=== PATIENT | female | born 1960 | race Caucasian/White ===

== ENCOUNTER → 2017-11-02 08:00 | Outpatient (REF) | payer BC, SELFPAY ==
[2017-10-12 01:54] VITALS: BMI 58.1
[2017-10-16 00:19] VITALS: PULSE 87; RESP 24; O2SAT 100
[2017-11-02 08:26] LABS: Basophils Percent Auto 0.8 % (0-2); Eosinophils Percent Auto 3.1 % (2-4); Hemoglobin 10.9 g/dL (12.0-16.0); Lymphocytes Percent Auto 23.6 % (25-40); Mean Corpuscular HGB Conc 34.1 % (30-36); Mean Corpuscular Hemoglobin 38.4 PG (26-34); Mean Corpuscular Volume 112.5 fL (80-100); Monocytes Percent Auto 8.1 % (3-14); Neutrophils Absolute Auto 8200 /uL (3000-5900); Neutrophils Percent Auto 64.4 % (50-75); Platelet Count 562 X10^3/uL (150-400); Red Blood Cell Count 2.84 X10^6/uL (4.0-5.2); Red Cell Distribution Width 20.2 % (11.6-14.8); White Blood Cell Count 12.7 X10^3/uL (4.5-11.0)
[2017-11-02 08:27] LABS: Add Manual Diff / Slide Review NO
[2017-11-02 08:38] LABS: Alanine Aminotransferase 31 IU/L (9-52); Albumin 4.2 g/dL (3.5-5.0); Albumin Globulin Ratio 0.9 (1.0-2.8); Alkaline Phosphatase 156 U/L (38-126); Aspartate Aminotransferase 45 IU/L (14-36); BUN Creatinine Ratio 20.6 (6-22); Bilirubin Total 1.1 mg/dL (0.2-1.3); Calcium 9.7 mg/dL (8.4-10.2); Estimated Glomerular Filt Rate 28.9 mL/min (>60); Globulin 4.6 g/dL (1.7-4.1); Glucose 109 mg/dL (70-100); HEMOLYSIS < 15 (0-50); Potassium 3.5 mmol/L (3.4-5.1); Sodium 133 mmol/L (137-145); Total Protein 8.8 g/dL (6.3-8.2)
[2017-11-02 08:49] LABS: INR 3.7 (0.9-1.3); Prothrombin Time 39.7 SECONDS (10.1-12.7)
[2017-11-02 09:47] LABS: Anisocytosis 2+
[2017-11-02 09:48] LABS: Macrocytosis 2+
== END ==
LOC: LAB 08:00
PROVIDERS: Family Provider Internal Medicine; PCP Internal Medicine; Visit Provider Internal Medicine
DX: I50.9 Heart failure, unspecified (principal); I48.91 Unspecified atrial fibrillation; N17.9 Acute kidney failure, unspecified
CPT/HCPCS: 36415; 80053; 85025; 85610

== ENCOUNTER → 2017-11-05 16:41 | Outpatient (REF) | payer BC, SELFPAY ==
[2017-10-12 01:54] VITALS: BMI 58.1
[2017-10-16 00:19] VITALS: PULSE 87; RESP 24; O2SAT 100
[2017-11-05 16:48] LABS: INR 1.7 (0.9-1.3); Prothrombin Time 18.3 SECONDS (10.1-12.7)
== END ==
LOC: LAB 16:41
PROVIDERS: Family Provider Internal Medicine; PCP Internal Medicine; Visit Provider Internal Medicine
DX: I48.91 Unspecified atrial fibrillation (principal)
CPT/HCPCS: 85610

== ENCOUNTER → 2017-11-07 08:53 | Outpatient (REF) | payer BC, SELFPAY ==
[2017-10-12 01:54] VITALS: BMI 58.1
[2017-10-16 00:19] VITALS: PULSE 87; RESP 24; O2SAT 100
[2017-11-07 11:10] LABS: INR 1.5 (0.9-1.3); Prothrombin Time 15.9 SECONDS (10.1-12.7)
== END ==
LOC: LAB 08:53
PROVIDERS: Family Provider Internal Medicine; PCP Internal Medicine; Visit Provider Internal Medicine
DX: I48.91 Unspecified atrial fibrillation (principal)
CPT/HCPCS: 36415; 85610

== ENCOUNTER → 2017-11-09 07:44 | Outpatient (REF) | payer BC, SELFPAY ==
[2017-10-12 01:54] VITALS: BMI 58.1
[2017-10-16 00:19] VITALS: PULSE 87; RESP 24; O2SAT 100
[2017-11-09 09:08] LABS: Digoxin 1.2 ng/mL (0.8-2.0)
== END ==
LOC: LAB 07:44
PROVIDERS: Family Provider Internal Medicine; PCP Internal Medicine; Visit Provider Internal Medicine
DX: I48.91 Unspecified atrial fibrillation (principal); Z79.899 Other long term (current) drug therapy
CPT/HCPCS: 36415; 80162

== ENCOUNTER → 2017-11-12 09:05 | Outpatient (REF) | payer BC, SELFPAY ==
[2017-10-12 01:54] VITALS: BMI 58.1
[2017-10-16 00:19] VITALS: PULSE 87; RESP 24; O2SAT 100
[2017-11-12 09:40] LABS: INR 2.6 (0.9-1.3); Prothrombin Time 27.5 SECONDS (10.1-12.7)
[2017-11-12 09:46] LABS: HEMOLYSIS < 15 (0-50)
[2017-11-12 09:47] LABS: BUN Creatinine Ratio 23.9 (6-22); Blood Urea Nitrogen 43 mg/dL (7-17); Carbon Dioxide 37 mmol/L (22-32); Estimated Glomerular Filt Rate 28.9 mL/min (>60); Glucose 115 mg/dL (70-100); Potassium 3.5 mmol/L (3.4-5.1); Sodium 126 mmol/L (137-145)
[2017-11-12 09:56] LABS: Add Manual Diff / Slide Review NO; Basophils Percent Auto 0.6 % (0-2); Eosinophils Percent Auto 0.9 % (2-4); Hematocrit 34.5 % (36-46); Hemoglobin 12.1 g/dL (12.0-16.0); Lymphocytes Percent Auto 21.3 % (25-40); Mean Corpuscular Volume 105.8 fL (80-100); Monocytes Percent Auto 6.5 % (3-14); Neutrophils Absolute Auto 11400 /uL (3000-5900); Neutrophils Percent Auto 70.7 % (50-75); Platelet Count 409 X10^3/uL (150-400); Red Blood Cell Count 3.26 X10^6/uL (4.0-5.2); Red Cell Distribution Width 19.9 % (11.6-14.8); White Blood Cell Count 16.1 X10^3/uL (4.5-11.0)
[2017-11-12 11:38] LABS: Chloride 73 mmol/L (98-107)
== END ==
LOC: LAB 09:05
PROVIDERS: Family Provider Internal Medicine; PCP Internal Medicine; Visit Provider Internal Medicine
DX: N19 Unspecified kidney failure (principal); D72.829 Elevated white blood cell count, unspecified
CPT/HCPCS: 80048; 85025; 85610

== ENCOUNTER → 2018-05-16 14:51 | Outpatient (REF) | payer BC, SELFPAY ==
[2017-10-12 01:54] VITALS: BMI 58.1
[2017-10-16 00:19] VITALS: PULSE 87; RESP 24; O2SAT 100
[2018-05-16 15:18] LABS: BUN Creatinine Ratio 17.5 (6-22); Blood Urea Nitrogen 14 mg/dL (7-17); Calcium 9.6 mg/dL (8.4-10.2); Carbon Dioxide 29 mmol/L (22-32); Chloride 101 mmol/L (98-107); Estimated Glomerular Filt Rate > 60.0 mL/min (>60); Glucose 103 mg/dL (70-100); HEMOLYSIS < 15 (0-50); Potassium 4.2 mmol/L (3.4-5.1); Sodium 141 mmol/L (137-145)
== END ==
LOC: LAB 14:51
PROVIDERS: Family Provider Internal Medicine; PCP Internal Medicine; Visit Provider Internal Medicine
DX: E11.9 Type 2 diabetes mellitus without complications (principal); I48.2 Chronic atrial fibrillation
CPT/HCPCS: 80048

== ENCOUNTER → 2018-08-20 11:27 | Outpatient (CLI) | payer BC, SELFPAY ==
[2017-10-12 01:54] VITALS: BMI 58.1
[2017-10-16 00:19] VITALS: PULSE 87; RESP 24; O2SAT 100
--- NOTE | 2018-08-20 | DI.MG.S_ITS ---
BILATERAL DIGITAL SCREENING MAMMOGRAM 3D/2D WITH CAD: 08/20/2018 CLINICAL: Routine screening. Family history of breast cancer. Comparison is made to exams dated: 04/22/2011 mammogram and 10/28/2009 mammogram - [facility]. There are scattered fibroglandular elements in both breasts. Current study was also evaluated with a Computer Aided Detection (CAD) system. No significant masses, calcifications, or other findings are seen in either breast. There has been no significant interval change. IMPRESSION: NEGATIVE There is no mammographic evidence of malignancy. A 1 year screening mammogram is recommended. This exam was interpreted at Station ID: [id number]. NOTE: For mammograms, a report in lay terms will be sent to the patient. Approximately 15% of breast malignancies will not be visualized mammographically. In the management of a palpable breast mass, a negative mammogram must not discourage biopsy of a clinically suspicious lesion. Electronically Signed By: Tati [email or web address]/isma:08/20/2018 12:06:42 copy to: Ivette Horvath letter sent: Normal Exam ACR BI-RADS Category 1: Negative 3341F
== END ==
PROVIDERS: Family Provider Internal Medicine; PCP Internal Medicine; Visit Provider Internal Medicine
DX: Z12.31 Encounter for screening mammogram for malignant neoplasm of breast (principal); Z80.3 Family history of malignant neoplasm of breast
CPT/HCPCS: 77063; 77067

== ENCOUNTER 2019-08-05 06:30 | Day surgery (SDC) | payer MEDICARE, BC, SELFPAY ==
[2017-10-12 01:54] VITALS: BMI 58.1
[2017-10-16 00:19] VITALS: PULSE 87; RESP 24; O2SAT 100
[2019-08-04 12:28] VITALS: BMI 44.6
[2019-08-05 07:09] VITALS: BMI 44.6
[2019-08-05 07:14] VITALS: BP 139/89; PULSE 60; RESP 15; TEMP 36.8; O2SAT 60
[2019-08-05] MEDS: LACTATED RINGERS 1,000 ML 42 ML IV (07:29)
--- NOTE | 2019-08-05 09:03 | SUR.PREOP ---
Dr. Salamanca at bedside, notified patient took Eliquis today. Surgery cancelled per MD. Patient notified and agreeable. IV discontinued. Patient dressed independently.
== END 2019-08-05 07:00 | disposition home or self-care (01) ==
PROVIDERS: Family Provider Internal Medicine; PCP Internal Medicine; Referring Provider Surgery; Visit Provider Surgery
DX: K43.9 Ventral hernia without obstruction or gangrene (principal); Z53.09 Procedure and treatment not carried out because of other contraindication
CPT/HCPCS: 49652; J0330; J1100; J2250; J2405; J2704; J3010

== ENCOUNTER 2019-08-12 06:25 | Day surgery (SDC) | payer BC, MEDICARE, SELFPAY ==
[2017-10-12 01:54] VITALS: BMI 58.1
[2017-10-16 00:19] VITALS: PULSE 87; RESP 24; O2SAT 100
[2019-08-07 15:14] VITALS: BMI 44.6
[2019-08-12] VITALS (15 sets, daily range): BP systolic 129–188; BP diastolic 77–109; PULSE 60–81; RESP 10–20; TEMP 36–36.8; O2SAT 92–100; BMI 44.6
[2019-08-12] MEDS: LACTATED RINGERS 1,000 ML 100 ML IV ×2 (07:23→08:42)
--- NOTE | 2019-08-12 07:36 | PM.PREOP ---
Pre-operative Note Interval Note History & Physical reviewed/Exam performed by Physician: Yes Changes to H&P: No
[2019-08-12] MEDS: CEFAZOLIN 2 GM/100 ML FROZ.PIGGY IV (07:44)
--- NOTE | 2019-08-12 08:09 | SUR.OPER ---
Supine on padded OR bed, head on pillow, safety belt at thigh, left arm padded and tucked at side. Right arm secured on padded arm oard <90 degrees abduction. Legs uncrossed. Padded footboard in place. Tape over blanket to secure lower legs.
[2019-08-12] MEDS: BUPIVACAINE 0.25% (PF) VIAL 30 ML INJ (08:29)
--- NOTE | 2019-08-12 09:42 | PM.OP.1 ---
Operative Date/Time/Diagnoses Date of procedure: 08/12/19 Time of procedure: 09:42 Pre-op diagnosis: Ventral hernia Post-op diagnosis: same Procedure & Clinicians Procedure: Laparoscopic ventral hernia repair with mesh Same procedure as scheduled: Yes Indications: Symptomatic ventral hernia Surgeon: Ney Salamanca Anesthesia Type: General Operative Notes Findings: A Grenadian-cheese ventral hernia defect of approximately 15 x 15 cm Specimen(s): none sent Estimated Blood Loss (mL): 15 Procedure in detail: Patient was brought to the operating room placed supine on the table. Bilateral lower extremity compression devices were applied. They received Ancef prior to skin incision. General anesthesia was induced and she was intubated with an endotracheal tube. A cutdown technique was used in the left upper quadrant. Incision was made the subcutaneous tissues were divided and the fascia was identified grasped and incised sharply. The abdomen was entered atraumatically. 12 mm balloon trocar was then placed in the abdomen. Pneumoperitoneum was established. Two 5 mm working ports were placed along the left side of the abdomen. The hernia was identified in the midline and incarcerated omentum was then reduced into the abdomen out of the hernia defect. The hernia defect was Grenadian cheese in appearance and the extent of it measured with spinal needles was 15 x 20 cm. A 25 cm x 20 cm mesh was then selected provide adequate overlap in all directions. Ethibond 0 suture was secured to all 4 quadrants. These were then clipped using the clip mechanical supervisor and then the mesh was rolled snugly and then placed into the abdomen. The sutures were then grasped and elevated using Collin Silva device beginning with the skin superior most suture moving clockwise. The mesh was then suspended over the hernia defect and the sutures were tied. Mesh was then tacked circumferentially with the AbsorbaTack. Hemostasis was inspected. The abdomen was desufflated, the anterior fascia of the 10 mm trocar site was closed with [id number] 0 Vicryl suture. The skin incisions were closed with 4 0 Monocryl followed by the application of Dermabond. Complications: none Post-operative Condition: stable Disposition: same day surgery
[2019-08-12] MEDS: fentaNYL 100 MCG/2 ML INJ IV ×4 (09:55→11:15)
--- NOTE | 2019-08-12 10:05 | SUR.PHASEI ---
Gave ondanestron for c/o nausea and IV fentanyl for c/o pain. BG 146. Surgical sites CDI.
[2019-08-12] MEDS: OXYCODONE/ACETAMINOPHEN 5/325 TABLET 1 TAB PO ×2 (10:27→11:22)
[2019-08-12] MEDS: ONDANSETRON 4 MG/2 ML INJ IV (10:37)
--- NOTE | 2019-08-12 11:44 | SUR.PHASEI ---
Notified Dr Jennings patient is very hypertensive. Patient stated that she cut back on her BP medication and will take remaining amount when she gets home. Patient BP on admit was high at 174/101.
[2019-08-12] MEDS: METOCLOPRAMIDE 10 MG/2 ML INJ IV (12:17)
--- NOTE | 2019-08-12 12:24 | SUR.PHASEII ---
Assumed care from Emily. Pt now nauseated, Dr. Jennings made aware, order for Reglan recieved, pt medicated. Pt then needing to go to [facility], steady when up with S[facility].
== END 2019-08-12 13:00 | disposition home or self-care (01) ==
PROVIDERS: Family Provider Internal Medicine; PCP Internal Medicine; Referring Provider Surgery; Visit Provider Surgery
PROC: 0WQF4ZZ Repair Abdominal Wall, Percutaneous Endoscopic Approach (ICD-10-PCS; CPT 49652; principal; 2019-08-12 07:45)
DX: K43.9 Ventral hernia without obstruction or gangrene (principal)
CPT/HCPCS: 49652; C1781; J0690; J2405; J2765; J3010

== ENCOUNTER → 2020-08-18 08:19 | Outpatient (CLI) | payer BC, MEDICARE, SELFPAY ==
[2017-10-12 01:54] VITALS: BMI 58.1
[2017-10-16 00:19] VITALS: PULSE 87; RESP 24; O2SAT 100
--- NOTE | 2020-08-18 08:24 | DI.MG.S_ITS ---
BILATERAL DIGITAL SCREENING MAMMOGRAM 3D/2D WITH CAD: 08/18/2020 CLINICAL: Routine screening. Family history of breast cancer. Comparison is made to exams dated: 08/20/2018 mammogram, 04/22/2011 mammogram, and 10/28/2009 mammogram - [facility]. There are scattered fibroglandular elements in both breasts. Current study was also evaluated with a Computer Aided Detection (CAD) system. No significant masses, calcifications, or other findings are seen in either breast. There has been no significant interval change. IMPRESSION: NEGATIVE There is no mammographic evidence of malignancy. A 1 year screening mammogram is recommended. This exam was interpreted at Station ID: [id number]. NOTE: For mammograms, a report in lay terms will be sent to the patient. Approximately 15% of breast malignancies will not be visualized mammographically. In the management of a palpable breast mass, a negative mammogram must not discourage biopsy of a clinically suspicious lesion. Electronically Signed By: Rene Thacker M.D., jr/isma:08/18/2020 08:45:10 copy to: Ivette Horvath letter sent: Normal Exam ACR BI-RADS Category 1: Negative 3341F
== END ==
PROVIDERS: Family Provider Internal Medicine; PCP Internal Medicine; Referring Provider Internal Medicine; Visit Provider Internal Medicine
DX: Z12.31 Encounter for screening mammogram for malignant neoplasm of breast (principal); Z80.3 Family history of malignant neoplasm of breast
CPT/HCPCS: 77063; 77067

== ENCOUNTER → 2020-08-18 08:51 | Outpatient (CLI) | payer BC, MEDICARE, SELFPAY ==
[2017-10-12 01:54] VITALS: BMI 58.1
[2017-10-16 00:19] VITALS: PULSE 87; RESP 24; O2SAT 100
[2020-08-18 09:39] LABS: BUN Creatinine Ratio 16.3 (6-22); Blood Urea Nitrogen 15 mg/dL (7-17); Calcium 9.7 mg/dL (8.4-10.2); Carbon Dioxide 35 mmol/L (22-32); Chloride 91 mmol/L (98-107); Estimated Glomerular Filt Rate > 60.0 mL/min (>60); Glucose 143 mg/dL (80-110); HEMOLYSIS < 15 (0-50); Potassium 3.2 mmol/L (3.4-5.1); Sodium 134 mmol/L (137-145)
== END ==
PROVIDERS: Family Provider Internal Medicine; PCP Internal Medicine; Referring Provider Internal Medicine Cardiovascular Disease; Visit Provider Internal Medicine Cardiovascular Disease
DX: I48.91 Unspecified atrial fibrillation (principal); I10 Essential (primary) hypertension
CPT/HCPCS: 36415; 80048

== ENCOUNTER → 2020-09-03 08:16 | Outpatient (CLI) | payer BC, MEDICARE, SELFPAY ==
[2017-10-12 01:54] VITALS: BMI 58.1
[2017-10-16 00:19] VITALS: PULSE 87; RESP 24; O2SAT 100
[2020-09-03] MEDS: COVID-19 VACC #1, MRNA(MOD) 100 MCG/0.5 ML VIAL IM (08:29)
== END ==
PROVIDERS: Family Provider Internal Medicine; PCP Internal Medicine; Visit Provider Internal Medicine
DX: Z23 Encounter for immunization (principal)
CPT/HCPCS: 0011A; 91301

== ENCOUNTER → 2020-10-01 09:56 | Outpatient (CLI) | payer BC, MEDICARE, SELFPAY ==
[2017-10-12 01:54] VITALS: BMI 58.1
[2017-10-16 00:19] VITALS: PULSE 87; RESP 24; O2SAT 100
[2020-10-01] MEDS: COVID-19 VACC #2, MRNA(MOD) 100 MCG/0.5 ML VIAL IM (10:06)
== END ==
PROVIDERS: Family Provider Internal Medicine; PCP Internal Medicine; Visit Provider Internal Medicine
DX: Z23 Encounter for immunization (principal)
CPT/HCPCS: 0012A; 91301

== ENCOUNTER → 2021-03-16 10:35 | Outpatient (CLI) | payer MEDICARE, SELFPAY ==
[2017-10-12 01:54] VITALS: BMI 58.1
[2017-10-16 00:19] VITALS: PULSE 87; RESP 24; O2SAT 100
[2021-03-16 14:53] LABS: COVID19 -Nasal RAPID Negative (Negative)
== END ==
PROVIDERS: Family Provider Internal Medicine; PCP Internal Medicine; Visit Provider Obstetrics & Gynecology
DX: Z20.822 Contact with and (suspected) exposure to COVID-19 (principal); Z01.812 Encounter for preprocedural laboratory examination
CPT/HCPCS: 87635

== ENCOUNTER 2021-03-17 09:04 | Day surgery (SDC) | payer MEDICARE, SELFPAY ==
[2017-10-12 01:54] VITALS: BMI 58.1
[2017-10-16 00:19] VITALS: PULSE 87; RESP 24; O2SAT 100
[2021-03-09 08:03] VITALS: BMI 45.4
[2021-03-17] VITALS (7 sets, daily range): BP systolic 88–121; BP diastolic 59–77; PULSE 60–63; RESP 12–20; TEMP 35.7–36.8; O2SAT 93–97; BMI 45.4
--- NOTE | 2021-03-17 | PATH_ITS ---
[facility] Accession Number: [id number] . 01 Material submitted: . endometrium - ENDOMETRIAL CURETTINGS . 02 Diagnosis: Endometrial Curettings: Portions of secretory endometrium; negative for glandular hyperplasia, cytologic atypia, or malignancy. Some endometrial fragments demonstrate prominent vessels, suggestive of polyp, if clinical and imaging studies are concordant. Avulsed portions of squamous mucosa with focal cytologic atypia suggestive of, but not diagnostic of, low-grade squamous intraepithelial lesion / RIVKA-1. MRV 03/21/2021 1112 Local . 02 Electronically signed: . Jasmine Fields MD, Pathologist NPI- [id number] . 01 Gross description: . ENDOMETRIAL CURETTINGS: Received in formalin are multiple fragment(s) of fatima, soft tissue measuring 3.0 x 1.1 x 0.3 cm in aggregate submitted entirely in 1 cassette(s) /NATALIE 03/18/2021 0346 Local . 02 Pathologist provided ICD-10: N95.0, N85.00 . 02 CPT . 563394 Performed at: 01 [facility] [address], [place], [place] [id number] MD Adalid Garvey MD Phone: [phone] Performed at: 02 [facility] [address] [place], [place] [id number] MD Yas Ramsey MD Phone: [phone]
[2021-03-17] MEDS: LACTATED RINGERS 1,000 ML 100 ML IV (09:55)
--- NOTE | 2021-03-17 11:29 | SUR.OPER ---
Lithotomy on padded OR bed, head on pillow, arms secured on padded arm boards at <90 degrees abduction. Legs secured in padded yellow fins stirrups.
--- NOTE | 2021-03-17 11:33 | PM.HP.1 ---
History of Present Illness History of Present Illness Date Patient Seen: 03/17/21 Time Patient Seen: 11:33 Chief complaint: D&C Narrative: Patient is a 60-year-old 0 with postmenopausal bleeding and endometrial hyperplasia. She has a 17.6 mm endometrial lining. She presents for a D&C. Patient History Medical History (Updated 03/17/21 @ 00:00 by ) Afib Atrial fibrillation, transient Chronic renal insufficiency Diabetes type 2, controlled ETOH abuse Fracture of distal end of fibula Heart failure Morbid obesity Pacemaker PEA (Pulseless electrical activity) (10/16/17) Sleep apnea in adult Surgical History (Updated 03/09/21 @ 08:34 by Daisha Arredondo RN) History of third molar tooth extraction Hx of ventral hernia repair (08/12/19) Status post colonoscopy Status post surgery (07/26/10) Status post surgery (12/07/14) Family & Social History Social History: household members spouse Tobacco & Substance use: Tobacco type cannabis/marijuana Smoking Status Current every day smoker alcohol intake current alcohol intake frequency a few times a week Substance Use Type marijuana Meds Home Medications and Allergies Home Medications Medication Instructions Recorded Confirmed Type paroxetine HCl 20 mg tablet (Paxil) 30 mg PO QDAY #0 11/19/16 03/17/21 History metoprolol tartrate 50 mg tablet 50 mg PO DAILY tab 07/11/18 03/17/21 History apixaban 5 mg tablet (Eliquis) 5 mg PO BID 08/05/19 03/17/21 History digoxin 250 mcg (0.25 mg) tablet 250 mcg PO DAILY 08/05/19 03/17/21 History medroxyprogesterone 10 mg tablet 10 mg PO DAILY #100 tab 03/03/21 03/17/21 Rx (Provera) atorvastatin 10 mg PO DIRECTED 03/17/21 03/17/21 History chlorthalidone 25 mg tablet 25 mg PO DIRECTED 03/17/21 03/17/21 History Allergies Allergy/AdvReac Type Severity Reaction Status Date / Time ketamine AdvReac Unknown hallucinati Verified 08/12/19 07:04 ons Exam Vital Signs (past 8 hours): - 03/17/21 06:19 Temperature 96.3 F L Pulse Rate 60 Respiratory Rate 18 Blood Pressure 121/77 Pulse Oximetry 96 Oxygen Delivery Method Room Air Narrative Exam Narrative: HEENT: No thyromegaly, no anterior cervical or supraclavicular lymphadenopathy. Lungs:Clear to auscultation bilaterally, no wheezes. Cardiovascular: Regular rate and rhythm, no murmurs, rubs, or gallops. Abdomen: Well-healed scars. No hepatosplenomegaly. No masses palpable. External genitalia: Normal Vagina: Normal Cervix: Normal Bimanual exam: 8 Week size anteverted uterus. Mobile. No adnexal masses or tenderness. Assessment & Plan Assessment & Plan narrative: Assessment: 60-year-old 0 with postmenopausal bleeding and endometrial hyperplasia Unable to tolerate endometrial biopsy in the office Plan: D&C The risks, benefits, and alternatives to the procedure were explained to the patient. The risks including bleeding, infection, and uterine perforation. She understands these risks and agrees to proceed. A full par Q was held and consent form was signed. COVID-19 COVID-19 status: Negative Result date/Date tested (Pos, Neg/Pending): 03/16/21 Time Spent With Patient Time with patient: less than 30 minutes Critical Care time: I spent a total of [] minutes of critical care time on this patient's care today; this time is exclusive of procedural time.
--- NOTE | 2021-03-17 11:37 | PM.PREOP ---
Pre-operative Note COVID-19 COVID-19 status: Negative Result date/Date tested (Pos, Neg/Pending): 03/16/21 Interval Note History & Physical reviewed/Exam performed by Physician: Yes Changes to H&P: No H&P completed within 30 days and has changed as indicated here:: 03/17/21
--- NOTE | 2021-03-17 12:14 | PM.GYNOP.1 ---
Operative Date/Time/Diagnoses Date of procedure: 03/17/21 Time of procedure: 12:14 Pre-op diagnosis: Postmenopausal bleeding Endometrial hyperplasia Post-op diagnosis: same Procedure & Clinicians Procedure: Procedures Operation Date: 03/17/21 10:45 Actual Procedure Side Surgeon p Dilation and Curettage Not Applicable Ivette Horvath MD Indications: Postmenopausal bleeding Endometrial hyperplasia Surgeon: Ivette Horvath Anesthesia Type: General (LMA) Operative Notes Findings: 8 week size anteverted uterus Large amount of endometrial curetting Closure Type: not applicable Specimen(s): endometrial curettings Estimated blood loss (mL): 5 Blood products transfused: none Procedure in detail: After informed consent was obtained, the patient was taken to the operating room where she was placed in the dorsal supine position. After adequate LMA general anesthesia was achieved, she was placed in the dorsal lithotomy position, and prepped and draped in the usual sterile fashion. A time-out was performed. A bivalve speculum was placed into the vagina and the anterior lip of the cervix was grasped with a single-tooth tenaculum. The cervical os was sequentially dilated until the curette could pass easily into the endometrial cavity. Gentle curettage was performed circumferentially yielding a large amount of endometrial curettings. The instruments were removed from the uterus. The single-tooth tenaculum was removed from the anterior lip of the cervix. The bivalve speculum was removed from the vagina. Sponge, lap, and instrument counts were correct x2. The patient tolerated the procedure well, and was taken to PACU in stable condition. Complications: none Post-operative Condition: stable Disposition: PACU Plan for aftercare: Home after recovery
--- NOTE | 2021-03-17 12:32 | SUR.PHASEI ---
Pt sitting up now drinking water without problems, denies pain or nausea. Resting comfortably sitting up in bed
--- NOTE | 2021-03-22 13:36 | PC.NURSE ---
Son, Samson, brought pt back after discharge when they were at the restaurant and Desire couldn't feel her legs. She was unable to stand or walk. I met them at the entrance to the hospital with a wheelchair and she was able to transfer from the car seat to the wheelchair with assistance and weightbearing but her right leg/knee was weak and ready to buckle. After a safe transfer I brought her back to recovery room and with one person assistance she was able to transfer to the chair. She can weight bear but no strength and numbness in her both legs. 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 She got herself in a comfortable position on her side, left side down and right hip up. BP 149/69, P105, 100% oxygen sat on RA. Pt denies pain. Explained to her son and to patient that this is a normal occurrence but not often. Updated son Samson after Dr. Thapa saw Desire, about 5 minutes after she arrived back in recovery. She reports that she is comfortable and we are checking on her frequently.
== END 2021-03-17 13:02 | disposition home or self-care (01) ==
PROVIDERS: Family Provider Internal Medicine; PCP Internal Medicine; Referring Provider Obstetrics & Gynecology; Visit Provider Obstetrics & Gynecology
PROC: (CPT 58120; principal; 2021-03-17 10:45)
DX: N95.0 Postmenopausal bleeding (principal); N85.00 Endometrial hyperplasia, unspecified; Z95.0 Presence of cardiac pacemaker; E11.9 Type 2 diabetes mellitus without complications; I48.91 Unspecified atrial fibrillation; E66.01 Morbid (severe) obesity due to excess calories; I50.9 Heart failure, unspecified
CPT/HCPCS: 58120; J1885; J2405; J2704; J3010

== ENCOUNTER 2021-04-26 18:39 | Emergency (ER) | payer MEDICARE, SELFPAY ==
[2017-10-12 01:54] VITALS: BMI 58.1
[2017-10-16 00:19] VITALS: PULSE 87; RESP 24; O2SAT 100
[2021-04-26 18:45] VITALS: BP 132/75; PULSE 60; RESP 15; TEMP 36.1; TEMP 36.4; O2SAT 98; BMI 45.2
--- NOTE | 2021-04-26 18:47 | DI.CT.S_ITS ---
PROCEDURE: CT HEAD/BRAIN WO CON INDICATIONS: Trauma TECHNIQUE: Noncontrast 4.5 mm thick angled axial sections acquired from the foramen magnum to the vertex, with coronal and sagittal reformats. For radiation dose reduction, the following was used: automated exposure control, adjustment of mA and/or kV according to patient size. COMPARISON: None. FINDINGS: Image quality: Excellent. CSF spaces: Basal cisterns are patent. No extra-axial fluid collections. The ventricles are symmetric in size and shape. Brain: No intracranial bleeds or masses. There is cerebral volume loss for age, with resultant ventricular and sulcal prominence. There are periventricular and deep white matter chronic small vessel ischemic changes. There is intracranial internal carotid artery atherosclerosis. Skull and face: Calvarium and visualized facial bones appear intact, without suspicious lesions. Small right occipital scalp hematoma noted. Sinuses: Visualized sinuses and mastoids are clear. IMPRESSION: Small right occipital scalp hematoma without skull fracture or intracranial hemorrhage. Approved by: Yo Thurman M.D. on 04/26/2021 at 18:53
--- NOTE | 2021-04-26 18:47 | DI.RAD.S_ITS ---
PROCEDURE: XR CHEST 1V INDICATIONS: fell backwards, hit head, lac back of head TECHNIQUE: One view of the chest was acquired. COMPARISON: [facility], CR, XR CHEST 1V, 10/15/2017, 19:13. FINDINGS: Surgical changes and devices: Left-sided single lead pacemaker noted. Lungs and pleura: Lungs are clear. No pleural effusions or pneumothorax. Mediastinum: Heart size enlarged. No vascular congestion present. Bones and chest wall: No suspicious bony lesions. Overlying soft tissues appear unremarkable. IMPRESSION: Cardiomegaly and pacemaker without vascular congestion. No pneumothorax. Approved by: Yo Thurman M.D. on 04/26/2021 at 18:49
--- NOTE | 2021-04-26 18:47 | DI.CT.S_ITS ---
PROCEDURE: CT CERVICAL SPINE WO CON INDICATIONS: Trauma TECHNIQUE: Noncontrast 3 mm thick sections acquired from the skull base to the T4 level. Sagittal and coronal reformats were then constructed. For radiation dose reduction, the following was used: automated exposure control, adjustment of mA and/or kV according to patient size. COMPARISON: None. FINDINGS: Image quality: Excellent. Bones: No fractures or dislocations. Visualized superior ribs are intact. Reversal of the normal cervical lordosis may be related to muscle spasm. Degenerative disc space narrowing and anterior osteophytes noted in the mid to lower cervical spine with hypertrophic facet joints. Moderate disc space narrowing noted at C3-4, C4-5 with moderate to severe central stenosis at C5-6. Associated moderate foraminal stenosis is greater on the right. Soft tissues: Prevertebral soft tissues are normal in thickness. No paravertebral hematomas. No apical pneumothoraces. IMPRESSION: 1. No evidence of fracture or traumatic malalignment. 2. Reversal normal cervical lordosis may related to muscle spasm or positioning. 3. Multilevel degenerative disc disease and arthropathy results in varying degrees of central and foraminal stenosis including moderate to severe central stenosis at C5-6. Approved by: Yo Thurman M.D. on 04/26/2021 at 18:57
--- NOTE | 2021-04-26 18:48 | ED.TRAUMA ---
HPI - Trauma General Chief Complaint: Fall Stated Complaint: Head Injury on Eliquis Time Seen by Provider: 04/26/21 18:46 Source: patient and EMS Mode of arrival: EMS Limitations: no limitations History of Present Illness HPI narrative: This is a 60-year-old female who states that she fell backwards and her friends bathroom, hit her head on soap kate or similar object in her bathtub. Patient struck the back of her head, there is a laceration and it bled quite a bit. Patient states she did not get knocked out. She remembers falling. She states she has had 5 alcohol drinks today starting at 2:00 p.m. she states her head hurts but denies pain anywhere else at this time. No neck pain, chest pain, no nausea or vomiting. No other GI or urinary symptoms. No numbness, tingling or weakness. Patient does take Eliquis for atrial fibrillation, CHF, dyslipidemia, obesity and sleep apnea. She has a pacemaker in place. She did have a D&C March 17 for intermittent vaginal bleeding. She does smoke, she drinks alcohol, occasional marijuana. Primary care is Dr. Steiner. Related Data Home Medications Medication Instructions Recorded Confirmed paroxetine HCl 20 mg tablet (Paxil) 30 mg PO QDAY #0 11/19/16 03/17/21 metoprolol tartrate 50 mg tablet 50 mg PO DAILY tab 07/11/18 03/17/21 apixaban 5 mg tablet (Eliquis) 5 mg PO BID 08/05/19 03/17/21 digoxin 250 mcg (0.25 mg) tablet 250 mcg PO DAILY 08/05/19 03/17/21 atorvastatin 10 mg PO DIRECTED 03/17/21 03/17/21 chlorthalidone 25 mg tablet 25 mg PO DIRECTED 03/17/21 03/17/21 Previous Rx's Medication Instructions Recorded medroxyprogesterone 10 mg tablet 10 mg PO DAILY #100 tab 04/13/21 (Provera) Allergies Allergy/AdvReac Type Severity Reaction Status Date / Time ketamine AdvReac Unknown hallucinati Verified 04/26/21 18:50 ons Review of Systems Review of Systems ROS Unobtainable: All systems reviewed & are unremarkable except as noted in HPI and below Patient History Medical History Afib Atrial fibrillation, transient Chronic renal insufficiency Diabetes type 2, controlled ETOH abuse Fracture of distal end of fibula Heart failure Morbid obesity Pacemaker PEA (Pulseless electrical activity) (10/16/17) Sleep apnea in adult Surgical History History of third molar tooth extraction Hx of ventral hernia repair (08/12/19) Status post colonoscopy Status post surgery (07/26/10) Status post surgery (12/07/14) Social History household members: spouse Smoking Status: Current every day smoker alcohol intake: current Smoking Status: Current every day smoker alcohol intake frequency: a few times a week Substance Use Type: marijuana Exam Narrative Exam Narrative: GEN: Patient appears in mild distress. HEAD: Laceration posterior scalp, no raccoon/Soler sign. NECK: Nontender, painless range of motion, trachea midline, patient is morbidly obese making placement of C-collar quite difficult. Positive Nexus criteria, there is no midline line tenderness, distracting injury, altered mental status, neuro deficit, positive for recent EtOH. EYES: PERRLA, EOMI ENT: External inspection normal, trachea is midline, TM's are normal no hemotypanum, Nares are clear, no septal hematoma, no dental or oral injury, airway is normal and with normal occlusion, No bony tenderness RESP: Chest is nontender and has symmetric movement, no ecchymosis, breath sounds are normal no crackles, wheezes or rales CVS: Heart sounds are normal, no murmur noted, No JVD. ABG/GI: Nontender, soft, normal bowel sounds, no distention, no organomegaly, pelvic rock is negative NEURO: Oriented AOx3, neuro is grossly intact, sensation and motor is normal all 4 extremities moving, cranial nerves II through XII are intact, GCS is 15 PSYCH: Normal mood and affect SKIN: Intact, warm and dry, no crepitus and without decubitus BACK: No CVA tenderness, no vertebral tenderness, no step-off's, no crepitus EXT: Atraumatic, hips are nontender, no pedal edema, normal color and temperature, normal range of motion of extremities with normal tendon exam, 2+ pulses in all four extremities Initial Vital Signs Initial Vital Signs: Vital Signs Temperature 97.0 F L 04/26/21 18:45 Pulse Rate 60 04/26/21 18:45 Respiratory Rate 15 04/26/21 18:45 Blood Pressure 132/75 04/26/21 18:45 Pulse Oximetry 98 04/26/21 18:45 Procedures Laceration Repair Laceration 1: Time of procedure: 21:14 Site: scalp Size (cm): 0.25 Description: irregular Depth: simple, single layer Local Anesthetic: lidocaine 1% Amount of anesthesia used (mL): 2 Pre-repair: wound explored, irrigated extensively and deep structures intact Skin layer closed with: uzma (#5) Size (cm): 3-0 Number of sutures: 1 Technique: simple, interrupted Scores GCS Fredis coma scale eye opening: Spontaneous [place] coma scale verbal response: Orientated Fredis coma scale motor response: Obey commands [place] coma scale total score: 15 Course Orders Ordered: Discontinued Medications Diphtheria/Tetanus/Acell Pertussis (Tet,Diph,Pertuss(Acell),Vac/Pf 0.5 Ml Syringe) 0.5 ml IM .ONCE ONE Stop: 04/26/21 18:52 Last Admin: 04/26/21 19:29 Dose: 0.5 ml Documented by: STEPHROYLE Lidocaine/Sodium Bicarbonate (Lido 1%/Sod Bicarb 8.4% (10ml) 10 Ml Syringe) 10 ml INJ NOW ONE Stop: 04/26/21 19:01 Last Admin: 04/26/21 19:52 Dose: 10 ml Documented by: DEANDRAYLE Potassium Chloride (Potassium Chloride 20 Meq Tab) 40 meq PO NOW ONE Stop: 04/26/21 19:45 Last Admin: 04/26/21 19:56 Dose: 40 meq Documented by: DEANDRAYLE Potassium Chloride (Potassium Chloride 20 Meq/15 Ml Udc) 40 meq PO NOW ONE Stop: 04/26/21 21:10 Last Admin: 04/26/21 21:31 Dose: 40 meq Documented by: CONCEPCIÓN Vital Signs Vital signs: Vital Signs - 8 hr 04/26/21 18:45 04/26/21 19:07 Temperature 97.6 F Pulse Rate 60 60 Respiratory Rate 15 Blood Pressure 132/75 119/67 Pulse Oximetry 98 97 MDM - Trauma Lab Data Result diagrams: 04/26/21 19:06 04/26/21 19:06 Labs: Lab Results 04/26/21 04/26/21 04/26/21 Range/Units 19:06 19:06 19:06 WBC 17.2 H (4.5-11.0) X10^3/uL RBC 3.33 L (4.0-5.2) X10^6/uL Hgb 12.1 (12.0-16.0) g/dL Hct 34.9 L (36-46) % MCV 104.9 H (80-100) fL MCH 36.4 H (26-34) PG MCHC 34.7 (30-36) % RDW 15.6 H (11.6-14.8) % Plt Count 447 H (150-400) X10^3/uL Neut % (Auto) 75.4 H (50-75) % Lymph % (Auto) 18.2 L (25-40) % [place] % (Auto) 4.4 (3-14) % Eos % (Auto) 1.2 L (2-4) % Baso % (Auto) 0.8 (0-2) % Neut # (Auto) 47529 H (7769-3090) /uL Lymph # (Auto) 3100 (4908-2231) /uL [place] # (Auto) 800 (0-900) /uL Eos # (Auto) 200 (0-450) /uL Baso # (Auto) 100 (0-100) /uL APTT 34 D (26.4-36.2) SECONDS Sodium 128 L (137-145) mmol/L Potassium 2.4 L* (3.4-5.1) mmol/L Chloride 83 L (98-107) mmol/L Carbon Dioxide 32 (22-32) mmol/L BUN 13 (7-17) mg/dL Creatinine 0.72 (0.52-1.04) mg/dL Estimated GFR > 60.0 (>60) mL/min BUN/Creatinine Ratio 18.1 (6-22) Glucose 142 H (80-110) mg/dL Calcium 9.4 (8.4-10.2) mg/dL Total Bilirubin 0.6 (0.2-1.3) mg/dL AST 24 (14-36) IU/L ALT 14 (<35) IU/L Alkaline Phosphatase 96 (38-126) U/L Total Protein 7.8 (6.3-8.2) g/dL Albumin 4.4 (3.5-5.0) g/dL Globulin 3.4 (1.7-4.1) g/dL Albumin/Globulin Ratio 1.3 (1.0-2.8) Lipase 89 (23-300) U/L Urine RBC (0-5/HPF) Urine WBC (0-5/HPF) Urine Bacteria (None) Ur Culture Indicated? Ethyl Alcohol 185 H ( - 10) mg/dL Blood Type Antibody Screen 04/26/21 04/26/21 Range/Units 19:06 19:28 WBC (4.5-11.0) X10^3/uL RBC (4.0-5.2) X10^6/uL Hgb (12.0-16.0) g/dL Hct (36-46) % MCV (80-100) fL MCH (26-34) PG MCHC (30-36) % RDW (11.6-14.8) % Plt Count (150-400) X10^3/uL Neut % (Auto) (50-75) % Lymph % (Auto) (25-40) % [place] % (Auto) (3-14) % Eos % (Auto) (2-4) % Baso % (Auto) (0-2) % Neut # (Auto) (1532-4775) /uL Lymph # (Auto) (2302-2973) /uL [place] # (Auto) (0-900) /uL Eos # (Auto) (0-450) /uL Baso # (Auto) (0-100) /uL APTT (26.4-36.2) SECONDS Sodium (137-145) mmol/L Potassium (3.4-5.1) mmol/L Chloride (98-107) mmol/L Carbon Dioxide (22-32) mmol/L BUN (7-17) mg/dL Creatinine (0.52-1.04) mg/dL Estimated GFR (>60) mL/min BUN/Creatinine Ratio (6-22) Glucose (80-110) mg/dL Calcium (8.4-10.2) mg/dL Total Bilirubin (0.2-1.3) mg/dL AST (14-36) IU/L ALT (<35) IU/L Alkaline Phosphatase (38-126) U/L Total Protein (6.3-8.2) g/dL Albumin (3.5-5.0) g/dL Globulin (1.7-4.1) g/dL Albumin/Globulin Ratio (1.0-2.8) Lipase (23-300) U/L Urine RBC 30-100/hpf H (0-5/HPF) Urine WBC 10-30/hpf H (0-5/HPF) Urine Bacteria Occasional (0-1) D (None) Ur Culture Indicated? Specimen cultured Ethyl Alcohol ( - 10) mg/dL Blood Type O Positive Antibody Screen Negative Urine Dip Bedside Urine Glucose Negative Bedside Urine Bilirubin - Negative Bedside Urine Ketone - Negative Urine Specific [place] 1.010 Bedside Urine Occult Blood +++ Bedside Urine pH 5.5 Bedside Urine Protein + 30 Bedside Urine Urobilinogen - Negative Bedside Urine Nitrite - Negative Bedside Urine Leukocytes + [address] scan - head: Radiologist's Impression: Scarlet Luong??60??F??1960 ? Allergy/Adv: ketamine Close Head CT (Signed) Yo Thurman - 04/26/21 Chest X-Ray (Signed) Thurman,Yo - 04/26/[address] (Signed) Thurman,Yo - 04/26/21 Mammogram Screening (Signed) Rene Thacker - 08/18/20 Mammogram Screening (Signed) Tati Chew - 08/20/18 Chest X-Ray (Signed) Susanna Amador - 10/15/17 Chest CTA (Addendum) Susanna Amador - 10/15/17 Telemetry Strips 10/12/17 Telemetry Strips 10/12/17 Chest CTA (Signed) Tati Chew - 10/11/17 Vascular Ultrasound (Signed) Bunny Dean - 10/11/17 Chest X-Ray (Signed) Michael Bradshaw - 10/11/17 Radiology - Historical 04/23/17 Radiology - Historical 04/23/17 Radiology - Historical 11/20/16 Telemetry Strips 11/19/16 Radiology - Historical 11/19/16 Radiology - Historical 11/19/16 Radiology - Historical 11/19/16 Radiology - Historical 10/25/16 Radiology - Historical 10/25/16 Telemetry Strips 10/24/16 Radiology - Historical 10/24/16 Launch?[address] [address] [address] Scan Report Signed Patient: Scarlet Lunog MR#: [id number] : 1960 Acct:[id number] Age/Sex: 60 / F Date of Service: 04/26/21 Loc: ED Accession Number: [id number] ?? Procedure: CT head/brain wo con Ordering Provider: Sol Delcid D.O. PROCEDURE:? CT HEAD/BRAIN WO CON ? INDICATIONS:? Trauma ? TECHNIQUE:? Noncontrast 4.5 mm thick angled axial sections acquired from the foramen magnum to the vertex, with coronal and sagittal reformats.? For radiation dose reduction, the following was used:? automated exposure control, adjustment of mA and/or kV according to patient size.? ? COMPARISON:? None. ? FINDINGS:? Image quality:? Excellent.? ? CSF spaces:? Basal cisterns are patent.? No extra-axial fluid collections.? The ventricles are symmetric in size and shape.? ? Brain:? No intracranial bleeds or masses.? There is cerebral volume loss for age, with resultant ventricular and sulcal prominence.? There are periventricular and deep white matter chronic small vessel ischemic changes.? There is intracranial internal carotid artery atherosclerosis.? ? Skull and face:? Calvarium and visualized facial bones appear intact, without suspicious lesions.? Small right occipital scalp hematoma noted. ? Sinuses:? Visualized sinuses and mastoids are clear.? ? IMPRESSION:? ? Small right occipital scalp hematoma without skull fracture or intracranial hemorrhage.? Approved by: Yo Thurman M.D. on 04/26/2021 at 18:53? Chest x-ray: Radiologist's Impression: Scarlet Luong??60??F??1960 ? Allergy/Adv: ketamine Close Head CT (Signed) Yo Thurman - 04/26/21 Chest X-Ray (Signed) Yo Thurman - 04/26/[address] (Signed) Yo Thuramn - 04/26/21 Mammogram Screening (Signed) Rene Thacker - 08/18/20 Mammogram Screening (Signed) Tati Chew - 08/20/18 Chest X-Ray (Signed) Susanna Amador - 10/15/17 Chest CTA (Addendum) Susanna Amador - 10/15/17 Telemetry Strips 10/12/17 Telemetry Strips 10/12/17 Chest CTA (Signed) Tati Chew - 10/11/17 Vascular Ultrasound (Signed) JermaineBunny - 10/11/17 Chest X-Ray (Signed) Michael Bradshaw - 10/11/17 Radiology - Historical 04/23/17 Radiology - Historical 04/23/17 Radiology - Historical 11/20/16 Telemetry Strips 11/19/16 Radiology - Historical 11/19/16 Radiology - Historical 11/19/16 Radiology - Historical 11/19/16 Radiology - Historical 10/25/16 Radiology - Historical 10/25/16 Telemetry Strips 10/24/16 Radiology - Historical 10/24/16 Launch?[place] [address] XRay Report Signed Patient: Scarlet Luong MR#: [id number] : 1960 Acct:[id number] Age/Sex: 60 / F Date of Service: 04/26/21 Loc: ED Accession Number: [id number] ?? Procedure: XR chest 1V Ordering Provider: Sol Delcid D.O. PROCEDURE:? XR CHEST 1V ? INDICATIONS:? fell backwards, hit head, lac back of head ? TECHNIQUE:? One view of the chest was acquired.? ? COMPARISON:? [facility], , XR CHEST 1V, 10/15/2017, 19:13. ? FINDINGS:? ? Surgical changes and devices:? Left-sided single lead pacemaker noted. ? Lungs and pleura:? Lungs are clear.? No pleural effusions or pneumothorax.? ? Mediastinum:? Heart size enlarged.? No vascular congestion present. ? Bones and chest wall:? No suspicious bony lesions.? Overlying soft tissues appear unremarkable.? ? IMPRESSION:? Cardiomegaly and pacemaker without vascular congestion.? No pneumothorax.? Approved by: Yo Thurman M.D. on 04/26/2021 at 18:49? CT - cervical spine: Radiologist's Impression: Scarlet Luong??60??F??1960 ? Allergy/Adv: ketamine Close Head CT (Signed) Yo Thurman - 04/26/21 Chest X-Ray (Signed) Yo Thurman - 04/26/[address] (Signed) Thurman,Yo - 04/26/21 Mammogram Screening (Signed) Rene Thacker - 08/18/20 Mammogram Screening (Signed) Tati Chew - 08/20/18 Chest X-Ray (Signed) Susanna Amador - 10/15/17 Chest CTA (Addendum) Susanna Amador - 10/15/17 Telemetry Strips 10/12/17 Telemetry Strips 10/12/17 Chest CTA (Signed) Tati Chew - 10/11/17 Vascular Ultrasound (Signed) Bunny Dean - 10/11/17 Chest X-Ray (Signed) Michael Bradshaw - 10/11/17 Radiology - Historical 04/23/17 Radiology - Historical 04/23/17 Radiology - Historical 11/20/16 Telemetry Strips 11/19/16 Radiology - Historical 11/19/16 Radiology - Historical 11/19/16 Radiology - Historical 11/19/16 Radiology - Historical 10/25/16 Radiology - Historical 10/25/16 Telemetry Strips 10/24/16 Radiology - Historical 10/24/16 Launch?[place] [address] XRay Report Signed Patient: Scarlet Luong MR#: [id number] : 1960 Acct:[id number] Age/Sex: 60 / F Date of Service: 04/26/21 Loc: ED Accession Number: [id number] ?? Procedure: XR chest 1V Ordering Provider: Sol Delcid D.O. PROCEDURE:? XR CHEST 1V ? INDICATIONS:? fell backwards, hit head, lac back of head ? TECHNIQUE:? One view of the chest was acquired.? ? COMPARISON:? [facility], , XR CHEST 1V, 10/15/2017, 19:13. ? FINDINGS:? ? Surgical changes and devices:? Left-sided single lead pacemaker noted. ? Lungs and pleura:? Lungs are clear.? No pleural effusions or pneumothorax.? ? Mediastinum:? Heart size enlarged.? No vascular congestion present. ? Bones and chest wall:? No suspicious bony lesions.? Overlying soft tissues appear unremarkable.? ? IMPRESSION:? Cardiomegaly and pacemaker without vascular congestion.? No pneumothorax.? Approved by: Yo Thurman M.D. on 04/26/2021 at 18:49? ECG Data Attestation: I personally reviewed and interpreted this ECG as follows: Prior ECG tracings: available for review Interpretation: Ventricular paced rhythm rate of 61 QRS of 200 and QTC 559. Patient has prior EKGs from 2018 but these were not paced. MDM Narrative Medical decision making narrative: This is a 60-year-old female who had a ground level fall striking her head on a soap dispenser in her friend's shower. Fall was witnessed. Patient does not have loss of consciousness. She is intoxicated and on Eliquis so head CT as well as C-spine were ordered. Patient head CT, C-spine and chest x-ray do not show new acute changes. Her labs are significant for hypokalemia, persistent leukocytosis, and mild hyponatremia, patient's renal function is normal. Patient's urine does have rbc's and wbc's, culture is pending. Patient had a very small wound with active bleeding, was improved with uzma but did require a single stitch to fully stop the bleeding. Patient is aware she will need to return have uzma and sutures removed. She has ambulated several times here in the department without issue. We did discuss her hypokalemia she would like to be discharged home this evening and she is in the care of her . Patient had oral replacement here in the department is asked to have her level rechecked in the next 24 hours. Return precautions to patient and her . Discharge Plan Departure Patient Disposition: Home Clinical Impression: Fall, Laceration of scalp, Hypokalemia, Alcohol intoxication Instructions: DI for Laceration Repair of the Scalp, DI for Hypokalemia Activity Restrictions/Additional Instructions: Follow-up with your physician for recheck of your potassium in the next 24 hours. It was quite low today. You had potassium replacement here in the emergency department but you do need to have your level rechecked. Wound Care: Keep wound(s) clean and dry. Wash daily with soap and water only. Do not use over the counter products (alcohol or peroxide)on the wounds unless instructed by a physician. If wound condition worsens (increased/expanding redness, developing fluid blisters, or worsening pain), either contact your doctor for an urgent re-assessment , or return to the Emergency Department. Return to the Emergency Department for any new or worsening symptoms. Return to the ED, urgent care, or vist a primary care doctor for removal or suture or uzma in 7-10 days. You have 5 uzma and single non-absorbable suture to remove. Return if fever greater than 100.4 Fahrenheit, increased swelling, increasing pain or worsening symptoms such as increased discharge or spreading redness. Severe headaches, new confusion, altered mental status, neck pain, chest pain, shortness of breath, new swelling in her extremities or other new or concerning symptoms. Prescriptions: No Action paroxetine HCl [Paxil] 20 MG tablet 30 mg PO QDAY Qty: 0 0RF medroxyprogesterone [Provera] 10 mg tablet 10 mg PO DAILY Qty: 100 1RF Rx Instructions: 2 tabs PO Q2hr until bleeding stops, [id number], [id number], [id number], [id number], [id number] Eliquis 5 mg tablet 5 mg PO BID 0RF digoxin 250 mcg (0.25 mg) Tablet 250 mcg PO DAILY 0RF Rx Instructions: 10 mg daily chlorthalidone 25 mg tablet 25 mg PO DIRECTED 0RF atorvastatin 10 mg 10 mg PO DIRECTED 0RF metoprolol tartrate 50 mg tablet 50 mg PO DAILY 0RF Referrals: Yonatan Steiner MD [Primary Care Provider] -
[2021-04-26 19:07] VITALS: BP 119/67; PULSE 60; O2SAT 97
[2021-04-26 19:14] LABS: Add Manual Diff / Slide Review NO; Basophils Absolute Auto 100 /uL (0-100); Basophils Percent Auto 0.8 % (0-2); Eosinophils Absolute Auto 200 /uL (0-450); Eosinophils Percent Auto 1.2 % (2-4); Hematocrit 34.9 % (36-46); Hemoglobin 12.1 g/dL (12.0-16.0); Lymphocytes Absolute Auto 3100 /uL (1100-4500); Lymphocytes Percent Auto 18.2 % (25-40); Mean Corpuscular HGB Conc 34.7 % (30-36); Mean Corpuscular Hemoglobin 36.4 PG (26-34); Mean Corpuscular Volume 104.9 fL (80-100); Monocytes Absolute Auto 800 /uL (0-900); Monocytes Percent Auto 4.4 % (3-14); Neutrophils Absolute Auto 13000 /uL (1500-7000); Neutrophils Percent Auto 75.4 % (50-75); Platelet Count 447 X10^3/uL (150-400); Red Blood Cell Count 3.33 X10^6/uL (4.0-5.2); Red Cell Distribution Width 15.6 % (11.6-14.8); White Blood Cell Count 17.2 X10^3/uL (4.5-11.0)
[2021-04-26 19:22] LABS: PTT Partial Thromboplastin Tim 34 SECONDS (26.4-36.2)
[2021-04-26] MEDS: TET,DIPH,PERTUSS(ACELL),VAC/PF 0.5 ML SYRINGE IM (19:29)
[2021-04-26 19:30] LABS: Alanine Aminotransferase 14 IU/L (<35); Albumin 4.4 g/dL (3.5-5.0); Albumin Globulin Ratio 1.3 (1.0-2.8); Alkaline Phosphatase 96 U/L (38-126); Aspartate Aminotransferase 24 IU/L (14-36); BUN Creatinine Ratio 18.1 (6-22); Bilirubin Total 0.6 mg/dL (0.2-1.3); Blood Urea Nitrogen 13 mg/dL (7-17); Calcium 9.4 mg/dL (8.4-10.2); Carbon Dioxide 32 mmol/L (22-32); Chloride 83 mmol/L (98-107); Estimated Glomerular Filt Rate > 60.0 mL/min (>60); Ethanol (ETOH) 185 mg/dL; Globulin 3.4 g/dL (1.7-4.1); Glucose 142 mg/dL (80-110); HEMOLYSIS < 15 (0-50); Lipase 89 U/L (23-300); Sodium 128 mmol/L (137-145); Total Protein 7.8 g/dL (6.3-8.2)
[2021-04-26 19:38] LABS: Potassium 2.4 mmol/L (3.4-5.1)
[2021-04-26] MEDS: LIDO 1%/SOD BICARB 8.4% (10ML) 10 ML SYRINGE INJ (19:52)
[2021-04-26 19:53] LABS: Bacteria Urine Occasional (0-1); Culture Indicated Urine Specimen Cultured; RBC Urine 30-100/HPF (0-5/HPF); WBC Urine 10-30/HPF (0-5/HPF)
[2021-04-26] MEDS: POTASSIUM CHLORIDE 20 MEQ TAB 40 MEQ PO (19:56)
[2021-04-26] MEDS: POTASSIUM CHLORIDE 20 MEQ/15 ML UDC 40 MEQ PO (21:31)
[2021-04-26 21:41] VITALS: BP 172/83; PULSE 65; O2SAT 98
== END 2021-04-26 21:50 | disposition home or self-care (01) ==
PROVIDERS: Emergency Provider Emergency Medicine; Family Provider Internal Medicine; PCP Internal Medicine
DX: S01.01XA Laceration without foreign body of scalp, initial encounter (principal); W18.30XA Fall on same level, unspecified, initial encounter; Z79.01 Long term (current) use of anticoagulants; E87.6 Hypokalemia; F10.120 Alcohol abuse with intoxication, uncomplicated; Y90.6 Blood alcohol level of 120-199 mg/100 ml; Y92.002 Bathroom of unspecified non-institutional (private) residence as the place of occurrence of the external cause
CPT/HCPCS: 12001; 36415; 70450; 71045; 72125; 80053; 80320; 81003; 81015; 83690; 85025; 85730; 86850; 86900; 86901; 87086; 90471; 93005; 99284; 99285; 90715

== ENCOUNTER 2021-10-31 10:01 | Inpatient (IN) | payer OTHER, SELFPAY ==
[2017-10-12 01:54] VITALS: BMI 58.1
[2017-10-16 00:19] VITALS: PULSE 87; RESP 24; O2SAT 100
[2021-10-31] VITALS (50 sets, daily range): BP systolic 91–129; BP diastolic 52–87; PULSE 60–99; RESP 13–38; TEMP 36.6–37.3; O2SAT 91–99; BMI 36.6
--- NOTE | 2021-10-31 10:28 | DI.RAD.S_ITS ---
PROCEDURE: XR CHEST 1V INDICATIONS: altered mental status TECHNIQUE: One view of the chest was acquired. COMPARISON: [facility], CR, XR CHEST 1V, 04/26/2021, 18:41. FINDINGS: Surgical changes and devices: Left-sided pacer. Lungs and pleura: Lungs are clear. No pleural effusions or pneumothorax. Mediastinum: Mediastinal contours appear normal. Heart size is normal. Bones and chest wall: No suspicious bony lesions. Overlying soft tissues appear unremarkable. IMPRESSION: No acute process. Dictated by: Maribell Morales M.D. on 10/31/2021 at 11:34 Approved by: Maribell Morales M.D. on 10/31/2021 at 11:35
--- NOTE | 2021-10-31 10:32 | ED.NEUROSD ---
HPI - Neuro Symptoms/Deficit <Tabitha Davison MD - Last Filed: 11/01/21 07:23> General Chief Complaint: Neuro Symptoms/Deficit Stated Complaint: Incoherent, cant walk- sister thinks stroke Time Seen by Provider: 10/31/21 10:32 History of Present Illness HPI Narrative: 61-year-old woman currently with atrial fibrillation on Eliquis, congestive heart failure, obesity and sleep apnea, pacemaker in place, who presents complaining of severe weakness particularly on the right side to the point that she is unable to walk and has been in bed for the last 2 weeks. Her speech has been slurred and she has not been able to get out of bed and is having some skin breakdown over her buttock area because of chronic urinary moisture. She describes no headaches, cough, chills. She has had no pain. She describes no palpitations but is wondering why she is continually weak to the point of being unable to roll over by herself in bed. 1240 the patient's [id number] is at the bedside and has significant details to add. Apparently the patient her both are heavy vodka drinkers. She describes a minimum of 3 ?doubles? a day she notes that for the past 3-4 months she has been losing significant amount awaits with increasing weakness. For quite a period of time she has actually been crawling on the floor because she is so weak. She does have a walker at home. When the [id number] finally got her up off the couch she noted that both the couch and the bed were completely saturated with urine as was all of her clothing. On Anticoagulants: Yes (eliquis) Related Data Home Medications Medication Instructions Recorded Confirmed paroxetine HCl 20 mg tablet (Paxil) 30 mg PO QDAY #0 11/19/16 03/17/21 metoprolol tartrate 50 mg tablet 50 mg PO DAILY tab 07/11/18 03/17/21 apixaban 5 mg tablet (Eliquis) 5 mg PO BID 08/05/19 03/17/21 digoxin 250 mcg (0.25 mg) tablet 250 mcg PO DAILY 08/05/19 03/17/21 atorvastatin 10 mg PO DIRECTED 03/17/21 03/17/21 chlorthalidone 25 mg tablet 25 mg PO DIRECTED 03/17/21 03/17/21 Previous Rx's Medication Instructions Recorded medroxyprogesterone 10 mg tablet See Rx Instructions .ROUTE 08/09/21 .COMPLEX #100 tab Allergies Allergy/AdvReac Type Severity Reaction Status Date / Time ketamine AdvReac Unknown hallucinati Verified 04/26/21 18:50 ons Review of Systems <Tabitha Davison MD - Last Filed: 11/01/21 07:23> Review of Systems Narrative: Remainder of complete review of systems is otherwise unremarkable except for that included in the HPI. Hematologic/Lymphatic On Anticoagulants: Yes (eliquis) Patient History <Tabitha Davison MD - Last Filed: 11/01/21 07:23> Medical History Afib Atrial fibrillation, transient Chronic renal insufficiency Diabetes type 2, controlled ETOH abuse Fracture of distal end of fibula Heart failure Morbid obesity Pacemaker PEA (Pulseless electrical activity) (10/16/17) Sleep apnea in adult Surgical History History of third molar tooth extraction Hx of ventral hernia repair (08/12/19) Status post colonoscopy Status post surgery (07/26/10) Status post surgery (12/07/14) Family History (Updated 10/31/21 @ 23:51 by ANA PAULA Cerda) Father Diabetes mellitus Mother Diabetes mellitus Hyperlipidemia Hypertension Breast cancer Social History household members: spouse Smoking Status: Current every day smoker alcohol intake: current Smoking Status: Current every day smoker alcohol intake frequency: a few times a week Substance Use Type: marijuana Exam <Tabitha Davison MD - Last Filed: 11/01/21 07:23> Initial Vital Signs Initial Vital Signs: Vital Signs Temperature 97.9 F 10/31/21 10:21 Pulse Rate 67 10/31/21 10:21 Respiratory Rate 18 10/31/21 10:21 Blood Pressure 94/62 10/31/21 10:21 Pulse Oximetry 98 10/31/21 10:21 General: Chronically ill-appearing, slurred speech, not oriented to person time or place, smelling strongly of urine HEENT: Dry mucous membranes, normal sclera with reactive pupils, no obvious bleeding or contusions to palpation Neck: No JVD, supple Respiratory: Lungs are clear to auscultation, no wheezing no rales no rhonchi. Full and symmetrical air movement Cardiac: Irregular with 3/6 murmur Abdomen: Soft, obese, no pain behaviors with palpation Skin: Pale but otherwise Warm and dry over the extremities. Significant redness and skin breakdown over the buttocks with central portion getting to stage II decubitus levels. No drainage. Multiple bruises over her lower extremities Neurologic: Globally weak. She is not oriented to time or place. can move all extremities but complains that her right side is weaker. Tongue does deviate to the right, no facial droop, mild dysarthria. Extremities: Multiple bruises in various stages of healing, 1+ bilateral lower extremity edema Psych: Cooperative, no insight, NIH score is difficult to fully assess due to her global weakness and confusion RESULT SUMMARY: 5 points NIH Stroke Scale INPUTS: 1A: Level of consciousness ?> 1 = Arouses to minor stimulation 1B: Ask month and age ?> 2 = 0 questions right? 1C: 'Blink eyes' & 'squeeze hands' ?> 0 = Performs both tasks 2: Horizontal extraocular movements ?> 0 = Normal 3: Visual taylor ?> 0 = No visual loss 4: Facial palsy ?> 0 = Normal symmetry 5A: Left arm motor drift ?> 0 = No drift for 10 seconds 5B: Right arm motor drift ?> 0 = No drift for 10 seconds 6A: Left leg motor drift ?> 0 = No drift for 5 seconds 6B: Right leg motor drift ?> 0 = No drift for 5 seconds 7: Limb Ataxia ?> 0 = Does not understand 8: Sensation ?> 0 = Normal; no sensory loss 9: Language/aphasia ?> 1 = Mild-moderate aphasia: some obvious changes, without significant limitation 10: Dysarthria ?> 1 = Mild-moderate dysarthria: slurring but can be understood 11: Extinction/inattention ?> 0 = No abnormality Course <Tabitha Davison MD - Last Filed: 11/01/21 07:23> Orders Ordered: Acetaminophen (Acetaminophen 325 Mg Tablet) 650 mg PO Q6HR PRN PRN Reason: Fever/Mild Pain (1-3) Dextrose (Dextrose 50 % In Water 25 Gm/50 Ml Syringe) 25 gm IV PRN PRN PRN Reason: Hypoglycemia Docusate Sodium (Docusate 100 Mg Capsule) 100 mg PO BID SHAQUILLE Last Admin: 10/31/21 21:47 Dose: 100 mg Documented by: [email or web address] Folic Acid (Folic Acid 1 Mg Tablet) 1 mg PO DAILY [place] Sodium Chloride (Normal Saline 0.9%) 1,000 mls @ 150 mls/hr IV CONT [place] Last Infusion: 10/31/21 13:11 Dose: 0 mls/hr Documented by: Admin: 10/31/21 12:20 Dose: 150 mls/hr Documented by: CORONA Lactated Ringer's (Lactated Ringers) 1,000 mls @ 75 mls/hr IV CONT [place] Last Admin: 11/01/21 02:30 Dose: 75 mls/hr Documented by: Infusion: 11/01/21 02:30 Dose: 75 mls/hr Documented by: Admin: 10/31/21 13:21 Dose: 75 mls/hr Documented by: WANDA Insulin Human Lispro (Insulin Lispro 100 Unit/Ml 3ml Vial) 0 unit SUBCUT ACHS [place]; Protocol Lorazepam (Lorazepam 2 Mg/Ml Inj) 0 mg IV CIWAPRN PRN; Protocol PRN Reason: Alcohol Withdrawal Multivitamins (Multivitamin 1 Tablet) 1 tab PO DAILY [facility] Naloxone HCl (Naloxone 0.4 Mg/Ml Vial) 0.1 mg IV Q2MIN PRN PRN Reason: Opiate Reversal Ondansetron HCl (Ondansetron 4 Mg/2 Ml Inj) 4 mg IV Q6HR PRN PRN Reason: Nausea And Vomiting Pantoprazole Sodium (Pantoprazole 40 Mg Vial) 40 mg IV DAILY [facility] Thiamine HCl (Thiamine 100 Mg Tablet) 100 mg PO DAILY [facility] Stop: 11/04/21 09:01 Tramadol HCl (Tramadol 50 Mg Tablet) 50 mg PO Q4H PRN PRN Reason: Pain, Moderate (4-6) Discontinued Medications Thiamine HCl 100 mg/ Sodium (Chloride) 101 mls @ 404 mls/hr IV NOW ONE Stop: 10/31/21 13:08 Last Infusion: 10/31/21 13:50 Dose: 0 mls/hr Documented by: Admin: 10/31/21 13:20 Dose: 404 mls/hr Documented by: WANDA POTASSIUM CHLORIDE IN WATER (Potassium Cl 10 Meq/100 Ml Laya) 10 meq in 100 mls @ 100 mls/hr IV Q1H [place] Stop: 10/31/21 21:14 Last Infusion: 10/31/21 21:55 Dose: 0 mls/hr Documented by: [email or web address] Admin: 10/31/21 20:55 Dose: 100 mls/hr Documented by: [email or web address] Infusion: 10/31/21 20:44 Dose: 100 mls/hr Documented by: [email or web address] Admin: 10/31/21 19:44 Dose: 100 mls/hr Documented by: Infusion: 10/31/21 19:41 Dose: 100 mls/hr Documented by: Admin: 10/31/21 18:41 Dose: 100 mls/hr Documented by: Infusion: 10/31/21 18:39 Dose: 100 mls/hr Documented by: Admin: 10/31/21 17:39 Dose: 100 mls/hr Documented by: Infusion: 10/31/21 17:39 Dose: 100 mls/hr Documented by: Admin: 10/31/21 16:39 Dose: 100 mls/hr Documented by: Infusion: 10/31/21 16:36 Dose: 100 mls/hr Documented by: Admin: 10/31/21 15:36 Dose: 100 mls/hr Documented by: Infusion: 10/31/21 15:36 Dose: 100 mls/hr Documented by: Admin: 10/31/21 14:37 Dose: 100 mls/hr Documented by: Infusion: 10/31/21 14:37 Dose: 100 mls/hr Documented by: Admin: 10/31/21 13:37 Dose: 100 mls/hr Documented by: RLAZANI Ceftriaxone Sodium 2,000 mg/ (Sodium Chloride) 100 mls @ 200 mls/hr IV NOW ONE Stop: 10/31/21 13:17 Last Infusion: 10/31/21 14:35 Dose: 0 mls/hr Documented by: Admin: 10/31/21 13:41 Dose: 200 mls/hr Documented by: RLAZANI Magnesium Sulfate (Magnesium Sulfate) 20 gm in 500 mls @ 50 mls/hr IV CONT [place] Magnesium Sulfate (Magnesium Sulfate) 2 gm in 50 mls @ 25 mls/hr IV NOW ONE Stop: 11/01/21 00:02 Last Infusion: 11/01/21 00:29 Dose: 0 mls/hr Documented by: [email or web address] Cosigned by: CWHITE Admin: 10/31/21 22:29 Dose: 25 mls/hr Documented by: [email or web address] Cosigned by: GÓMEZTE POTASSIUM CHLORIDE IN WATER (Potassium Cl 10 Meq/100 Ml Laya) 10 meq in 100 mls @ 100 mls/hr IV Q1H [place] Stop: 11/01/21 06:59 Last Infusion: 11/01/21 07:05 Dose: 0 mls/hr Documented by: CTR.[email or web address] Admin: 11/01/21 06:05 Dose: 100 mls/hr Documented by: CTR.[email or web address] Infusion: 11/01/21 06:05 Dose: 100 mls/hr Documented by: CTR.[email or web address] Admin: 11/01/21 05:09 Dose: 100 mls/hr Documented by: CTR.RFUENT Infusion: 11/01/21 05:06 Dose: 100 mls/hr Documented by: CTR.[email or web address] Admin: 11/01/21 04:06 Dose: 100 mls/hr Documented by: CTR.RFUENT Infusion: 11/01/21 04:00 Dose: 100 mls/hr Documented by: CTR.[email or web address] Admin: 11/01/21 03:00 Dose: 100 mls/hr Documented by: CTR.[email or web address] Potassium Chloride (Potassium Chloride 20 Meq Tab) 40 meq PO NOW ONE Stop: 11/01/21 02:49 Last Admin: 11/01/21 02:59 Dose: 40 meq Documented by: [email or web address] Vital Signs Vital signs: Vital Signs - 8 hr 10/31/21 11:30 10/31/21 11:50 10/31/21 12:00 Pulse Rate 99 H 71 67 Respiratory Rate 28 H 19 Blood Pressure 125/69 119/65 Pulse Oximetry 98 97 96 10/31/21 12:30 10/31/21 12:31 10/31/21 13:00 Pulse Rate 61 60 60 Respiratory Rate 22 18 18 Blood Pressure 112/59 L Pulse Oximetry 96 97 98 10/31/21 13:01 10/31/21 13:30 10/31/21 13:41 Pulse Rate 60 71 70 Respiratory Rate 18 28 H 29 H Blood Pressure 106/57 L 105/66 Pulse Oximetry 97 96 97 10/31/21 14:00 10/31/21 14:01 10/31/21 14:30 Pulse Rate 65 69 61 Respiratory Rate 30 H 26 H 15 Blood Pressure 95/69 Pulse Oximetry 96 95 10/31/21 14:31 10/31/21 15:00 10/31/21 15:01 Pulse Rate 60 61 61 Respiratory Rate 15 18 15 Blood Pressure 104/55 L 105/57 L Pulse Oximetry 96 95 10/31/21 15:30 10/31/21 15:31 10/31/21 16:00 Pulse Rate 60 60 68 Respiratory Rate 14 15 21 Blood Pressure 121/57 L Pulse Oximetry 96 96 96 10/31/21 16:01 10/31/21 16:30 10/31/21 16:31 Pulse Rate 67 61 62 Respiratory Rate 24 18 17 Blood Pressure 114/66 106/61 Pulse Oximetry 96 95 94 10/31/21 17:00 10/31/21 17:01 10/31/21 17:30 Pulse Rate 63 61 62 Respiratory Rate 21 22 22 Blood Pressure 108/59 L Pulse Oximetry 96 95 95 10/31/21 17:31 10/31/21 18:00 10/31/21 18:01 Pulse Rate 61 74 77 Respiratory Rate 22 33 H 32 H Blood Pressure 116/55 L 127/87 Pulse Oximetry 96 96 96 MDM - Neuro Symptoms/Deficit <Tabitha Davison MD - Last Filed: 11/01/21 07:23> Lab Data Result diagrams: 11/01/21 01:40 11/01/21 06:28 Labs: Lab Results 10/31/21 10/31/21 10/31/21 Range/Units 10:47 10:55 10:55 WBC 8.1 (4.5-11.0) X10^3/uL RBC 3.11 L (4.0-5.2) X10^6/uL Hgb 11.2 L (12.0-16.0) g/dL Hct 30.6 L (36-46) % MCV 98.5 (80-100) fL MCH 35.9 H (26-34) PG MCHC 36.5 H (30-36) % RDW 20.6 H (11.6-14.8) % Plt Count 263 (150-400) X10^3/uL Neut % (Auto) 91.1 H (50-75) % Lymph % (Auto) 5.8 L (25-40) % [place] % (Auto) 1.5 L (3-14) % Eos % (Auto) 0.3 L (2-4) % Baso % (Auto) 1.3 (0-2) % Neut # (Auto) 7400 H (1530-3736) /uL Lymph # (Auto) 500 L (8566-3638) /uL [place] # (Auto) 100 (0-900) /uL Eos # (Auto) 0 (0-450) /uL Baso # (Auto) 100 (0-100) /uL RBC Morphology See below Anisocytosis 1+ H Sodium 113 L* (137-145) mmol/L Potassium 1.7 L* (3.4-5.1) mmol/L Chloride 59 L* (98-107) mmol/L Carbon Dioxide 41 H* (22-32) mmol/L BUN 14 (7-17) mg/dL Creatinine 0.66 (0.52-1.04) mg/dL Estimated GFR > 60 (>60) mL/min BUN/Creatinine Ratio 21.2 (6-22) Glucose 170 H (80-110) mg/dL Hemoglobin A1c (4.0-6.0) % Calcium 7.8 L (8.4-10.2) mg/dL Magnesium (1.6-2.3) mg/dL Total Bilirubin 3.3 H (0.2-1.3) mg/dL AST 60 H (14-36) IU/L ALT 21 (<35) IU/L Alkaline Phosphatase 136 H (38-126) U/L Ammonia (9-30) umol/L Total Creatine Kinase 132 (30-135) U/L CK-MB (CK-2) 3.05 H (<2.37) ng/mL CK-MB (CK-2) Rel Index 2.3 (1.5-5.0) % Troponin I 0.087 H (0.01-0.034) ng/mL Total Protein 6.7 (6.3-8.2) g/dL Albumin 3.4 L (3.5-5.0) g/dL Globulin 3.3 (1.7-4.1) g/dL Albumin/Globulin Ratio 1.0 (1.0-2.8) TSH (0.47-4.68) uIU/mL Urine Color Urine Appearance Urine pH (4.5-8.0) Ur Specific [place] (1.000-1.035) Urine Protein (Negative) Urine Glucose (UA) (Negative) g/dL Urine Ketones (NEGATIVE) Urine Occult Blood (Negative) Urine Nitrate (Negative) Urine Bilirubin (NEGATIVE) Ur Bilirubin Confirm (Negative) Urine Urobilinogen (0.2) E.U./dL Ur Leukocyte Esterase (NEGATIVE) Urine RBC (0-5/HPF) Urine WBC (0-5/HPF) Ur Squamous Epith Cells (0-5/HPF) Amorphous Sediment Urine Bacteria (None) Ur Culture Indicated? Digoxin (0.8-2.0) ng/mL U Opiates 300ng/mL cut (Negative) Ur Oxycodone Screen (Negative) Urine Methadone Screen (Negative) Ur Barbiturates Screen (Negative) U Tricyclic Antidepress (Negative) Ur Phencyclidine Scrn (Negative) Ur Amphetamines Screen (Negative) U Methamphetamines Scrn (Negative) Ur MDMA Scrn (Ecstasy) (Negative) U Benzodiazepines Scrn (Negative) Urine Cocaine Screen (Negative) U Marijuana (THC) Screen (Negative) Ethyl Alcohol ( - 10) mg/dL SARS-CoV-2 (PCR) Negative (Negative) 10/31/21 10/31/21 10/31/21 Range/Units 10:55 10:55 10:55 WBC (4.5-11.0) X10^3/uL RBC (4.0-5.2) X10^6/uL Hgb (12.0-16.0) g/dL Hct (36-46) % MCV (80-100) fL MCH (26-34) PG MCHC (30-36) % RDW (11.6-14.8) % Plt Count (150-400) X10^3/uL Neut % (Auto) (50-75) % Lymph % (Auto) (25-40) % [place] % (Auto) (3-14) % Eos % (Auto) (2-4) % Baso % (Auto) (0-2) % Neut # (Auto) (1552-9270) /uL Lymph # (Auto) (7274-7361) /uL [place] # (Auto) (0-900) /uL Eos # (Auto) (0-450) /uL Baso # (Auto) (0-100) /uL RBC Morphology Anisocytosis Sodium (137-145) mmol/L Potassium (3.4-5.1) mmol/L Chloride (98-107) mmol/L Carbon Dioxide (22-32) mmol/L BUN (7-17) mg/dL Creatinine (0.52-1.04) mg/dL Estimated GFR (>60) mL/min BUN/Creatinine Ratio (6-22) Glucose (80-110) mg/dL Hemoglobin A1c (4.0-6.0) % Calcium (8.4-10.2) mg/dL Magnesium 1.6 (1.6-2.3) mg/dL Total Bilirubin (0.2-1.3) mg/dL AST (14-36) IU/L ALT (<35) IU/L Alkaline Phosphatase (38-126) U/L Ammonia < 9 L (9-30) umol/L Total Creatine Kinase (30-135) U/L CK-MB (CK-2) (<2.37) ng/mL CK-MB (CK-2) Rel Index (1.5-5.0) % Troponin I (0.01-0.034) ng/mL Total Protein (6.3-8.2) g/dL Albumin (3.5-5.0) g/dL Globulin (1.7-4.1) g/dL Albumin/Globulin Ratio (1.0-2.8) TSH (0.47-4.68) uIU/mL Urine Color Urine Appearance Urine pH (4.5-8.0) Ur Specific [place] (1.000-1.035) Urine Protein (Negative) Urine Glucose (UA) (Negative) g/dL Urine Ketones (NEGATIVE) Urine Occult Blood (Negative) Urine Nitrate (Negative) Urine Bilirubin (NEGATIVE) Ur Bilirubin Confirm (Negative) Urine Urobilinogen (0.2) E.U./dL Ur Leukocyte Esterase (NEGATIVE) Urine RBC (0-5/HPF) Urine WBC (0-5/HPF) Ur Squamous Epith Cells (0-5/HPF) Amorphous Sediment Urine Bacteria (None) Ur Culture Indicated? Digoxin 0.5 L (0.8-2.0) ng/mL U Opiates 300ng/mL cut (Negative) Ur Oxycodone Screen (Negative) Urine Methadone Screen (Negative) Ur Barbiturates Screen (Negative) U Tricyclic Antidepress (Negative) Ur Phencyclidine Scrn (Negative) Ur Amphetamines Screen (Negative) U Methamphetamines Scrn (Negative) Ur MDMA Scrn (Ecstasy) (Negative) U Benzodiazepines Scrn (Negative) Urine Cocaine Screen (Negative) U Marijuana (THC) Screen (Negative) Ethyl Alcohol ( - 10) mg/dL SARS-CoV-2 (PCR) (Negative) 10/31/21 10/31/21 10/31/21 Range/Units 10:55 10:55 11:01 WBC (4.5-11.0) X10^3/uL RBC (4.0-5.2) X10^6/uL Hgb (12.0-16.0) g/dL Hct (36-46) % MCV (80-100) fL MCH (26-34) PG MCHC (30-36) % RDW (11.6-14.8) % Plt Count (150-400) X10^3/uL Neut % (Auto) (50-75) % Lymph % (Auto) (25-40) % [place] % (Auto) (3-14) % Eos % (Auto) (2-4) % Baso % (Auto) (0-2) % Neut # (Auto) (5031-1251) /uL Lymph # (Auto) (9279-4914) /uL [place] # (Auto) (0-900) /uL Eos # (Auto) (0-450) /uL Baso # (Auto) (0-100) /uL RBC Morphology Anisocytosis Sodium (137-145) mmol/L Potassium (3.4-5.1) mmol/L Chloride (98-107) mmol/L Carbon Dioxide (22-32) mmol/L BUN (7-17) mg/dL Creatinine (0.52-1.04) mg/dL Estimated GFR (>60) mL/min BUN/Creatinine Ratio (6-22) Glucose (80-110) mg/dL Hemoglobin A1c 6.4 H (4.0-6.0) % Calcium (8.4-10.2) mg/dL Magnesium Cancelled (1.6-2.3) mg/dL Total Bilirubin (0.2-1.3) mg/dL AST (14-36) IU/L ALT (<35) IU/L Alkaline Phosphatase (38-126) U/L Ammonia (9-30) umol/L Total Creatine Kinase (30-135) U/L CK-MB (CK-2) (<2.37) ng/mL CK-MB (CK-2) Rel Index (1.5-5.0) % Troponin I (0.01-0.034) ng/mL Total Protein (6.3-8.2) g/dL Albumin (3.5-5.0) g/dL Globulin (1.7-4.1) g/dL Albumin/Globulin Ratio (1.0-2.8) TSH 1.81 (0.47-4.68) uIU/mL Urine Color Urine Appearance Urine pH (4.5-8.0) Ur Specific [place] (1.000-1.035) Urine Protein (Negative) Urine Glucose (UA) (Negative) g/dL Urine Ketones (NEGATIVE) Urine Occult Blood (Negative) Urine Nitrate (Negative) Urine Bilirubin (NEGATIVE) Ur Bilirubin Confirm (Negative) Urine Urobilinogen (0.2) E.U./dL Ur Leukocyte Esterase (NEGATIVE) Urine RBC (0-5/HPF) Urine WBC (0-5/HPF) Ur Squamous Epith Cells (0-5/HPF) Amorphous Sediment Urine Bacteria (None) Ur Culture Indicated? Digoxin (0.8-2.0) ng/mL U Opiates 300ng/mL cut (Negative) Ur Oxycodone Screen (Negative) Urine Methadone Screen (Negative) Ur Barbiturates Screen (Negative) U Tricyclic Antidepress (Negative) Ur Phencyclidine Scrn (Negative) Ur Amphetamines Screen (Negative) U Methamphetamines Scrn (Negative) Ur MDMA Scrn (Ecstasy) (Negative) U Benzodiazepines Scrn (Negative) Urine Cocaine Screen (Negative) U Marijuana (THC) Screen (Negative) Ethyl Alcohol ( - 10) mg/dL SARS-CoV-2 (PCR) (Negative) 10/31/21 10/31/21 10/31/21 Range/Units 11:10 11:25 13:38 WBC (4.5-11.0) X10^3/uL RBC (4.0-5.2) X10^6/uL Hgb (12.0-16.0) g/dL Hct (36-46) % MCV (80-100) fL MCH (26-34) PG MCHC (30-36) % RDW (11.6-14.8) % Plt Count (150-400) X10^3/uL Neut % (Auto) (50-75) % Lymph % (Auto) (25-40) % [place] % (Auto) (3-14) % Eos % (Auto) (2-4) % Baso % (Auto) (0-2) % Neut # (Auto) (6596-3576) /uL Lymph # (Auto) (0815-9848) /uL [place] # (Auto) (0-900) /uL Eos # (Auto) (0-450) /uL Baso # (Auto) (0-100) /uL RBC Morphology Anisocytosis Sodium (137-145) mmol/L Potassium (3.4-5.1) mmol/L Chloride (98-107) mmol/L Carbon Dioxide (22-32) mmol/L BUN (7-17) mg/dL Creatinine (0.52-1.04) mg/dL Estimated GFR (>60) mL/min BUN/Creatinine Ratio (6-22) Glucose (80-110) mg/dL Hemoglobin A1c (4.0-6.0) % Calcium (8.4-10.2) mg/dL Magnesium (1.6-2.3) mg/dL Total Bilirubin (0.2-1.3) mg/dL AST (14-36) IU/L ALT (<35) IU/L Alkaline Phosphatase (38-126) U/L Ammonia (9-30) umol/L Total Creatine Kinase (30-135) U/L CK-MB (CK-2) (<2.37) ng/mL CK-MB (CK-2) Rel Index (1.5-5.0) % Troponin I 0.086 H (0.01-0.034) ng/mL Total Protein (6.3-8.2) g/dL Albumin (3.5-5.0) g/dL Globulin (1.7-4.1) g/dL Albumin/Globulin Ratio (1.0-2.8) TSH (0.47-4.68) uIU/mL Urine Color [place] Urine Appearance Clear Urine pH 5.5 (4.5-8.0) Ur Specific [place] 1.015 (1.000-1.035) Urine Protein 2+ H (Negative) Urine Glucose (UA) Trace H (Negative) g/dL Urine Ketones 1+ H (NEGATIVE) Urine Occult Blood Trace-lysed (Negative) Urine Nitrate Positive H (Negative) Urine Bilirubin 3+ H (NEGATIVE) Ur Bilirubin Confirm Positive H (Negative) Urine Urobilinogen 4.0 H (0.2) E.U./dL Ur Leukocyte Esterase Negative (NEGATIVE) Urine RBC 0-1/hpf D (0-5/HPF) Urine WBC 5-10/hpf H (0-5/HPF) Ur Squamous Epith Cells 0-1 /hpf (0-5/HPF) Amorphous Sediment 1+ Urine Bacteria Few (2-10) H (None) Ur Culture Indicated? Specimen cultured Digoxin (0.8-2.0) ng/mL U Opiates 300ng/mL cut Negative (Negative) Ur Oxycodone Screen Negative (Negative) Urine Methadone Screen Negative (Negative) Ur Barbiturates Screen Negative (Negative) U Tricyclic Antidepress Negative (Negative) Ur Phencyclidine Scrn Negative (Negative) Ur Amphetamines Screen Negative (Negative) U Methamphetamines Scrn Negative (Negative) Ur MDMA Scrn (Ecstasy) Negative (Negative) U Benzodiazepines Scrn Negative (Negative) Urine Cocaine Screen Negative (Negative) U Marijuana (THC) Screen Positive H (Negative) Ethyl Alcohol ( - 10) mg/dL SARS-CoV-2 (PCR) (Negative) 10/31/21 10/31/21 Range/Units 15:53 15:53 WBC (4.5-11.0) X10^3/uL RBC (4.0-5.2) X10^6/uL Hgb (12.0-16.0) g/dL Hct (36-46) % MCV (80-100) fL MCH (26-34) PG MCHC (30-36) % RDW (11.6-14.8) % Plt Count (150-400) X10^3/uL Neut % (Auto) (50-75) % Lymph % (Auto) (25-40) % [place] % (Auto) (3-14) % Eos % (Auto) (2-4) % Baso % (Auto) (0-2) % Neut # (Auto) (5729-0508) /uL Lymph # (Auto) (1769-3479) /uL [place] # (Auto) (0-900) /uL Eos # (Auto) (0-450) /uL Baso # (Auto) (0-100) /uL RBC Morphology Anisocytosis Sodium 115 L* (137-145) mmol/L Potassium 1.9 L* (3.4-5.1) mmol/L Chloride 61 L* (98-107) mmol/L Carbon Dioxide 42 H* (22-32) mmol/L BUN 13 (7-17) mg/dL Creatinine 0.59 (0.52-1.04) mg/dL Estimated GFR > 60 (>60) mL/min BUN/Creatinine Ratio 22.0 (6-22) Glucose 118 H (80-110) mg/dL Hemoglobin A1c (4.0-6.0) % Calcium 7.5 L (8.4-10.2) mg/dL Magnesium (1.6-2.3) mg/dL Total Bilirubin 3.0 H (0.2-1.3) mg/dL AST 68 H (14-36) IU/L ALT 20 (<35) IU/L Alkaline Phosphatase 123 (38-126) U/L Ammonia (9-30) umol/L Total Creatine Kinase (30-135) U/L CK-MB (CK-2) (<2.37) ng/mL CK-MB (CK-2) Rel Index (1.5-5.0) % Troponin I (0.01-0.034) ng/mL Total Protein 6.6 (6.3-8.2) g/dL Albumin 3.2 L (3.5-5.0) g/dL Globulin 3.4 (1.7-4.1) g/dL Albumin/Globulin Ratio 0.9 L (1.0-2.8) TSH (0.47-4.68) uIU/mL Urine Color Urine Appearance Urine pH (4.5-8.0) Ur Specific [place] (1.000-1.035) Urine Protein (Negative) Urine Glucose (UA) (Negative) g/dL Urine Ketones (NEGATIVE) Urine Occult Blood (Negative) Urine Nitrate (Negative) Urine Bilirubin (NEGATIVE) Ur Bilirubin Confirm (Negative) Urine Urobilinogen (0.2) E.U./dL Ur Leukocyte Esterase (NEGATIVE) Urine RBC (0-5/HPF) Urine WBC (0-5/HPF) Ur Squamous Epith Cells (0-5/HPF) Amorphous Sediment Urine Bacteria (None) Ur Culture Indicated? Digoxin (0.8-2.0) ng/mL U Opiates 300ng/mL cut (Negative) Ur Oxycodone Screen (Negative) Urine Methadone Screen (Negative) Ur Barbiturates Screen (Negative) U Tricyclic Antidepress (Negative) Ur Phencyclidine Scrn (Negative) Ur Amphetamines Screen (Negative) U Methamphetamines Scrn (Negative) Ur MDMA Scrn (Ecstasy) (Negative) U Benzodiazepines Scrn (Negative) Urine Cocaine Screen (Negative) U Marijuana (THC) Screen (Negative) Ethyl Alcohol < 10 ( - 10) mg/dL SARS-CoV-2 (PCR) (Negative) Point of Care Testing Glucose POC [address] scan - head: Radiologist's Impression: FINDINGS:? Image quality:? Excellent.? ? CSF spaces:? Basal cisterns are patent.? No extra-axial fluid collections.? The ventricles are symmetric in size and shape.? ? Brain:? No intracranial bleeds or masses.? There is cerebral volume loss for age, with resultant ventricular and sulcal prominence.? There are periventricular and deep white matter chronic small vessel ischemic changes.? There is intracranial internal carotid artery atherosclerosis.? ? Skull and face:? Calvarium and visualized facial bones appear intact, without suspicious lesions.? Small right occipital scalp hematoma noted. ? Sinuses:? Visualized sinuses and mastoids are clear.? ? IMPRESSION:? ? Small right occipital scalp hematoma without skull fracture or intracranial hemorrhage.? Approved by: Yo Thurman M.D. on 04/26/2021 at 18:53? CTA head and neck: Radiologist's Impression: FINDINGS:? Image quality:? Excellent.? ? BRAIN:? The ventricular system and cortical sulci demonstrate atrophy, consistent for the patient's stated age. There are areas of hypodensity within the periventricular and subcortical white matter.? There is no acute intra-or extra axial fluid collection. No acute hemorrhage, mass lesion or midline shift. Brainstem is unremarkable. Globes are symmetrical. Sinuses are aerated. Osseous structures are intact. ? HEAD CT ANGIOGRAPHY:? Anterior circulation:? Intracranial internal carotid arteries are normal in size and flow.? The flow within the paired anterior cerebral arteries is normal and symmetric.? The flow within the middle cerebral arteries is normal and symmetric.? The anterior communicating artery is seen.? No aneurysms are seen.? ? Posterior circulation:? Right vertebral artery dominance.? Visualized portions of the vertebral arteries demonstrate normal caliber, and join to form a normal appearing basilar artery.? Flow within the posterior cerebral arteries is normal and symmetric.? No aneurysms are seen.? ? NECK CT ANGIOGRAPHY:? Carotid system:? The great vessels demonstrate a conventional anatomy as they arise from the aortic arch.? The origins of the common carotid arteries appear patent.? The common carotid arteries demonstrate normal caliber and courses.? The bifurcation regions are both widely patent.? The internal carotid arteries demonstrate normal calibers and courses.? ? Posterior circulation:? The origins of the vertebral arteries both appear widely patent.? The more superior extracranial portions of both vertebral arteries also demonstrate normal courses and calibers.? They join to form a normal appearing basilar artery.? ? Soft tissues:? Visualized neck soft tissues demonstrate no suspicious abnormalities.? ? Bones:? No suspicious bony lesions.? Visualized cervical spine appears normally aligned.? IMPRESSION:? ? 1. No acute intracranial process. ? 2. Mild atrophy and chronic microvascular ischemic changes. ? 3. No areas of hemodynamically significant stenosis, vascular occlusion or aneurysmal dilation within the anterior or posterior circulation. ? 4. No areas of hemodynamically significant stenosis, vascular occlusion or aneurysmal dilation within the posterior circulation.? ? Any quantitative measurements of stenosis were performed using NASCET criteria.? ? ? Dictated by: Susanna Amador M.D. on 10/31/2021 at 11:58? ?? ECG Data Interpretation: Atrial fibrillation at a rate of 68 Occasional ventricular paced complexes No acute ischemic changes MDM Narrative Medical decision making narrative: 61-year-old woman with chronic alcohol use disorder likely chronic electrolyte abnormalities secondary to chlorthalidone use with dramatic exacerbation of both hyponatremia down to 113 and hypokalemia down to 1.7. Two weeks ago she describes significant change in weakness where she is listing to her right side and slurring her speech beyond what she typically will experience when significantly intoxicated. Suspect that she did have a stroke 2 weeks ago with the acute onset of weakness, dysarthria, etc.. The CT scan does not show acute findings nor does the CTA. She has a pacemaker in place and a MRI will not be possible. Due to uncertain etiology and time frame of approximately 2 weeks ago she is not a tPA candidate. With her significant electrolyte abnormalities, it is difficult to fully assess her entire neurologic status as all of these can certainly contribute. With the dramatic abnormalities a of reviewed her care with Dr. Genao, scene painter [facility]. His recommendations are as follows: LR at 75 an hour Potassium 10 mEq in our until potassium levels are appropriate Goal is sodium in the 121-122 range by tomorrow morning with labs recommended q.6 hours, next Karlos will be 5:00 p.m. Discontinue chlorthalidone Will add magnesium to current blood work. Will also give her 100 mg of IV thiamine. Certainly wernicke encephalopathy could contribute to her overall presentation. She has risk for significant alcohol withdrawal syndrome Stage II decubitus ulcer with Matute catheter placed and barrier cream now in place. Rate is currently controlled. Will add digoxin level to lab work as well. Elevated troponin at 0.087 with no acute ischemic changes. Currently is supposed to be taking Eliquis 5 mg b.i.d.. Not complaining of chest pain. Will not start heparin at this time Will need CCU admission 61-year-old woman with severe hyponatremia, hypokalemia likely chronic in nature in exacerbated by her chlorthalidone use as well as chronic alcohol use. Magnesium is appropriate. Slightly elevated troponin at 0.087 which is unchanging with repeat numbers. No acute ischemic changes to suggest acute coronary syndrome. She is pain free. Likely stroke 2 weeks ago based on slurred speech and acute deterioration of symptoms. No acute changes appreciated on head CT. Overall weakness exacerbated by her significant electrolyte abnormalities She does have slightly elevated LFTs and an elevated bilirubin level. Suspect part of this is chronic alcohol liver disease an acute phase reactant. Prior to additional abdominal imaging as she has absolutely no abdominal pain on clinical exam, will see if numbers are decreasing as fluid and electrolyte resuscitation continues. 445: Repeat electrolytes show sodium potassium both slowly appropriately increasing. Bilirubin is coming down as would be expected if over only an acute phase reactant. Patient is again examined and again belly is entirely benign. Troponin is stable. Will review care with our hospitalist to see if he is comfortable managing significant hyponatremia and hypokalemia with recommendations per Neurology, likely 2 weeks old stroke, potential for alcohol withdrawal and possibility of Wernicke encephalopathy with concurrent elevated troponin not increasing, no chest pain and no EKG changes. Critical Care Time <Tabitha Davison MD - Last Filed: 11/01/21 07:23> Critical Care Time Critical Care Time: Yes Total Critical Care Time: 48 Attestation: Critical care time is separate from other billable procedures. There is a high probability of a significant, sudden or life-threatening deterioration that requires my full and direct attention, intervention and personal management. This critical care time includes consultation with family and other consulting doctors, review of records, and interpretation of data from labs, EKGs and imaging as well as managements of significant electrolyte abnormality management,, altered mental status with multiple potential etiology. Discharge Plan Departure Patient Disposition: Admitted As Inpatient Clinical Impression: Stroke, Acute hyponatremia, Alcohol use disorder, severe, dependence, Abnormal weight loss, Hypokalemia, Atrial fibrillation, chronic, Elevated troponin, Pressure ulcer of buttock Admit Date/Time: 10/31/21 19:30 Admit Provider: Marie Lord ED Sign-out <Tabitha Davison MD - Last Filed: 11/01/21 07:23> Cosign ED Attending Cosbernardature Attestation: I was immediately available in the department for consultation throughout this patient's visit. I agree with documentation as above. Tabitha Davison MD
[2021-10-31 11:12] LABS: COVID19 -Nasal RAPID Negative (Negative)
[2021-10-31 11:18] LABS: Alanine Aminotransferase 21 IU/L (<35); Albumin 3.4 g/dL (3.5-5.0); Alkaline Phosphatase 136 U/L (38-126); Aspartate Aminotransferase 60 IU/L (14-36); BUN Creatinine Ratio 21.2 (6-22); Bilirubin Total 3.3 mg/dL (0.2-1.3); Blood Urea Nitrogen 14 mg/dL (7-17); Calcium 7.8 mg/dL (8.4-10.2); Creatine Kinase 132 U/L (30-135); Estimated Glomerular Filt Rate > 60 mL/min (>60); Globulin 3.3 g/dL (1.7-4.1); Glucose 170 mg/dL (80-110); HEMOLYSIS < 15 (0-50); Total Protein 6.7 g/dL (6.3-8.2)
[2021-10-31 11:19] LABS: Ammonia (NH3) < 9 umol/L (9-30)
[2021-10-31 11:24] LABS: Potassium 1.7 mmol/L (3.4-5.1); Sodium 113 mmol/L (137-145)
[2021-10-31 11:25] LABS: Chloride 59 mmol/L (98-107)
[2021-10-31 11:26] LABS: Carbon Dioxide 41 mmol/L (22-32)
[2021-10-31 11:27] LABS: Add Manual Diff / Slide Review NO; Basophils Absolute Auto 100 /uL (0-100); Basophils Percent Auto 1.3 % (0-2); Eosinophils Absolute Auto 0 /uL (0-450); Eosinophils Percent Auto 0.3 % (2-4); Hematocrit 30.6 % (36-46); Hemoglobin 11.2 g/dL (12.0-16.0); Lymphocytes Absolute Auto 500 /uL (1100-4500); Lymphocytes Percent Auto 5.8 % (25-40); Mean Corpuscular HGB Conc 36.5 % (30-36); Mean Corpuscular Hemoglobin 35.9 PG (26-34); Mean Corpuscular Volume 98.5 fL (80-100); Monocytes Absolute Auto 100 /uL (0-900); Monocytes Percent Auto 1.5 % (3-14); Neutrophils Absolute Auto 7400 /uL (1500-7000); Neutrophils Percent Auto 91.1 % (50-75); Platelet Count 263 X10^3/uL (150-400); Red Blood Cell Count 3.11 X10^6/uL (4.0-5.2); Red Cell Distribution Width 20.6 % (11.6-14.8); White Blood Cell Count 8.1 X10^3/uL (4.5-11.0)
[2021-10-31 11:29] LABS: Troponin I 0.087 ng/mL (0.01-0.034)
--- NOTE | 2021-10-31 11:31 | DI.CT.S_ITS ---
PROCEDURE: CT ANGIO HEAD AND NECK INDICATIONS: CONFUSION TECHNIQUE: Pre-contrast 4.5 mm thick sections acquired from the foramen magnum to the vertex. After the administration of intravenous contrast, 1 mm thick sections acquired from the aortic arch through the [place] of [place]. Post-contrast 4.5 mm thick sections then re-acquired from the foramen magnum to the vertex. 3-dimensional pzrvzcy-xpzjiwkhq-dkjqugbzgg (MIP) and/or volume rendering reformats were acquired of the central intracranial vasculature and neck separately. For radiation dose reduction, the following was used: automated exposure control, adjustment of mA and/or kV according to patient size. COMPARISON: [facility], CT, CT HEAD/BRAIN WO CON, 04/26/2021, 18:54. FINDINGS: Image quality: Excellent. BRAIN: The ventricular system and cortical sulci demonstrate atrophy, consistent for the patient's stated age. There are areas of hypodensity within the periventricular and subcortical white matter. There is no acute intra-or extra axial fluid collection. No acute hemorrhage, mass lesion or midline shift. Brainstem is unremarkable. Globes are symmetrical. Sinuses are aerated. Osseous structures are intact. HEAD CT ANGIOGRAPHY: Anterior circulation: Intracranial internal carotid arteries are normal in size and flow. The flow within the paired anterior cerebral arteries is normal and symmetric. The flow within the middle cerebral arteries is normal and symmetric. The anterior communicating artery is seen. No aneurysms are seen. Posterior circulation: Right vertebral artery dominance. Visualized portions of the vertebral arteries demonstrate normal caliber, and join to form a normal appearing basilar artery. Flow within the posterior cerebral arteries is normal and symmetric. No aneurysms are seen. NECK CT ANGIOGRAPHY: Carotid system: The great vessels demonstrate a conventional anatomy as they arise from the aortic arch. The origins of the common carotid arteries appear patent. The common carotid arteries demonstrate normal caliber and courses. The bifurcation regions are both widely patent. The internal carotid arteries demonstrate normal calibers and courses. Posterior circulation: The origins of the vertebral arteries both appear widely patent. The more superior extracranial portions of both vertebral arteries also demonstrate normal courses and calibers. They join to form a normal appearing basilar artery. Soft tissues: Visualized neck soft tissues demonstrate no suspicious abnormalities. Bones: No suspicious bony lesions. Visualized cervical spine appears normally aligned. IMPRESSION: 1. No acute intracranial process. 2. Mild atrophy and chronic microvascular ischemic changes. 3. No areas of hemodynamically significant stenosis, vascular occlusion or aneurysmal dilation within the anterior or posterior circulation. 4. No areas of hemodynamically significant stenosis, vascular occlusion or aneurysmal dilation within the posterior circulation. Any quantitative measurements of stenosis were performed using NASCET criteria. Dictated by: Susanna Amador M.D. on 10/31/2021 at 11:58 Approved by: Susanna Amador M.D. on 10/31/2021 at 12:01
[2021-10-31 11:33] LABS: Anisocytosis 1+
[2021-10-31 11:34] LABS: CKMB % Relative Index 2.3 % (1.5-5.0); Creatine Kinase MB 3.05 ng/mL (<2.37)
--- NOTE | 2021-10-31 11:36 | PC.NURSE ---
P arrives with generalized weakness, soiled clothing. Pt changed into clean gown. Perineum, excoritated, open blister to left inner buttock, erythema with blanching. Sydni care performed, catheter placed and area covered with barrier cream and pt repositioned to right side.
[2021-10-31 11:39] LABS: UR Morphine/Opiate cutoff 300 Negative (Negative); Ur Creatinine Normal (Normal); Ur Specific Gravity Normal (Normal); Urine Amphetamines Negative (Negative); Urine Barbiturates Negative (Negative); Urine Benzodiazepines Negative (Negative); Urine Cocaine Negative (Negative); Urine MDMA Negative (Negative); Urine Methadone Negative (Negative); Urine Methamphetamines Negative (Negative); Urine Oxycodone Negative (Negative); Urine Phencyclidine Negative (Negative); Urine Tetrahydrocannabinol Positive (Negative); Urine Tricyclic Antidepressant Negative (Negative); Urine pH Normal (Normal)
[2021-10-31 11:55] LABS: Appearance Urine UA CLEAR; Bilirubin Urine UA 3+ (NEGATIVE); Glucose Urine UA TRACE g/dL (Negative); Ketones Urine UA 1+ (NEGATIVE); Leukocyte Esterase Urine UA NEGATIVE (NEGATIVE); Nitrite Urine UA POSITIVE (Negative); Occult Blood Urine UA TRACE-LYSED (Negative); Protein Urine UA 2+ (Negative); Specific Gravity Urine UA 1.015 (1.000-1.035)
[2021-10-31 11:58] LABS: Color Urine UA ORANGE; pH Urine UA 5.5 (4.5-8.0)
[2021-10-31 12:00] LABS: Amorphous Sediment Urine 1+; Bacteria Urine Few (2-10); Culture Indicated Urine Specimen Cultured; Ictotest Urine Positive (Negative); RBC Urine 0-1/HPF (0-5/HPF); Squamous Epithelial Cell Urine 0-1 /HPF (0-5/HPF); WBC Urine 5-10/HPF (0-5/HPF)
[2021-10-31] MEDS: SODIUM CHLORIDE 0.9% 1,000 ML 150 ML IV (12:20)
[2021-10-31] MEDS: THIAMINE 100 MG in SODIUM CHLORIDE 0.9% 100 ML 404 MG IV (13:20)
[2021-10-31] MEDS: LACTATED RINGERS 1,000 ML 75 ML IV (13:21)
[2021-10-31 13:27] LABS: Magnesium 1.6 mg/dL (1.6-2.3)
[2021-10-31 13:31] LABS: Digoxin 0.5 ng/mL (0.8-2.0)
[2021-10-31] MEDS: POTASSIUM CHLORIDE IN WATER 10 MEQ/100 ML PIGGYBACK 100 MEQ IV ×8 (13:37→20:55)
[2021-10-31] MEDS: cefTRIAXone 2,000 MG in SODIUM CHLORIDE 0.9% 100 ML 200 MG IV (13:41)
--- NOTE | 2021-10-31 13:49 | PC.NURSE ---
Patient c/o pain in her buttock, turned patient onto right side and supported patient with additional pillow.
[2021-10-31 14:13] LABS: Troponin I 0.086 ng/mL (0.01-0.034)
[2021-10-31 16:16] LABS: Alanine Aminotransferase 20 IU/L (<35); Albumin 3.2 g/dL (3.5-5.0); Albumin Globulin Ratio 0.9 (1.0-2.8); Alkaline Phosphatase 123 U/L (38-126); Aspartate Aminotransferase 68 IU/L (14-36); Blood Urea Nitrogen 13 mg/dL (7-17); Calcium 7.5 mg/dL (8.4-10.2); Estimated Glomerular Filt Rate > 60 mL/min (>60); Globulin 3.4 g/dL (1.7-4.1); Glucose 118 mg/dL (80-110); Total Protein 6.6 g/dL (6.3-8.2)
[2021-10-31 16:22] LABS: HEMOLYSIS 32 (0-50)
[2021-10-31 16:29] LABS: Carbon Dioxide 42 mmol/L (22-32); Chloride 61 mmol/L (98-107); Potassium 1.9 mmol/L (3.4-5.1); Sodium 115 mmol/L (137-145)
[2021-10-31 19:13] LABS: Ethanol (ETOH) < 10 mg/dL
--- NOTE | 2021-10-31 19:58 | PM.HP.1 ---
History of Present Illness History of Present Illness Date Patient Seen: 10/31/21 Chief complaint: Incoherent, cant walk- sister thinks stroke Narrative: Nicoel Luong is 61-year-old female with atrial fibrillation anticoagulated on Eliquis and paced and unsuccessful history of cardioversions, congestive heart failure, obesity and sleep apnea, who presents complaining of severe weakness particularly on the right side to the point that she is unable to walk and has been in bed for the last 2 weeks and is having some skin breakdown over her buttock area because of chronic urinary moisture.? She states she has been depressed and not wanting to get out of bed. Her speech has been slurred. ? Denies headaches, cough, chills, palpitations, does state she continues to have vaginal bleeding. She is wondering why she is continually weak to the point of being unable to roll over by herself in bed. History is gleaned from the ED provider's note as the patient's family was not present when she came to the floor. They stated both the patient and are heavy hard liquor drinkers, patient stated she drinks 3 doubles/day and has lost weight in addition to being progressively being weak. Sister in law informed the ED provider that she has been crawling on the floor despite having a walker at home. When they were able to get her up, her clothing and bed were soaked in urine. Chest x-ray done in the ED had no reported findings. Head and neck CTA indicated mild atrophy and chronic microvascular changes and no acute intercranial process. Patient's current vitals include a temp of 98?, blood pressure 100/73, heart rate 76, respiratory rate 32, oxygen saturation 97% on room air, she weighs 99 point 7 kg with BMI of 36.6. She is mildly anemic with a hemoglobin and hematocrit of 9.9 and 27.9, platelet count is 238, initial presenting sodium was 113 now corrected to 115, her potassium was 1.7 and after 100 mEq use of potassium it is now 4.5, chloride 66, bicarb 39, creatinine 0.54 with a BUN of 10 and EGFR of greater than 60, glucose is 99 with a hemoglobin A1c of 6.4, calcium is 7.3 corrected to 8.2 which is borderline low, bilirubin was 2.3 on admission is now 2.8, AST 59, the rest of her liver enzymes have normalized, troponin is 0.086 down from 0.087 on admission, albumin is 2.9. TSH within normal range, UA is positive for nitrates bilirubin and bacteria and has been sent for culture, urine sodium is 6, digital level is low at 0.5, tox screen was positive for marijuana, and alcohol level was less than 10 which is normal, COVID-19 PCR is negative. She sees Dr. Clifton, note in this chart dated 01/29 who monitors her pacemaker, anticoagulation and tachy angela syndrome. Last echo in 10/26, normal EF, moderately enlarged right ventricle with mildly reduced function. Patient History Medical History Afib Atrial fibrillation, transient Chronic renal insufficiency Diabetes type 2, controlled ETOH abuse Fracture of distal end of fibula Heart failure Morbid obesity Pacemaker PEA (Pulseless electrical activity) (10/16/17) Sleep apnea in adult Surgical History History of third molar tooth extraction Hx of ventral hernia repair (08/12/19) Status post colonoscopy Status post surgery (07/26/10) Status post surgery (12/07/14) Family & Social History Family History (Updated 10/31/21 @ 23:51 by ANA PAULA Cerda) Father Diabetes mellitus Mother Diabetes mellitus Hyperlipidemia Hypertension Breast cancer Social History: household members spouse Safety & Behavioral: Feels Safe in Current Yes Environment Tobacco & Substance use: Tobacco type cannabis/marijuana Smoking Status Current every day smoker alcohol intake current alcohol intake frequency a few times a week Substance Use Type marijuana Meds Home Medications and Allergies Home Medications Medication Instructions Recorded Confirmed Type paroxetine HCl 20 mg tablet (Paxil) 30 mg PO QDAY #0 11/19/16 03/17/21 History metoprolol tartrate 50 mg tablet 50 mg PO DAILY tab 07/11/18 03/17/21 History apixaban 5 mg tablet (Eliquis) 5 mg PO BID 08/05/19 03/17/21 History digoxin 250 mcg (0.25 mg) tablet 250 mcg PO DAILY 08/05/19 03/17/21 History atorvastatin 10 mg PO DIRECTED 03/17/21 03/17/21 History chlorthalidone 25 mg tablet 25 mg PO DIRECTED 03/17/21 03/17/21 History medroxyprogesterone 10 mg tablet See Rx Instructions .ROUTE 08/09/21 Rx .COMPLEX #100 tab Allergies Allergy/AdvReac Type Severity Reaction Status Date / Time ketamine AdvReac Unknown hallucinati Verified 04/26/21 18:50 ons Review of Systems Review of Systems ROS: Yes unobtainable due to mental status Exam Vital Signs (past 8 hours): - 10/31/21 12:00 10/31/21 12:30 10/31/21 12:31 Pulse Rate 67 61 60 Respiratory Rate 19 22 18 Blood Pressure 119/65 112/59 L Pulse Oximetry 96 96 97 10/31/21 13:00 10/31/21 13:01 10/31/21 13:30 Pulse Rate 60 60 71 Respiratory Rate 18 18 28 H Blood Pressure 106/57 L Pulse Oximetry 98 97 96 10/31/21 13:41 10/31/21 14:00 10/31/21 14:01 Pulse Rate 70 65 69 Respiratory Rate 29 H 30 H 26 H Blood Pressure 105/66 95/69 Pulse Oximetry 97 96 95 10/31/21 14:30 10/31/21 14:31 10/31/21 15:00 Pulse Rate 61 60 61 Respiratory Rate 15 15 18 Blood Pressure 104/55 L Pulse Oximetry 96 10/31/21 15:01 10/31/21 15:30 10/31/21 15:31 Pulse Rate 61 60 60 Respiratory Rate 15 14 15 Blood Pressure 105/57 L 121/57 L Pulse Oximetry 95 96 96 10/31/21 16:00 10/31/21 16:01 10/31/21 16:30 Pulse Rate 68 67 61 Respiratory Rate 21 24 18 Blood Pressure 114/66 Pulse Oximetry 96 96 95 10/31/21 16:31 10/31/21 17:00 10/31/21 17:01 Pulse Rate 62 63 61 Respiratory Rate 17 21 22 Blood Pressure 106/61 108/59 L Pulse Oximetry 94 96 95 10/31/21 17:30 10/31/21 17:31 10/31/21 18:00 Pulse Rate 62 61 74 Respiratory Rate 22 22 33 H Blood Pressure 116/55 L Pulse Oximetry 95 96 96 10/31/21 18:01 Pulse Rate 77 Respiratory Rate 32 H Blood Pressure 127/87 Pulse Oximetry 96 Oxygen Delivery Method Room Air Narrative Exam Narrative: Gen: Alert, oriented, obese chronically ill appearing 61 y.o. female, appears older than stated age HEENT: normocephalic, atraumatic, conjunctiva clear, sclera non-icteric, oral mucosa pink and moist Neck: supple, full ROM, no JVD, trachea is midline Resp: Lungs CTA, non-labored breathing CV: RRR, no murmur or rubs Abd: soft, non-tender, normoactive BTs Skin: no lesions or rashes, dry and intact : Matute bag draining dark concentrated urine, appears to have blood present Neuro: NIH score of 8. Speech with mild slurring Extremities: moves all 4 extremities, is ambulatory, negative Zaki?s sign Psyche: depressed affect. Objective Labs Result Diagrams: 10/31/21 22:00 10/31/21 22:00 Labs: Laboratory Results - last 24 hr 10/31/21 10/31/21 10/31/21 10:47 10:55 10:55 WBC 8.1 RBC 3.11 L Hgb 11.2 L Hct 30.6 L MCV 98.5 MCH 35.9 H MCHC 36.5 H RDW 20.6 H Plt Count 263 Neut % (Auto) 91.1 H Lymph % (Auto) 5.8 L Mineral % (Auto) 1.5 L Eos % (Auto) 0.3 L Baso % (Auto) 1.3 Neut # (Auto) 7400 H Lymph # (Auto) 500 L Mineral # (Auto) 100 Eos # (Auto) 0 Baso # (Auto) 100 RBC Morphology See below Anisocytosis 1+ H Sodium 113 L* Potassium 1.7 L* Chloride 59 L* Carbon Dioxide 41 H* BUN 14 Creatinine 0.66 Estimated GFR > 60 BUN/Creatinine Ratio 21.2 Glucose 170 H Calcium 7.8 L Magnesium Total Bilirubin 3.3 H AST 60 H ALT 21 Alkaline Phosphatase 136 H Ammonia Total Creatine Kinase 132 CK-MB (CK-2) 3.05 H CK-MB (CK-2) Rel Index 2.3 Troponin I 0.087 H Total Protein 6.7 Albumin 3.4 L Globulin 3.3 Albumin/Globulin Ratio 1.0 Urine Color Urine Appearance Urine pH Ur Specific Machias Urine Protein Urine Glucose (UA) Urine Ketones Urine Occult Blood Urine Nitrate Urine Bilirubin Ur Bilirubin Confirm Urine Urobilinogen Ur Leukocyte Esterase Urine RBC Urine WBC Ur Squamous Epith Cells Amorphous Sediment Urine Bacteria Ur Culture Indicated? Digoxin U Opiates 300ng/mL cut Ur Oxycodone Screen Urine Methadone Screen Ur Barbiturates Screen U Tricyclic Antidepress Ur Phencyclidine Scrn Ur Amphetamines Screen U Methamphetamines Scrn Ur MDMA Scrn (Ecstasy) U Benzodiazepines Scrn Urine Cocaine Screen U Marijuana (THC) Screen Ethyl Alcohol SARS-CoV-2 (PCR) Negative 10/31/21 10/31/21 10/31/21 10:55 10:55 10:55 WBC RBC Hgb Hct MCV MCH MCHC RDW Plt Count Neut % (Auto) Lymph % (Auto) Mineral % (Auto) Eos % (Auto) Baso % (Auto) Neut # (Auto) Lymph # (Auto) Mineral # (Auto) Eos # (Auto) Baso # (Auto) RBC Morphology Anisocytosis Sodium Potassium Chloride Carbon Dioxide BUN Creatinine Estimated GFR BUN/Creatinine Ratio Glucose Calcium Magnesium 1.6 Total Bilirubin AST ALT Alkaline Phosphatase Ammonia < 9 L Total Creatine Kinase CK-MB (CK-2) CK-MB (CK-2) Rel Index Troponin I Total Protein Albumin Globulin Albumin/Globulin Ratio Urine Color Urine Appearance Urine pH Ur Specific Machias Urine Protein Urine Glucose (UA) Urine Ketones Urine Occult Blood Urine Nitrate Urine Bilirubin Ur Bilirubin Confirm Urine Urobilinogen Ur Leukocyte Esterase Urine RBC Urine WBC Ur Squamous Epith Cells Amorphous Sediment Urine Bacteria Ur Culture Indicated? Digoxin 0.5 L U Opiates 300ng/mL cut Ur Oxycodone Screen Urine Methadone Screen Ur Barbiturates Screen U Tricyclic Antidepress Ur Phencyclidine Scrn Ur Amphetamines Screen U Methamphetamines Scrn Ur MDMA Scrn (Ecstasy) U Benzodiazepines Scrn Urine Cocaine Screen U Marijuana (THC) Screen Ethyl Alcohol SARS-CoV-2 (PCR) 10/31/21 10/31/21 10/31/21 11:10 11:25 13:38 WBC RBC Hgb Hct MCV MCH MCHC RDW Plt Count Neut % (Auto) Lymph % (Auto) Mineral % (Auto) Eos % (Auto) Baso % (Auto) Neut # (Auto) Lymph # (Auto) Mineral # (Auto) Eos # (Auto) Baso # (Auto) RBC Morphology Anisocytosis Sodium Potassium Chloride Carbon Dioxide BUN Creatinine Estimated GFR BUN/Creatinine Ratio Glucose Calcium Magnesium Total Bilirubin AST ALT Alkaline Phosphatase Ammonia Total Creatine Kinase CK-MB (CK-2) CK-MB (CK-2) Rel Index Troponin I 0.086 H Total Protein Albumin Globulin Albumin/Globulin Ratio Urine Color Garfield Urine Appearance Clear Urine pH 5.5 Ur Specific Machias 1.015 Urine Protein 2+ H Urine Glucose (UA) Trace H Urine Ketones 1+ H Urine Occult Blood Trace-lysed Urine Nitrate Positive H Urine Bilirubin 3+ H Ur Bilirubin Confirm Positive H Urine Urobilinogen 4.0 H Ur Leukocyte Esterase Negative Urine RBC 0-1/hpf D Urine WBC 5-10/hpf H Ur Squamous Epith Cells 0-1 /hpf Amorphous Sediment 1+ Urine Bacteria Few (2-10) H Ur Culture Indicated? Specimen cultured Digoxin U Opiates 300ng/mL cut Negative Ur Oxycodone Screen Negative Urine Methadone Screen Negative Ur Barbiturates Screen Negative U Tricyclic Antidepress Negative Ur Phencyclidine Scrn Negative Ur Amphetamines Screen Negative U Methamphetamines Scrn Negative Ur MDMA Scrn (Ecstasy) Negative U Benzodiazepines Scrn Negative Urine Cocaine Screen Negative U Marijuana (THC) Screen Positive H Ethyl Alcohol SARS-CoV-2 (PCR) 10/31/21 10/31/21 15:53 15:53 WBC RBC Hgb Hct MCV MCH MCHC RDW Plt Count Neut % (Auto) Lymph % (Auto) Mineral % (Auto) Eos % (Auto) Baso % (Auto) Neut # (Auto) Lymph # (Auto) Mineral # (Auto) Eos # (Auto) Baso # (Auto) RBC Morphology Anisocytosis Sodium 115 L* Potassium 1.9 L* Chloride 61 L* Carbon Dioxide 42 H* BUN 13 Creatinine 0.59 Estimated GFR > 60 BUN/Creatinine Ratio 22.0 Glucose 118 H Calcium 7.5 L Magnesium Total Bilirubin 3.0 H AST 68 H ALT 20 Alkaline Phosphatase 123 Ammonia Total Creatine Kinase CK-MB (CK-2) CK-MB (CK-2) Rel Index Troponin I Total Protein 6.6 Albumin 3.2 L Globulin 3.4 Albumin/Globulin Ratio 0.9 L Urine Color Urine Appearance Urine pH Ur Specific Machias Urine Protein Urine Glucose (UA) Urine Ketones Urine Occult Blood Urine Nitrate Urine Bilirubin Ur Bilirubin Confirm Urine Urobilinogen Ur Leukocyte Esterase Urine RBC Urine WBC Ur Squamous Epith Cells Amorphous Sediment Urine Bacteria Ur Culture Indicated? Digoxin U Opiates 300ng/mL cut Ur Oxycodone Screen Urine Methadone Screen Ur Barbiturates Screen U Tricyclic Antidepress Ur Phencyclidine Scrn Ur Amphetamines Screen U Methamphetamines Scrn Ur MDMA Scrn (Ecstasy) U Benzodiazepines Scrn Urine Cocaine Screen U Marijuana (THC) Screen Ethyl Alcohol < 10 SARS-CoV-2 (PCR) Assessment & Plan Assessment & Plan narrative: Sammie Luong is admitted to the ICU for further correction of electrolye abnormalities, metabolic encephalopathy, alcohol withdrawal and deficits from a suspected recent CVA outside of the TPA window. 1. Acute metabolic encephalopathy, ED consulted with Dr. Genao substance abuse nurse at [facility], and is waitlisted for transfer at [facility] in [place] Goal to increase sodium to 118-120 with LR at 75 ml/hour Admission potassium was 1.7 and it is now normalized at 4.5 after receiving a total of 10-10 mEq IV riders Magnesium replacement 2 grams IV Corrected calcium is 8.2. will replace on next electrolyte draw if lower 2. Alcohol withdrawal CIWA protocol 3. TIA/Stroke Cardiac telemetry NIH score greater than 5 [X]yes ? NIH scoring and neuro checks q 4 hours Dual antiplatelet therapy: No she is currently anticoagulated on apixaban MRI contraindicated due to pacemaker Complete Echo with bubble study for PT/OT/ST evaluation 4. HLD Fasting lipid panel, pending for 0500 labs Atorvastatin 10 mg po at bedtime, to be increased if indicated 5. Post menopausal bleeding Consult placed to Dr. Ennis Risk stratification Fasting lipid panel pending for the morning A1c is 6.4 % X Diabetes type 2 VTE Prophylaxis: Wells risk score 1.5 [X] Bilateral SCDs X Patient is currently anticoagulated on []. Patient is admitted to the inpatient intensive care unit due to the severity of disease, risks of further disease progression and this stay is expected to exceed 2 midnights. FEN: IV fluids: LR at 75 ml/hour, diet: Carb controlled diet, labs: CBC, C/BMP, liver enzymes, [facility], care and involvement in the patient?s care is appreciated. Dispo: Unknown at this time Code status: Full code as discussed with the patient who identifies her Rober as her surrogate and POA. [X] I have utilized all available immediate resources to obtain, update, or review of the patient's current medications COVID-19 COVID-19 status: Negative Result date/Date tested (Pos, Neg/Pending): 10/31/21 Time Spent With Patient Critical Care time: I spent a total of 45 minutes of critical care time on this patient's care today; this time is exclusive of procedural time. Scores Wells' Criteria for PE Clinical signs and symptoms of DVT: No PE is #1 Dx or equally likely: No Heart rate > 100: No Immobilization at least 3 days or surg in previous 4 weeks: Yes History of PE or DVT: No Hemoptysis: No Malignancy w/Treatment within 6 months or palliative: No Wells' PE Score total: 1.5 Quality Stroke Contraindication Not Initiating IV-Tpa: Contraindicated Symptom Onset Unknown: Yes Rehab Services Assessed: Stroke rehabilitation MIPS - Admit I confirm the patient?s Advance Care Plan is present, Code status is documented, Surrogate decision maker is in patient?s record [If Yes, STOP here]: Yes MIPS - DC The patient has current or prior documentation of left ventricular ejection fraction (LVEF) less than 40%, or moderate or severely depressed left ventricular systolic function.: No
--- NOTE | 2021-10-31 20:32 | PM.CN.EICU ---
History of Present Illness Consult details Chief complaint: Incoherent, cant walk- sister thinks stroke Narrative: Patient is a 61 year old female with history of A fib on eliquis, CHF obesity, alcohol abuse, and JAMES who was brought in by family for generalized weakness with difficulty walking and hallucination. Last drink was about a week ago. In ER, labs notable for Na 113 , K 1.7, Co2 42. She was started on LR 75cc/hr and given 10 mEQ of KCL. Repeat Na [address] [facility] Medical History Afib Atrial fibrillation, transient Chronic renal insufficiency Diabetes type 2, controlled ETOH abuse Fracture of distal end of fibula Heart failure Morbid obesity Pacemaker PEA (Pulseless electrical activity) (10/16/17) Sleep apnea in adult Surgical History History of third molar tooth extraction Hx of ventral hernia repair (08/12/19) Status post colonoscopy Status post surgery (07/26/10) Status post surgery (12/07/14) Social History household members: spouse Smoking Status: Current every day smoker alcohol intake: current Current Medications Current Medications Medications: Home Medications paroxetine HCl 20 mg tablet (Paxil) 30 mg PO QDAY #0 11/19/16 [History Confirmed 03/17/21] metoprolol tartrate 50 mg tablet 50 mg PO DAILY tab 07/11/18 [History Confirmed 03/17/21] apixaban 5 mg tablet (Eliquis) 5 mg PO BID 08/05/19 [History Confirmed 03/17/21] digoxin 250 mcg (0.25 mg) tablet 250 mcg PO DAILY 08/05/19 [History Confirmed 03/17/21] atorvastatin 10 mg PO DIRECTED 03/17/21 [History Confirmed 03/17/21] chlorthalidone 25 mg tablet 25 mg PO DIRECTED 03/17/21 [History Confirmed 03/17/21] medroxyprogesterone 10 mg tablet See Rx Instructions .ROUTE .COMPLEX #100 tab 08/09/21 [Rx] Visit Medications (administered) Generic Name Dose Route Start Last Admin Trade Name Freq PRN Reason Stop Dose Admin Sodium Chloride 1,000 mls @ 150 mls/hr 10/31/21 10:45 10/31/21 13:11 Normal Saline 0.9% IV Infused CONT SHAQUILLE Infusion POTASSIUM CHLORIDE IN WATER 10 meq in 100 mls @ 100 mls/hr 10/31/21 13:15 10/31/21 19:44 Potassium Cl 10 Meq/100 Ml Laya IV 10/31/21 21:14 100 mls/hr Q1H SHAQUILLE Administration Lactated Ringer's 1,000 mls @ 75 mls/hr 10/31/21 13:15 10/31/21 13:21 Lactated Ringers IV 75 mls/hr CONT SHAQUILLE Administration Exam Vital Signs (past 8 hours): - 10/31/21 13:00 10/31/21 13:01 10/31/21 13:30 Pulse Rate 60 60 71 Respiratory Rate 18 18 28 H Blood Pressure 106/57 L Pulse Oximetry 98 97 96 10/31/21 13:41 10/31/21 14:00 10/31/21 14:01 Pulse Rate 70 65 69 Respiratory Rate 29 H 30 H 26 H Blood Pressure 105/66 95/69 Pulse Oximetry 97 96 95 10/31/21 14:30 10/31/21 14:31 10/31/21 15:00 Pulse Rate 61 60 61 Respiratory Rate 15 15 18 Blood Pressure 104/55 L Pulse Oximetry 96 10/31/21 15:01 10/31/21 15:30 10/31/21 15:31 Pulse Rate 61 60 60 Respiratory Rate 15 14 15 Blood Pressure 105/57 L 121/57 L Pulse Oximetry 95 96 96 10/31/21 16:00 10/31/21 16:01 10/31/21 16:30 Pulse Rate 68 67 61 Respiratory Rate 21 24 18 Blood Pressure 114/66 Pulse Oximetry 96 96 95 10/31/21 16:31 10/31/21 17:00 10/31/21 17:01 Pulse Rate 62 63 61 Respiratory Rate 17 21 22 Blood Pressure 106/61 108/59 L Pulse Oximetry 94 96 95 10/31/21 17:30 10/31/21 17:31 10/31/21 18:00 Pulse Rate 62 61 74 Respiratory Rate 22 22 33 H Blood Pressure 116/55 L Pulse Oximetry 95 96 96 10/31/21 18:01 10/31/21 18:30 10/31/21 18:31 Pulse Rate 77 69 73 Respiratory Rate 32 H 22 26 H Blood Pressure 127/87 121/68 Pulse Oximetry 96 95 95 10/31/21 19:00 10/31/21 19:01 10/31/21 19:30 Pulse Rate 68 71 65 Respiratory Rate 27 H 22 21 Blood Pressure 117/66 Pulse Oximetry 95 95 92 10/31/21 19:31 10/31/21 20:00 10/31/21 20:01 Pulse Rate 64 66 60 Respiratory Rate 14 20 18 Blood Pressure 104/56 L 124/70 Pulse Oximetry 93 96 96 Oxygen Delivery Method Room Air Objective Labs Result Diagrams: 10/31/21 10:55 10/31/21 15:53 Labs: Laboratory Results - last 24 hr 10/31/21 10/31/21 10/31/21 10:47 10:55 10:55 WBC 8.1 RBC 3.11 L Hgb 11.2 L Hct 30.6 L MCV 98.5 MCH 35.9 H MCHC 36.5 H RDW 20.6 H Plt Count 263 Neut % (Auto) 91.1 H Lymph % (Auto) 5.8 L Sharkey % (Auto) 1.5 L Eos % (Auto) 0.3 L Baso % (Auto) 1.3 Neut # (Auto) 7400 H Lymph # (Auto) 500 L Sharkey # (Auto) 100 Eos # (Auto) 0 Baso # (Auto) 100 RBC Morphology See below Anisocytosis 1+ H Sodium 113 L* Potassium 1.7 L* Chloride 59 L* Carbon Dioxide 41 H* BUN 14 Creatinine 0.66 Estimated GFR > 60 BUN/Creatinine Ratio 21.2 Glucose 170 H Calcium 7.8 L Magnesium Total Bilirubin 3.3 H AST 60 H ALT 21 Alkaline Phosphatase 136 H Ammonia Total Creatine Kinase 132 CK-MB (CK-2) 3.05 H CK-MB (CK-2) Rel Index 2.3 Troponin I 0.087 H Total Protein 6.7 Albumin 3.4 L Globulin 3.3 Albumin/Globulin Ratio 1.0 Urine Color Urine Appearance Urine pH Ur Specific [place] Urine Protein Urine Glucose (UA) Urine Ketones Urine Occult Blood Urine Nitrate Urine Bilirubin Ur Bilirubin Confirm Urine Urobilinogen Ur Leukocyte Esterase Urine RBC Urine WBC Ur Squamous Epith Cells Amorphous Sediment Urine Bacteria Ur Culture Indicated? Digoxin U Opiates 300ng/mL cut Ur Oxycodone Screen Urine Methadone Screen Ur Barbiturates Screen U Tricyclic Antidepress Ur Phencyclidine Scrn Ur Amphetamines Screen U Methamphetamines Scrn Ur MDMA Scrn (Ecstasy) U Benzodiazepines Scrn Urine Cocaine Screen U Marijuana (THC) Screen Ethyl Alcohol SARS-CoV-2 (PCR) Negative 10/31/21 10/31/21 10/31/21 10:55 10:55 10:55 WBC RBC Hgb Hct MCV MCH MCHC RDW Plt Count Neut % (Auto) Lymph % (Auto) Sharkey % (Auto) Eos % (Auto) Baso % (Auto) Neut # (Auto) Lymph # (Auto) Sharkey # (Auto) Eos # (Auto) Baso # (Auto) RBC Morphology Anisocytosis Sodium Potassium Chloride Carbon Dioxide BUN Creatinine Estimated GFR BUN/Creatinine Ratio Glucose Calcium Magnesium 1.6 Total Bilirubin AST ALT Alkaline Phosphatase Ammonia < 9 L Total Creatine Kinase CK-MB (CK-2) CK-MB (CK-2) Rel Index Troponin I Total Protein Albumin Globulin Albumin/Globulin Ratio Urine Color Urine Appearance Urine pH Ur Specific [place] Urine Protein Urine Glucose (UA) Urine Ketones Urine Occult Blood Urine Nitrate Urine Bilirubin Ur Bilirubin Confirm Urine Urobilinogen Ur Leukocyte Esterase Urine RBC Urine WBC Ur Squamous Epith Cells Amorphous Sediment Urine Bacteria Ur Culture Indicated? Digoxin 0.5 L U Opiates 300ng/mL cut Ur Oxycodone Screen Urine Methadone Screen Ur Barbiturates Screen U Tricyclic Antidepress Ur Phencyclidine Scrn Ur Amphetamines Screen U Methamphetamines Scrn Ur MDMA Scrn (Ecstasy) U Benzodiazepines Scrn Urine Cocaine Screen U Marijuana (THC) Screen Ethyl Alcohol SARS-CoV-2 (PCR) 10/31/21 10/31/21 10/31/21 11:10 11:25 13:38 WBC RBC Hgb Hct MCV MCH MCHC RDW Plt Count Neut % (Auto) Lymph % (Auto) Sharkey % (Auto) Eos % (Auto) Baso % (Auto) Neut # (Auto) Lymph # (Auto) Sharkey # (Auto) Eos # (Auto) Baso # (Auto) RBC Morphology Anisocytosis Sodium Potassium Chloride Carbon Dioxide BUN Creatinine Estimated GFR BUN/Creatinine Ratio Glucose Calcium Magnesium Total Bilirubin AST ALT Alkaline Phosphatase Ammonia Total Creatine Kinase CK-MB (CK-2) CK-MB (CK-2) Rel Index Troponin I 0.086 H Total Protein Albumin Globulin Albumin/Globulin Ratio Urine Color [place] Urine Appearance Clear Urine pH 5.5 Ur Specific [place] 1.015 Urine Protein 2+ H Urine Glucose (UA) Trace H Urine Ketones 1+ H Urine Occult Blood Trace-lysed Urine Nitrate Positive H Urine Bilirubin 3+ H Ur Bilirubin Confirm Positive H Urine Urobilinogen 4.0 H Ur Leukocyte Esterase Negative Urine RBC 0-1/hpf D Urine WBC 5-10/hpf H Ur Squamous Epith Cells 0-1 /hpf Amorphous Sediment 1+ Urine Bacteria Few (2-10) H Ur Culture Indicated? Specimen cultured Digoxin U Opiates 300ng/mL cut Negative Ur Oxycodone Screen Negative Urine Methadone Screen Negative Ur Barbiturates Screen Negative U Tricyclic Antidepress Negative Ur Phencyclidine Scrn Negative Ur Amphetamines Screen Negative U Methamphetamines Scrn Negative Ur MDMA Scrn (Ecstasy) Negative U Benzodiazepines Scrn Negative Urine Cocaine Screen Negative U Marijuana (THC) Screen Positive H Ethyl Alcohol SARS-CoV-2 (PCR) 10/31/21 10/31/21 15:53 15:53 WBC RBC Hgb Hct MCV MCH MCHC RDW Plt Count Neut % (Auto) Lymph % (Auto) Sharkey % (Auto) Eos % (Auto) Baso % (Auto) Neut # (Auto) Lymph # (Auto) Sharkey # (Auto) Eos # (Auto) Baso # (Auto) RBC Morphology Anisocytosis Sodium 115 L* Potassium 1.9 L* Chloride 61 L* Carbon Dioxide 42 H* BUN 13 Creatinine 0.59 Estimated GFR > 60 BUN/Creatinine Ratio 22.0 Glucose 118 H Calcium 7.5 L Magnesium Total Bilirubin 3.0 H AST 68 H ALT 20 Alkaline Phosphatase 123 Ammonia Total Creatine Kinase CK-MB (CK-2) CK-MB (CK-2) Rel Index Troponin I Total Protein 6.6 Albumin 3.2 L Globulin 3.4 Albumin/Globulin Ratio 0.9 L Urine Color Urine Appearance Urine pH Ur Specific [place] Urine Protein Urine Glucose (UA) Urine Ketones Urine Occult Blood Urine Nitrate Urine Bilirubin Ur Bilirubin Confirm Urine Urobilinogen Ur Leukocyte Esterase Urine RBC Urine WBC Ur Squamous Epith Cells Amorphous Sediment Urine Bacteria Ur Culture Indicated? Digoxin U Opiates 300ng/mL cut Ur Oxycodone Screen Urine Methadone Screen Ur Barbiturates Screen U Tricyclic Antidepress Ur Phencyclidine Scrn Ur Amphetamines Screen U Methamphetamines Scrn Ur MDMA Scrn (Ecstasy) U Benzodiazepines Scrn Urine Cocaine Screen U Marijuana (THC) Screen Ethyl Alcohol < 10 SARS-CoV-2 (PCR) Assessment & Plan Assessment & Plan narrative: NEURO: # Generalized weakness -- CTH showed no acute abnormality -- Attributed to severe hyponatremia -- Needs PT/OT consultation -- Early mobility -- Fall precaution # Alcohol abuse -- On thiamine, folic acid and MTV CVS: # Hx of HTN -- Goal SBP < 140 # Hx of A fib -- Ok to resume metoprolol w/ holding parameters -- CHADVASC score 3 -> on eliquis : # Hyponatremia -- Secondary to hypotonic hyponatremia. Other ddx include hypervolemia vs euvolemia. -- Check TSH, urine Na, urine osm, and serum osm -- On LR 75cc/hr -- Check BMP every 4 hours -- Goal Na 121 by 11/01 10 am -- If Na continues to rise rapidly then will stop LR and start D5W ENDO: -- Goal BS < 180 D/w RN and Marie Lord at bedside. Time Spent With Patient Critical Care time: I spent a total of [] minutes of critical care time on this patient's care today; this time is exclusive of procedural time.
[2021-10-31 20:44] LABS: Hemoglobin A1C% w Est Avg Glu 6.4 % (4.0-6.0)
[2021-10-31 21:31] LABS: TSH w/ Reflex to FT4 1.81 uIU/mL (0.47-4.68)
[2021-10-31 21:40] LABS: Sodium Urine Random 6 mmol/L (30-90)
[2021-10-31] MEDS: DOCUSATE 100 MG CAPSULE PO (21:47)
[2021-10-31 22:21] LABS: Alanine Aminotransferase 19 IU/L (<35); Albumin 2.9 g/dL (3.5-5.0); Albumin Globulin Ratio 0.9 (1.0-2.8); Alkaline Phosphatase 107 U/L (38-126); Aspartate Aminotransferase 59 IU/L (14-36); Bilirubin Conjugated 0.7 md/dL (0.0-0.3); Bilirubin Total 2.8 mg/dL (0.2-1.3); Bilirubin Unconjugated 1.1 mg/dL (0.0-1.1); Globulin 3.2 g/dL (1.7-4.1); HEMOLYSIS 23 (0-50); Total Protein 6.1 g/dL (6.3-8.2)
[2021-10-31 22:24] LABS: Add Manual Diff / Slide Review NO; Basophils Absolute Auto 0 /uL (0-100); Basophils Percent Auto 0.3 % (0-2); Eosinophils Absolute Auto 100 /uL (0-450); Eosinophils Percent Auto 0.7 % (2-4); Hematocrit 27.9 % (36-46); Hemoglobin 9.9 g/dL (12.0-16.0); Lymphocytes Absolute Auto 700 /uL (1100-4500); Lymphocytes Percent Auto 9.4 % (25-40); Mean Corpuscular HGB Conc 35.5 % (30-36); Mean Corpuscular Hemoglobin 35.6 PG (26-34); Mean Corpuscular Volume 100.1 fL (80-100); Monocytes Absolute Auto 100 /uL (0-900); Monocytes Percent Auto 1.5 % (3-14); Neutrophils Absolute Auto 6700 /uL (1500-7000); Neutrophils Percent Auto 88.1 % (50-75); Platelet Count 238 X10^3/uL (150-400); Red Blood Cell Count 2.78 X10^6/uL (4.0-5.2); Red Cell Distribution Width 20.8 % (11.6-14.8); White Blood Cell Count 7.6 X10^3/uL (4.5-11.0)
[2021-10-31] MEDS: MAGNESIUM SULFATE 2 GM/50 ML PIGGYBACK IV (22:29)
[2021-10-31 22:32] LABS: BUN Creatinine Ratio 18.5 (6-22); Blood Urea Nitrogen 10 mg/dL (7-17); Calcium 7.3 mg/dL (8.4-10.2); Estimated Glomerular Filt Rate > 60 mL/min (>60); Glucose 99 mg/dL (80-110); Potassium 4.5 mmol/L (3.4-5.1)
[2021-10-31 22:33] LABS: Magnesium 1.7 mg/dL (1.6-2.3)
[2021-10-31 22:39] LABS: Carbon Dioxide 39 mmol/L (22-32); HEMOLYSIS 24 (0-50)
[2021-10-31 22:45] LABS: Chloride 66 mmol/L (98-107); Sodium 115 mmol/L (137-145)
[2021-10-31 22:52] LABS: Thyroid Stimulating Hormone 1.58 uIU/mL (0.47-4.68)
[2021-11-01] VITALS (39 sets, daily range): BP systolic 82–148; BP diastolic 55–71; PULSE 60–78; RESP 11–31; TEMP 36.1–36.9; O2SAT 92–100
--- NOTE | 2021-11-01 | DI.US.S_ITS ---
PROCEDURE: US PELVIC COMPLETE INDICATIONS: POST MENOPAUSAL BLEEDING TECHNIQUE: Real-time scanning was performed of the pelvic organs, with image documentation. Additional endovaginal scanning was necessary due to incomplete visualization of the adnexal and endometrial structures by transabdominal scanning. COMPARISON: [facility], , PELVIC COMPLETE, 11/10/2015, 13:07. FINDINGS: Uterus: Uterus is anteverted and measures 10.8 x 7.5 x 8.2 cm. The myometrium is heterogeneous. The endometrium measures 8.7 mm combined thickness. Ovaries: The ovaries were not visualized due to overlying bowel gas. Other: No pathologic free abdominal or pelvic fluid. IMPRESSION: 1. Abnormal thickened endometrium in a postmenopausal patient with bleeding. Endometrial hyperplasia and neoplasm cannot be excluded. Endometrial biopsy recommended. We strive to produce accurate, complete, and clear reports of imaging services. To assist us in improving patient care, this report was composed using standard report templates and voice recognition software. Therefore, it may contain abnormal punctuation, insertions and/or omissions. Occasional wrong-word or sound-alike substitutions may occur. Though we review the report and make efforts to correct it, we do recommend that the report be read carefully in proper context to recognize any text inaccuracies. Dictated by: Tati Chew M.D. on 11/02/2021 at 9:22 Approved by: Tati Chew M.D. on 11/02/2021 at 9:24
--- NOTE | 2021-11-01 | DI.ECHO.S_ITS ---
[facility] +---------+ : : [address] : : : : [id number] : : : : Phone: [phone]+ Echocardiogram Report + + :Name: YUNIER BAI Study Date: 11/01/2021 Height: 65 in : :[employer] ReadingLocation: Weight: 220 lb: : Gender: Female BSA: 2.1 m2 : :: 1960 Age: 61 yrs BP: 87/60 mmHg: :Reason For Study: AFIB, PACED, POSSIBLE CVA : :Ordering Physician: NIXON THOMASON Performed By: Brandie Dorado : :Referring: NIXON THOMASON : + + Interpretation Summary The left ventricle is normal in size. Left ventricular systolic function is normal. The ejection fraction is estimated to be 55-60%. LVEF has not changed since prior study. There are no focal wall motion abnormalities. Apical wall motion abnormality may reflect pacemaker activation. Diastolic function could not be accurately assessed due to atrial fibrillation. The right ventricle is mildly dilated. There is a pacemaker lead in the right ventricle. The right ventricular systolic function is normal. The left atrium is moderately dilated. The right atrium is moderately dilated. There is no Doppler evidence for an interatrial shunt. Injection of contrast documented no interatrial shunt. There is no significant valvular heart disease. The aortic root is normal size. Procedure: A two-dimensional transthoracic echocardiogram with color flow and Doppler was performed. The study quality was technically difficult. Comparison is made with the echocardiogram of 10/12/2017. A saline contrast injection was performed to assess for cardiac shunting. A contrast injection of Definity was performed to improve assessment of LV function. Left Ventricle: The left ventricle is normal in size. The estimated left ventricular end diastolic volume is 98 ml. Proximal septal thickening is noted. Left ventricular systolic function is normal. The ejection fraction is estimated to be 55-60%. There are no focal wall motion abnormalities. Apical wall motion abnormality may reflect pacemaker activation. Diastolic function could not be accurately assessed due to atrial fibrillation. Right Ventricle: The right ventricle is mildly dilated. There is a pacemaker lead in the right ventricle. The right ventricular systolic function is normal. Atria: The left atrium is moderately dilated. The right atrium is moderately dilated. There is no Doppler evidence for an interatrial shunt. Injection of contrast documented no interatrial shunt. Mitral Valve: The mitral valve is normal in structure and function. There is trace mitral regurgitation. Aortic Valve: The aortic valve is not well visualized. There is no aortic valve stenosis. No aortic regurgitation is present. Tricuspid Valve: The tricuspid valve is not well visualized. The tricuspid valve is not well visualized, but is grossly normal. There is mild tricuspid regurgitation. Pulmonic Valve: The pulmonic valve is not well visualized. There is no pulmonic valvular regurgitation. There is no significant valvular heart disease. Great Vessels: The aortic root is normal size. The ascending aorta could not be visualized. The IVC is of normal diameter and collapses greater than 50% with a sniff. This suggests a low right atrial pressure of 3 mm Hg. Pericardium/ Pleura There is no pericardial effusion. There is no pleural effusion. MMode/2D Measurements & Calculations LVOT diam: 2.2 cm LA A2 area: 26.6 cm2 Ao root diam: 3.3 cm LA A4 area: 31.9 cm2 Ao Arch Diam (Prox Trans): 3.1 cm LA length (vol): 6.3 cm LA vol: 114.8 ml LA vol index: 55.7 ml/m2 RA long axis: 6.4 cm RVD1 (basal): 4.9 cm RA area: 26.0 cm2 RVD2 (mid): 4.3 cm RA vol: 90.0 ml TAPSE: 1.8 cm RA : 43.7 ml/m2 IVC diam: 1.1 cm Doppler Measurements & Calculations Ao V2 max: 169.6 cm/sec LVOT Max Negro: 106.3 cm/sec Ao V2 mean: 116.8 cm/sec LV V1 max P.5 mmHg Ao max P.5 mmHg LV V1 VTI: 17.9 cm Ao mean P.1 mmHg NATALIE(I,D): 2.7 cm2 Ao V2 VTI: 26.2 cm NATALIE(V,D): 2.4 cm2 sev ratio: 0.68 NATALIE indexed to BSA (cm^2/m^2): 1.3 MV E max negro: 64.6 cm/sec PA V2 max: 112.5 cm/sec MV A max negro: 1.6 cm/sec PA V2 mean: 79.4 cm/sec MV E/A: 39.4 PA mean P.8 mmHg Med Peak E' Negro: 6.4 cm/sec PA pr(Accel): 51.6 mmHg E/E' med: 10.1 Lat Peak E' Negro: 12.6 cm/sec E/E' lat: 5.1 E/e' average: 7.6 MV dec time: 0.28 sec SV(LVOT): 69.4 ml Reading Physician:12:45 PM
--- NOTE | 2021-11-01 02:20 | DI.RAD.S_ITS ---
PROCEDURE: XR CHEST FOR PICC 1V INDICATIONS: Post PICC Line placement TECHNIQUE: One view of the chest was acquired. COMPARISON: [facility], CR, XR CHEST 1V, 10/31/2021, 11:19. FINDINGS: Surgical changes and devices: There is a right PICC with the tip projecting to the area of SVC. A cardiac pacemaker is noted. Lungs and pleura: Lungs are clear. No pleural effusions or pneumothorax. Mediastinum: Mediastinal contours appear normal. Heart size is normal. Bones and chest wall: No suspicious bony lesions. Overlying soft tissues appear unremarkable. IMPRESSION: The tip of the PICC is in the area of SVC. No significant discrepancy with the maintenance supervisor 2nd shift radiology preliminary report. Dictated by: Carlos A Zelaya M.D. on 11/01/2021 at 8:27 Approved by: Carlos A Zelaya M.D. on 11/01/2021 at 8:28
[2021-11-01 02:27] LABS: Add Manual Diff / Slide Review SLIDE REVIEW; Basophils Absolute Auto 0 /uL (0-100); Basophils Percent Auto 0.3 % (0-2); Eosinophils Absolute Auto 0 /uL (0-450); Eosinophils Percent Auto 0.6 % (2-4); Hematocrit 27.1 % (36-46); Hemoglobin 9.7 g/dL (12.0-16.0); Lymphocytes Absolute Auto 600 /uL (1100-4500); Lymphocytes Percent Auto 7.7 % (25-40); Mean Corpuscular HGB Conc 35.8 % (30-36); Mean Corpuscular Volume 100.4 fL (80-100); Monocytes Absolute Auto 200 /uL (0-900); Monocytes Percent Auto 2.3 % (3-14); Neutrophils Absolute Auto 6700 /uL (1500-7000); Neutrophils Percent Auto 89.1 % (50-75); Platelet Count 244 X10^3/uL (150-400); Red Cell Distribution Width 21.3 % (11.6-14.8); White Blood Cell Count 7.6 X10^3/uL (4.5-11.0)
[2021-11-01] MEDS: LACTATED RINGERS 1,000 ML 75 ML IV (02:30)
[2021-11-01 02:33] LABS: Magnesium 2.5 mg/dL (1.6-2.3)
[2021-11-01 02:34] LABS: BUN Creatinine Ratio 22.6 (6-22); Blood Urea Nitrogen 12 mg/dL (7-17); Calcium 7.4 mg/dL (8.4-10.2); Estimated Glomerular Filt Rate > 60 mL/min (>60); Glucose 112 mg/dL (80-110)
[2021-11-01 02:44] LABS: HEMOLYSIS 68 (0-50)
[2021-11-01 02:48] LABS: Chloride 64 mmol/L (98-107); Sodium 117 mmol/L (137-145)
[2021-11-01 02:49] LABS: Carbon Dioxide 41 mmol/L (22-32)
[2021-11-01] MEDS: POTASSIUM CHLORIDE 20 MEQ TAB 40 MEQ PO ×3 (02:59→20:40)
[2021-11-01] MEDS: POTASSIUM CHLORIDE IN WATER 10 MEQ/100 ML PIGGYBACK 100 MEQ IV ×13 (03:00→22:26)
--- NOTE | 2021-11-01 03:47 | DI.RAD.S_ITS ---
PROCEDURE: XR CHEST FOR PICC 1V INDICATIONS: post PICC line placement TECHNIQUE: One view of the chest was acquired. COMPARISON: [facility], CR, XR CHEST 1V, 10/31/2021, 11:19. [facility], CR, XR CHEST FOR PICC 1V, 11/01/2021, 2:34. FINDINGS: Surgical changes and devices: There is a right PICC with the tip projecting to the area of atrial caval junction. A cardiac pacemaker is noted. Lungs and pleura: Chronic left hemidiaphragm elevation. Lungs are clear. No pleural effusions or pneumothorax. Mediastinum: Mediastinal contours appear normal. Heart size is mildly increased. Bones and chest wall: No suspicious bony lesions. Overlying soft tissues appear unremarkable. IMPRESSION: Right PICC tip in the area of atrial caval junction. No significant discrepancy with the night coordinator radiology preliminary report. Dictated by: Carlos A Zelaya M.D. on 11/01/2021 at 8:21 Approved by: Carlos A Zelaya M.D. on 11/01/2021 at 8:23
--- NOTE | 2021-11-01 05:56 | PC.NURSE ---
Shift Note: Patient brought in from ED by stretcher, accompanied by RN, patient was alert and orientedx3, follows commands, denies any pain/discomfort, vital signs are stable and within acceptable limits. Patient was seen and examined by MALATHI Lord. Tele-ICU MD Brooke was consulted via two way video teleconference, patient was seen and verbal orders were given. CIWA was done with score of 1; NIH was done with score of 8-9, all extremities drifted when raised, patient stated generalized weakness and depression, provider was aware. Patient Na, K, Cl and CO2 has been low, series BMP was done and replacement was given, provider awared. At 0230, PICC line was placed at right upper arm by IV nurse and verified by x-ray, access to use ordered by MALATHI Lord. Matute cath was placed, with hourly urine output monitoring, adequate yellowish output noted. Pericare was done. Patient has stage 2 pressure ulcer x2 at left buttocks, foam dressing placed, surrounding area noted with some blisters and excoriation. Patient passed nursing bedside swallow, no signs of respiratory distress and tolerated oral fluid intake. Repositioned patient every 2hours. Safety precautions initiated and maintained. Will continue to monitor.
[2021-11-01 06:31] LABS: Alanine Aminotransferase 21 IU/L (<35); Bilirubin Conjugated 0.6 md/dL (0.0-0.3); Bilirubin Total 2.7 mg/dL (0.2-1.3); Bilirubin Unconjugated 1.3 mg/dL (0.0-1.1); Globulin 3.1 g/dL (1.7-4.1); HEMOLYSIS 78 (0-50); Total Protein 6.1 g/dL (6.3-8.2)
[2021-11-01 06:33] LABS: Alkaline Phosphatase 140 U/L (38-126); Aspartate Aminotransferase 90 IU/L (14-36)
[2021-11-01 06:38] LABS: Eosinophils Absolute Auto 100 /uL (0-450); Hemoglobin 9.7 g/dL (12.0-16.0); Monocytes Absolute Auto 300 /uL (0-900)
[2021-11-01 06:51] LABS: BUN Creatinine Ratio 17.7 (6-22); Blood Urea Nitrogen 11 mg/dL (7-17); Calcium 7.5 mg/dL (8.4-10.2); Estimated Glomerular Filt Rate > 60 mL/min (>60); Glucose 109 mg/dL (80-110); HEMOLYSIS < 15 (0-50); Magnesium 2.5 mg/dL (1.6-2.3)
[2021-11-01 06:52] LABS: Alanine Aminotransferase 23 IU/L (<35); Albumin 2.7 g/dL (3.5-5.0); Albumin Globulin Ratio 0.9 (1.0-2.8); Alkaline Phosphatase 160 U/L (38-126); Aspartate Aminotransferase 74 IU/L (14-36); Bilirubin Conjugated 0.9 md/dL (0.0-0.3); Bilirubin Total 2.9 mg/dL (0.2-1.3); Bilirubin Unconjugated 1.2 mg/dL (0.0-1.1); Globulin 2.9 g/dL (1.7-4.1); HEMOLYSIS < 15 (0-50); Total Protein 5.6 g/dL (6.3-8.2)
[2021-11-01 07:01] LABS: Sodium 118 mmol/L (137-145)
[2021-11-01 07:02] LABS: Chloride 66 mmol/L (98-107); Potassium 2.4 mmol/L (3.4-5.1)
[2021-11-01 07:03] LABS: Carbon Dioxide 41 mmol/L (22-32)
[2021-11-01 07:10] LABS: Anisocytosis 1+; Stomatocytes 1+
[2021-11-01 07:24] LABS: Add Manual Diff / Slide Review NO; Basophils Absolute Auto 0 /uL (0-100); Basophils Percent Auto 0.5 % (0-2); Eosinophils Percent Auto 0.8 % (2-4); Hematocrit 27.8 % (36-46); Lymphocytes Absolute Auto 900 /uL (1100-4500); Lymphocytes Percent Auto 11.3 % (25-40); Mean Corpuscular HGB Conc 34.8 % (30-36); Mean Corpuscular Hemoglobin 35.1 PG (26-34); Monocytes Percent Auto 3.8 % (3-14); Neutrophils Absolute Auto 6400 /uL (1500-7000); Neutrophils Percent Auto 83.6 % (50-75); Platelet Count 223 X10^3/uL (150-400); Red Blood Cell Count 2.76 X10^6/uL (4.0-5.2); Red Cell Distribution Width 21.1 % (11.6-14.8); White Blood Cell Count 7.7 X10^3/uL (4.5-11.0)
[2021-11-01 07:45] LABS: Anisocytosis 2+
[2021-11-01] MEDS: DOCUSATE 100 MG CAPSULE PO ×2 (08:25→20:42)
[2021-11-01] MEDS: MULTIVITAMIN 1 TABLET 1 TAB PO (08:26)
[2021-11-01] MEDS: FOLIC ACID 1 MG TABLET PO (08:26)
[2021-11-01] MEDS: THIAMINE 100 MG TABLET PO (08:26)
[2021-11-01] MEDS: PANTOPRAZOLE 40 MG VIAL IV (08:26)
--- NOTE | 2021-11-01 08:31 | PC.NURSE ---
Addendum entered by Kristen High R.N. 11/01/21 18:54: Per Mendy-Goal for Na today 121. Slow improvement, monitor for I/o for dumping fluids. Matute patent. Goal for Na for 10 am 11/02 129. Additional PO and IV K riders ordered. Pt is up in chair at end of shift. Waffle cushion in place. Alleyvns in place. Addendum entered by Kristen High R.N. 11/01/21 18:41: Pt continues with slow improvement to K+ 2.7 at last check. q 4 h BMP, Pt with improved mentation, worsening CIWA 8, 9. PO ativan. Pt reporting some hallucinations in room. Was able to get up OOB with PT and significant encouragment. 2PA. Linens changed and bed bath given. Addendum entered by Kristen High R.N. 11/01/21 14:26: Pt waxing and waning with mentation today. At times, very alert to a knock on the door, sometimes requiring loud voice and shoulder shake. At times, drifting off mid sentence. Original Note: AM shift Pt is resting quietly with no c/o pain or discomfort. CPAP in place and Spo2 >[address]. Weakness, unable to hold arms up during assessment. Drifting, denies pain at present. Pt requesting grouped care d/t fatigue.IVF per emar. K riders infusing.
[2021-11-01] MEDS: KCL 20 MEQ IN NS 1,000 ML 100 MEQ IV ×2 (08:55→21:49)
[2021-11-01] MEDS: ONDANSETRON 4 MG/2 ML INJ IV (09:28)
--- NOTE | 2021-11-01 09:39 | PM.PN.EICU ---
Subjective Subjective Interval history: -- Tolerated home CPAP overnight -- Na 118 this morning -- Fluids switched to NS + KCL 20 mEQ -- BMP every 4 hours -- PT/OT consultation Current Medications Current Medications Medications: Home Medications paroxetine HCl 20 mg tablet (Paxil) 30 mg PO QDAY #0 11/19/16 [History Confirmed 03/17/21] metoprolol tartrate 50 mg tablet 50 mg PO DAILY tab 07/11/18 [History Confirmed 03/17/21] apixaban 5 mg tablet (Eliquis) 5 mg PO BID 08/05/19 [History Confirmed 03/17/21] digoxin 250 mcg (0.25 mg) tablet 250 mcg PO DAILY 08/05/19 [History Confirmed 03/17/21] atorvastatin 10 mg PO DIRECTED 03/17/21 [History Confirmed 03/17/21] chlorthalidone 25 mg tablet 25 mg PO DIRECTED 03/17/21 [History Confirmed 03/17/21] medroxyprogesterone 10 mg tablet See Rx Instructions .ROUTE .COMPLEX #100 tab 08/09/21 [Rx] Visit Medications (administered) Generic Name Dose Route Start Last Admin Trade Name Jb PRN Reason Stop Dose Admin Docusate Sodium 100 mg 10/31/21 21:00 11/01/21 08:25 Docusate 100 Mg Capsule PO 100 mg BID SHAQUILLE Administration Folic Acid 1 mg 11/01/21 09:00 11/01/21 08:26 Folic Acid 1 Mg Tablet PO 1 mg DAILY SHAQUILLE Administration POTASSIUM CHLORIDE IN WATER 10 meq in 100 mls @ 100 mls/hr 11/01/21 07:45 11/01/21 08:24 Potassium Cl 10 Meq/100 Ml Laya IV 11/01/21 12:44 100 mls/hr Q1H SHAQUILLE Administration Magnesium Sulfate 2 gm in 50 mls @ 25 mls/hr 11/01/21 07:43 11/01/21 09:28 Magnesium Sulfate IV 11/01/21 09:42 Not Given NOW ONE Potassium Chloride/Sodium Chloride 1,000 mls @ 100 mls/hr 11/01/21 07:45 11/01/21 08:55 Ns With Kcl 20 Meq IV 100 mls/hr CONT SHAQUILLE Administration Multivitamins 1 tab 11/01/21 09:00 11/01/21 08:26 Multivitamin 1 Tablet PO 1 tab DAILY SHAQUILLE Administration Ondansetron HCl 4 mg 10/31/21 19:45 11/01/21 09:28 Ondansetron 4 Mg/2 Ml Inj IV 4 mg Q6HR PRN Administration Nausea And Vomiting Pantoprazole Sodium 40 mg 11/01/21 09:00 11/01/21 08:26 Pantoprazole 40 Mg Vial IV 40 mg DAILY SHAQUILLE Administration Thiamine HCl 100 mg 11/01/21 09:00 11/01/21 08:26 Thiamine 100 Mg Tablet PO 11/04/21 09:01 100 mg DAILY SHAQUILLE Administration Objective Labs Result Diagrams: 11/01/21 06:28 11/01/21 06:28 Labs: Laboratory Results - last 24 hr 10/31/21 10/31/21 10/31/21 10:47 10:55 10:55 WBC 8.1 RBC 3.11 L Hgb 11.2 L Hct 30.6 L MCV 98.5 MCH 35.9 H MCHC 36.5 H RDW 20.6 H Plt Count 263 Neut % (Auto) 91.1 H Lymph % (Auto) 5.8 L [place] % (Auto) 1.5 L Eos % (Auto) 0.3 L Baso % (Auto) 1.3 Neut # (Auto) 7400 H Lymph # (Auto) 500 L [place] # (Auto) 100 Eos # (Auto) 0 Baso # (Auto) 100 Nucleated RBCs Hypersegmented Neuts Hypogranular Neuts Reactive Lymphocytes Smudge Cells Other Cell Type Toxic Granulation Toxic Vacuolation Dohle Bodies Carmela Rods WBC Morphology Comment Platelet Estimate Clumped Platelets Plt Morphology Comment RBC Morphology See below Dimorphic RBCs Polychromasia Hypochromasia Poikilocytosis Basophilic Stippling Anisocytosis 1+ H Microcytosis Macrocytosis Spherocytes Pappenheimer Bodies Sickle Cells Target Cells Tear Drop Cells Ovalocytes Stomatocytes Helmet Cells [place] Bodies [place] Rings [place] Cells Acanthocytes (Spur) Rouleaux Schistocytes Sodium 113 L* Potassium 1.7 L* Chloride 59 L* Carbon Dioxide 41 H* BUN 14 Creatinine 0.66 Estimated GFR > 60 BUN/Creatinine Ratio 21.2 Glucose 170 H Hemoglobin A1c Calcium 7.8 L Magnesium Total Bilirubin 3.3 H Conjugated Bilirubin Unconjugated Bilirubin AST 60 H ALT 21 Alkaline Phosphatase 136 H Ammonia Total Creatine Kinase 132 CK-MB (CK-2) 3.05 H CK-MB (CK-2) Rel Index 2.3 Troponin I 0.087 H Total Protein 6.7 Albumin 3.4 L Globulin 3.3 Albumin/Globulin Ratio 1.0 TSH Urine Color Urine Appearance Urine pH Ur Specific [place] Urine Protein Urine Glucose (UA) Urine Ketones Urine Occult Blood Urine Nitrate Urine Bilirubin Ur Bilirubin Confirm Urine Urobilinogen Ur Leukocyte Esterase Urine RBC Urine WBC Ur Squamous Epith Cells Amorphous Sediment Urine Bacteria Ur Culture Indicated? Ur Random Sodium Nasal Screen MRSA (PCR) Digoxin U Opiates 300ng/mL cut Ur Oxycodone Screen Urine Methadone Screen Ur Barbiturates Screen U Tricyclic Antidepress Ur Phencyclidine Scrn Ur Amphetamines Screen U Methamphetamines Scrn Ur MDMA Scrn (Ecstasy) U Benzodiazepines Scrn Urine Cocaine Screen U Marijuana (THC) Screen Ethyl Alcohol SARS-CoV-2 (PCR) Negative 10/31/21 10/31/21 10/31/21 10:55 10:55 10:55 WBC RBC Hgb Hct MCV MCH MCHC RDW Plt Count Neut % (Auto) Lymph % (Auto) [place] % (Auto) Eos % (Auto) Baso % (Auto) Neut # (Auto) Lymph # (Auto) [place] # (Auto) Eos # (Auto) Baso # (Auto) Nucleated RBCs Hypersegmented Neuts Hypogranular Neuts Reactive Lymphocytes Smudge Cells Other Cell Type Toxic Granulation Toxic Vacuolation Dohle Bodies Carmela Rods WBC Morphology Comment Platelet Estimate Clumped Platelets Plt Morphology Comment RBC Morphology Dimorphic RBCs Polychromasia Hypochromasia Poikilocytosis Basophilic Stippling Anisocytosis Microcytosis Macrocytosis Spherocytes Pappenheimer Bodies Sickle Cells Target Cells Tear Drop Cells Ovalocytes Stomatocytes Helmet Cells [place] Bodies [place] Rings [place]von Cells Acanthocytes (Spur) Rouleaux Schistocytes Sodium Potassium Chloride Carbon Dioxide BUN Creatinine Estimated GFR BUN/Creatinine Ratio Glucose Hemoglobin A1c Calcium Magnesium 1.6 Total Bilirubin Conjugated Bilirubin Unconjugated Bilirubin AST ALT Alkaline Phosphatase Ammonia < 9 L Total Creatine Kinase CK-MB (CK-2) CK-MB (CK-2) Rel Index Troponin I Total Protein Albumin Globulin Albumin/Globulin Ratio TSH Urine Color Urine Appearance Urine pH Ur Specific [place] Urine Protein Urine Glucose (UA) Urine Ketones Urine Occult Blood Urine Nitrate Urine Bilirubin Ur Bilirubin Confirm Urine Urobilinogen Ur Leukocyte Esterase Urine RBC Urine WBC Ur Squamous Epith Cells Amorphous Sediment Urine Bacteria Ur Culture Indicated? Ur Random Sodium Nasal Screen MRSA (PCR) Digoxin 0.5 L U Opiates 300ng/mL cut Ur Oxycodone Screen Urine Methadone Screen Ur Barbiturates Screen U Tricyclic Antidepress Ur Phencyclidine Scrn Ur Amphetamines Screen U Methamphetamines Scrn Ur MDMA Scrn (Ecstasy) U Benzodiazepines Scrn Urine Cocaine Screen U Marijuana (THC) Screen Ethyl Alcohol SARS-CoV-2 (PCR) 10/31/21 10/31/21 10/31/21 10:55 10:55 11:01 WBC RBC Hgb Hct MCV MCH MCHC RDW Plt Count Neut % (Auto) Lymph % (Auto) [place] % (Auto) Eos % (Auto) Baso % (Auto) Neut # (Auto) Lymph # (Auto) [place] # (Auto) Eos # (Auto) Baso # (Auto) Nucleated RBCs Hypersegmented Neuts Hypogranular Neuts Reactive Lymphocytes Smudge Cells Other Cell Type Toxic Granulation Toxic Vacuolation Dohle Bodies Carmela Rods WBC Morphology Comment Platelet Estimate Clumped Platelets Plt Morphology Comment RBC Morphology Dimorphic RBCs Polychromasia Hypochromasia Poikilocytosis Basophilic Stippling Anisocytosis Microcytosis Macrocytosis Spherocytes Pappenheimer Bodies Sickle Cells Target Cells Tear Drop Cells Ovalocytes Stomatocytes Helmet Cells [place] Bodies [place] Rings [place] Cells Acanthocytes (Spur) Rouleaux Schistocytes Sodium Potassium Chloride Carbon Dioxide BUN Creatinine Estimated GFR BUN/Creatinine Ratio Glucose Hemoglobin A1c 6.4 H Calcium Magnesium Cancelled Total Bilirubin Conjugated Bilirubin Unconjugated Bilirubin AST ALT Alkaline Phosphatase Ammonia Total Creatine Kinase CK-MB (CK-2) CK-MB (CK-2) Rel Index Troponin I Total Protein Albumin Globulin Albumin/Globulin Ratio TSH 1.81 Urine Color Urine Appearance Urine pH Ur Specific [place] Urine Protein Urine Glucose (UA) Urine Ketones Urine Occult Blood Urine Nitrate Urine Bilirubin Ur Bilirubin Confirm Urine Urobilinogen Ur Leukocyte Esterase Urine RBC Urine WBC Ur Squamous Epith Cells Amorphous Sediment Urine Bacteria Ur Culture Indicated? Ur Random Sodium Nasal Screen MRSA (PCR) Digoxin U Opiates 300ng/mL cut Ur Oxycodone Screen Urine Methadone Screen Ur Barbiturates Screen U Tricyclic Antidepress Ur Phencyclidine Scrn Ur Amphetamines Screen U Methamphetamines Scrn Ur MDMA Scrn (Ecstasy) U Benzodiazepines Scrn Urine Cocaine Screen U Marijuana (THC) Screen Ethyl Alcohol SARS-CoV-2 (PCR) 10/31/21 10/31/21 10/31/21 11:10 11:25 13:38 WBC RBC Hgb Hct MCV MCH MCHC RDW Plt Count Neut % (Auto) Lymph % (Auto) [place] % (Auto) Eos % (Auto) Baso % (Auto) Neut # (Auto) Lymph # (Auto) [place] # (Auto) Eos # (Auto) Baso # (Auto) Nucleated RBCs Hypersegmented Neuts Hypogranular Neuts Reactive Lymphocytes Smudge Cells Other Cell Type Toxic Granulation Toxic Vacuolation Dohle Bodies Carmela Rods WBC Morphology Comment Platelet Estimate Clumped Platelets Plt Morphology Comment RBC Morphology Dimorphic RBCs Polychromasia Hypochromasia Poikilocytosis Basophilic Stippling Anisocytosis Microcytosis Macrocytosis Spherocytes Pappenheimer Bodies Sickle Cells Target Cells Tear Drop Cells Ovalocytes Stomatocytes Helmet Cells [place] Bodies [place] Rings [place] Cells Acanthocytes (Spur) Rouleaux Schistocytes Sodium Potassium Chloride Carbon Dioxide BUN Creatinine Estimated GFR BUN/Creatinine Ratio Glucose Hemoglobin A1c Calcium Magnesium Total Bilirubin Conjugated Bilirubin Unconjugated Bilirubin AST ALT Alkaline Phosphatase Ammonia Total Creatine Kinase CK-MB (CK-2) CK-MB (CK-2) Rel Index Troponin I 0.086 H Total Protein Albumin Globulin Albumin/Globulin Ratio TSH Urine Color [place] Urine Appearance Clear Urine pH 5.5 Ur Specific [place] 1.015 Urine Protein 2+ H Urine Glucose (UA) Trace H Urine Ketones 1+ H Urine Occult Blood Trace-lysed Urine Nitrate Positive H Urine Bilirubin 3+ H Ur Bilirubin Confirm Positive H Urine Urobilinogen 4.0 H Ur Leukocyte Esterase Negative Urine RBC 0-1/hpf D Urine WBC 5-10/hpf H Ur Squamous Epith Cells 0-1 /hpf Amorphous Sediment 1+ Urine Bacteria Few (2-10) H Ur Culture Indicated? Specimen cultured Ur Random Sodium Nasal Screen MRSA (PCR) Digoxin U Opiates 300ng/mL cut Negative Ur Oxycodone Screen Negative Urine Methadone Screen Negative Ur Barbiturates Screen Negative U Tricyclic Antidepress Negative Ur Phencyclidine Scrn Negative Ur Amphetamines Screen Negative U Methamphetamines Scrn Negative Ur MDMA Scrn (Ecstasy) Negative U Benzodiazepines Scrn Negative Urine Cocaine Screen Negative U Marijuana (THC) Screen Positive H Ethyl Alcohol SARS-CoV-2 (PCR) 0510/31/21 10/31/21 15:53 15:53 20:57 WBC RBC Hgb Hct MCV MCH MCHC RDW Plt Count Neut % (Auto) Lymph % (Auto) [place] % (Auto) Eos % (Auto) Baso % (Auto) Neut # (Auto) Lymph # (Auto) [place] # (Auto) Eos # (Auto) Baso # (Auto) Nucleated RBCs Hypersegmented Neuts Hypogranular Neuts Reactive Lymphocytes Smudge Cells Other Cell Type Toxic Granulation Toxic Vacuolation Dohle Bodies Carmela Rods WBC Morphology Comment Platelet Estimate Clumped Platelets Plt Morphology Comment RBC Morphology Dimorphic RBCs Polychromasia Hypochromasia Poikilocytosis Basophilic Stippling Anisocytosis Microcytosis Macrocytosis Spherocytes Pappenheimer Bodies Sickle Cells Target Cells Tear Drop Cells Ovalocytes Stomatocytes Helmet Cells [place] Bodies [place] Rings [place] Cells Acanthocytes (Spur) Rouleaux Schistocytes Sodium 115 L* Potassium 1.9 L* Chloride 61 L* Carbon Dioxide 42 H* BUN 13 Creatinine 0.59 Estimated GFR > 60 BUN/Creatinine Ratio 22.0 Glucose 118 H Hemoglobin A1c Calcium 7.5 L Magnesium Total Bilirubin 3.0 H Conjugated Bilirubin Unconjugated Bilirubin AST 68 H ALT 20 Alkaline Phosphatase 123 Ammonia Total Creatine Kinase CK-MB (CK-2) CK-MB (CK-2) Rel Index Troponin I Total Protein 6.6 Albumin 3.2 L Globulin 3.4 Albumin/Globulin Ratio 0.9 L TSH Urine Color Urine Appearance Urine pH Ur Specific [place] Urine Protein Urine Glucose (UA) Urine Ketones Urine Occult Blood Urine Nitrate Urine Bilirubin Ur Bilirubin Confirm Urine Urobilinogen Ur Leukocyte Esterase Urine RBC Urine WBC Ur Squamous Epith Cells Amorphous Sediment Urine Bacteria Ur Culture Indicated? Ur Random Sodium Nasal Screen MRSA (PCR) Negative for mrsa Digoxin U Opiates 300ng/mL cut Ur Oxycodone Screen Urine Methadone Screen Ur Barbiturates Screen U Tricyclic Antidepress Ur Phencyclidine Scrn Ur Amphetamines Screen U Methamphetamines Scrn Ur MDMA Scrn (Ecstasy) U Benzodiazepines Scrn Urine Cocaine Screen U Marijuana (THC) Screen Ethyl Alcohol < 10 SARS-CoV-2 (PCR) 10/31/21 10/31/21 10/31/21 21:12 22:00 22:00 WBC 7.6 RBC 2.78 L Hgb 9.9 L Hct 27.9 L MCV 100.1 H MCH 35.6 H MCHC 35.5 RDW 20.8 H Plt Count 238 Neut % (Auto) 88.1 H Lymph % (Auto) 9.4 L [place] % (Auto) 1.5 L Eos % (Auto) 0.7 L Baso % (Auto) 0.3 Neut # (Auto) 6700 Lymph # (Auto) 700 L [place] # (Auto) 100 Eos # (Auto) 100 Baso # (Auto) 0 Nucleated RBCs Cancelled Hypersegmented Neuts Cancelled Hypogranular Neuts Cancelled Reactive Lymphocytes Cancelled Smudge Cells Cancelled Other Cell Type Cancelled Toxic Granulation Cancelled Toxic Vacuolation Cancelled Dohle Bodies Cancelled Carmela Rods Cancelled WBC Morphology Comment Cancelled Platelet Estimate Cancelled Clumped Platelets Cancelled Plt Morphology Comment Cancelled RBC Morphology Cancelled Dimorphic RBCs Cancelled Polychromasia Cancelled Hypochromasia Cancelled Poikilocytosis Cancelled Basophilic Stippling Cancelled Anisocytosis Cancelled Microcytosis Cancelled Macrocytosis Cancelled Spherocytes Cancelled Pappenheimer Bodies Cancelled Sickle Cells Cancelled Target Cells Cancelled Tear Drop Cells Cancelled Ovalocytes Cancelled Stomatocytes Cancelled Helmet Cells Cancelled [place] Bodies Cancelled [place] Rings Cancelled Ivon Cells Cancelled Acanthocytes (Spur) Cancelled Rouleaux Cancelled Schistocytes Cancelled Sodium Potassium Chloride Carbon Dioxide BUN Creatinine Estimated GFR BUN/Creatinine Ratio Glucose Hemoglobin A1c Calcium Magnesium 1.7 Total Bilirubin Conjugated Bilirubin Unconjugated Bilirubin AST ALT Alkaline Phosphatase Ammonia Total Creatine Kinase CK-MB (CK-2) CK-MB (CK-2) Rel Index Troponin I Total Protein Albumin Globulin Albumin/Globulin Ratio TSH Urine Color Urine Appearance Urine pH Ur Specific [place] Urine Protein Urine Glucose (UA) Urine Ketones Urine Occult Blood Urine Nitrate Urine Bilirubin Ur Bilirubin Confirm Urine Urobilinogen Ur Leukocyte Esterase Urine RBC Urine WBC Ur Squamous Epith Cells Amorphous Sediment Urine Bacteria Ur Culture Indicated? Ur Random Sodium 6 L Nasal Screen MRSA (PCR) Digoxin U Opiates 300ng/mL cut Ur Oxycodone Screen Urine Methadone Screen Ur Barbiturates Screen U Tricyclic Antidepress Ur Phencyclidine Scrn Ur Amphetamines Screen U Methamphetamines Scrn Ur MDMA Scrn (Ecstasy) U Benzodiazepines Scrn Urine Cocaine Screen U Marijuana (THC) Screen Ethyl Alcohol SARS-CoV-2 (PCR) 10/31/21 10/31/21 10/31/21 22:00 22:00 22:00 WBC RBC Hgb Hct MCV MCH MCHC RDW Plt Count Neut % (Auto) Lymph % (Auto) [place] % (Auto) Eos % (Auto) Baso % (Auto) Neut # (Auto) Lymph # (Auto) [place] # (Auto) Eos # (Auto) Baso # (Auto) Nucleated RBCs Hypersegmented Neuts Hypogranular Neuts Reactive Lymphocytes Smudge Cells Other Cell Type Toxic Granulation Toxic Vacuolation Dohle Bodies Carmela Rods WBC Morphology Comment Platelet Estimate Clumped Platelets Plt Morphology Comment RBC Morphology Dimorphic RBCs Polychromasia Hypochromasia Poikilocytosis Basophilic Stippling Anisocytosis Microcytosis Macrocytosis Spherocytes Pappenheimer Bodies Sickle Cells Target Cells Tear Drop Cells Ovalocytes Stomatocytes Helmet Cells [place] Bodies [place] Rings [place] Cells Acanthocytes (Spur) Rouleaux Schistocytes Sodium 115 L* Potassium 4.5 D Chloride 66 L* Carbon Dioxide 39 H BUN 10 Creatinine 0.54 Estimated GFR > 60 BUN/Creatinine Ratio 18.5 Glucose 99 Hemoglobin A1c Calcium 7.3 L Magnesium Total Bilirubin 2.8 H Conjugated Bilirubin 0.7 H Unconjugated Bilirubin 1.1 AST 59 H ALT 19 Alkaline Phosphatase 107 Ammonia Total Creatine Kinase CK-MB (CK-2) CK-MB (CK-2) Rel Index Troponin I Total Protein 6.1 L Albumin 2.9 L Globulin 3.2 Albumin/Globulin Ratio 0.9 L TSH 1.58 Urine Color Urine Appearance Urine pH Ur Specific [place] Urine Protein Urine Glucose (UA) Urine Ketones Urine Occult Blood Urine Nitrate Urine Bilirubin Ur Bilirubin Confirm Urine Urobilinogen Ur Leukocyte Esterase Urine RBC Urine WBC Ur Squamous Epith Cells Amorphous Sediment Urine Bacteria Ur Culture Indicated? Ur Random Sodium Nasal Screen MRSA (PCR) Digoxin U Opiates 300ng/mL cut Ur Oxycodone Screen Urine Methadone Screen Ur Barbiturates Screen U Tricyclic Antidepress Ur Phencyclidine Scrn Ur Amphetamines Screen U Methamphetamines Scrn Ur MDMA Scrn (Ecstasy) U Benzodiazepines Scrn Urine Cocaine Screen U Marijuana (THC) Screen Ethyl Alcohol SARS-CoV-2 (PCR) 11/01/21 11/01/21 11/01/21 01:40 01:40 01:40 WBC RBC Hgb Hct MCV MCH MCHC RDW Plt Count Neut % (Auto) Lymph % (Auto) [place] % (Auto) Eos % (Auto) Baso % (Auto) Neut # (Auto) Lymph # (Auto) [place] # (Auto) Eos # (Auto) Baso # (Auto) Nucleated RBCs Hypersegmented Neuts Hypogranular Neuts Reactive Lymphocytes Smudge Cells Other Cell Type Toxic Granulation Toxic Vacuolation Dohle Bodies Carmela Rods WBC Morphology Comment Platelet Estimate Clumped Platelets Plt Morphology Comment RBC Morphology Dimorphic RBCs Polychromasia Hypochromasia Poikilocytosis Basophilic Stippling Anisocytosis Microcytosis Macrocytosis Spherocytes Pappenheimer Bodies Sickle Cells Target Cells Tear Drop Cells Ovalocytes Stomatocytes Helmet Cells [place] Bodies [place] Rings [place] Cells Acanthocytes (Spur) Rouleaux Schistocytes Sodium 117 L* Potassium 2.0 L* D Chloride 64 L* Carbon Dioxide 41 H* BUN 12 Creatinine 0.53 Estimated GFR > 60 BUN/Creatinine Ratio 22.6 H Glucose 112 H Hemoglobin A1c Calcium 7.4 L Magnesium 2.5 H Total Bilirubin 2.7 H Conjugated Bilirubin 0.6 H Unconjugated Bilirubin 1.3 H AST 90 H ALT 21 Alkaline Phosphatase 140 H Ammonia Total Creatine Kinase CK-MB (CK-2) CK-MB (CK-2) Rel Index Troponin I Total Protein 6.1 L Albumin 3.0 L Globulin 3.1 Albumin/Globulin Ratio 1.0 TSH Urine Color Urine Appearance Urine pH Ur Specific [place] Urine Protein Urine Glucose (UA) Urine Ketones Urine Occult Blood Urine Nitrate Urine Bilirubin Ur Bilirubin Confirm Urine Urobilinogen Ur Leukocyte Esterase Urine RBC Urine WBC Ur Squamous Epith Cells Amorphous Sediment Urine Bacteria Ur Culture Indicated? Ur Random Sodium Nasal Screen MRSA (PCR) Digoxin U Opiates 300ng/mL cut Ur Oxycodone Screen Urine Methadone Screen Ur Barbiturates Screen U Tricyclic Antidepress Ur Phencyclidine Scrn Ur Amphetamines Screen U Methamphetamines Scrn Ur MDMA Scrn (Ecstasy) U Benzodiazepines Scrn Urine Cocaine Screen U Marijuana (THC) Screen Ethyl Alcohol SARS-CoV-2 (PCR) 11/01/21 11/01/21 11/01/21 01:40 06:28 06:28 WBC 7.6 RBC 2.70 L Hgb 9.7 L Hct 27.1 L MCV 100.4 H MCH 36.0 H MCHC 35.8 RDW 21.3 H Plt Count 244 Neut % (Auto) 89.1 H Lymph % (Auto) 7.7 L [place] % (Auto) 2.3 L Eos % (Auto) 0.6 L Baso % (Auto) 0.3 Neut # (Auto) 6700 Lymph # (Auto) 600 L [place] # (Auto) 200 Eos # (Auto) 0 Baso # (Auto) 0 Nucleated RBCs Hypersegmented Neuts Hypogranular Neuts Reactive Lymphocytes Smudge Cells Other Cell Type Toxic Granulation Toxic Vacuolation Dohle Bodies Carmela Rods WBC Morphology Comment Platelet Estimate Clumped Platelets Plt Morphology Comment RBC Morphology Not Reportable Dimorphic RBCs Polychromasia Hypochromasia Poikilocytosis Basophilic Stippling Anisocytosis 1+ H Microcytosis Macrocytosis Spherocytes Pappenheimer Bodies Sickle Cells Target Cells Tear Drop Cells Ovalocytes Stomatocytes 1+ H Helmet Cells [place] Bodies [place] Rings [place] Cells Acanthocytes (Spur) Rouleaux Schistocytes Sodium 118 L* Potassium 2.4 L* Chloride 66 L* Carbon Dioxide 41 H* BUN 11 Creatinine 0.62 Estimated GFR > 60 BUN/Creatinine Ratio 17.7 Glucose 109 Hemoglobin A1c Calcium 7.5 L Magnesium 2.5 H Total Bilirubin Conjugated Bilirubin Unconjugated Bilirubin AST ALT Alkaline Phosphatase Ammonia Total Creatine Kinase CK-MB (CK-2) CK-MB (CK-2) Rel Index Troponin I Total Protein Albumin Globulin Albumin/Globulin Ratio TSH Urine Color Urine Appearance Urine pH Ur Specific [place] Urine Protein Urine Glucose (UA) Urine Ketones Urine Occult Blood Urine Nitrate Urine Bilirubin Ur Bilirubin Confirm Urine Urobilinogen Ur Leukocyte Esterase Urine RBC Urine WBC Ur Squamous Epith Cells Amorphous Sediment Urine Bacteria Ur Culture Indicated? Ur Random Sodium Nasal Screen MRSA (PCR) Digoxin U Opiates 300ng/mL cut Ur Oxycodone Screen Urine Methadone Screen Ur Barbiturates Screen U Tricyclic Antidepress Ur Phencyclidine Scrn Ur Amphetamines Screen U Methamphetamines Scrn Ur MDMA Scrn (Ecstasy) U Benzodiazepines Scrn Urine Cocaine Screen U Marijuana (THC) Screen Ethyl Alcohol SARS-CoV-2 (PCR) 11/01/21 11/01/21 06:28 06:28 WBC 7.7 RBC 2.76 L Hgb 9.7 L Hct 27.8 L MCV 101.0 H MCH 35.1 H MCHC 34.8 RDW 21.1 H Plt Count 223 Neut % (Auto) 83.6 H Lymph % (Auto) 11.3 L [place] % (Auto) 3.8 Eos % (Auto) 0.8 L Baso % (Auto) 0.5 Neut # (Auto) 6400 Lymph # (Auto) 900 L [place] # (Auto) 300 Eos # (Auto) 100 Baso # (Auto) 0 Nucleated RBCs Hypersegmented Neuts Hypogranular Neuts Reactive Lymphocytes Smudge Cells Other Cell Type Toxic Granulation Toxic Vacuolation Dohle Bodies Carmela Rods WBC Morphology Comment Platelet Estimate Clumped Platelets Plt Morphology Comment RBC Morphology Not Reportable Dimorphic RBCs Polychromasia Hypochromasia Poikilocytosis Basophilic Stippling Anisocytosis 2+ H Microcytosis Macrocytosis Spherocytes Pappenheimer Bodies Sickle Cells Target Cells Tear Drop Cells Ovalocytes Stomatocytes Helmet Cells [place] Bodies [place] Rings [place] Cells Acanthocytes (Spur) Rouleaux Schistocytes Sodium Potassium Chloride Carbon Dioxide BUN Creatinine Estimated GFR BUN/Creatinine Ratio Glucose Hemoglobin A1c Calcium Magnesium Total Bilirubin 2.9 H Conjugated Bilirubin 0.9 H Unconjugated Bilirubin 1.2 H AST 74 H ALT 23 Alkaline Phosphatase 160 H Ammonia Total Creatine Kinase CK-MB (CK-2) CK-MB (CK-2) Rel Index Troponin I Total Protein 5.6 L Albumin 2.7 L Globulin 2.9 Albumin/Globulin Ratio 0.9 L TSH Urine Color Urine Appearance Urine pH Ur Specific [place] Urine Protein Urine Glucose (UA) Urine Ketones Urine Occult Blood Urine Nitrate Urine Bilirubin Ur Bilirubin Confirm Urine Urobilinogen Ur Leukocyte Esterase Urine RBC Urine WBC Ur Squamous Epith Cells Amorphous Sediment Urine Bacteria Ur Culture Indicated? Ur Random Sodium Nasal Screen MRSA (PCR) Digoxin U Opiates 300ng/mL cut Ur Oxycodone Screen Urine Methadone Screen Ur Barbiturates Screen U Tricyclic Antidepress Ur Phencyclidine Scrn Ur Amphetamines Screen U Methamphetamines Scrn Ur MDMA Scrn (Ecstasy) U Benzodiazepines Scrn Urine Cocaine Screen U Marijuana (THC) Screen Ethyl Alcohol SARS-CoV-2 (PCR) Exam Vital Signs (past 8 hours): - 11/01/21 02:20 11/01/21 03:02 11/01/21 03:05 Temperature 98.2 F Pulse Rate 69 75 71 Respiratory Rate 14 18 20 Blood Pressure 116/58 L Pulse Oximetry 97 98 97 11/01/21 04:04 11/01/21 04:08 11/01/21 05:01 Temperature 98.2 F Pulse Rate 75 70 67 Respiratory Rate 22 22 19 Blood Pressure 148/71 H 102/55 L Pulse Oximetry 97 93 100 11/01/21 05:18 11/01/21 06:00 11/01/21 06:03 Temperature Pulse Rate 60 66 62 Respiratory Rate 18 15 13 Blood Pressure 82/60 L 106/64 Pulse Oximetry 96 97 99 11/01/21 06:13 11/01/21 07:00 11/01/21 08:00 Temperature 98.1 F Pulse Rate 67 71 77 Respiratory Rate 14 25 H 20 Blood Pressure 104/61 107/69 Pulse Oximetry 98 98 95 11/01/21 09:00 Temperature Pulse Rate 66 Respiratory Rate 19 Blood Pressure 116/69 Pulse Oximetry 99 Oxygen Delivery Method CPAP Oxygen Flow Rate 2 Quality TeleICU VTE Deep Vein Thrombosis/Pulmonary Embolism Present on Admission: No Assessment & Plan Assessment & Plan narrative: NEURO: # Generalized weakness -- CTH showed no acute abnormality -- Attributed to severe hyponatremia -- PT/OT consulted -- Encourage early mobility -- Fall precaution # Alcohol abuse -- On thiamine, folic acid and MTV RESP: # Hx of JAMES -- On home CPAP nightly CVS: # Hx of HTN -- Goal SBP < 140 # Hx of A fib -- CHADVASC score 3 -> on eliquis -- HIgh lytes goal : # Hyponatremia -- Secondary to hypotonic hyponatremia. Other ddx include hypervolemia vs euvolemia. -- Normal TSH -- Ns improvin slowly w/ fluid hydration -- On NS +20 mEQ KCL running at 100cc/hr -- Goal Na 121 today at 10 am and 129 by tomorrow 10 am -- Hold SSRI as this can cause hyponatremia -- Check BMP every 4 hours -- If Na continues to rise rapidly then will hold NS and start D5W # Hypokalemia -- Imroving slowly repletion -- BMP every 4 hours -- Goal K > 4 ENDO: -- Goal BS < 180 D/w RN and ICU team. Time Spent With Patient Critical Care time: I spent a total of [] minutes of critical care time on this patient's care today; this time is exclusive of procedural time.
--- NOTE | 2021-11-01 09:43 | SLP.IPNOTE ---
Attempted to see pt for Speech Therapy evaluation. Pt was asleep and did not awaken to voice or tactile prompts. Will attempt again later in the day.
[2021-11-01 10:19] LABS: Add Manual Diff / Slide Review NO; Basophils Absolute Auto 0 /uL (0-100); Basophils Percent Auto 0.3 % (0-2); Eosinophils Absolute Auto 100 /uL (0-450); Hematocrit 26.9 % (36-46); Hemoglobin 9.5 g/dL (12.0-16.0); Lymphocytes Absolute Auto 700 /uL (1100-4500); Lymphocytes Percent Auto 10.8 % (25-40); Mean Corpuscular HGB Conc 35.2 % (30-36); Mean Corpuscular Hemoglobin 35.6 PG (26-34); Mean Corpuscular Volume 101.3 fL (80-100); Monocytes Absolute Auto 200 /uL (0-900); Monocytes Percent Auto 3.1 % (3-14); Neutrophils Absolute Auto 5300 /uL (1500-7000); Neutrophils Percent Auto 84.8 % (50-75); Platelet Count 214 X10^3/uL (150-400); Red Blood Cell Count 2.66 X10^6/uL (4.0-5.2); Red Cell Distribution Width 21.1 % (11.6-14.8); White Blood Cell Count 6.3 X10^3/uL (4.5-11.0)
[2021-11-01 10:33] LABS: Blood Urea Nitrogen 11 mg/dL (7-17); Calcium 7.4 mg/dL (8.4-10.2); Estimated Glomerular Filt Rate > 60 mL/min (>60); Glucose 106 mg/dL (80-110); HEMOLYSIS 33 (0-50)
[2021-11-01 10:42] LABS: Sodium 119 mmol/L (137-145)
[2021-11-01 10:43] LABS: Carbon Dioxide 45 mmol/L (22-32); Chloride 69 mmol/L (98-107); Potassium 2.6 mmol/L (3.4-5.1)
[2021-11-01 10:48] LABS: Macrocytosis 1+
--- NOTE | 2021-11-01 11:01 | PT-IP ANOTE ---
RN approved and said pt was ready for PT. Pt very difficult to arouse and requires PT tapping on arm and rubbing arm and saying her name along w/asking pt to open her eyes to get any response. Pt did not verbally respond to PT besides w/some uh huh responses. When PT and RN were going to try to get pt up to EOB, vein access technician came in to do ECHO so PT unable to mobilize pt. Pt may not be appropriate for much w/PT at this time d/t dec alertness
--- NOTE | 2021-11-01 12:14 | ST.IPCSEOM ---
Visit Care Team Role Provider Type Sue Friedman MD Other Providers Physician Specialty: Medical Address: Phone: Fax: Email: Mayte Pizarro MD Other Providers Physician Specialty: Medical Address: Phone: Fax: Email: Anika Spaulding MD Other Providers Physician Specialty: Medical Address: Phone: Fax: Email: Jeff Marinelli MD Other Providers Physician Specialty: Medical Address: Phone: Fax: Email: Nicho Martines MD Other Providers Physician Specialty: Internal Medicine Address: Phone: Fax: Email: Dawn Ennis MD Other Providers Physician Specialty: SUPERVISOR [employer] Address: [address] [place] [id number] Email: [email or web address] Rober Lynn MD Other Providers Physician Specialty: Medical Address: Phone: Fax: Email: Michael Baez MD Other Providers Physician Specialty: Internal Medicine Address: Phone: Fax: Email: Venkat Monae MD Other Providers Physician Specialty: Medical Address: Phone: Fax: Email: Nolberto Spaulding MD Other Providers Physician Specialty: Medical Address: Phone: Fax: Email: Bushra Brooke MD Other Providers Physician Specialty: Medical Address: Phone: Fax: Email: Missy Victoria Other Providers Physician Specialty: Medical Address: Phone: Fax: Email: Daniel Puga MD Other Providers Physician Specialty: Medical Address: Phone: Fax: Email: Yonatan Steiner MD Family Provider Physician Primary Care Provider Specialty: Internal Medicine Address: [address] [place] [address], [address] Email: [email or web address] Barrett Boston DO Emergency Provider Physician Specialty: Emergency Medicine Address: [address] [place] [address], [id number] Email: [email or web address] ANA PAULA Cerda Admit Provider Physician Attending Provider Referring Provider Specialty: Internal Medicine Address: [address] [place] [id number] Email: [email or web address] Medical History (Last Reviewed 10/31/21 @ 23:11 by ANA PAULA Cerda) Afib (Medical) Sustained per cardiology note 01/28/21 scanned to record Atrial fibrillation, transient (Medical) Paroxysmal. She does have a history of unsuccessful cardioversion in the past. Chronic renal insufficiency (Medical) Stable with diuresis. Diabetes type 2, controlled (Medical) Diet controlled A1c 6.5. Blood sugars adequately controlled during her hospitalization. ETOH abuse (Medical) Fracture of distal end of fibula (Medical) Heart failure (Medical) The patient presented with a BNP of 549 and consistent radiographic and clinical findings of CHF. Echocardiogram was consistent with chronic diastolic dysfunction with acute exacerbation due to medication noncompliance. Improved with IV Lasix plan to continue oral Lasix. Hx of ventral hernia repair (Medical 08/12/19) Morbid obesity (Medical) Complicating her ongoing medical problems and complicating her care. Pacemaker (Medical) PEA (Pulseless electrical activity) (Medical 10/16/17) Cardiac arrest Sleep apnea in adult (Medical) Continue and stable on her usual CPAP treatment Speech-Language Pathology Swallow Evaluation EDUCATIONAL PROGRAM ASSISTANT Clinical Swallow Evaluation Start: 11/01/21 11:55 Freq: Status: Active Protocol: Document 11/01/21 11:55 GABBY (Rec: 11/01/21 12:14 ZS [id number]) Clinical Swallow Evaluation Session Time Visit Start Time 11:30 Visit Stop Time 12:00 Total Visit Minutes 30 Setting Assessment Location Acute Care Visit Type Note Type Initial evaluation Next Note Type Next Note Type Treatment Note Patient Information Identification Type Name,Wristband History Per H&P: Nicole Luong is 61-year-old female with atrial fibrillation anticoagulated on Eliquis and paced and unsuccessful history of cardioversions, congestive heart failure, obesity and sleep apnea, who presents complaining of severe weakness particularly on the right side to the point that she is unable to walk and has been in bed for the last 2 weeks and is having some skin breakdown over her buttock area because of chronic urinary moisture.? She states she has been depressed and not wanting to get out of bed. Her speech has been slurred. ? Denies headaches, cough, chills, palpitations, does state she continues to have vaginal bleeding. She is wondering why she is continually weak to the point of being unable to roll over by herself in bed. History is gleaned from the ED provider's note as the patient's family was not present when she came to the floor. They stated both the patient and are heavy hard liquor drinkers, patient stated she drinks 3 doubles/ day and has lost weight in addition to being progressively being weak. Sister in law informed the ED provider that she has been crawling on the floor despite having a walker at home. When they were able to get her up, her clothing and bed were soaked in urine. Chest x-ray done in the ED had no reported findings. Head and neck CTA indicated mild atrophy and chronic microvascular changes and no acute intercranial process. She was admitted to the ICU for further correction of electrolye abnormalities, metabolic encephalopathy, alcohol withdrawal and deficits from a suspected recent CVA outside of the TPA window. Subjective Observations Sammie Novak, was laying in bed when EDUCATIONAL PROGRAM ASSISTANT arrived. She responded to a verbal greeting and agreed to participate in bedside swallow evaluation. Pt was repositioned to an upright seated position in bed . She reported no difficulty swallowing, though stated her mouth feels sore today. Reported by Patient Current Diet Nothing by mouth Objective Assessment Mental Status Alert,Responsive,Cooperative Oral Integrity WFL Dentition Within normal limits Lip Function Mild impairment Observation of Lips at Rest Symmetrical Pucker Within normal limits Lip Retraction Left sided weakness/Drooping Alternating Pucker/Lip Retraction Incoordination Tongue Function Within normal limits Observations of Tongue at Rest Within normal limits Tongue Protrusion Within normal limits Tongue Retraction Within normal limits Tongue Lateralization Within normal limits Jaw Function Within normal limits Observations of Jaw at Rest Within normal limits Jaw Opening Within normal limits Jaw Closing Within normal limits Comment Completed oral mechanism exam with patient. She presented with symmetrical features at rest and, with the exception of mild left weakness when smiling, features were symmetrical in motion. Tongue strength and ROM was WNL. Dentition present and WNL. Difficulty observed with alternation between smile/ pucker, though it is unclear if this is due to lack of understanding of directions or difficulty coordinating movement. Speech was mildly slurred, though pt reported no concerns with speech at this time. Structure and function appears WFL for the purposes of speech and swallowing at this time despite mild left labial weakness. Food and Liquid Trials Position During Assessment Upright (90 degrees),In bed Liquids Trialed Thin Oral Impairment Within normal limits Oral Phase Comments Completed swallow screen with thin water through straw cup as pt reported no difficulty with chewing or swallowing and oral structures and function appear WFL for the purposes of speech and swallowing. No anterior loss of bolus, a/p propulsion of bolus was WNL. Pt reported no difficulty swallowing and exhibited no oral residue following swallow . Pharyngeal Impairment Within normal limits Pharyngeal Phase Comments No overt signs or symptoms of aspiration observed, no difficulty swallowing reported by pt. Comment NSG reported pt has episodes of high levels of fatigue. Pt was observed to close eyes and require repetitions of some instructions during oral motor exam, which may be due to fatigue. Provided pt education regarding eating only when alert to reduce risk of aspiration. Findings Swallowing Function Within normal limits Severity of Swallow Impairment Within normal limits Contributing Factors to Swallow Reduced alertness or attention Impairment Prognosis Good Based on Cognitive status,Bed bound, Comorbidities Comment The pt presents with swallow function WNL and mildly slurred speech. Pt is at a higher risk for aspiration due to episodes of fatigue and it is recommended pt be fed only when fully alert. Recommend regular diet with thin liquids . Will follow-up to ensure tolerance of upgraded diet and modify as needed with pt fatigue levels. Impact on Safety and Functioning Risk for aspiration Comments Risk for aspiration if pt is not alert when eating. Recommendations Instrumental Assessment No Swallowing Treatment Yes Frequency Follow-up to ensure she is tolerating diet. Recommended Solids Regular Recommended Liquids Thin Safety Precautions/Swallowing Feed only when alert,Reduce Recommendations distractions,Remain upright ( 90 degrees) during all oral intake,Upright position at least 30 minutes after meals, Small bites and sips when eating Medication Recommendations As Tolerated Education Patient/Caregiver Education Described results of evaluation,Patient expressed understanding of evaluation, Patient expressed agreement with goals & treatment plans, Patient expressed understanding of safety precautions,Patient expressed understanding of feeding recommendations,Patient requires further education/ training Goals Short-term Goals Pt will tolerate least restrictive diet to meet her nutrition and hydration needs.
[2021-11-01] MEDS: LORazepam 1 MG TABLET PO ×2 (12:51→18:27)
[2021-11-01 14:20] LABS: Blood Urea Nitrogen 11 mg/dL (7-17); Calcium 7.5 mg/dL (8.4-10.2); Estimated Glomerular Filt Rate > 60 mL/min (>60); Glucose 115 mg/dL (80-110)
[2021-11-01 14:26] LABS: HEMOLYSIS 25 (0-50)
[2021-11-01 14:31] LABS: Sodium 119 mmol/L (137-145)
[2021-11-01 14:33] LABS: Carbon Dioxide 41 mmol/L (22-32); Chloride 72 mmol/L (98-107); Potassium 2.7 mmol/L (3.4-5.1)
--- NOTE | 2021-11-01 15:15 | PT.IIE ---
Surgical History (Last Reviewed 10/31/21 @ 23:11 by ANA PAULA Cerda) History of third molar tooth extraction Status post colonoscopy Status post surgery (07/26/10) Status post surgery (12/07/14) Medical History (Last Reviewed 10/31/21 @ 23:11 by ANA PAULA Cerda) Afib Atrial fibrillation, transient Chronic renal insufficiency Diabetes type 2, controlled ETOH abuse Fracture of distal end of fibula Heart failure Morbid obesity Pacemaker PEA (Pulseless electrical activity) (10/16/17) Sleep apnea in adult Physical Therapy Inpatient Evaluation/Re-Eval M1 PT/OT-IP Prior Functional Status Start: 11/01/21 10:46 Freq: NEEDED Status: Active Protocol: Document 11/01/21 15:15 AB (Rec: 11/01/21 16:47 AB [id number]) Medical Review Prior Functional Status Medical History Reviewed Yes Communication lethargic initially requires max cues; able to answer questions inconsistently and requires repetitions Mobility and Gait pt stated that she is independent with all mobilities and ambulation without AD Social History Household Members spouse Living Arrangements House Number of Floors (Floors) One Floor Number of Stairs To Enter/Railing? ramp to enter Home Environment Standard Height Toilet,Walk in Shower,Ramp Home Equipment Front Wheel Walker,Shower Seat without Backrest,Hand Held Shower,Grab Bars Near Toilet, Grab Bars In Shower M2 PT-IP Current Condition Start: 11/01/21 10:46 Freq: NEEDED Status: Active Protocol: Document 11/01/21 15:15 AB (Rec: 11/01/21 16:47 AB [id number]) Physical Therapy Current Condition Current Condition Evaluation Date 11/01/21 Treatment Diagnosis acute metabolic encephalopathy ; alcohol w/d; difficulty in walking Onset Date 10/31/21 M3 PT-IP Subjective Start: 11/01/21 10:46 Freq: NEEDED Status: Active Protocol: Document 11/01/21 15:15 AB (Rec: 11/01/21 16:47 AB [id number]) Subjective Physical Therapy Visit Type Type Initial Evaluation Visit Start Time 15:15 Visit Stop Time 15:46 Total Visit Minutes 31 Number of GROUNDS MAINTENANCE MANAGER Visits 0 M4 PT-IP Mobility and Gait Start: 11/01/21 10:46 Freq: NEEDED Status: Active Protocol: Document 11/01/21 15:15 AB (Rec: 11/01/21 16:47 AB [id number]) PT-Bed Mobility Assessment Supine to Sit Supine to Sit Moderate Assistance,Maximum Assistance,2 Person Assistance Scooting Scooting to Edge of Bed Maximum Assistance PT-Transfer Assessment Sit to and From Stand Sit to and from Stand Maximum Assistance,2 Person Assistance,Use of Upper Extremities Equipment Transfer Assistive Device Gait Belt,Front Wheeled Walker Orthotic/Prosthetic Devices or Brace: No Transfers Transfer Destination Chair Transfer Technique Stand Step Pivot Transfer Ability Level of Assist Maximum Assistance,2 Person Assistance,Use of Upper Extremities Comments Mobility Comments pt very lethargic. nurse and NAC in room as well to assist with pt. pt eventually woke up. sat up on the chair SBA but is not sitting on EOB. after a few minutes of sitting , pt lay back down and c/o buttock pain. pt has decubitus ulcers. instructed pt to sit up again and to sit on EOB. pt sat back up but again, after a few seconds lay back down. max cues provided to complete task. SBA with supine to long sitting and mod A x 2 to max A x 2 to sit on EOB. able to sit on EOB SBA. completed sit to stand max A x 2 and max cues with 2 attempts. step transfer to chair using FWW max A x 2 and max cues. positioned pt on the chair. Left pt with nurse and NAC care. PT-Balance Assessment Sitting Balance and Reactions Static Sitting Balance Ability Good Dynamic Sitting Balance Ability Fair Standing Balance and Reactions Static Standing Balance Ability Poor Dynamic Standing Balance Ability Poor Device Used FWW M5 PT-IP Objective Assessments Start: 11/01/21 10:46 Freq: NEEDED Status: Active Protocol: Document 11/01/21 15:15 AB (Rec: 11/01/21 16:47 AB [id number]) Orientation Orientation/Cognition Level of Alertness Confusional State Orientation Name Safety Awareness Decreased Safety Awareness Memory Description Short Term Impaired,Financial Services Education Consultant Impaired Gross Range of Motion Lower Extremity ROM Assessment Within Functional Limits Strength Lower Extremity Strength Hip 3+/5 Knee 3+/5 Muscle Tone Muscle Tone WNL Yes M6 PT-IP Treatment Start: 11/01/21 10:46 Freq: NEEDED Status: Active Protocol: Document 11/01/21 15:15 AB (Rec: 11/01/21 16:47 AB [id number]) Physical Therapy Treatment Education Education Provided Safety M7 PT-IP Assessment and Plan Start: 11/01/21 10:46 Freq: NEEDED Status: Active Protocol: Document 11/01/21 15:15 AB (Rec: 11/01/21 16:47 AB [id number]) PT Summary Assessment and Plan Potential Rehabilitation Potential Fair Status of Condition at Evaluation Evolving Summary Impairments Pain,ROM,Strength,Balance, Coordination,Sensation,Tone, Cognition,Bed Mobility, Transfers,Gait,Activity Tolerance Assessment Summary pt requiring max A x 2 for transfers using fWW and unable to ambulate at this time. pt with confusion and requires cues for all tasks. pt will require SNF rehab to improve strength and mobility independence. Goals Bed Mobility Goal Minimal Assistance Transfer Goal Minimal Assistance,Front Wheeled Walker Gait Goal Minimal Assistance,Front Wheel Walker Gait Distance 100 Other Goals improve bed mobility, transfers using fWW SBA, ambulation using FWW SBA 150 ft Days to Meet Goals 10 Frequency of Treatment Frequency Of Treatment Once a Day Treatment Plan Physical Therapy Treatment Plan Bed Mobility Training,Transfer Training,Gait Training, Therapeutic Exercise,Balance Retraining,Discharge Planning, Hot or Cold Pack,Neuromuscular Re-ed,Coordination Retraining ,Manual Therapy Recommendations To Nursing Amount of Assist Needed 2 Person Assist Discharge Recommendations PT Discharge Recommendations SNF Rehab Transportation Needs at Discharge Wheelchair/Cabulance
--- NOTE | 2021-11-01 15:16 | OT.IPNOTE ---
Attempted to see pt for OT eval. Nursing went in also to wake pt up but not able to arouse even with rubbing to her arm. Hold OT eval today and check again tomorrow to see if pt appropriate.
--- NOTE | 2021-11-01 15:52 | CM.DANOTE ---
DCP/Brief Assessment: FUNERAL SERVICE APPRENTICE attempted assessment this afternoon but patient was sound asleep. PT/OT evaluations pending because of patient's presentation of not being able to walk. PCP listed is Dr. Steiner (retired). Primary payor is 1)[employer]. CM team to assess patient on 11-02-21 once patient seen by therapy and d/c needs become more clear. P: Pending. ANA LAURA Denise Discharge Planning/Care Management Advanced directive, confirm from FAMILY Start: 10/31/21 21:04 Freq: Q24H Status: Active Protocol: Document 10/31/21 21:04 RF (Rec: 10/31/21 22:50 RF [id number]) Advance Directive, confirm on record Time 22:50 Person contacted patient Copy received No CM Discharge Assessment Start: 11/01/21 15:46 Freq: Status: Active Protocol: Document 11/01/21 15:46 KJS (Rec: 11/01/21 15:52 KJS [id number]) Discharge Planning Assessment Assigned Obstetrics Nurse ANA LAURA Denise Contact Information Eunice Luong (daughter) ph# [phone] Advance Directives? Yes Advance Directives on File No History Provided By Medical Record Prior Living Arrangements House Household Members spouse,family Willing to Return to Facility? Yes Independent with ADL's Unclear Is patient alert and oriented? At baseline notes report yes Comment PT/OT evaluations pending. Comment FUNERAL SERVICE APPRENTICE attempted to meet with patient today however, unable to wake up. RN reports daugher has been calling to check in on her. Comment Therapy evaluations pending. CM team to reaccess when approrpriate. Discharge Plan Home Transportation Arrangement Family Referrals Initiated Other Additional Comment Unclear at this time? Review Status In Process Next Review Type Continued Stay Review
[2021-11-01] MEDS: SODIUM CHLORIDE 0.9% 500 ML 1000 ML IV (16:05)
[2021-11-01 18:40] LABS: BUN Creatinine Ratio 16.7 (6-22); Blood Urea Nitrogen 10 mg/dL (7-17); Calcium 7.6 mg/dL (8.4-10.2); Estimated Glomerular Filt Rate > 60 mL/min (>60); Glucose 116 mg/dL (80-110); Potassium 2.9 mmol/L (3.4-5.1); Sodium 122 mmol/L (137-145)
[2021-11-01 18:48] LABS: Carbon Dioxide 39 mmol/L (22-32); HEMOLYSIS 34 (0-50)
[2021-11-01 18:53] LABS: Chloride 73 mmol/L (98-107)
--- NOTE | 2021-11-01 20:28 | PM.ICURNDS ---
- :: This patient was seen via real time interactive two-way audiovisual telecommunication. Note: 61 year old female admitted for generalized weakness secondary to severe hyponatremia. Na up to 122 and improving slowly. Cont NS + 20 mEQ KCL running at 100cc/hr. Check BMP every 4 hours. Goal Na 129 by tomorrow morning at 10 am. D/w RN at bedside.
--- NOTE | 2021-11-01 20:34 | PM.PN.1 ---
Subjective Subjective Date Patient Seen: 11/01/21 Interval history: NO SIGNIFICANT ISSUES REPORTED BY NURSING OVERNIGHT PATIENT CLOSELY MUCH BETTER SHE DENIES ANY INCREASING SHORTNESS OF BREATH NO CHEST PAIN. NO CHEST PRESSURE Exam Vital Signs (past 8 hours): - 11/01/21 13:00 11/01/21 13:25 11/01/21 13:30 Temperature Pulse Rate 60 66 60 Respiratory Rate 21 18 14 Blood Pressure 112/64 Pulse Oximetry 97 99 11/01/21 14:00 11/01/21 14:05 11/01/21 14:30 Temperature Pulse Rate 60 60 60 Respiratory Rate 13 12 13 Blood Pressure 112/64 Pulse Oximetry 98 100 99 11/01/21 15:00 11/01/21 15:28 11/01/21 15:30 Temperature Pulse Rate 60 60 63 Respiratory Rate 17 27 H 23 Blood Pressure 97/56 L Pulse Oximetry 96 98 97 11/01/21 16:07 11/01/21 19:33 11/01/21 20:00 Temperature 98.2 F 98.5 F Pulse Rate 64 69 Respiratory Rate 20 29 H Blood Pressure 118/64 121/61 Pulse Oximetry 93 Oxygen Delivery Method Nasal Cannula Oxygen Flow Rate 0.5 Narrative Exam Narrative: NO ACUTE DISTRESS. PATIENT IS ALERT ORIENTED X2 HEAD ATRAUMATIC NORMOCEPHALIC NECK : SUPPLE WITHOUT ADENOPATHY NO CAROTID BRUITS EYE: EOMI, PERRLA, NORMAL CONJUNCTIVA; NO JAUNDICE CHEST: REGULAR RATE. NO RUBS. PMI IS NON DISPLACED. NO MURMURS; NORMAL S1-S2 PULMONARY: DECREASED BS OVER THE BASES. MILD BIBASILAR CRACKLES NOTED; NO INCREASED DULLNESS TO PERCUSSION ABDOMEN: OBESE BUT SOFT. NONTENDER. NONDISTENDED. BOWEL SOUNDS ARE PRESENT IN ALL 4 QUADRANTS. EXTREMITIES: 2+ NONPITTING BILATERAL LOWER EXTREMITY EDEMA.. NO CYANOSIS CLUBBING NOTED. NEURO: CRANIAL NERVES 2-12 GROSSLY INTACT. NO FOCAL NEUROLOGICAL DEFICIT NOTED. MSK: NORMAL RANGE OF MOTION FOR AGE. NO JOINT EFFUSION. SKIN: NORMAL FOR ETHNICITY; NO ECCHYMOSIS. NO LESION. GOOD TURGOR.; NO RASHES : NORMAL EXTERNAL GENITALIA. PSYCH : APPROPRIATE MOOD AND AFFECT. ALERT AWAKE ORIENTED X2 Objective Labs Result Diagrams: 11/01/21 10:11 11/01/21 18:13 Labs: Laboratory Results - last 24 hr 10/31/21 10/31/21 10/31/21 10:55 10:55 11:01 WBC RBC Hgb Hct MCV MCH MCHC RDW Plt Count Neut % (Auto) Lymph % (Auto) [place] % (Auto) Eos % (Auto) Baso % (Auto) Neut # (Auto) Lymph # (Auto) [place] # (Auto) Eos # (Auto) Baso # (Auto) Nucleated RBCs Hypersegmented Neuts Hypogranular Neuts Reactive Lymphocytes Smudge Cells Other Cell Type Toxic Granulation Toxic Vacuolation Dohle Bodies Carmela Rods WBC Morphology Comment Platelet Estimate Clumped Platelets Plt Morphology Comment RBC Morphology Dimorphic RBCs Polychromasia Hypochromasia Poikilocytosis Basophilic Stippling Anisocytosis Microcytosis Macrocytosis Spherocytes Pappenheimer Bodies Sickle Cells Target Cells Tear Drop Cells Ovalocytes Stomatocytes Helmet Cells [place] Bodies [place] Rings [place] Cells Acanthocytes (Spur) Rouleaux Schistocytes Sodium Potassium Chloride Carbon Dioxide BUN Creatinine Estimated GFR BUN/Creatinine Ratio Glucose Hemoglobin A1c 6.4 H Calcium Magnesium Cancelled Total Bilirubin Conjugated Bilirubin Unconjugated Bilirubin AST ALT Alkaline Phosphatase Total Protein Albumin Globulin Albumin/Globulin Ratio TSH 1.81 Ur Random Sodium Nasal Screen MRSA (PCR) 10/31/21 10/31/21 10/31/21 20:57 21:12 22:00 WBC RBC Hgb Hct MCV MCH MCHC RDW Plt Count Neut % (Auto) Lymph % (Auto) [place] % (Auto) Eos % (Auto) Baso % (Auto) Neut # (Auto) Lymph # (Auto) [place] # (Auto) Eos # (Auto) Baso # (Auto) Nucleated RBCs Hypersegmented Neuts Hypogranular Neuts Reactive Lymphocytes Smudge Cells Other Cell Type Toxic Granulation Toxic Vacuolation Dohle Bodies Carmela Rods WBC Morphology Comment Platelet Estimate Clumped Platelets Plt Morphology Comment RBC Morphology Dimorphic RBCs Polychromasia Hypochromasia Poikilocytosis Basophilic Stippling Anisocytosis Microcytosis Macrocytosis Spherocytes Pappenheimer Bodies Sickle Cells Target Cells Tear Drop Cells Ovalocytes Stomatocytes Helmet Cells [place] Bodies [place] Rings [place] Cells Acanthocytes (Spur) Rouleaux Schistocytes Sodium Potassium Chloride Carbon Dioxide BUN Creatinine Estimated GFR BUN/Creatinine Ratio Glucose Hemoglobin A1c Calcium Magnesium 1.7 Total Bilirubin Conjugated Bilirubin Unconjugated Bilirubin AST ALT Alkaline Phosphatase Total Protein Albumin Globulin Albumin/Globulin Ratio TSH Ur Random Sodium 6 L Nasal Screen MRSA (PCR) Negative for mrsa 10/31/21 10/31/21 10/31/21 22:00 22:00 22:00 WBC 7.6 RBC 2.78 L Hgb 9.9 L Hct 27.9 L MCV 100.1 H MCH 35.6 H MCHC 35.5 RDW 20.8 H Plt Count 238 Neut % (Auto) 88.1 H Lymph % (Auto) 9.4 L [place] % (Auto) 1.5 L Eos % (Auto) 0.7 L Baso % (Auto) 0.3 Neut # (Auto) 6700 Lymph # (Auto) 700 L [place] # (Auto) 100 Eos # (Auto) 100 Baso # (Auto) 0 Nucleated RBCs Cancelled Hypersegmented Neuts Cancelled Hypogranular Neuts Cancelled Reactive Lymphocytes Cancelled Smudge Cells Cancelled Other Cell Type Cancelled Toxic Granulation Cancelled Toxic Vacuolation Cancelled Dohle Bodies Cancelled Carmela Rods Cancelled WBC Morphology Comment Cancelled Platelet Estimate Cancelled Clumped Platelets Cancelled Plt Morphology Comment Cancelled RBC Morphology Cancelled Dimorphic RBCs Cancelled Polychromasia Cancelled Hypochromasia Cancelled Poikilocytosis Cancelled Basophilic Stippling Cancelled Anisocytosis Cancelled Microcytosis Cancelled Macrocytosis Cancelled Spherocytes Cancelled Pappenheimer Bodies Cancelled Sickle Cells Cancelled Target Cells Cancelled Tear Drop Cells Cancelled Ovalocytes Cancelled Stomatocytes Cancelled Helmet Cells Cancelled [place] Bodies Cancelled [place] Rings Cancelled Ivon Cells Cancelled Acanthocytes (Spur) Cancelled Rouleaux Cancelled Schistocytes Cancelled Sodium 115 L* Potassium 4.5 D Chloride 66 L* Carbon Dioxide 39 H BUN 10 Creatinine 0.54 Estimated GFR > 60 BUN/Creatinine Ratio 18.5 Glucose 99 Hemoglobin A1c Calcium 7.3 L Magnesium Total Bilirubin Conjugated Bilirubin Unconjugated Bilirubin AST ALT Alkaline Phosphatase Total Protein Albumin Globulin Albumin/Globulin Ratio TSH 1.58 Ur Random Sodium Nasal Screen MRSA (PCR) 10/31/21 11/01/21 11/01/21 22:00 01:40 01:40 WBC RBC Hgb Hct MCV MCH MCHC RDW Plt Count Neut % (Auto) Lymph % (Auto) [place] % (Auto) Eos % (Auto) Baso % (Auto) Neut # (Auto) Lymph # (Auto) [place] # (Auto) Eos # (Auto) Baso # (Auto) Nucleated RBCs Hypersegmented Neuts Hypogranular Neuts Reactive Lymphocytes Smudge Cells Other Cell Type Toxic Granulation Toxic Vacuolation Dohle Bodies Carmela Rods WBC Morphology Comment Platelet Estimate Clumped Platelets Plt Morphology Comment RBC Morphology Dimorphic RBCs Polychromasia Hypochromasia Poikilocytosis Basophilic Stippling Anisocytosis Microcytosis Macrocytosis Spherocytes Pappenheimer Bodies Sickle Cells Target Cells Tear Drop Cells Ovalocytes Stomatocytes Helmet Cells [place] Bodies [place] Rings Ivon Cells Acanthocytes (Spur) Rouleaux Schistocytes Sodium 117 L* Potassium 2.0 L* D Chloride 64 L* Carbon Dioxide 41 H* BUN 12 Creatinine 0.53 Estimated GFR > 60 BUN/Creatinine Ratio 22.6 H Glucose 112 H Hemoglobin A1c Calcium 7.4 L Magnesium 2.5 H Total Bilirubin 2.8 H Conjugated Bilirubin 0.7 H Unconjugated Bilirubin 1.1 AST 59 H ALT 19 Alkaline Phosphatase 107 Total Protein 6.1 L Albumin 2.9 L Globulin 3.2 Albumin/Globulin Ratio 0.9 L TSH Ur Random Sodium Nasal Screen MRSA (PCR) 11/01/21 11/01/21 11/01/21 01:40 01:40 06:28 WBC 7.6 RBC 2.70 L Hgb 9.7 L Hct 27.1 L MCV 100.4 H MCH 36.0 H MCHC 35.8 RDW 21.3 H Plt Count 244 Neut % (Auto) 89.1 H Lymph % (Auto) 7.7 L [place] % (Auto) 2.3 L Eos % (Auto) 0.6 L Baso % (Auto) 0.3 Neut # (Auto) 6700 Lymph # (Auto) 600 L [place] # (Auto) 200 Eos # (Auto) 0 Baso # (Auto) 0 Nucleated RBCs Hypersegmented Neuts Hypogranular Neuts Reactive Lymphocytes Smudge Cells Other Cell Type Toxic Granulation Toxic Vacuolation Dohle Bodies Carmela Rods WBC Morphology Comment Platelet Estimate Clumped Platelets Plt Morphology Comment RBC Morphology Not Reportable Dimorphic RBCs Polychromasia Hypochromasia Poikilocytosis Basophilic Stippling Anisocytosis 1+ H Microcytosis Macrocytosis Spherocytes Pappenheimer Bodies Sickle Cells Target Cells Tear Drop Cells Ovalocytes Stomatocytes 1+ H Helmet Cells [place] Bodies [place] Rings [place] Cells Acanthocytes (Spur) Rouleaux Schistocytes Sodium 118 L* Potassium 2.4 L* Chloride 66 L* Carbon Dioxide 41 H* BUN 11 Creatinine 0.62 Estimated GFR > 60 BUN/Creatinine Ratio 17.7 Glucose 109 Hemoglobin A1c Calcium 7.5 L Magnesium Total Bilirubin 2.7 H Conjugated Bilirubin 0.6 H Unconjugated Bilirubin 1.3 H AST 90 H ALT 21 Alkaline Phosphatase 140 H Total Protein 6.1 L Albumin 3.0 L Globulin 3.1 Albumin/Globulin Ratio 1.0 TSH Ur Random Sodium Nasal Screen MRSA (PCR) 11/01/21 11/01/21 11/01/21 06:28 06:28 06:28 WBC 7.7 RBC 2.76 L Hgb 9.7 L Hct 27.8 L MCV 101.0 H MCH 35.1 H MCHC 34.8 RDW 21.1 H Plt Count 223 Neut % (Auto) 83.6 H Lymph % (Auto) 11.3 L [place] % (Auto) 3.8 Eos % (Auto) 0.8 L Baso % (Auto) 0.5 Neut # (Auto) 6400 Lymph # (Auto) 900 L [place] # (Auto) 300 Eos # (Auto) 100 Baso # (Auto) 0 Nucleated RBCs Hypersegmented Neuts Hypogranular Neuts Reactive Lymphocytes Smudge Cells Other Cell Type Toxic Granulation Toxic Vacuolation Dohle Bodies Carmela Rods WBC Morphology Comment Platelet Estimate Clumped Platelets Plt Morphology Comment RBC Morphology Not Reportable Dimorphic RBCs Polychromasia Hypochromasia Poikilocytosis Basophilic Stippling Anisocytosis 2+ H Microcytosis Macrocytosis Spherocytes Pappenheimer Bodies Sickle Cells Target Cells Tear Drop Cells Ovalocytes Stomatocytes Helmet Cells [place] Bodies [place] Rings [place]von Cells Acanthocytes (Spur) Rouleaux Schistocytes Sodium Potassium Chloride Carbon Dioxide BUN Creatinine Estimated GFR BUN/Creatinine Ratio Glucose Hemoglobin A1c Calcium Magnesium 2.5 H Total Bilirubin 2.9 H Conjugated Bilirubin 0.9 H Unconjugated Bilirubin 1.2 H AST 74 H ALT 23 Alkaline Phosphatase 160 H Total Protein 5.6 L Albumin 2.7 L Globulin 2.9 Albumin/Globulin Ratio 0.9 L TSH Ur Random Sodium Nasal Screen MRSA (PCR) 11/01/21 11/01/21 11/01/21 10:11 10:11 14:00 WBC 6.3 RBC 2.66 L Hgb 9.5 L Hct 26.9 L MCV 101.3 H MCH 35.6 H MCHC 35.2 RDW 21.1 H Plt Count 214 Neut % (Auto) 84.8 H Lymph % (Auto) 10.8 L [place] % (Auto) 3.1 Eos % (Auto) 1.0 L Baso % (Auto) 0.3 Neut # (Auto) 5300 Lymph # (Auto) 700 L [place] # (Auto) 200 Eos # (Auto) 100 Baso # (Auto) 0 Nucleated RBCs Hypersegmented Neuts Hypogranular Neuts Reactive Lymphocytes Smudge Cells Other Cell Type Toxic Granulation Toxic Vacuolation Dohle Bodies Carmela Rods WBC Morphology Comment Platelet Estimate Clumped Platelets Plt Morphology Comment RBC Morphology Not Reportable Dimorphic RBCs Polychromasia Hypochromasia Poikilocytosis Basophilic Stippling Anisocytosis Microcytosis Macrocytosis 1+ H Spherocytes Pappenheimer Bodies Sickle Cells Target Cells Tear Drop Cells Ovalocytes Stomatocytes Helmet Cells [place] Bodies [place] Rings Ivon Cells Acanthocytes (Spur) Rouleaux Schistocytes Sodium 119 L* 119 L* Potassium 2.6 L* 2.7 L* Chloride 69 L* 72 L* Carbon Dioxide 45 H* 41 H* BUN 11 11 Creatinine 0.58 0.61 Estimated GFR > 60 > 60 BUN/Creatinine Ratio 19.0 18.0 Glucose 106 115 H Hemoglobin A1c Calcium 7.4 L 7.5 L Magnesium Total Bilirubin Conjugated Bilirubin Unconjugated Bilirubin AST ALT Alkaline Phosphatase Total Protein Albumin Globulin Albumin/Globulin Ratio TSH Ur Random Sodium Nasal Screen MRSA (PCR) 11/01/21 18:13 WBC RBC Hgb Hct MCV MCH MCHC RDW Plt Count Neut % (Auto) Lymph % (Auto) [place] % (Auto) Eos % (Auto) Baso % (Auto) Neut # (Auto) Lymph # (Auto) [place] # (Auto) Eos # (Auto) Baso # (Auto) Nucleated RBCs Hypersegmented Neuts Hypogranular Neuts Reactive Lymphocytes Smudge Cells Other Cell Type Toxic Granulation Toxic Vacuolation Dohle Bodies Carmela Rods WBC Morphology Comment Platelet Estimate Clumped Platelets Plt Morphology Comment RBC Morphology Dimorphic RBCs Polychromasia Hypochromasia Poikilocytosis Basophilic Stippling Anisocytosis Microcytosis Macrocytosis Spherocytes Pappenheimer Bodies Sickle Cells Target Cells Tear Drop Cells Ovalocytes Stomatocytes Helmet Cells [place] Bodies [place] Rings [place] Cells Acanthocytes (Spur) Rouleaux Schistocytes Sodium 122 L Potassium 2.9 L Chloride 73 L* Carbon Dioxide 39 H BUN 10 Creatinine 0.60 Estimated GFR > 60 BUN/Creatinine Ratio 16.7 Glucose 116 H Hemoglobin A1c Calcium 7.6 L Magnesium Total Bilirubin Conjugated Bilirubin Unconjugated Bilirubin AST ALT Alkaline Phosphatase Total Protein Albumin Globulin Albumin/Globulin Ratio TSH Ur Random Sodium Nasal Screen MRSA (PCR) PFSH Medical History Afib Atrial fibrillation, transient Chronic renal insufficiency Diabetes type 2, controlled ETOH abuse Fracture of distal end of fibula Heart failure Morbid obesity Pacemaker PEA (Pulseless electrical activity) (10/16/17) Sleep apnea in adult Surgical History History of third molar tooth extraction Hx of ventral hernia repair (08/12/19) Status post colonoscopy Status post surgery (07/26/10) Status post surgery (12/07/14) Family History (Updated 10/31/21 @ 23:51 by ANA PAULA Cerda) Father Diabetes mellitus Mother Diabetes mellitus Hyperlipidemia Hypertension Breast cancer Social History household members: spouse and family Smoking Status: Current every day smoker alcohol intake: current Assessment & Plan Assessment & Plan narrative: IMPRESSION ACUTE HYPOXIC RESPIRATORY FAILURE HYPONATREMIA. MULTIFACTORIAL HYPOKALEMIA. MULTIFACTORIAL ELIQUIS COAGULOPATHY ATRIAL FIBRILLATION PER HISTORY HYPERLIPIDEMIA PER HISTORY MACROCYTIC ANEMIA. SLEEP APNEA PER HISTORY MORBID OBESITY PER HISTORY PLAN CONTINUE TO REPLACE ELECTROLYTES INDICATED EKG REPEATED AND NO SIGNIFICANT CHANGES NOTED TELEMETRY NOT SHOWING ANY EVIDENCE OF SIGNIFICANT UREMIA WILL CONTINUE TO FOLLOW LAB CLOSELY OVER THE NEXT 24 HOURS AVOID OVER-CORRECTION OF SODIUM LEVEL TO DECREASE THE RISK OF CMP SODIUM SHOULD NOT BE COLLECTED MORE THAN 12 POINTS OVER THE NEXT 48 HOURS WILL DISCONTINUE IV FLUIDS FOR NOW CONTINUE TO REPLACE POTASSIUM INTRAVENOUSLY ADDITIONAL MANAGEMENT PER CLINICAL COURSE Time Spent With Patient Critical Care time: I spent a total of [] minutes of critical care time on this patient's care today; this time is exclusive of procedural time. Quality Stroke Contraindication Not Initiating IV-Tpa: Contraindicated Symptom Onset Unknown: Yes Rehab Services Assessed: Stroke rehabilitation VTE Deep Vein Thrombosis/Pulmonary Embolism Present on Admission: No
[2021-11-01 20:36] LABS: Magnesium 2.5 mg/dL (1.6-2.3)
[2021-11-01 20:37] LABS: Alanine Aminotransferase 22 IU/L (<35); Albumin 2.9 g/dL (3.5-5.0); Alkaline Phosphatase 148 U/L (38-126); Aspartate Aminotransferase 71 IU/L (14-36); Bilirubin Conjugated 0.1 md/dL (0.0-0.3); Bilirubin Total 2.2 mg/dL (0.2-1.3); HEMOLYSIS 30 (0-50); Total Protein 5.9 g/dL (6.3-8.2)
[2021-11-01 23:11] LABS: Magnesium 2.3 mg/dL (1.6-2.3)
[2021-11-01 23:24] LABS: BUN Creatinine Ratio 16.1 (6-22); Blood Urea Nitrogen 9 mg/dL (7-17); Calcium 7.3 mg/dL (8.4-10.2); Chloride 78 mmol/L (98-107); Estimated Glomerular Filt Rate > 60 mL/min (>60); Glucose 101 mg/dL (80-110); HEMOLYSIS < 15 (0-50); Potassium 3.1 mmol/L (3.4-5.1); Sodium 122 mmol/L (137-145)
[2021-11-01 23:30] LABS: Carbon Dioxide 36 mmol/L (22-32)
[2021-11-02] VITALS (19 sets, daily range): BP systolic 91–143; BP diastolic 52–88; PULSE 59–69; RESP 14–29; TEMP 36–36.7; O2SAT 92–99
--- NOTE | 2021-11-02 00:57 | PC.NURSE ---
At 0005 Notified ANA PAULA Mendoza of BMP and Mg results. No new orders. Continue with Q4hr labs.
[2021-11-02 03:42] LABS: Blood Urea Nitrogen 9 mg/dL (7-17); Calcium 7.4 mg/dL (8.4-10.2); Chloride 81 mmol/L (98-107); Estimated Glomerular Filt Rate > 60 mL/min (>60); Glucose 89 mg/dL (80-110); HEMOLYSIS 40 (0-50); Potassium 3.3 mmol/L (3.4-5.1); Sodium 125 mmol/L (137-145)
[2021-11-02 03:48] LABS: Carbon Dioxide 38 mmol/L (22-32)
[2021-11-02] MEDS: POTASSIUM CHLORIDE 20 MEQ TAB 40 MEQ PO (05:33)
--- NOTE | 2021-11-02 07:26 | PC.NURSE ---
End of Shift note: Care of patient from [id number]. Patient oriented to self, needs assist to reposition. Has bilateral buttocks skin breakdown. Replacing electrolytes, BMP Q4h. V-Paced 60s. on call [facility] notified of lab results.
[2021-11-02 07:57] LABS: BUN Creatinine Ratio 14.6 (6-22); Blood Urea Nitrogen 7 mg/dL (7-17); Calcium 6.6 mg/dL (8.4-10.2); Carbon Dioxide 36 mmol/L (22-32); Chloride 91 mmol/L (98-107); Estimated Glomerular Filt Rate > 60 mL/min (>60); Glucose 89 mg/dL (80-110); HEMOLYSIS < 15 (0-50); Phosphorous 1.6 mg/dL (2.8-4.1); Potassium 5.1 mmol/L (3.4-5.1); Sodium 129 mmol/L (137-145)
[2021-11-02] MEDS: ENOXAPARIN 40 MG/0.4 ML SYRINGE SUBCUT (08:29)
[2021-11-02] MEDS: PANTOPRAZOLE 40 MG VIAL IV (08:29)
[2021-11-02] MEDS: THIAMINE 100 MG TABLET PO (08:30)
[2021-11-02] MEDS: DOCUSATE 100 MG CAPSULE PO ×2 (08:30→21:24)
[2021-11-02] MEDS: NICOTINE 14 PATCH 14 MG TOP (08:30)
[2021-11-02] MEDS: MULTIVITAMIN 1 TABLET 1 TAB PO (08:30)
[2021-11-02] MEDS: FOLIC ACID 1 MG TABLET PO (08:30)
[2021-11-02] MEDS: LORazepam 1 MG TABLET PO ×2 (08:53→23:37)
[2021-11-02] MEDS: SODIUM CHLORIDE 0.9% 1,000 ML 50 ML IV (08:55)
[2021-11-02] MEDS: CALCIUM GLUCONATE 4.65 MEQ in SODIUM CHLORIDE 0.9% 50 ML 180 MEQ IV (09:13)
--- NOTE | 2021-11-02 10:05 | P.TELICUPN_ITS ---
Current Medications Current Medications Medications: Home Medications paroxetine HCl 20 mg tablet (Paxil) 30 mg PO QDAY #0 11/19/16 [History Confirmed 11/01/21] metoprolol tartrate 50 mg tablet 50 mg PO DAILY tab 07/11/18 [History Confirmed 03/17/21] apixaban 5 mg tablet (Eliquis) 5 mg PO BID 08/05/19 [History Confirmed 11/01/21] digoxin 250 mcg (0.25 mg) tablet 250 mcg PO DAILY 08/05/19 [History Confirmed 03/17/21] atorvastatin 10 mg PO DIRECTED 03/17/21 [History Confirmed 03/17/21] chlorthalidone 25 mg tablet 25 mg PO DIRECTED 03/17/21 [History Confirmed 03/17/21] medroxyprogesterone 10 mg tablet See Rx Instructions .ROUTE .COMPLEX #100 tab 08/09/21 [Rx] apixaban 5 mg tablet (Eliquis) 5 mg PO 11/01/21 [History] Visit Medications (administered) Generic Name Dose Route Start Last Admin Trade Name Jb PRN Reason Stop Dose Admin Docusate Sodium 100 mg 10/31/21 21:00 11/02/21 08:30 Docusate 100 Mg Capsule PO 100 mg BID SHAQUILLE Administration Enoxaparin Sodium 40 mg 11/02/21 09:00 11/02/21 08:29 Enoxaparin 40 Mg/0.4 Ml Syringe SUBCUT 40 mg DAILY SHAQUILLE Administration Folic Acid 1 mg 11/01/21 09:00 11/02/21 08:30 Folic Acid 1 Mg Tablet PO 1 mg DAILY SHAQUILLE Administration Heparin Sodium (Porcine) 50 unit 11/02/21 09:00 11/02/21 08:29 Heparin Flush (Cl/Picc/Mid-Line) 50 Unit/5 Ml Syringe IV 50 unit BID SHAQUILLE Administration Sodium Chloride 1,000 mls @ 50 mls/hr 11/02/21 08:30 11/02/21 08:55 Normal Saline 0.9% IV 50 mls/hr CONT SHAQUILLE Administration Insulin Human Lispro 0 unit 11/01/21 07:45 11/02/21 08:09 Insulin Lispro 100 Unit/Ml 3ml Vial SUBCUT Not Given ACHS SHAQUILLE Protocol Lorazepam 0 mg 11/01/21 12:08 11/02/21 08:53 Lorazepam 1 Mg Tablet PO 1 mg [id number] PRN Administration Alcohol Withdrawal Protocol Multivitamins 1 tab 11/01/21 09:00 11/02/21 08:30 Multivitamin 1 Tablet PO 1 tab DAILY SHAQUILLE Administration Nicotine 14 mg 11/01/21 12:15 11/02/21 08:30 Nicotine 14 Patch TOP 14 mg DAILY SHAQUILLE Administration Ondansetron HCl 4 mg 10/31/21 19:45 11/01/21 09:28 Ondansetron 4 Mg/2 Ml Inj IV 4 mg Q6HR PRN Administration Nausea And Vomiting Pantoprazole Sodium 40 mg 11/01/21 09:00 11/02/21 08:29 Pantoprazole 40 Mg Vial IV 40 mg DAILY SHAQUILLE Administration Thiamine HCl 100 mg 11/01/21 09:00 11/02/21 08:30 Thiamine 100 Mg Tablet PO 11/04/21 09:01 100 mg DAILY SHAQUILLE Administration Objective Labs Result Diagrams: 11/01/21 10:11 11/02/21 07:40 Labs: Laboratory Results - last 24 hr 11/01/21 11/01/21 11/01/21 10:11 10:11 14:00 WBC 6.3 RBC 2.66 L Hgb 9.5 L Hct 26.9 L MCV 101.3 H MCH 35.6 H MCHC 35.2 RDW 21.1 H Plt Count 214 Neut % (Auto) 84.8 H Lymph % (Auto) 10.8 L [place] % (Auto) 3.1 Eos % (Auto) 1.0 L Baso % (Auto) 0.3 Neut # (Auto) 5300 Lymph # (Auto) 700 L [place] # (Auto) 200 Eos # (Auto) 100 Baso # (Auto) 0 RBC Morphology Not Reportable Macrocytosis 1+ H Sodium 119 L* 119 L* Potassium 2.6 L* 2.7 L* Chloride 69 L* 72 L* Carbon Dioxide 45 H* 41 H* BUN 11 11 Creatinine 0.58 0.61 Estimated GFR > 60 > 60 BUN/Creatinine Ratio 19.0 18.0 Glucose 106 115 H Calcium 7.4 L 7.5 L Phosphorus Magnesium Total Bilirubin Conjugated Bilirubin Unconjugated Bilirubin AST ALT Alkaline Phosphatase Total Protein Albumin Globulin Albumin/Globulin Ratio 11/01/21 11/01/21 11/01/21 14:00 14:00 18:13 WBC RBC Hgb Hct MCV MCH MCHC RDW Plt Count Neut % (Auto) Lymph % (Auto) [place] % (Auto) Eos % (Auto) Baso % (Auto) Neut # (Auto) Lymph # (Auto) [place] # (Auto) Eos # (Auto) Baso # (Auto) RBC Morphology Macrocytosis Sodium 122 L Potassium 2.9 L Chloride 73 L* Carbon Dioxide 39 H BUN 10 Creatinine 0.60 Estimated GFR > 60 BUN/Creatinine Ratio 16.7 Glucose 116 H Calcium 7.6 L Phosphorus Magnesium 2.5 H Total Bilirubin 2.2 H Conjugated Bilirubin 0.1 Unconjugated Bilirubin 1.0 AST 71 H ALT 22 Alkaline Phosphatase 148 H Total Protein 5.9 L Albumin 2.9 L Globulin 3.0 Albumin/Globulin Ratio 1.0 11/01/21 11/01/21 11/02/21 22:45 22:45 03:00 WBC RBC Hgb Hct MCV MCH MCHC RDW Plt Count Neut % (Auto) Lymph % (Auto) [place] % (Auto) Eos % (Auto) Baso % (Auto) Neut # (Auto) Lymph # (Auto) [place] # (Auto) Eos # (Auto) Baso # (Auto) RBC Morphology Macrocytosis Sodium 122 L 125 L Potassium 3.1 L 3.3 L Chloride 78 L 81 L Carbon Dioxide 36 H 38 H BUN 9 9 Creatinine 0.56 0.50 L Estimated GFR > 60 > 60 BUN/Creatinine Ratio 16.1 18.0 Glucose 101 89 Calcium 7.3 L 7.4 L Phosphorus Magnesium 2.3 Total Bilirubin Conjugated Bilirubin Unconjugated Bilirubin AST ALT Alkaline Phosphatase Total Protein Albumin Globulin Albumin/Globulin Ratio 11/02/21 11/02/21 07:40 07:40 WBC RBC Hgb Hct MCV MCH MCHC RDW Plt Count Neut % (Auto) Lymph % (Auto) [place] % (Auto) Eos % (Auto) Baso % (Auto) Neut # (Auto) Lymph # (Auto) [place] # (Auto) Eos # (Auto) Baso # (Auto) RBC Morphology Macrocytosis Sodium 129 L Potassium 5.1 D Chloride 91 L Carbon Dioxide 36 H BUN 7 Creatinine 0.48 L Estimated GFR > 60 BUN/Creatinine Ratio 14.6 Glucose 89 Calcium 6.6 L Phosphorus 1.6 L Magnesium 2.0 Total Bilirubin Conjugated Bilirubin Unconjugated Bilirubin AST ALT Alkaline Phosphatase Total Protein Albumin Globulin Albumin/Globulin Ratio Exam Vital Signs (past 8 hours): - 05/25/22 03:00 11/02/21 04:00 11/02/21 04:04 Temperature 97.0 F L Pulse Rate 60 60 60 Respiratory Rate 14 22 23 Blood Pressure 91/52 L 94/64 Pulse Oximetry 92 95 96 11/02/21 05:00 11/02/21 06:00 11/02/21 07:00 Temperature 97.2 F L 97.4 F L Pulse Rate 60 59 L 60 Respiratory Rate 23 19 18 Blood Pressure 104/59 L 94/64 98/63 Pulse Oximetry 93 96 95 Oxygen Delivery Method CPAP Oxygen Flow Rate 2 Quality TeleICU VTE Deep Vein Thrombosis/Pulmonary Embolism Present on Admission: No Assessment & Plan Assessment & Plan narrative: patient seen with bedside nurse/provider chart/labs/imaging reviewed no acute events overnight currently afebrile, HD stable mental status improving suggest -neurochekcs/seizure precatuions -can dc fluid -regular diet -pt/ot -monitor for withdrawal -thiamine/folate -optimize bp/rate contorl -eliquis for AC -sodium 129, encourage po intake, can repeat bmp today, keep sodium rise to 6-8 mEq/24 hrs -cpap for juice -replace lytes prn -monito ins/outs -keep glucose 140-180s -gi/dvt ppx -please call eICU if condition changes Time Spent With Patient Critical Care time: I spent a total of [] minutes of critical care time on this patient's care today; this time is exclusive of procedural time.
--- NOTE | 2021-11-02 10:40 | PC.NURSE ---
Patient resting in bed,turns to left side with minimal assist. Dressings to bilateral buttocks are gently removed. Right buttock dressing has no drainage noted, Left buttock dressing has a large amount of serosanguineous drainage noted, nonmalodorous. Right buttock has a 12 x 7cm area of redness, some areas blanchable, some non-blanchable, appearing as a Stage 1 pressure injury. Left buttock has a 14 x 7 area of redness with an 8 x 4 X 0.05cm partial-thickness open area where blister has popped, appearing as a Stage 2 pressure injury. There is also an adjacent area to the left lateral buttock, approx. 5 x 4 x 0.05cm, also partial-thickness open area where it appears another blister(s) popped. Gluteal skin is gently cleansed with saline and fresh bordered foam dressings are applied for absorption of drainage and protection. Patient tolerates cares well, holds position turned to side independently while cares performed, expresses verbal appreciation of cares. Patient tilted to right side with pillow, thirty degree tilt, to offload left buttock, but is moving self around in bed.
--- NOTE | 2021-11-02 11:49 | PT-IP ANOTE ---
Attempted to see pt at 11:49 AM w/ OT. Unable to arouse pt w/ sternal rub, leg rub, and loudly calling name. Will check back in PM to see if pt appropriate.
--- NOTE | 2021-11-02 11:53 | OT.IPNOTE ---
Went to see pt for OT eval , per chart pt had been given Ativan a few hours ago. Pt unable to arouse with arm,leg and sternal rub at this time. Check on pt later if appropriate to be seen today.
--- NOTE | 2021-11-02 12:55 | CM.DPC ---
Addendum entered by ANA LAURA Anderson 11/02/21 15:58: ADD: Per ST at end of day, pt's swallow is fine and no swallow concerns but completed SLUMS with pt and significant impairment that is unclear if pt will make progress and improve as she scored 3/30 which is quite concerning. SW left msg for spouse to determine her baseline cognition and abilities. BF Original Note: DCP Cont: Per MD, pt making a little progress but not medically stable for d/c yet today. Per PT/OT, pt was fairly drowsy yesterday and was a max assist and hopeful once pt clears more she may improve and require less assist. They will continue to attempt working with pt each day. Per RN, pt on CIWA protocol but has not scored much but was given some Ativan this morning for anxiety. RN states pt also mentioned that she is quite depressed since spouse lost his job and the financial stressors and therefore this has led to her increased drinking of alcohol. SW attempted to meet bedside with pt and explained role and pt was able to answer direct questions seemingly appropriately but then began discussed non-sensical information and was not able to participate in goal directed discussion regarding discharge planning or identify her 's name or discussed her ETOH use or answer if she has been to SNF before. SW updated RN and will attempt again later today if time allows. Pt has [employer] for insurance and would need auth if SNF needed. SW attempted to call spouse and left msg. Plan: SW to follow closely for further PT/OT and attempt at d/c discussion with pt or spouse when pt more medically appropriate to determine home vs SNF. ANA LAURA Anderson
--- NOTE | 2021-11-02 13:22 | SLP.IPNOTE ---
Attempted to see pt for speech therapy treatment at 12:30. Pt was asleep and did not awake to verbal or tactile cues. NSG reported no difficulty with swallowing or eating since diet upgrade yesterday.
[2021-11-02 13:36] LABS: Osmolality, Serum 234 mOsmol/kg (280-301)
--- NOTE | 2021-11-02 13:38 | DIET.CONS2 ---
Dietary Inpatient Consultation Note Admission Date: 10/31/2021 19:30 RD consulted for electrolyte derangement and etoh use. Pt unable to participate in interview this morning. Per hospitalist electrolytes likely due to medication. RD to attempt interview c pt for supportive nutrition information on morning. Diet: 11/01/21 Breakfast Carbohydrate Consistent Diet Diet Modifications: Carbohydrate level: Medium (3 CHO) Bedtime snack: No 11/01/21 Dinner General (Regular) Diet Diet Modifications: *Feed only when alert* Nutrition Percent Meal Consumed 50% 11/02/21 10:00 Percent Meal Consumed 0% 11/02/21 06:00 Percent Meal Consumed pudding 11/01/21 18:00 Percent Meal Consumed yogurt 11/01/21 13:00 Percent Meal Consumed Pt was sick didnt want breakfast 11/01/21 08:00 Electronically Signed by: Carolee Laboy 11/02/21 13:38 Clinical Dietitian [address] [address]
--- NOTE | 2021-11-02 13:39 | PC.NURSE ---
1215: Reassessed pt due to note from therapy stating pt did not arouse to sternal rub. Pt arouses to both voice and light touch for lead technical writer. Remains with intermittent confusion as to dates and times but consistently alert to self and place/situation.
--- NOTE | 2021-11-02 14:03 | OT.IP.EVAL ---
Current Diagnoses Hypo-osmolality and hyponatremia (10/31/21) Past Medical History (Last Reviewed 10/31/21 @ 23:11 by ANA PAULA Cerda) Afib Atrial fibrillation, transient Chronic renal insufficiency Diabetes type 2, controlled ETOH abuse Fracture of distal end of fibula Heart failure Hx of ventral hernia repair (08/12/19) Morbid obesity Pacemaker PEA (Pulseless electrical activity) (10/16/17) Sleep apnea in adult Surgical History (Last Reviewed 10/31/21 @ 23:11 by ANA PAULA Cerda) History of third molar tooth extraction Hx of ventral hernia repair (08/12/19) Status post colonoscopy Status post surgery (07/26/10) Status post surgery (12/07/14) Occupational Therapy Inpatient Evaluation/Re-Eval M1 PT/OT-IP Prior Functional Status Start: 11/01/21 10:46 Freq: NEEDED Status: Active Protocol: Document 11/02/21 14:03 [facility] (Rec: 11/02/21 15:02 [facility] [id number]) Medical Review Prior Functional Status Medical History Reviewed Yes Communication lethargic initially requires max cues; able to answer questions inconsistently and requires repetitions Mobility and Gait pt stated that she is independent with all mobilities and ambulation without AD Activities of Daily Living and IADL's Pt states able to do ADL's before. Social History Household Members spouse,family Living Arrangements House Number of Floors (Floors) One Floor Number of Stairs To Enter/Railing? ramp to enter Home Environment Standard Height Toilet,Walk in Shower,Ramp Home Equipment Front Wheel Walker,Shower Seat without Backrest,Hand Held Shower,Grab Bars Near Toilet, Grab Bars In Shower M2 OT-IP Current Condition Start: 11/02/21 14:28 Freq: Status: Active Protocol: Document 11/02/21 14:03 [facility] (Rec: 11/02/21 15:02 [facility] [id number]) Occupational Therapy Current Condition Current Condition Evaluation Date 11/02/21 Treatment Diagnosis Acute hypoxic respiratory failure Diagnosis Onset Date 10/31/21 M3 OT- IP Subjective and Pain Start: 11/02/21 14:28 Freq: Status: Active Protocol: Document 11/02/21 14:03 [facility] (Rec: 11/02/21 15:02 [facility] [id number]) OT- Subjective Occupational Therapy Visit Type Type Initial Evaluation Visit Start Time 14:03 Visit Stop Time 14:27 Total Visit Minutes 24 Occupational Therapy Visit Comments Patient Comments Pt agreed to get up after encouragement. OT Pain Assessment Pain When Pain Assessed At Rest Pain Present Pain Present Denied Pain M4 OT- IP ADL's Start: 11/02/21 14:28 Freq: Status: Active Protocol: Document 11/02/21 14:03 [facility] (Rec: 11/02/21 15:02 [facility] [id number]) OT [id number] Comments OT Self-Feeding Comments Pt only ate a few bites of her food. OT ADL-Grooming General Evaluation Grooming Ability Standby Assistance Areas Needing Assistance Retrieving/Set-up of Grooming Items Comments OT Grooming Comments Pt able to wash her face after set-up of wash cloth. OT ADL-Oral Care General Eval Oral Care Ability Minimal Assistance Areas of Assistance Brushing Teeth,Retrieving/Set- Up of Items Comments Oral Care Comments Pt needing assist to help tip cup up in order to get water to rinse her mouth out. OT ADL-Dressing General Eval Lower Body Dressing Ability Moderate Assistance Comments OT Dressing Comments Pt able to wenceslao right sock and refused to do left side. OT ADL-Toileting General Evaluation Toileting Ability Total Assistance Comments OT Toileting Comments Matute OT ADL-Bathing Comments OT Bathing Comments Sponge bath more appropriate at this time. M5 OT- IP IADL's Start: 11/02/21 14:28 Freq: Status: Active Protocol: Document 11/02/21 14:03 [facility] (Rec: 11/02/21 15:02 [facility] [id number]) OT-Instrumental Activities of Daily Living Home Safety Awareness Awareness of Need for Assistance at Home Decreased Awareness Ability to Problem Solve Emergency Unable to Problem Solve Situations Home Safety Comments Pt having lots of confusion at this time and therefore would need 24/7 assist if going home for all needs and safety . M6 OT- IP Functional Cognition Start: 11/02/21 14:28 Freq: Status: Active Protocol: Document 11/02/21 14:03 [facility] (Rec: 11/02/21 15:02 [facility] [id number]) Cognitive Factors Limiting Selfcare Function Cognitive Ability Level of Alertness Alert,Confusional State Patient Orientation Name Attention Span Ability Capable of Focused Attention, Unable to Sustain Attention Ability to Follow Commands Able to Follow One Step Commands with Increased Time, Able to Follow One Step Commands with Repetition Memory Description Short Term Impaired,Working Impaired Cognitive Comments Cognitive Assessment Comments Pt very confused and needing simple concrete cues, vc to initiate tasks for oral care, safety awareness, and FWW use. Pt is a bit impulsive and bed alarm placed for pt. M7 OT- IP Mobility and Balance Start: 11/02/21 14:28 Freq: Status: Active Protocol: Document 11/02/21 14:03 [facility] (Rec: 11/02/21 15:02 [facility] [id number]) OT- Bed Mobility Assessment Supine to Sit Supine to Sit Assist Minimal Assistance Scooting Scooting to Edge of Bed Minimal Assistance OT-Transfer Assessment Sit to and From Stand Sit to and from Stand Minimal Assistance Transfers Transfer Ability Minimal Assistance,2 Person Assistance Technique Transfer Destination Bed,Chair Transfer Technique Stand Step Pivot Devices Transfer Assistive Devices Gait Belt,Front Wheeled Walker Comments Mobility Comments SAY for bed mobility and to stand and MINAx2 with FWW for transfer as unsteady on her feet, assist with cord management and that pt has decreased overall safety for needs. OT- Balance Assessment Sitting Balance and Reactions Static Sitting Balance Ability Good Dynamic Sitting Balance Ability Fair Standing Balance and Reactions Static Standing Balance Ability Fair M8 OT- IP Objective Assessments Start: 11/02/21 14:28 Freq: Status: Active Protocol: Document 11/02/21 14:03 [facility] (Rec: 11/02/21 15:02 [facility] [id number]) OT Strength Comments Strength Comments Did not formally assessed, per functional task of transfer at least 3+/5 throughout. OT-Muscle Tone Assessment Muscle Tone WNL Yes M9 OT- IP Assessment and Plan Start: 11/02/21 14:28 Freq: Status: Active Protocol: Document 11/02/21 14:03 [facility] (Rec: 11/02/21 15:02 [facility] [id number]) OT Summary Assessment and Plan Potential Rehabilitation Potential Fair Analytic Complexity at Evaluation Moderate Summary OT Impairments Balance,Functional Cognition, Functional Mobility,Self- Feeding,Grooming,Dressing, Toileting,Bathing,Toilet Transfers,Shower Transfers, Activity Tolerance Progress Towards Goals Slow Progress due to Medical Issues,Slow Progress due to Activity Tolerance,Slow Progress due to Cognition Assessment Summary Pt MOD complexity and main barriers are decreased activity tolerance, decreased ability to follow commands and needing 1:1 assist to be able to complete all tasks at this time as pt has poor initiation and safety awareness at this time , in addition O2 drops when moving. Pt's O2 at 2L from 84-89 and turned O2 to 3L and at 93%. Pending progress and medical status, pt may need skilled rehab. Goals Grooming Goal Independent Dressing Goal Independent Toileting Goal Independent Bathing Goal Independent Toilet Transfer Goal Independent Shower Transfer Goal Independent Days to Meet Goals 30 Frequency of Treatment Frequency Of Treatment Once a Day Treatment Plan OT Treatment Plan ADL Training,Functional Cognition Training,Functional Mobility,Patient/Family Education,Discharge Planning Other Treatment Recommendations and Next Stand at sink for grooming Treatment Focus needs. Discharge Recommendations OT Discharge Recommendations SNF Rehab Transportation Needs at Discharge Wheelchair/Cabulance
--- NOTE | 2021-11-02 14:20 | PT.IPTN ---
Current Diagnoses Hypo-osmolality and hyponatremia (10/31/21) Physical Therapy Treatment Note M2 PT-IP Current Condition Start: 11/01/21 10:46 Freq: NEEDED Status: Active Protocol: Document 11/01/21 15:15 AB (Rec: 11/01/21 16:47 AB [id number]) Physical Therapy Current Condition Current Condition Evaluation Date 11/01/21 Treatment Diagnosis acute metabolic encephalopathy ; alcohol w/d; difficulty in walking Onset Date 10/31/21 M3 PT-IP Subjective Start: 11/01/21 10:46 Freq: NEEDED Status: Active Protocol: Document 11/02/21 14:03 [facility] (Rec: 11/02/21 14:34 KS [id number]) Subjective Physical Therapy Visit Type Type Treatment Note Visit Start Time 14:03 Visit Stop Time 14:20 Total Visit Minutes 17 Notes co-treat w/ OT Number of GAME AUTHOR Visits 1 M4 PT-IP Mobility and Gait Start: 11/01/21 10:46 Freq: NEEDED Status: Active Protocol: Document 11/02/21 14:03 [place] (Rec: 11/02/21 14:34 [place] [id number]) PT-Bed Mobility Assessment Supine to Sit Supine to Sit Minimal Assistance,1 Person Assistance,Head of Bed Elevated Scooting Scooting to Edge of Bed Minimal Assistance PT-Transfer Assessment Sit to and From Stand Sit to and from Stand Minimal Assistance,1 Person Assistance,Use of Upper Extremities Equipment Transfer Assistive Device Gait Belt,Front Wheeled Walker Orthotic/Prosthetic Devices or Brace: No Transfers Transfer Destination Chair Transfer Technique Stand Step Pivot Transfer Ability Level of Assist Minimal Assistance,2 Person Assistance,Use of Upper Extremities Comments Mobility Comments Pt in bed upon arrival and much more alert than this AM. Pt eating in slumped position and agreeable to transfer to chair to sit upright. Pt on 2L during mobility. Min A and cues for sup<>sit and scooting EOB w/ HOB elevated. Pt then sit<>stand w/ FWW Min A w/ cues for safety and hand placement. Pt then stood ~1 min feor DEVELOPMENT ADMINISTRATOR to perform pericare w/ Min A to maintain balance and then performed stand step pivot from bed to chair w/ FWW and Min A x2 for balance, FWW management and cues for safety and sequencing . Pt still confused and requiring increased cues and redirection. After transfer to chair pt refused furhter ambulation or exercise due to fatigue. Pt left in chair w/ OT and DEVELOPMENT ADMINISTRATOR in room. Gait Assessment Gait Gait Assistance Required: Minimum Assistance,1 Person Assist Distance (Feet) 3 Assistive Devices Assistive Device Gait Belt,Front Wheeled Walker Orthotic/Prosthetic Devices or Brace: No Gait Deviations General Gait Pattern Antalgic,Decreased Stride Length,Decreased Feet Clearance Factors Limiting Gait Function Factors Limiting Gait Function Decreased Activity Tolerance, Decreased Strength,Difficulty Following Directions, Incoordination,Poor Balance, Poor Safety Awareness Comments Gait Comments Stand step pivot only. PT-Balance Assessment Sitting Balance and Reactions Static Sitting Balance Ability Good Dynamic Sitting Balance Ability Fair Standing Balance and Reactions Static Standing Balance Ability Fair Dynamic Standing Balance Ability Poor Device Used FWW M5 PT-IP Objective Assessments Start: 11/01/21 10:46 Freq: NEEDED Status: Active Protocol: Document 11/01/21 15:15 AB (Rec: 11/01/21 16:47 AB [id number]) Orientation Orientation/Cognition Level of Alertness Confusional State Orientation Name Safety Awareness Decreased Safety Awareness Memory Description Short Term Impaired,Nursing Home Impaired Gross Range of Motion Lower Extremity ROM Assessment Within Functional Limits Strength Lower Extremity Strength Hip 3+/5 Knee 3+/5 Muscle Tone Muscle Tone WNL Yes M6 PT-IP Treatment Start: 11/01/21 10:46 Freq: NEEDED Status: Active Protocol: Document 11/02/21 14:03 [place] (Rec: 11/02/21 14:34 KS [id number]) Physical Therapy Treatment Education Education Provided Safety M7 PT-IP Assessment and Plan Start: 11/01/21 10:46 Freq: NEEDED Status: Active Protocol: Document 11/02/21 14:03 KS (Rec: 11/02/21 14:34 KS [id number]) PT Summary Assessment and Plan Potential Rehabilitation Potential Fair Status of Condition at Evaluation Evolving Summary Impairments Pain,ROM,Strength,Balance, Coordination,Sensation,Tone, Cognition,Bed Mobility, Transfers,Gait,Activity Tolerance Assessment Summary Pt w/ improved mobility today, but remains limited by confusion, weakness, and low activity tolerance. Frequent cues for all tasks. Min A for bed mobility, Min A to maintain standing balance, Min A x2 for stand step pivot from bed to chair w/ sequencing and safety cues using FWW. Pt fatigued following transfer. She will require SNF to improve functional mobility independence and strength. Goals Bed Mobility Goal Minimal Assistance Transfer Goal Minimal Assistance,Front Wheeled Walker Gait Goal Minimal Assistance,Front Wheel Walker Gait Distance 100 Other Goals improve bed mobility, transfers using fWW SBA, ambulation using FWW SBA 150 ft Days to Meet Goals 10 Frequency of Treatment Frequency Of Treatment Once a Day Treatment Plan Physical Therapy Treatment Plan Bed Mobility Training,Transfer Training,Gait Training, Therapeutic Exercise,Balance Retraining,Discharge Planning, Hot or Cold Pack,Neuromuscular Re-ed,Coordination Retraining ,Manual Therapy Recommendations To Nursing Amount of Assist Needed 2 Person Assist Discharge Recommendations PT Discharge Recommendations SNF Rehab Transportation Needs at Discharge Wheelchair/Cabulance
--- NOTE | 2021-11-02 16:24 | ST.IPTN ---
Visit Care Team Role Provider Type Sue Friedman MD Other Providers Physician Address: Phone: Fax: Mayte Pizarro MD Other Providers Physician Address: Phone: Fax: Anika Spaulding MD Other Providers Physician Address: Phone: Fax: Jeff Marinelli MD Other Providers Physician Address: Phone: Fax: Nicho Martines MD Other Providers Physician Address: Phone: Fax: Dawn Ennis MD Other Providers Physician Address: [address] [place] [id number] Rober Lynn MD Other Providers Physician Address: Phone: Fax: Michael Baez MD Other Providers Physician Address: Phone: Fax: Venkat Monae MD Other Providers Physician Address: Phone: Fax: Nolberto Spaulding MD Other Providers Physician Address: Phone: Fax: Bushra Brooke MD Other Providers Physician Address: Phone: Fax: Missy Victoria Other Providers Physician Address: Phone: Fax: Daniel Puga MD Other Providers Physician Address: Phone: Fax: Yonatan Steiner MD Family Provider Physician Primary Care Provider Address: [address] [place] [id number] Barrett Boston DO Emergency Provider Physician Address: [address] [place] [address], [id number] ANA PAULA Cerda Admit Provider Physician Attending Provider Referring Provider Address: [address] [place] [id number] BOAT OPERATOR Treatment Note BOAT OPERATOR Treatment Note Start: 11/02/21 15:20 Freq: Status: Active Protocol: Document 11/02/21 15:21 ZS (Rec: 11/02/21 15:23 ZS [id number]) Speech Pathology Treatment Note Session Time Visit Start Time 15:00 Visit Stop Time 15:20 Total Visit Minutes 20 Setting Treatment Setting Acute Care Visit Type Note Type Treatment Note Next Note Type Next Note Type Treatment Note Subjective Identification Type Name,ID Wristband Identification Reconciled With Medical Record Observations/Patient Presentation Pt was seated upright in chair watching TV when BOAT OPERATOR arrived. She reported no difficulty eating or drinking and was agreeable to participate in cognitive assessment. Objective Short Term Goals Follow-up with NSG for functional goals related to communication related to care and discuss re-evaluation of pt following completion of alcohol withdrawal. Treatment Activities Assessed cognition with SLUMS Examination. Assessment Impairments Identified Cognitive communication Assessment of Improvement Results of the SLUMS place Sammie's score at 3/30, indicating a score within the dementia range. She accurately answered orientation questions and immediately recalled 1/5 items listed. Sammie demonstrated low to no awareness of confusion and often response to questions with answers that were tangentially or unrelated to question. Her clock drawing expanded into the shapes below and Sammie began doing math within the shapes related to fractions of time. When asked to place an X in the triangle, Sammie continued the math she was previously engaged in and stated I'm not good at this kind of math. Pt's cognitive baseline is unknown and cognition may be impacted by withdrawals from alcohol. Plan Therapy Recommendations Continue with Current Program
[2021-11-02] MEDS: SODIUM,POTASSIUM PHOSPHATES PACKET 2 EACH PO ×2 (17:24→21:22)
[2021-11-02] MEDS: INSULIN LISPRO 100 UNIT/ML 3ML VIAL SUBCUT (17:25)
--- NOTE | 2021-11-02 17:34 | PM.PN.1 ---
Subjective Subjective Date Patient Seen: 11/02/21 Interval history: BRIEF HPI PATIENT WITH ADMITTED ALCOHOL ABUSE AND ALSO AN HCTZ PRESENTED TO THE HOSPITAL WITH SIGNIFICANT ELECTROLYTE IMBALANCE. ALSO REPORTED HISTORY OF ATRIAL FIBRILLATION. TODAY PATIENT'S DENIES ANY CONFUSION. NO HEADACHES. NO MIGRAINE. NO DIZZINESS / DROWSINESS. STATED THAT SHE IS FEELING BETTER NO CHEST PAIN. NO CHEST PRESSURE. NO CHEST PALPITATIONS. REPORTED PRIOR WITHDRAWAL SYMPTOM FROM NOT DRINKING ALCOHOL Exam Vital Signs (past 8 hours): - 11/02/21 09:35 11/02/21 10:00 11/02/21 12:00 Temperature 96.8 F L 97.8 F Pulse Rate 69 63 63 Respiratory Rate 20 24 15 Blood Pressure 102/66 120/59 L Pulse Oximetry 96 98 11/02/21 13:00 11/02/21 14:00 11/02/21 15:00 Temperature Pulse Rate 60 60 62 Respiratory Rate 15 20 21 Blood Pressure 127/74 111/58 L 124/88 Pulse Oximetry 99 93 98 11/02/21 16:00 11/02/21 17:00 Temperature 97.4 F L Pulse Rate 63 61 Respiratory Rate 28 H 26 H Blood Pressure 143/80 H 106/73 Pulse Oximetry 96 97 Oxygen Delivery Method Nasal Cannula Oxygen Flow Rate 0 Narrative Exam Narrative: NO ACUTE DISTRESS.? PATIENT IS ALERT ORIENTED X3 HEAD ATRAUMATIC NORMOCEPHALIC NECK : SUPPLE WITHOUT ADENOPATHY NO CAROTID BRUITS EYE:? EOMI, PERRLA, NORMAL CONJUNCTIVA; NO JAUNDICE CHEST:? REGULAR RATE.? ? NO RUBS.? PMI IS NON DISPLACED.? NO MURMURS; NORMAL S1-S2 PULMONARY:? NO WHEEZING. NO RALES..? MILD BIBASILAR CRACKLES STILL NOTICEABLE. NO INCREASED DULLNESS TO PERCUSSION . DECREASED BREATH SOUNDS AT THE BASES. ABDOMEN:? OBESE BUT SOFT.? NONTENDER.? NONDISTENDED.? BOWEL SOUNDS ARE PRESENT IN ALL 4 QUADRANTS. ? EXTREMITIES:? 2+ NONPITTING BILATERAL LOWER EXTREMITY EDEMA..? NO CYANOSIS CLUBBING NOTED. NEURO:? CRANIAL NERVES 2-12 GROSSLY INTACT. NO FOCAL NEUROLOGICAL DEFICIT NOTED. MSK:? RANGE OF MOTION ADEQUATE FOR AGE.? NO JOINT EFFUSION. SKIN:? FAIR SKIN TURGOR FOR AGE. :? NORMAL EXTERNAL GENITALIA. PSYCH :? APPROPRIATE MOOD AND AFFECT.? ALERT AWAKE ORIENTED X3 Objective Labs Result Diagrams: 11/01/21 10:11 11/02/21 07:40 Labs: Laboratory Results - last 24 hr 10/31/21 11/01/21 11/01/21 10:55 14:00 14:00 Sodium Potassium Chloride Carbon Dioxide BUN Creatinine Estimated GFR BUN/Creatinine Ratio Glucose Serum Osmolality 234 L Calcium Phosphorus Magnesium 2.5 H Total Bilirubin 2.2 H Conjugated Bilirubin 0.1 Unconjugated Bilirubin 1.0 AST 71 H ALT 22 Alkaline Phosphatase 148 H Total Protein 5.9 L Albumin 2.9 L Globulin 3.0 Albumin/Globulin Ratio 1.0 11/01/21 11/01/21 11/01/21 18:13 22:45 22:45 Sodium 122 L 122 L Potassium 2.9 L 3.1 L Chloride 73 L* 78 L Carbon Dioxide 39 H 36 H BUN 10 9 Creatinine 0.60 0.56 Estimated GFR > 60 > 60 BUN/Creatinine Ratio 16.7 16.1 Glucose 116 H 101 Serum Osmolality Calcium 7.6 L 7.3 L Phosphorus Magnesium 2.3 Total Bilirubin Conjugated Bilirubin Unconjugated Bilirubin AST ALT Alkaline Phosphatase Total Protein Albumin Globulin Albumin/Globulin Ratio 11/02/21 11/02/21 11/02/21 03:00 07:40 07:40 Sodium 125 L 129 L Potassium 3.3 L 5.1 D Chloride 81 L 91 L Carbon Dioxide 38 H 36 H BUN 9 7 Creatinine 0.50 L 0.48 L Estimated GFR > 60 > 60 BUN/Creatinine Ratio 18.0 14.6 Glucose 89 89 Serum Osmolality Calcium 7.4 L 6.6 L Phosphorus 1.6 L Magnesium 2.0 Total Bilirubin Conjugated Bilirubin Unconjugated Bilirubin AST ALT Alkaline Phosphatase Total Protein Albumin Globulin Albumin/Globulin Ratio [facility] Medical History Afib Atrial fibrillation, transient Chronic renal insufficiency Diabetes type 2, controlled ETOH abuse Fracture of distal end of fibula Heart failure Morbid obesity Pacemaker PEA (Pulseless electrical activity) (10/16/17) Sleep apnea in adult Surgical History History of third molar tooth extraction Hx of ventral hernia repair (08/12/19) Status post colonoscopy Status post surgery (07/26/10) Status post surgery (12/07/14) Family History (Updated 10/31/21 @ 23:51 by ANA PAULA Cerda) Father Diabetes mellitus Mother Diabetes mellitus Hyperlipidemia Hypertension Breast cancer Social History household members: spouse and family Smoking Status: Current every day smoker alcohol intake: current Assessment & Plan Assessment & Plan narrative: IMPRESSION ACUTE HYPOXIC RESPIRATORY FAILURE. LIKELY SECONDARY TO MENTATION CHANGE AND OBSTRUCTIVE SLEEP APNEA ACUTE METABOLIC ENCEPHALOPATHY. RESOLVING HYPONATREMIA.? BEER POTOMANIA PLUS HCTZ HYPOKALEMIA.? DEC ORAL INTAKE PLUS HCTZ ELIQUIS COAGULOPATHY; NO SIGNS HEMORRHAGE ATRIAL FIBRILLATION PER HISTORY HYPERLIPIDEMIA PER HISTORY MACROCYTIC ANEMIA.?FURTHER W/U OUTPATIENT SLEEP APNEA PER HISTORY. BIPAP NEEDED MORBID OBESITY PER HISTORY ALCOHOL ABUSE ?PLAN PATIENT APPEARED TO BE CLINICALLY IMPROVED HER POTASSIUM IS FAIRLY WERE REPLACED AT THIS TIME NO SIGNIFICANT ARRHYTHMIA NOTED ON TELEMETRY WILL TRANSFER TO THE MEDICAL FLOOR OUT OF THE ICU PATIENT REPORTED TOBACCO ABUSE AND POSSIBLE WITHDRAWAL SYMPTOMS DURING FOR ABSTINENCE WILL START ON LIBRIUM 10 MG T.I.D MONITOR CLOSELY CONTINUE WITH CIWA PROTOCOL FOR NOW WILL DISCONTINUE IV FLUIDS ENCOURAGE ORAL INTAKE COULD CONSIDER FLUID RESTRICTION WELL IF NEEDED TO HELP STABILIZE THE SODIUM PATIENT WILL NEED TO BE ON BIPAP NEEDED TO SLEEP DUE TO HISTORY OF JAMES PHYSICAL /OCCUPATIONAL THERAPY EVALUATING AND TREATING INDICATED. ASSISTANCE APPRECIATED MAINTAIN FALL PRECAUTION AT ALL TIMES PATIENT DOES NOT WISH TO GO TO CORRECTION FACILITY AT THIS TIME ADDITIONAL MANAGEMENT PER CLINICAL COURSE DISCHARGE 24-48 HOURS IF CLINICALLY STABLE 11/01 CONTINUE TO REPLACE ELECTROLYTES INDICATED EKG REPEATED AND NO SIGNIFICANT CHANGES NOTED TELEMETRY NOT SHOWING ANY EVIDENCE OF SIGNIFICANT UREMIA WILL CONTINUE TO FOLLOW LAB CLOSELY OVER THE NEXT 24 HOURS AVOID OVER-CORRECTION OF SODIUM LEVEL TO DECREASE THE RISK OF CMP SODIUM SHOULD NOT BE COLLECTED MORE THAN 12 POINTS OVER THE NEXT 48 HOURS WILL DISCONTINUE IV FLUIDS FOR NOW CONTINUE TO REPLACE POTASSIUM INTRAVENOUSLY ADDITIONAL MANAGEMENT PER CLINICAL COURSE Time Spent With Patient Critical Care time: I spent a total of [] minutes of critical care time on this patient's care today; this time is exclusive of procedural time. Quality Stroke Contraindication Not Initiating IV-Tpa: Contraindicated Symptom Onset Unknown: Yes Rehab Services Assessed: Stroke rehabilitation VTE Deep Vein Thrombosis/Pulmonary Embolism Present on Admission: No
[2021-11-02] MEDS: METOPROLOL IR 50 MG TABLET PO (21:20)
[2021-11-02] MEDS: APIXABAN 5 MG TABLET PO (21:24)
[2021-11-02] MEDS: ATORVASTATIN 20 MG TABLET 10 MG PO (21:24)
[2021-11-02] MEDS: FAMOTIDINE 20 MG TABLET PO (21:25)
[2021-11-02] MEDS: chlordiazePOXIDE 10 MG CAPSULE PO (21:25)
[2021-11-02] MEDS: ACETAMINOPHEN 325 MG TABLET 650 MG PO (23:52)
[2021-11-03] VITALS (11 sets, daily range): BP systolic 95–144; BP diastolic 51–85; PULSE 58–66; RESP 13–24; TEMP 35.9–36.7; O2SAT 94–97
[2021-11-03 06:08] LABS: Hematocrit 25.3 % (36-46); Hemoglobin 8.8 g/dL (12.0-16.0); Mean Corpuscular HGB Conc 34.7 % (30-36); Mean Corpuscular Hemoglobin 35.5 PG (26-34); Mean Corpuscular Volume 102.2 fL (80-100); Platelet Count 201 X10^3/uL (150-400); Red Blood Cell Count 2.48 X10^6/uL (4.0-5.2); Red Cell Distribution Width 21.5 % (11.6-14.8); White Blood Cell Count 4.7 X10^3/uL (4.5-11.0)
[2021-11-03 06:09] LABS: Add Manual Diff / Slide Review YES
[2021-11-03 06:28] LABS: Alanine Aminotransferase 23 IU/L (<35); Albumin 2.7 g/dL (3.5-5.0); Albumin Globulin Ratio 0.9 (1.0-2.8); Alkaline Phosphatase 136 U/L (38-126); Aspartate Aminotransferase 59 IU/L (14-36); BUN Creatinine Ratio 12.7 (6-22); Bilirubin Total 1.7 mg/dL (0.2-1.3); Blood Urea Nitrogen 7 mg/dL (7-17); Calcium 7.9 mg/dL (8.4-10.2); Carbon Dioxide 38 mmol/L (22-32); Chloride 84 mmol/L (98-107); Estimated Glomerular Filt Rate > 60 mL/min (>60); Glucose 94 mg/dL (80-110); HEMOLYSIS 22 (0-50); Magnesium 1.9 mg/dL (1.6-2.3); Phosphorous 1.8 mg/dL (2.8-4.1); Potassium 3.6 mmol/L (3.4-5.1); Sodium 126 mmol/L (137-145); Total Protein 5.7 g/dL (6.3-8.2)
[2021-11-03 07:19] LABS: Neutrophils Absolute Manual 3243 /uL (3000-5900); Total Cells Counted 100
[2021-11-03 07:21] LABS: Anisocytosis 2+
[2021-11-03 07:22] LABS: Macrocytosis 1+
--- NOTE | 2021-11-03 07:39 | PC.NURSE ---
End of shift note. Care of patient from [id number]. Alert, did not sleep during the night. Last CIWA 1, confused. Two assist with gait belt and FWW up to chair. V-paced 60s. Small amount of vaginal old bloody drainage informed Dr. Eason this am during rounds. High Fall risk, bed and chair alarm on.
[2021-11-03] MEDS: POTASSIUM CHLORIDE 20 MEQ/15 ML UDC 40 MEQ PO (08:31)
[2021-11-03] MEDS: PARoxetine 20 MG TABLET 30 MG PO (08:32)
[2021-11-03] MEDS: FOLIC ACID 1 MG TABLET PO (08:32)
[2021-11-03] MEDS: APIXABAN 5 MG TABLET PO ×2 (08:32→21:54)
[2021-11-03] MEDS: chlordiazePOXIDE 10 MG CAPSULE PO ×3 (08:32→21:54)
[2021-11-03] MEDS: DOCUSATE 100 MG CAPSULE PO (08:33)
[2021-11-03] MEDS: FAMOTIDINE 20 MG TABLET PO ×2 (08:33→21:54)
[2021-11-03] MEDS: DIGOXIN 0.125 MG TABLET PO (08:33)
[2021-11-03] MEDS: MULTIVITAMIN 1 TABLET 1 TAB PO (08:33)
[2021-11-03] MEDS: THIAMINE 100 MG TABLET PO (08:33)
[2021-11-03] MEDS: METOPROLOL IR 50 MG TABLET PO ×2 (08:33→21:53)
--- NOTE | 2021-11-03 09:42 | PM.CN ---
History of Present Illness Consult details Date Patient Seen: 11/03/21 Time Patient Seen: 09:42 Chief complaint: Incoherent, cant walk- sister thinks stroke Reason for consult: Postmenopausal bleeding Requesting provider: Marie Lord Narrative: Patient is a 61-year-old 0 who was admitted with weight loss, weakness, and skin breakdown on the buttocks. Patient had not been out of bed for approximately 2 weeks. She you was found year in urine soaked clothes and bedding. She has had some postmenopausal bleeding. She had a D&C hysteroscopy back in March of 2021 which showed benign polyp. She is on medroxyprogesterone but on history is not sure how long she has not been taking it due to ?too many pills. An ultrasound done on November 01, 2021 showed an endometrial lining of 8.6 mm. Back in March it was 17.6 mm. Meds Home Medications and Allergies Home Medications Medication Instructions Recorded Confirmed Type paroxetine HCl 20 mg tablet (Paxil) 30 mg PO QDAY #0 11/19/16 11/01/21 History metoprolol tartrate 50 mg tablet 50 mg PO DAILY tab 07/11/18 03/17/21 History apixaban 5 mg tablet (Eliquis) 5 mg PO BID 08/05/19 11/01/21 History digoxin 250 mcg (0.25 mg) tablet 250 mcg PO DAILY 08/05/19 03/17/21 History atorvastatin 10 mg PO DIRECTED 03/17/21 03/17/21 History chlorthalidone 25 mg tablet 25 mg PO DIRECTED 03/17/21 03/17/21 History medroxyprogesterone 10 mg tablet See Rx Instructions .ROUTE 08/09/21 Rx .COMPLEX #100 tab apixaban 5 mg tablet (Eliquis) 5 mg PO 11/01/21 History Allergies Allergy/AdvReac Type Severity Reaction Status Date / Time ketamine AdvReac Unknown hallucinati Verified 04/26/21 18:50 ons Exam Vital Signs (past 8 hours): - 11/03/21 04:00 11/03/21 08:00 11/03/21 08:33 Temperature 97.5 F L 98.1 F Pulse Rate 60 60 66 Respiratory Rate 20 24 Blood Pressure 95/54 L 104/51 L 104/51 L Pulse Oximetry 95 97 Oxygen Delivery Method Room Air Oxygen Flow Rate 0 Narrative Exam Narrative: Generally: Patient is sitting up in chair, in the process of being transferred out of the ICU, no acute distress. Patient is not making sense intermittently during the history taking. Abdomen: Well-healed scars Objective Labs Result Diagrams: 11/03/21 05:30 11/03/21 05:30 Labs: Laboratory Results - last 24 hr 10/31/21 11/03/21 11/03/21 10:55 05:30 05:30 WBC 4.7 RBC 2.48 L Hgb 8.8 L Hct 25.3 L MCV 102.2 H MCH 35.5 H MCHC 34.7 RDW 21.5 H Plt Count 201 Neut % (Auto) Not Reportable Lymph % (Auto) Not Reportable [place] % (Auto) Not Reportable Eos % (Auto) Not Reportable Baso % (Auto) Not Reportable Lymph # (Auto) Not Reportable [place] # (Auto) Not Reportable Baso # (Auto) Not Reportable Total Counted 100 Seg Neutrophils % 68.0 Band Neutrophils % 1.0 L Lymphocytes % (Manual) 15.0 L Atypical Lymphs % 7.0 H Monocytes % (Manual) 6.0 Eosinophils % (Manual) 2.0 Basophils % (Manual) 1.0 Neutrophils # (Manual) 3243 RBC Morphology See below Anisocytosis 2+ H Macrocytosis 1+ H Sodium 126 L Potassium 3.6 D Chloride 84 L Carbon Dioxide 38 H BUN 7 Creatinine 0.55 Estimated GFR > 60 BUN/Creatinine Ratio 12.7 Glucose 94 Serum Osmolality 234 L Calcium 7.9 L Phosphorus 1.8 L Magnesium 1.9 Total Bilirubin 1.7 H AST 59 H ALT 23 Alkaline Phosphatase 136 H Total Protein 5.7 L Albumin 2.7 L Globulin 3.0 Albumin/Globulin Ratio 0.9 L PFSH Medical History Afib Atrial fibrillation, transient Chronic renal insufficiency Diabetes type 2, controlled ETOH abuse Fracture of distal end of fibula Heart failure Morbid obesity Pacemaker PEA (Pulseless electrical activity) (10/16/17) Sleep apnea in adult Surgical History History of third molar tooth extraction Hx of ventral hernia repair (08/12/19) Status post colonoscopy Status post surgery (02/15/11) Status post surgery (12/07/14) Family History (Updated 10/31/21 @ 23:51 by ANA PAULA Cerda) Father Diabetes mellitus Mother Diabetes mellitus Hyperlipidemia Hypertension Breast cancer Social History household members: spouse and family Tobacco & Substance Use Smoking Status: Current every day smoker alcohol intake: current Assessment & Plan Assessment & Plan narrative: Assessment: 61-year-old 0 with postmenopausal bleeding and slightly thickened endometrial lining at 8.6 mm D&C hysteroscopy with removal of polyp back in March of 2021 Patient discontinued medroxyprogesterone sometime in the last month Plan: Patient to follow-up as an outpatient for an endometrial biopsy Restart medroxyprogesterone at 10 mg per day upon discharge Time Spent With Patient Time with patient: less than 30 minutes Critical Care time: I spent a total of [] minutes of critical care time on this patient's care today; this time is exclusive of procedural time.
[2021-11-03] MEDS: SODIUM,POTASSIUM PHOSPHATES PACKET 2 EACH PO ×2 (10:45→13:20)
--- NOTE | 2021-11-03 10:54 | SLP.IPNOTE ---
Discussed pt's current skills level and plan of care with Dr. Norton. Pt is able to answer simple, straightforward questions with no difficulty. More complex questions are challenging and she tested within the dementia range on the SLUMS (scored 3/30). Unclear what pt's baseline cognitive skills are, but she is able to state needs related to care with no difficulty. Pt's speech and swallowing are WNL and pt reports no difficulty or concern with either of these areas. Per Dr. Norton, discharging from speech therapy at this time.
--- NOTE | 2021-11-03 11:27 | PC.RNWOUND ---
Patient sitting in chair in room after being cleaned up from liquid stool incontinence. Patient stands up with walker and 2 assist to stand. Left buttock Stage 2 pressure injury appears unchanged from last note. Right buttock pressure injury is now also a Stage 2 due to a smaller amount of partial-thickness skin loss. Unable to measure at this time due to patient's attempts to sit back down, but approximate measurements of Right buttock Pressure injury are 5 x 3.5 x 0.05cm. No sting skin prep is applied to periwound and bordered foam dressings are placed bilaterally for protection. Waffle cushion is placed on chair. Skin inspection reveals no other issues at this time. Patient tolerates cares well and without complaint.
[2021-11-03] MEDS: INSULIN LISPRO 100 UNIT/ML 3ML VIAL SUBCUT (12:20)
--- NOTE | 2021-11-03 12:34 | CM.DPNOTE ---
Addendum entered by ANA LAURA Hector 11/03/21 12:48: ADD: Further review of chart shows patient A+O upon presentation to the ER. Family confirms patient and spouse are very heavy drinkers. CIWA 0 this morning. Wernicke encephalopathy suspected per review if ED note. Patient's new baseline unknown. Original Note: DCP Note According to conversation in multidisciplinary rounds this morning; recommendation for dispo is SNF Reviewed chart; Met w/patient to discuss DCP options, patient pleasant but again discussed non-sensical information and was not able to participate in goal directed discussion. Patient states he will be in the frozen [place] and check things out Attempted to reach spouse and phone line was busy In addition, discussed this referral with [place] at [facility]. Cognitive baseline needs to be clarified JW
--- NOTE | 2021-11-03 13:45 | OT.IP.TRT ---
Current Diagnoses Hypo-osmolality and hyponatremia (10/31/21) Occupational Therapy Treatment Note M2 OT-IP Current Condition Start: 11/02/21 14:28 Freq: Status: Active Protocol: Document 11/02/21 14:03 [facility] (Rec: 11/02/21 15:02 [facility] [id number]) Occupational Therapy Current Condition Current Condition Evaluation Date 11/02/21 Treatment Diagnosis Acute hypoxic respiratoty failure Diagnosis Onset Date 10/31/21 M3 OT- IP Subjective and Pain Start: 11/02/21 14:28 Freq: Status: Active Protocol: Document 11/03/21 14:06 [facility] (Rec: 11/03/21 14:15 [facility] [id number]) OT- Subjective Occupational Therapy Visit Type Type Treatment Note Visit Start Time 13:45 Visit Stop Time 14:04 Total Visit Minutes 19 Occupational Therapy Visit Comments Patient Comments Pt needing to be changed and nursing called in to assist. Patient/Caregiver Goals Pt confused at this time and unable to state or make sense at this time. M4 OT- IP ADL's Start: 11/02/21 14:28 Freq: Status: Active Protocol: Document 11/03/21 14:06 [facility] (Rec: 11/03/21 14:15 [facility] [id number]) OT ADL-Toileting General Evaluation Toileting Ability Total Assistance Areas Needing Assistance Manage Clothing,Perform Perineal Hygiene Comments OT Toileting Comments [place] OT ADL-Bathing Comments OT Bathing Comments Sponge bath more appropriate at this time. . M6 OT- IP Functional Cognition Start: 11/02/21 14:28 Freq: Status: Active Protocol: Document 11/03/21 14:06 [facility] (Rec: 11/03/21 14:15 [facility] [id number]) Cognitive Factors Limiting Selfcare Function Cognitive Ability Level of Alertness Alert,Confusional State Patient Orientation Name Attention Span Ability Capable of Focused Attention, Unable to Sustain Attention Ability to Follow Commands Able to Follow One Step Commands with Increased Time, Able to Follow One Step Commands with Repetition Cognitive Comments Cognitive Assessment Comments Pt needing tactile, vc to follow and still having confusion and not able to follow commands well to roll or get up at this time. M7 OT- IP Mobility and Balance Start: 11/02/21 14:28 Freq: Status: Active Protocol: Document 11/03/21 14:06 [facility] (Rec: 11/03/21 14:15 [facility] [id number]) OT- Bed Mobility Assessment Rolling Type of Rolling Bilateral Level of Assistance Standby Assistance,Minimal Assistance Supine to Sit Supine to Sit Assist Contact Guard Assistance OT-Transfer Assessment Comments Mobility Comments Pt started to get up and SAY towards sitting and stopped and put her head back down to the pillow. Therefore pt at times able to assist to roll with multiple cues and use of bed rail. Pt tends to swivel her hips versus log roll. OT- Gait Assessment Comments Gait Ability Comments Pt not wanting to get up at this time. M8 OT- IP Objective Assessments Start: 11/02/21 14:28 Freq: Status: Active Protocol: Document 11/02/21 14:03 [facility] (Rec: 11/02/21 15:02 [facility] [id number]) OT Strength Comments Strength Comments Did not formally assess, per functional task of transfer at least 3+/5 throughout. OT-Muscle Tone Assessment Muscle Tone WNL Yes M9 OT- IP Assessment and Plan Start: 11/02/21 14:28 Freq: Status: Active Protocol: Document 11/03/21 14:06 [facility] (Rec: 11/03/21 14:15 [facility] [id number]) OT Summary Assessment and Plan Potential Rehabilitation Potential Fair Analytic Complexity at Evaluation Moderate Summary OT Impairments Balance,Functional Cognition, Functional Mobility,Self- Feeding,Grooming,Dressing, Toileting,Bathing,Toilet Transfers,Shower Transfers, Activity Tolerance Progress Towards Goals Slow Progress due to Medical Issues,Slow Progress due to Activity Tolerance,Slow Progress due to Cognition Assessment Summary Pt still confused today and needing concrete simple commands to follow for log rolling and brief change at this time. Pending progress, medical needs, pt may need SNF . Goals Grooming Goal Independent Dressing Goal Independent Toileting Goal Independent Bathing Goal Independent Toilet Transfer Goal Independent Shower Transfer Goal Independent Days to Meet Goals 30 Frequency of Treatment Frequency Of Treatment Once a Day Treatment Plan OT Treatment Plan ADL Training,Functional Cognition Training,Functional Mobility,Patient/Family Education,Discharge Planning Discharge Recommendations OT Discharge Recommendations SNF Rehab Transportation Needs at Discharge Wheelchair/Cabulance
--- NOTE | 2021-11-03 14:15 | PT-IP ANOTE ---
Attempted to see pt at 14:15, pt in bed and refused getting out of bed or doing exercises in bed stating she just does not need it today.
--- NOTE | 2021-11-03 15:19 | PC.NURSE ---
at this time patient is sleeping. seizure precautions. bed alarm call light in reach.
--- NOTE | 2021-11-03 17:03 | PM.PN.1 ---
Subjective Subjective Date Patient Seen: 11/03/21 Interval history: BRIEF HPI ?PATIENT? WITH ADMITTED ALCOHOL ABUSE AND ALSO AN? HCTZ ?PRESENTED TO THE HOSPITAL WITH SIGNIFICANT ELECTROLYTE IMBALANCE. ? ALSO REPORTED HISTORY OF ATRIAL FIBRILLATION.? ?TODAY STILL NO REPORTED CONFUSION.? NO HEADACHES.? NO MIGRAINE. ? NO DIZZINESS /? DROWSINESS. STATED THAT SHE IS FEELING BETTER ?O CHEST PAIN.? NO CHEST PRESSURE. NO CHEST PALPITATIONS. REPORTED PRIOR WITHDRAWAL SYMPTOM ? FROM NOT? DRINKING ALCOHOL ? Exam Vital Signs (past 8 hours): - 11/03/21 12:00 11/03/21 15:41 11/03/21 16:00 Temperature 96.7 F L Pulse Rate 58 L 59 L Respiratory Rate 13 18 Blood Pressure 138/65 100/67 Pulse Oximetry 97 97 95 Oxygen Delivery Method Room Air Oxygen Flow Rate 30 Narrative Exam Narrative: NO ACUTE DISTRESS.? PATIENT IS ALERT ORIENTED X3 HEAD ATRAUMATIC NORMOCEPHALIC NECK : SUPPLE WITHOUT ADENOPATHY NO CAROTID BRUITS EYE:? EOMI, PERRLA, NORMAL CONJUNCTIVA; NO JAUNDICE CHEST:? REGULAR RATE.? ? NO RUBS.? PMI IS NON DISPLACED.? NO MURMURS; NORMAL S1-S2 PULMONARY:?? NO WHEEZING.? NO RALES..? MILD BIBASILAR CRACKLES ? STILL NOTICEABLE. NO INCREASED DULLNESS TO PERCUSSION .? DECREASED? BREATH SOUNDS AT THE BASES. ABDOMEN:? OBESE BUT SOFT.? NONTENDER.? NONDISTENDED.? BOWEL SOUNDS ARE PRESENT IN ALL 4 QUADRANTS. ? EXTREMITIES:? 2+ NONPITTING BILATERAL LOWER EXTREMITY EDEMA..? NO CYANOSIS CLUBBING NOTED. NEURO:? CRANIAL NERVES 2-12 GROSSLY INTACT. NO FOCAL NEUROLOGICAL DEFICIT NOTED. MSK:? ? RANGE OF MOTION? ADEQUATE FOR AGE.? NO JOINT EFFUSION. SKIN:?? FAIR SKIN TURGOR FOR AGE. :? NORMAL EXTERNAL GENITALIA. PSYCH :? APPROPRIATE MOOD AND AFFECT.? ALERT AWAKE ORIENTED X3 Objective Labs Result Diagrams: 11/03/21 05:30 11/03/21 05:30 Labs: Laboratory Results - last 24 hr 11/03/21 11/03/21 05:30 05:30 WBC 4.7 RBC 2.48 L Hgb 8.8 L Hct 25.3 L MCV 102.2 H MCH 35.5 H MCHC 34.7 RDW 21.5 H Plt Count 201 Neut % (Auto) Not Reportable Lymph % (Auto) Not Reportable [place] % (Auto) Not Reportable Eos % (Auto) Not Reportable Baso % (Auto) Not Reportable Lymph # (Auto) Not Reportable [place] # (Auto) Not Reportable Baso # (Auto) Not Reportable Total Counted 100 Seg Neutrophils % 68.0 Band Neutrophils % 1.0 L Lymphocytes % (Manual) 15.0 L Atypical Lymphs % 7.0 H Monocytes % (Manual) 6.0 Eosinophils % (Manual) 2.0 Basophils % (Manual) 1.0 Neutrophils # (Manual) 3243 RBC Morphology See below Anisocytosis 2+ H Macrocytosis 1+ H Sodium 126 L Potassium 3.6 D Chloride 84 L Carbon Dioxide 38 H BUN 7 Creatinine 0.55 Estimated GFR > 60 BUN/Creatinine Ratio 12.7 Glucose 94 Calcium 7.9 L Phosphorus 1.8 L Magnesium 1.9 Total Bilirubin 1.7 H AST 59 H ALT 23 Alkaline Phosphatase 136 H Total Protein 5.7 L Albumin 2.7 L Globulin 3.0 Albumin/Globulin Ratio 0.9 L PFSH Medical History Afib Atrial fibrillation, transient Chronic renal insufficiency Diabetes type 2, controlled ETOH abuse Fracture of distal end of fibula Heart failure Morbid obesity Pacemaker PEA (Pulseless electrical activity) (10/16/17) Sleep apnea in adult Surgical History History of third molar tooth extraction Hx of ventral hernia repair (08/12/19) Status post colonoscopy Status post surgery (07/26/10) Status post surgery (12/07/14) Family History (Updated 10/31/21 @ 23:51 by ANA PAULA Cerda) Father Diabetes mellitus Mother Diabetes mellitus Hyperlipidemia Hypertension Breast cancer Social History household members: spouse and family Smoking Status: Current every day smoker alcohol intake: current Assessment & Plan Assessment & Plan narrative: IMPRESSION ACUTE HYPOXIC RESPIRATORY FAILURE.? LIKELY SECONDARY TO MENTATION CHANGE AND OBSTRUCTIVE SLEEP APNEA ?ACUTE METABOLIC ENCEPHALOPATHY.? RESOLVING HYPONATREMIA.? BEER POTOMANIA PLUS HCTZ HYPOKALEMIA.? PHARMACY TO REPLACE ELIQUIS COAGULOPATHY; NO? SIGNS? HEMORRHAGE ATRIAL FIBRILLATION PER HISTORY HYPERLIPIDEMIA PER HISTORY MACROCYTIC ANEMIA.?FURTHER W/U OUTPATIENT SLEEP APNEA PER HISTORY.? BIPAP? NEEDED MORBID OBESITY PER HISTORY ?ALCOHOL ABUSE; COUMSELING GIVEN HYPOPHOSPHETEMIA; PHARMACY TO REPLACE POSSIBLE VAGINA BLEEDING. OBGYN CONSULTED ?PLAN PATIENT IMPROVED CLINICALLY SODIUM STILL ON THE LOWER SIDE STARTED ON SODIUM TABLETS WELL FLUID RESTRICTION CC TEAM RECOMMENDED HOLDING NS FLUIDS FOR NOW FALL PRECAUTION KEEP LIGHTS ON IN THE ROOM AT ALL TIMES TO DECREASED OF CONTINUE TO FOLLOW LABS CLOSELY PLAN TO DC TO SNF ONCE A BED IS AVAILABLE PATIENT SEEN BY OB TODAY PLAN TO SEE OUTPATIENT PLEASE SET UP APPOINTMENT WITH OB BY CALLING EXT [phone] ON DC FROM HOSPITAL 11/02 ?PATIENT APPEARED TO BE CLINICALLY IMPROVED ?HER POTASSIUM IS FAIRLY WERE REPLACED AT THIS TIME ?NO SIGNIFICANT? ARRHYTHMIA NOTED ON TELEMETRY ?WILL TRANSFER TO THE MEDICAL FLOOR OUT OF THE ICU ?PATIENT REPORTED TOBACCO ABUSE AND POSSIBLE WITHDRAWAL SYMPTOMS? DURING FOR ABSTINENCE ?WILL START ON LIBRIUM 10 MG T.I.D ?MONITOR CLOSELY ?CONTINUE WITH CIWA PROTOCOL FOR NOW ?WILL DISCONTINUE IV FLUIDS ?ENCOURAGE ORAL INTAKE ?COULD CONSIDER FLUID RESTRICTION WELL IF NEEDED TO HELP STABILIZE THE SODIUM ?PATIENT WILL NEED TO BE ON BIPAP NEEDED TO SLEEP DUE TO HISTORY OF JAMES ? ?PHYSICAL /OCCUPATIONAL THERAPY EVALUATING AND TREATING INDICATED.? ASSISTANCE APPRECIATED ?MAINTAIN FALL PRECAUTION AT ALL TIMES ?PATIENT DOES NOT? WISH TO GO TO [facility] FACILITY AT THIS TIME ?ADDITIONAL MANAGEMENT PER CLINICAL COURSE ?DISCHARGE 24-48 HOURS IF CLINICALLY STABLE 11/01 CONTINUE TO REPLACE ELECTROLYTES INDICATED EKG REPEATED AND NO SIGNIFICANT CHANGES NOTED TELEMETRY NOT SHOWING ANY EVIDENCE OF SIGNIFICANT UREMIA WILL CONTINUE TO FOLLOW LAB CLOSELY OVER THE NEXT 24 HOURS AVOID OVER-CORRECTION OF SODIUM LEVEL TO DECREASE THE RISK OF CMP SODIUM SHOULD NOT BE COLLECTED MORE THAN 12 POINTS OVER THE NEXT 48 HOURS WILL DISCONTINUE IV FLUIDS FOR NOW CONTINUE TO REPLACE POTASSIUM INTRAVENOUSLY ADDITIONAL MANAGEMENT PER CLINICAL COURSE Time Spent With Patient Critical Care time: I spent a total of [] minutes of critical care time on this patient's care today; this time is exclusive of procedural time. Quality Stroke Contraindication Not Initiating IV-Tpa: Contraindicated Symptom Onset Unknown: Yes Rehab Services Assessed: Stroke rehabilitation VTE Deep Vein Thrombosis/Pulmonary Embolism Present on Admission: No
--- NOTE | 2021-11-03 18:03 | DIET.CONS2 ---
Dietary Inpatient Consultation Note Admission Date: 10/31/2021 19:30 RD attempted visit c pt at bedside for insight into food likes and dislikes to support PO intake. Pt unable to state food likes/dislikes, when RD asked direct questions do you like yogurt do you like cottage cheese pt able to maintain eye contact but unable to respond in meaningful way regarding preferences. RD stated she would come back in the morning, pt responded, yes, thank you very much. RD to visit pt again in am meanwhile kitchen will send variety of CCD3 meals to see which pt seems to enjoy more. Diet: 11/01/21 Breakfast Carbohydrate Consistent Diet Diet Modifications: 1500CC FLUID RESTICTION Carbohydrate level: Medium (3 CHO) Bedtime snack: No 11/01/21 Dinner General (Regular) Diet Diet Modifications: *Feed only when alert* Nutrition Percent Meal Consumed 0% 11/03/21 12:43 Percent Meal Consumed 50% 11/02/21 18:00 Percent Meal Consumed 50% 11/02/21 17:00 Percent Meal Consumed 50% 11/02/21 10:00 Percent Meal Consumed 0% 11/02/21 06:00 Electronically Signed by: Carolee Laboy 11/03/21 18:03 Clinical Dietitian [address] [address]
[2021-11-03] MEDS: ATORVASTATIN 20 MG TABLET 10 MG PO (21:54)
[2021-11-04] VITALS (10 sets, daily range): BP systolic 92–112; BP diastolic 59–70; PULSE 60; RESP 16–17; TEMP 36.1–36.7; O2SAT 91–97
--- NOTE | 2021-11-04 04:47 | PC.NURSE ---
Pt pulled out Mid line, IV was intact, no noted bleeding.
[2021-11-04 05:35] LABS: Add Manual Diff / Slide Review NO; Basophils Absolute Auto 0 /uL (0-100); Basophils Percent Auto 0.9 % (0-2); Eosinophils Absolute Auto 100 /uL (0-450); Eosinophils Percent Auto 2.6 % (2-4); Hematocrit 25.8 % (36-46); Hemoglobin 9.2 g/dL (12.0-16.0); Lymphocytes Absolute Auto 1000 /uL (1100-4500); Mean Corpuscular HGB Conc 35.6 % (30-36); Mean Corpuscular Hemoglobin 36.6 PG (26-34); Mean Corpuscular Volume 102.7 fL (80-100); Monocytes Absolute Auto 500 /uL (0-900); Neutrophils Absolute Auto 3600 /uL (1500-7000); Neutrophils Percent Auto 68.5 % (50-75); Platelet Count 208 X10^3/uL (150-400); Red Blood Cell Count 2.51 X10^6/uL (4.0-5.2); White Blood Cell Count 5.3 X10^3/uL (4.5-11.0)
[2021-11-04 05:58] LABS: Anisocytosis 2+
[2021-11-04 05:59] LABS: Macrocytosis 1+
[2021-11-04 06:01] LABS: Alanine Aminotransferase 22 IU/L (<35); Albumin 2.6 g/dL (3.5-5.0); Albumin Globulin Ratio 0.9 (1.0-2.8); Alkaline Phosphatase 131 U/L (38-126); Aspartate Aminotransferase 50 IU/L (14-36); BUN Creatinine Ratio 10.8 (6-22); Bilirubin Total 1.3 mg/dL (0.2-1.3); Blood Urea Nitrogen 7 mg/dL (7-17); Carbon Dioxide 36 mmol/L (22-32); Chloride 88 mmol/L (98-107); Estimated Glomerular Filt Rate > 60 mL/min (>60); Globulin 2.9 g/dL (1.7-4.1); Glucose 91 mg/dL (80-110); HEMOLYSIS < 15 (0-50); Magnesium 1.8 mg/dL (1.6-2.3); Phosphorous 3.2 mg/dL (2.8-4.1); Potassium 3.4 mmol/L (3.4-5.1); Sodium 128 mmol/L (137-145); Total Protein 5.5 g/dL (6.3-8.2)
[2021-11-04] MEDS: PARoxetine 20 MG TABLET 30 MG PO (08:03)
[2021-11-04] MEDS: FAMOTIDINE 20 MG TABLET PO ×2 (08:05→21:57)
[2021-11-04] MEDS: chlordiazePOXIDE 10 MG CAPSULE PO ×2 (08:05→14:58)
[2021-11-04] MEDS: THIAMINE 100 MG TABLET PO (08:05)
[2021-11-04] MEDS: MULTIVITAMIN 1 TABLET 1 TAB PO (08:05)
[2021-11-04] MEDS: APIXABAN 5 MG TABLET PO (08:05)
[2021-11-04] MEDS: FOLIC ACID 1 MG TABLET PO (08:06)
[2021-11-04] MEDS: DIGOXIN 0.125 MG TABLET PO (08:08)
[2021-11-04] MEDS: METOPROLOL IR 50 MG TABLET PO ×2 (08:10→21:58)
--- NOTE | 2021-11-04 11:19 | DIET.PN1 ---
Addendum entered by Sona Villafana 11/04/21 17:00: Chatted with pt again, will send ONS daily since fluid restriction changed for dinner. Addendum entered by Sona Villafana 11/04/21 11:29: seems fluid restriction may be discontinued at dinner. In that case please offer ONS when PO <50% Original Note: Dietary Progress Note Assessment: Sammie is much more alert this morning. Met with her to determine food preferences. States she loves to eat. Reports she feels comfortable choosing foods from the menu and working with kitchen. She is tearful today in discussing her embarrassment about ETOH intake. States she consumes 3 x 16oz vodka daily. Reports this began December 2020 when her lost his job. Seems finances have been a struggle. States her recently visited [facility] for applications for food assistance and utility bill assistance. Not utilizing food fulton/pantries or SNAP at this time. Lives in [place]. Reports limited appetite when drinking ETOH. States she may have a few bites per day. Hardly eating in the last few weeks. No significant wt loss. Ht: 165.1 cm Wt: 114 kg BMI: 36.6 Last BM: 11/03/21 (11/03/21 23:55) MNA: 6 Amado Score: 20 Diet: 11/01/21 Breakfast Carbohydrate Consistent Diet Diet Modifications: 1500CC FLUID RESTICTION Carbohydrate level: Medium (3 CHO) Bedtime snack: No 11/01/21 Dinner General (Regular) Diet Diet Modifications: *Feed only when alert* Nutrition Percent Meal Consumed 35 11/04/21 09:00 Percent Meal Consumed 0% 11/03/21 12:43 Percent Meal Consumed 50% 11/02/21 18:00 Percent Meal Consumed 50% 11/02/21 17:00 Labs: RBC 2.51 X10^6/uL (4.0-5.2) L 11/04/21 05:20 Hgb 9.2 g/dL (12.0-16.0) L 11/04/21 05:20 Hct 25.8 % (36-46) L 11/04/21 05:20 Creatinine 0.65 mg/dL (0.52-1.04) 11/04/21 05:20 Hemoglobin A1c 6.4 % (4.0-6.0) H 10/31/21 11:01 Nutrition Diagnosis: Excessive ETOH intake r/t depression aeb pt report, recent ETOH withdrawal, electrolyte abnormalities. Interventions: 1. Nutrition therapy regarding education on how ETOH can impact nutritional status and appetite. 2. Coordinated with SW regarding access to food 3. If PO <50% at meals can offer ONS within fluid restriction Monitoring/Evaluations: Will cont to monitor PO and encourage kitchen to cont working with her regarding food preferences to help with PO. Electronically Signed by: Sona Villafana 11/04/21 11:19 Clinical Dietitian [address] [address]
[2021-11-04] MEDS: SODIUM CHLORIDE 1,000 MG TABLET 2000 MG PO ×2 (13:45→22:23)
--- NOTE | 2021-11-04 14:50 | OT.IP.TRT ---
Current Diagnoses Hypo-osmolality and hyponatremia (10/31/21) Occupational Therapy Treatment Note M2 OT-IP Current Condition Start: 11/02/21 14:28 Freq: Status: Active Protocol: Document 11/02/21 14:03 [facility] (Rec: 11/02/21 15:02 [facility] [id number]) Occupational Therapy Current Condition Current Condition Evaluation Date 11/02/21 Treatment Diagnosis Acute hypoxic respiratoty failure Diagnosis Onset Date 10/31/21 M3 OT- IP Subjective and Pain Start: 11/02/21 14:28 Freq: Status: Active Protocol: Document 11/04/21 15:02 [facility] (Rec: 11/04/21 15:18 [facility] [id number]) OT- Subjective Occupational Therapy Visit Type Type Treatment Note Visit Start Time 14:30 Visit Stop Time 14:50 Total Visit Minutes 20 Occupational Therapy Visit Comments Patient Comments Pt incommital of whether to get up out of bed and then agreed. Patient/Caregiver Goals To go home. M4 OT- IP ADL's Start: 11/02/21 14:28 Freq: Status: Active Protocol: Document 11/04/21 15:02 [facility] (Rec: 11/04/21 15:18 [facility] [id number]) OT ADL-Grooming Comments OT Grooming Comments Not performed. OT ADL-Oral Care Comments Oral Care Comments Pt refused. OT ADL-Dressing General Eval Lower Body Dressing Ability Independent Comments OT Dressing Comments Pt able to wenceslao her socks while seated at the edge of the bed. OT ADL-Toileting General Evaluation Toileting Ability Total Assistance Comments OT Toileting Comments Juju M5 OT- IP IADL's Start: 11/02/21 14:28 Freq: Status: Active Protocol: Document 11/02/21 14:03 [facility] (Rec: 11/02/21 15:02 [facility] [id number]) OT-Instrumental Activities of Daily Living Home Safety Awareness Awareness of Need for Assistance at Home Decreased Awareness Ability to Problem Solve Emergency Unable to Problem Solve Situations Home Safety Comments Pt having lots of confusion at this time and therefore would need 24/7 assist if going home for all needs and safety . M6 OT- IP Functional Cognition Start: 11/02/21 14:28 Freq: Status: Active Protocol: Document 11/04/21 15:02 [facility] (Rec: 11/04/21 15:18 [facility] [id number]) Cognitive Factors Limiting Selfcare Function Cognitive Ability Level of Alertness Alert,Confusional State Patient Orientation Name Attention Span Ability Capable of Focused Attention, Unable to Sustain Attention Ability to Follow Commands Able to Follow One Step Commands with Increased Time, Able to Follow One Step Commands with Repetition Cognitive Comments Cognitive Assessment Comments Pt kept forgetting that she had a cano in place. Pt orientated to her name, place, and birthday today and at times able to carry a conversation and then states that she was seeing two men and then denies seeing two men in the room. M7 OT- IP Mobility and Balance Start: 11/02/21 14:28 Freq: Status: Active Protocol: Document 11/04/21 15:02 [facility] (Rec: 11/04/21 15:18 [facility] [id number]) OT-Transfer Assessment Sit to and From Stand Sit to and from Stand Minimal Assistance,Moderate Assistance Transfers Transfer Ability Minimal Assistance Technique Transfer Destination Bed,Chair Transfer Technique Stand Step Pivot Devices Transfer Assistive Devices Gait Belt,Front Wheeled Walker Comments Mobility Comments Pt still needing one person assist to mobility needs and safety with FWW. OT- Balance Assessment Sitting Balance and Reactions Static Sitting Balance Ability Normal Dynamic Sitting Balance Ability Good Standing Balance and Reactions Static Standing Balance Ability Fair M8 OT- IP Objective Assessments Start: 11/02/21 14:28 Freq: Status: Active Protocol: Document 11/02/21 14:03 [facility] (Rec: 11/02/21 15:02 [facility] [id number]) OT Strength Comments Strength Comments Did not formally assess, per functional task of transfer at least 3+/5 throughout. OT-Muscle Tone Assessment Muscle Tone WNL Yes M9 OT- IP Assessment and Plan Start: 11/02/21 14:28 Freq: Status: Active Protocol: Document 11/04/21 15:02 [facility] (Rec: 11/04/21 15:18 [facility] [id number]) OT Summary Assessment and Plan Potential Rehabilitation Potential Fair Analytic Complexity at Evaluation Moderate Summary OT Impairments Balance,Functional Cognition, Functional Mobility,Self- Feeding,Grooming,Dressing, Toileting,Bathing,Toilet Transfers,Shower Transfers, Activity Tolerance Progress Towards Goals Slow Progress due to Medical Issues,Slow Progress due to Activity Tolerance,Slow Progress due to Cognition Assessment Summary Pt a bit clearer today and able to state her needs and follow commands better today, however still confused at times as forgetting that she has a catheter in place. SODA FLAKER did SLUMS on the pt on 11/02 and only scored 3/30. Hopefully if pt doing better tomorrow to do more cognitive assessment on the pt. Pt insists that she was completely independent prior. Goals Grooming Goal Independent Dressing Goal Independent Toileting Goal Independent Bathing Goal Independent Toilet Transfer Goal Independent Shower Transfer Goal Independent Days to Meet Goals 29 Frequency of Treatment Frequency Of Treatment Once a Day Treatment Plan OT Treatment Plan ADL Training,Functional Cognition Training,Functional Mobility,Patient/Family Education,Discharge Planning Discharge Recommendations OT Discharge Recommendations SNF Rehab Transportation Needs at Discharge Wheelchair/Cabulance
--- NOTE | 2021-11-04 14:50 | PT.IPTN ---
Current Diagnoses Hypo-osmolality and hyponatremia (10/31/21) Physical Therapy Treatment Note M2 PT-IP Current Condition Start: 11/01/21 10:46 Freq: NEEDED Status: Active Protocol: Document 11/01/21 15:15 AB (Rec: 11/01/21 16:47 AB [id number]) Physical Therapy Current Condition Current Condition Evaluation Date 11/01/21 Treatment Diagnosis acute metabolic encephalopathy ; alcohol w/d; difficulty in walking Onset Date 10/31/21 M3 PT-IP Subjective Start: 11/01/21 10:46 Freq: NEEDED Status: Active Protocol: Document 11/04/21 14:30 KS (Rec: 11/04/21 15:12 KS [id number]) Subjective Physical Therapy Visit Type Type Treatment Note Visit Start Time 14:30 Visit Stop Time 14:50 Total Visit Minutes 20 Notes co-treat w/ OT for safety Number of BUSINESS LIAISON OFFICER Visits 2 M4 PT-IP Mobility and Gait Start: 11/01/21 10:46 Freq: NEEDED Status: Active Protocol: Document 11/04/21 14:30 [place] (Rec: 11/04/21 15:12 KS [id number]) PT-Bed Mobility Assessment Supine to Sit Supine to Sit Standby Assistance,Head of Bed Elevated,Bedrails Sit to Supine Sit to Supine Standby Assistance,1 Person Assistance Scooting Scooting to Edge of Bed Contact Guard Assistance PT-Transfer Assessment Sit to and From Stand Sit to and from Stand Minimal Assistance,Moderate Assistance,1 Person Assistance ,Use of Upper Extremities Equipment Transfer Assistive Device Gait Belt,Front Wheeled Walker Transfers Transfer Destination Bed,Chair Transfer Technique Pt ambulated w/ FWW Transfer Ability Level of Assist Minimal Assistance,Moderate Assistance,1 Person Assistance ,Use of Upper Extremities Comments Mobility Comments Pt in bed upon arrival and initially less confused. Agreeable to try ambulating in room. SBA for bed mobility, Min/Mod A for sit<>stand w/ FWW and then pt ambulated ~12 ft before transferring to chair w/ FWW. During ambulation, she had posterior LOB requiring Mod A to recover and plopped into chair. Pt then sit<>stand Mod A and cues for hand placement w/ FWW and ambulated ~15 ft to other side of bed and began to get more confused reporting seeing two men in her room previously and not understanding use of cano catheter. SBA for sit<>sup and cues for repositioning in bed . Pt left in bed w/ alarm on and all needs in reach. Gait Assessment Gait Gait Assistance Required: Minimum Assistance,Moderate Assistance,1 Person Assist Distance (Feet) 15 Assistive Devices Assistive Device Gait Belt,Front Wheeled Walker Orthotic/Prosthetic Devices or Brace: No Gait Deviations General Gait Pattern Antalgic,Decreased Stride Length,Decreased Feet Clearance Factors Limiting Gait Function Factors Limiting Gait Function Decreased Activity Tolerance, Decreased Strength,Difficulty Following Directions, Incoordination,Poor Balance, Poor Safety Awareness Comments Gait Comments 1x posterior LOB needing Mod A to recover. Unsteady gait and poor safety awareness. PT-Balance Assessment Sitting Balance and Reactions Static Sitting Balance Ability Good Dynamic Sitting Balance Ability Fair Standing Balance and Reactions Static Standing Balance Ability Poor Dynamic Standing Balance Ability Poor Device Used FWW M5 PT-IP Objective Assessments Start: 11/01/21 10:46 Freq: NEEDED Status: Active Protocol: Document 11/01/21 15:15 AB (Rec: 11/01/21 16:47 AB [id number]) Orientation Orientation/Cognition Level of Alertness Confusional State Orientation Name Safety Awareness Decreased Safety Awareness Memory Description Short Term Impaired,Nursing Home Impaired Gross Range of Motion Lower Extremity ROM Assessment Within Functional Limits Strength Lower Extremity Strength Hip 3+/5 Knee 3+/5 Muscle Tone Muscle Tone WNL Yes M6 PT-IP Treatment Start: 11/01/21 10:46 Freq: NEEDED Status: Active Protocol: Document 11/04/21 14:30 KS (Rec: 11/04/21 15:12 KS [id number]) Physical Therapy Treatment Education Education Provided Safety M7 PT-IP Assessment and Plan Start: 11/01/21 10:46 Freq: NEEDED Status: Active Protocol: Document 11/04/21 14:30 KS (Rec: 11/04/21 15:12 KS [id number]) PT Summary Assessment and Plan Potential Rehabilitation Potential Fair Status of Condition at Evaluation Evolving Summary Impairments Pain,ROM,Strength,Balance, Coordination,Sensation,Tone, Cognition,Bed Mobility, Transfers,Gait,Activity Tolerance Assessment Summary Pt SBA to CGA for bed mobility , Min to Mod A for transfers and ambulation w/ FWW. Able to ambulate ~15 ft today, but had posterior LOB needing Mod A to recover. Pt still confused, but less so than previously. Limited by low activity tolerance, weakness, and poor safety awareness. Pt will benefit from SNF to improve strength and functional mobility. Goals Bed Mobility Goal Minimal Assistance Transfer Goal Minimal Assistance,Front Wheeled Walker Gait Goal Minimal Assistance,Front Wheel Walker Gait Distance 100 Other Goals improve bed mobility, transfers using fWW SBA, ambulation using FWW SBA 150 ft Days to Meet Goals 10 Frequency of Treatment Frequency Of Treatment Once a Day Treatment Plan Physical Therapy Treatment Plan Bed Mobility Training,Transfer Training,Gait Training, Therapeutic Exercise,Balance Retraining,Discharge Planning, Hot or Cold Pack,Neuromuscular Re-ed,Coordination Retraining ,Manual Therapy Recommendations To Nursing Amount of Assist Needed 2 Person Assist Discharge Recommendations PT Discharge Recommendations SNF Rehab Transportation Needs at Discharge Wheelchair/Cabulance
--- NOTE | 2021-11-04 16:41 | P.PN_ITS ---
Subjective Subjective Interval history: The patient denies any acute complaints this morning. She reports that her presenting right-sided weakness is much better now. She also reports feeling more like her old self now. Exam Vital Signs (past 8 hours): - 11/04/21 10:16 11/04/21 11:50 Temperature 96.9 F L Pulse Rate 60 Respiratory Rate 16 Blood Pressure 104/62 Pulse Oximetry 91 97 Oxygen Delivery Method Room Air Oxygen Flow Rate 0 Const Other: Patient is sitting up in bed upon my entering the room, appears comfortably and in no apparent acute distress Eyes Other: No scleral icterus appreciated Resp Other: Lungs clear to auscultation bilaterally Cardio Other: RRR, with normal S1 and S2 heart sounds, and no extra heart sounds or murmurs appreciated GI Other: Soft, non-distended, non-tender, bowel sounds present Skin Other: No grossly abnormal skin lesions noted Extrem Other: Palpable dorsalis pedis bilaterally Objective Labs Result Diagrams: 11/04/21 05:20 11/04/21 05:20 Labs: Laboratory Results - last 24 hr 11/04/21 11/04/21 05:20 05:20 WBC 5.3 RBC 2.51 L Hgb 9.2 L Hct 25.8 L MCV 102.7 H MCH 36.6 H MCHC 35.6 RDW 22.0 H Plt Count 208 Neut % (Auto) 68.5 Lymph % (Auto) 18.0 L [place] % (Auto) 10.0 Eos % (Auto) 2.6 Baso % (Auto) 0.9 Neut # (Auto) 3600 Lymph # (Auto) 1000 L [place] # (Auto) 500 Eos # (Auto) 100 Baso # (Auto) 0 RBC Morphology See below Anisocytosis 2+ H Macrocytosis 1+ H Sodium 128 L Potassium 3.4 Chloride 88 L Carbon Dioxide 36 H BUN 7 Creatinine 0.65 Estimated GFR > 60 BUN/Creatinine Ratio 10.8 Glucose 91 Calcium 8.0 L Phosphorus 3.2 D Magnesium 1.8 Total Bilirubin 1.3 AST 50 H ALT 22 Alkaline Phosphatase 131 H Total Protein 5.5 L Albumin 2.6 L Globulin 2.9 Albumin/Globulin Ratio 0.9 L PFSH Medical History Afib Atrial fibrillation, transient Chronic renal insufficiency Diabetes type 2, controlled ETOH abuse Fracture of distal end of fibula Heart failure Morbid obesity Pacemaker PEA (Pulseless electrical activity) (10/16/17) Sleep apnea in adult Surgical History History of third molar tooth extraction Hx of ventral hernia repair (08/12/19) Status post colonoscopy Status post surgery (07/26/10) Status post surgery (12/07/14) Family History (Updated 10/31/21 @ 23:51 by ANA PAULA Cerda) Father Diabetes mellitus Mother Diabetes mellitus Hyperlipidemia Hypertension Breast cancer Social History household members: spouse and family Smoking Status: Current every day smoker alcohol intake: current Assessment & Plan Assessment & Plan narrative: Assessment: 1. Hyponatremia, likely chlorthalidone-induced, improving 2. Hypokalemia, likely chlorthalidone-induced, improving 3. Atrial fibrillation, stable 4. Post-menopausal bleeding, stable 5. Depression 6. JAMES on CPAP 7. Hx of pacemaker placement Plan: 1. Patient's presenting weakness likely secondary to electrolyte disturbances, brought on by recently prescribed chlorthalidone. Patient is aware to discontinue this medication indefinitely. 2. Potassium has improved with offending medication cessation and K replacement. 3. Will continue Eliquis 5 mg bid for anticoagulation, and Lopressor for rate control. Unclear as to why patient is on digoxin outpatient, as her EF p reserved, but will continue. 4. TERRITORY MANAGER GENERAL SALES consult recommends endometrial biopsy as outpatient with resumption of medroxyprogesterone 10 mg daily on discharge. 5. Will continue home paroxetine 30 mg daily. Will stop tramadol PRN here as there's potential for interaction and serotonin syndrome. 6. CPAP nightly. 7. Stable with no changes. VTE prophylaxis: Eliquis 5 mg bid, as above Code: Full code I have utilized all available immediate resources to obtain, update, or verify the patient's current medications. Time Spent With Patient Critical Care time: I spent a total of [] minutes of critical care time on this patient's care today; this time is exclusive of procedural time. Quality Stroke Contraindication Not Initiating IV-Tpa: Contraindicated Symptom Onset Unknown: Yes Rehab Services Assessed: Stroke rehabilitation VTE Deep Vein Thrombosis/Pulmonary Embolism Present on Admission: No MIPS - Admit I confirm the patient?s Advance Care Plan is present, Code status is documented, Surrogate decision maker is in patient?s record [If Yes, STOP here]: Yes
[2021-11-04] MEDS: ATORVASTATIN 20 MG TABLET 10 MG PO (21:57)
[2021-11-04] MEDS: ACETAMINOPHEN 325 MG TABLET 650 MG PO (21:57)
[2021-11-05] VITALS (8 sets, daily range): BP systolic 102–136; BP diastolic 61–75; PULSE 60–75; RESP 16–18; TEMP 35.8–36.6; O2SAT 95–98; BMI 41.8
--- NOTE | 2021-11-05 04:14 | PC.NURSE ---
Pt pulled out her PICC line, no bleeding noted. Will monitor site for swelling or bleeding. Called hospitalist and will try to start a PIV line.
[2021-11-05 05:24] LABS: Add Manual Diff / Slide Review NO; Basophils Absolute Auto 100 /uL (0-100); Basophils Percent Auto 1.2 % (0-2); Eosinophils Absolute Auto 100 /uL (0-450); Eosinophils Percent Auto 2.5 % (2-4); Hematocrit 28.6 % (36-46); Hemoglobin 9.9 g/dL (12.0-16.0); Lymphocytes Absolute Auto 1100 /uL (1100-4500); Lymphocytes Percent Auto 19.4 % (25-40); Mean Corpuscular HGB Conc 34.5 % (30-36); Mean Corpuscular Hemoglobin 35.5 PG (26-34); Mean Corpuscular Volume 102.9 fL (80-100); Monocytes Absolute Auto 600 /uL (0-900); Monocytes Percent Auto 10.9 % (3-14); Neutrophils Absolute Auto 3800 /uL (1500-7000); Platelet Count 255 X10^3/uL (150-400); Red Blood Cell Count 2.78 X10^6/uL (4.0-5.2); Red Cell Distribution Width 22.9 % (11.6-14.8); White Blood Cell Count 5.7 X10^3/uL (4.5-11.0)
[2021-11-05 05:35] LABS: Alanine Aminotransferase 23 IU/L (<35); Albumin 2.9 g/dL (3.5-5.0); Albumin Globulin Ratio 0.9 (1.0-2.8); Alkaline Phosphatase 129 U/L (38-126); Aspartate Aminotransferase 46 IU/L (14-36); BUN Creatinine Ratio 10.5 (6-22); Bilirubin Total 1.2 mg/dL (0.2-1.3); Blood Urea Nitrogen 8 mg/dL (7-17); Carbon Dioxide 33 mmol/L (22-32); Chloride 89 mmol/L (98-107); Estimated Glomerular Filt Rate > 60 mL/min (>60); Globulin 3.1 g/dL (1.7-4.1); Glucose 110 mg/dL (80-110); HEMOLYSIS < 15 (0-50); Magnesium 1.7 mg/dL (1.6-2.3); Phosphorous 3.9 mg/dL (2.8-4.1); Potassium 3.1 mmol/L (3.4-5.1); Sodium 128 mmol/L (137-145)
[2021-11-05 06:09] LABS: Anisocytosis 2+; Macrocytosis 1+
--- NOTE | 2021-11-05 09:08 | OT.IP.TRT ---
Current Diagnoses Hypo-osmolality and hyponatremia (10/31/21) Occupational Therapy Treatment Note M2 OT-IP Current Condition Start: 11/02/21 14:28 Freq: Status: Active Protocol: Document 11/02/21 14:03 [facility] (Rec: 11/02/21 15:02 [facility] [id number]) Occupational Therapy Current Condition Current Condition Evaluation Date 11/02/21 Treatment Diagnosis Acute hypoxic respiratoty failure Diagnosis Onset Date 10/31/21 M3 OT- IP Subjective and Pain Start: 11/02/21 14:28 Freq: Status: Active Protocol: Document 11/05/21 12:07 [facility] (Rec: 11/05/21 12:18 [facility] [id number]) OT- Subjective Occupational Therapy Visit Type Type Treatment Note Visit Start Time 08:55 Visit Stop Time 09:08 Total Visit Minutes 13 Occupational Therapy Visit Comments Patient Comments Pt agreed to do cognitive assessment. Patient/Caregiver Goals To go home. OT Pain Assessment Pain When Pain Assessed At Rest Pain Present Pain Present Denied Pain M6 OT- IP Functional Cognition Start: 11/02/21 14:28 Freq: Status: Active Protocol: Document 11/05/21 12:07 [facility] (Rec: 11/05/21 12:18 [facility] [id number]) Cognitive Factors Limiting Selfcare Function Cognitive Ability Level of Alertness Alert,Confusional State Patient Orientation Name Attention Span Ability Capable of Focused Attention, Capable of Sustained Attention Ability to Follow Commands Able to Follow One Step Commands Memory Description Short Term Impaired,Working Impaired Safety Awareness Underestimates Need for Assistance Problem Solving Ability Unable to Identify Errors, Needs Assist to Identify Solutions Executive Function Ability Unable to Organize Plans, Unable to Remember Details Cognitive Tests SLUMS Pt scored 14/30 much improved from the 3/30 on 11/02/21 by PRODUCTION CONTROL COORDINATING CLERK . Pt thought it was Thurs instead on Sat., not able to subtract 100-23, able to say 7 animals in one minute, able to recall 2/5 objects after time passed, unable to states 3 and 4 digit numbers backwards, , and not able to write the numbers for the clock correctly and unable to draw the hour hands on the clock correctly as well. Pt score implies dementia. Cognitive Comments Cognitive Assessment Comments Pt feels that in the past month has had more difficulty with her memory, word finding and balance. When talking about going to rehab pt states , [facility] is my rehab. and then laughs and states, oh I did not mean that. M8 OT- IP Objective Assessments Start: 11/02/21 14:28 Freq: Status: Active Protocol: Document 11/02/21 14:03 [facility] (Rec: 11/02/21 15:02 [facility] [id number]) OT Strength Comments Strength Comments Did not formally assesss, per functional task of transfer at least 3+/5 throughout. OT-Muscle Tone Assessment Muscle Tone WNL Yes M9 OT- IP Assessment and Plan Start: 11/02/21 14:28 Freq: Status: Active Protocol: Document 11/05/21 12:07 [facility] (Rec: 11/05/21 12:18 [facility] [id number]) OT Summary Assessment and Plan Potential Rehabilitation Potential Fair Analytic Complexity at Evaluation Moderate Summary OT Impairments Balance,Functional Cognition, Functional Mobility,Self- Feeding,Grooming,Dressing, Toileting,Bathing,Toilet Transfers,Shower Transfers, Activity Tolerance Progress Towards Goals Progressing Toward Goals Assessment Summary Pt much clearer today and score improved on SLUMS form to . Pt not wanting to get up today. Pt would benefit from skilled rehab versus 24/7 assist and home health pending progress. Goals Grooming Goal Independent Dressing Goal Independent Toileting Goal Independent Bathing Goal Independent Toilet Transfer Goal Independent Shower Transfer Goal Independent Days to Meet Goals 28 Frequency of Treatment Frequency Of Treatment Once a Day Treatment Plan OT Treatment Plan ADL Training,Functional Cognition Training,Functional Mobility,Patient/Family Education,Discharge Planning Discharge Recommendations OT Discharge Recommendations Home with 24/7 Assist Available,Home Health,SNF Rehab Transportation Needs at Discharge Private Vehicle,Wheelchair/ Cabulance
[2021-11-05] MEDS: MULTIVITAMIN 1 TABLET 1 TAB PO (09:15)
[2021-11-05] MEDS: ACETAMINOPHEN 325 MG TABLET 650 MG PO ×2 (09:15→21:14)
[2021-11-05] MEDS: METOPROLOL IR 50 MG TABLET PO ×2 (09:15→21:11)
[2021-11-05] MEDS: POTASSIUM CHLORIDE 20 MEQ TAB 40 MEQ PO ×2 (09:15→18:02)
[2021-11-05] MEDS: DIGOXIN 0.125 MG TABLET PO (09:15)
[2021-11-05] MEDS: NICOTINE 14 PATCH 14 MG TOP (09:15)
[2021-11-05] MEDS: APIXABAN 5 MG TABLET PO ×2 (09:16→21:11)
[2021-11-05] MEDS: FAMOTIDINE 20 MG TABLET PO ×2 (09:16→21:11)
[2021-11-05] MEDS: FOLIC ACID 1 MG TABLET PO (09:16)
[2021-11-05] MEDS: SODIUM CHLORIDE 1,000 MG TABLET 2000 MG PO (09:17)
[2021-11-05] MEDS: PARoxetine 20 MG TABLET 30 MG PO (09:29)
[2021-11-05] MEDS: MAGNESIUM CHLORIDE 64 MG TABLET 128 MG PO (12:46)
--- NOTE | 2021-11-05 13:29 | PM.PN.1 ---
Subjective Subjective Interval history: The patient reports feeling overall well this morning. She is aware that she's pending placement. Exam Vital Signs (past 8 hours): - 11/05/21 06:00 11/05/21 07:40 11/05/21 08:38 Temperature 96.4 F L 97.0 F L Pulse Rate 60 61 62 Respiratory Rate 16 18 16 Blood Pressure 116/75 102/61 Pulse Oximetry 97 95 97 Oxygen Delivery Method Room Air Oxygen Flow Rate 0 Narrative Exam Narrative: Const Other: Patient is sitting up in bed upon my entering the room, appears comfortably and in no apparent acute distress Eyes Other: No scleral icterus appreciated Resp Other: Lungs clear to auscultation bilaterally Cardio Other: RRR, with normal S1 and S2 heart sounds, and no extra heart sounds or murmurs appreciated GI Other: Soft, non-distended, non-tender, bowel sounds present Skin Other: No grossly abnormal skin lesions noted Extrem Other: Palpable dorsalis pedis bilaterally Objective Labs Result Diagrams: 11/05/21 05:09 11/05/21 05:09 Labs: Laboratory Results - last 24 hr 11/05/21 11/05/21 05:09 05:09 WBC 5.7 RBC 2.78 L Hgb 9.9 L Hct 28.6 L MCV 102.9 H MCH 35.5 H MCHC 34.5 RDW 22.9 H Plt Count 255 Neut % (Auto) 66.0 Lymph % (Auto) 19.4 L [place] % (Auto) 10.9 Eos % (Auto) 2.5 Baso % (Auto) 1.2 Neut # (Auto) 3800 Lymph # (Auto) 1100 [place] # (Auto) 600 Eos # (Auto) 100 Baso # (Auto) 100 RBC Morphology See below Anisocytosis 2+ H Macrocytosis 1+ H Sodium 128 L Potassium 3.1 L Chloride 89 L Carbon Dioxide 33 H BUN 8 Creatinine 0.76 Estimated GFR > 60 BUN/Creatinine Ratio 10.5 Glucose 110 Calcium 8.0 L Phosphorus 3.9 Magnesium 1.7 Total Bilirubin 1.2 AST 46 H ALT 23 Alkaline Phosphatase 129 H Total Protein 6.0 L Albumin 2.9 L Globulin 3.1 Albumin/Globulin Ratio 0.9 L PFSH Medical History Afib Atrial fibrillation, transient Chronic renal insufficiency Diabetes type 2, controlled ETOH abuse Fracture of distal end of fibula Heart failure Morbid obesity Pacemaker PEA (Pulseless electrical activity) (10/16/17) Sleep apnea in adult Surgical History History of third molar tooth extraction Hx of ventral hernia repair (08/12/19) Status post colonoscopy Status post surgery (07/26/10) Status post surgery (12/07/14) Family History (Updated 10/31/21 @ 23:51 by ANA PAULA Cerda) Father Diabetes mellitus Mother Diabetes mellitus Hyperlipidemia Hypertension Breast cancer Social History household members: spouse and family Smoking Status: Current every day smoker alcohol intake: current Assessment & Plan Assessment & Plan narrative: Assessment: 1. Hyponatremia, likely chlorthalidone-induced, improving 2. Hypokalemia, likely chlorthalidone-induced, improving 3. Chronic atrial fibrillation, stable 4. Post-menopausal bleeding, stable 5. Depression 6. JAMES on CPAP 7. Hx of pacemaker placement Plan: 1. Patient's presenting weakness likely secondary to electrolyte disturbances, brought on by recently prescribed chlorthalidone. Patient is aware to discontinue this medication indefinitely. 2. Potassium has improved with offending medication cessation and K replacement. 3. Will continue Eliquis 5 mg bid for anticoagulation, and Lopressor for rate control. Unclear as to why patient is on digoxin outpatient, as her EF is preserved, but will continue. 4. WHARF LABORER consult recommends endometrial biopsy as outpatient with resumption of medroxyprogesterone 10 mg daily on discharge. 5. Will continue home paroxetine 30 mg daily. Will stop tramadol PRN here as there's potential for interaction and serotonin syndrome. 6. CPAP nightly. 7. Stable with no changes. VTE prophylaxis: Eliquis 5 mg bid, as above Time Spent With Patient Critical Care time: I spent a total of [] minutes of critical care time on this patient's care today; this time is exclusive of procedural time. Quality Stroke Contraindication Not Initiating IV-Tpa: Contraindicated Symptom Onset Unknown: Yes Rehab Services Assessed: Stroke rehabilitation VTE Deep Vein Thrombosis/Pulmonary Embolism Present on Admission: No
--- NOTE | 2021-11-05 14:54 | CM.DPNOTE ---
DCP Note According to November/; willing to begin [employer] auth request Sunday if patient is clearer, cognitively, and agreeable to SNF stay. Meanwhile, Dr Luther anticipates patient medical stable over the next 24 hrs Therapy team continues to recommend SNF Met w/patient today to review DCP options; patient's cognition waxes and wanes. It remains unclear to this TONGUE LINING STITCHER whether patient is agreeable to SNF stay or will inevitably decline SNF and want to return home w/spouse (?) patient stating spouse coming into visit today According to ZARA Lombardo, patient agreeable to SNF stay this morning D/t triage needs,Unable to reach spouse and/or alternative family today to discuss DCP, CM team will need to follow closely for coordination.... Plan: Anticipate DC home Sunday, new HH referral needed if patient/spouse agreeable. Alternatively- prolonged LOS to secure SNF after hol JW
--- NOTE | 2021-11-05 15:13 | PT.IPTN ---
Current Diagnoses Hypo-osmolality and hyponatremia (10/31/21) Physical Therapy Treatment Note M2 PT-IP Current Condition Start: 11/01/21 10:46 Freq: NEEDED Status: Active Protocol: Document 11/01/21 15:15 [facility] (Rec: 11/01/21 16:47 AB [id number]) Physical Therapy Current Condition Current Condition Evaluation Date 11/01/21 Treatment Diagnosis acute metabolic encephalopathy ; alcohol w/d; difficulty in walking Onset Date 10/31/21 M3 PT-IP Subjective Start: 11/01/21 10:46 Freq: NEEDED Status: Active Protocol: Document 11/05/21 15:02 [facility] (Rec: 11/05/21 15:31 [facility] [id number]) Subjective Physical Therapy Visit Type Type Treatment Note Visit Start Time 15:02 Visit Stop Time 15:13 Total Visit Minutes 11 Number of GRAPHIC DESIGN PROFESSOR Visits 3 M4 PT-IP Mobility and Gait Start: 11/01/21 10:46 Freq: NEEDED Status: Active Protocol: Document 11/05/21 15:02 [place] (Rec: 11/05/21 15:31 [place] [id number]) PT-Transfer Assessment Comments Mobility Comments Pt agreeable to exercises in bed this PM and still confused . Pt completed 2x10 bilateral ankle pumps, SLR, and heel slides, and 1x10 quad sets and glute sets. Pt unable to tolerate 2nd set of quad sets and glute sets due to fatigue and requested to be done w/ PT . Pt left in bed w/ all needs in reach and alarm on. M5 PT-IP Objective Assessments Start: 11/01/21 10:46 Freq: NEEDED Status: Active Protocol: Document 11/01/21 15:15 [facility] (Rec: 11/01/21 16:47 AB [id number]) Orientation Orientation/Cognition Level of Alertness Confusional State Orientation Name Safety Awareness Decreased Safety Awareness Memory Description Short Term Impaired,Farm Crew Leader Impaired Gross Range of Motion Lower Extremity ROM Assessment Within Functional Limits Strength Lower Extremity Strength Hip 3+/5 Knee 3+/5 Muscle Tone Muscle Tone WNL Yes M6 PT-IP Treatment Start: 11/01/21 10:46 Freq: NEEDED Status: Active Protocol: Document 11/05/21 15:02 [place] (Rec: 11/05/21 15:31 [place] [id number]) Physical Therapy Treatment Exercises Exercises Ankle Pumps,Gluteal Sets,Quad Sets,Heel Slides,Straight Leg Raises Education Education Provided Safety M7 PT-IP Assessment and Plan Start: 11/01/21 10:46 Freq: NEEDED Status: Active Protocol: Document 11/05/21 15:02 [place] (Rec: 11/05/21 15:31 [place] [id number]) PT Summary Assessment and Plan Potential Rehabilitation Potential Fair Status of Condition at Evaluation Evolving Summary Impairments Pain,ROM,Strength,Balance, Coordination,Sensation,Tone, Cognition,Bed Mobility, Transfers,Gait,Activity Tolerance Assessment Summary Pt w/ low tolerance for activity and only completed LE exercises today to promote blood flow and strengthening. She continues to be intermittently confused. Pt will benefit from SNF to improve strength and functional mobility. Goals Bed Mobility Goal Minimal Assistance Transfer Goal Minimal Assistance,Front Wheeled Walker Gait Goal Minimal Assistance,Front Wheel Walker Gait Distance 100 Other Goals improve bed mobility, transfers using fWW SBA, ambulation using FWW SBA 150 ft Days to Meet Goals 10 Frequency of Treatment Frequency Of Treatment Once a Day Treatment Plan Physical Therapy Treatment Plan Bed Mobility Training,Transfer Training,Gait Training, Therapeutic Exercise,Balance Retraining,Discharge Planning, Hot or Cold Pack,Neuromuscular Re-ed,Coordination Retraining ,Manual Therapy Recommendations To Nursing Amount of Assist Needed 2 Person Assist Discharge Recommendations PT Discharge Recommendations SNF Rehab Transportation Needs at Discharge Wheelchair/Cabulance
[2021-11-05] MEDS: ATORVASTATIN 20 MG TABLET 10 MG PO (21:11)
[2021-11-06] VITALS (7 sets, daily range): BP systolic 93–111; BP diastolic 64–70; PULSE 58–97; RESP 16–20; TEMP 36.3–36.7; O2SAT 95–98
[2021-11-06 06:42] LABS: BUN Creatinine Ratio 13.2 (6-22); Blood Urea Nitrogen 10 mg/dL (7-17); Calcium 8.5 mg/dL (8.4-10.2); Carbon Dioxide 30 mmol/L (22-32); Chloride 95 mmol/L (98-107); Estimated Glomerular Filt Rate > 60 mL/min (>60); Glucose 96 mg/dL (80-110); HEMOLYSIS < 15 (0-50); Magnesium 1.8 mg/dL (1.6-2.3); Potassium 3.8 mmol/L (3.4-5.1); Sodium 132 mmol/L (137-145)
[2021-11-06] MEDS: PARoxetine 20 MG TABLET 30 MG PO (09:07)
[2021-11-06] MEDS: METOPROLOL IR 50 MG TABLET PO (09:07)
[2021-11-06] MEDS: APIXABAN 5 MG TABLET PO (09:09)
[2021-11-06] MEDS: MULTIVITAMIN 1 TABLET 1 TAB PO (09:10)
[2021-11-06] MEDS: FOLIC ACID 1 MG TABLET PO (09:10)
[2021-11-06] MEDS: DIGOXIN 0.125 MG TABLET PO (09:11)
[2021-11-06] MEDS: SODIUM CHLORIDE 1,000 MG TABLET 2000 MG PO (09:16)
--- NOTE | 2021-11-06 13:26 | PT.IPTN ---
Current Diagnoses Hypo-osmolality and hyponatremia (10/31/21) Physical Therapy Treatment Note M2 PT-IP Current Condition Start: 11/01/21 10:46 Freq: NEEDED Status: Active Protocol: Document 11/01/21 15:15 AB (Rec: 11/01/21 16:47 AB [id number]) Physical Therapy Current Condition Current Condition Evaluation Date 11/01/21 Treatment Diagnosis acute metabolic encephalopathy ; alcohol w/d; difficulty in walking Onset Date 10/31/21 M3 PT-IP Subjective Start: 11/01/21 10:46 Freq: NEEDED Status: Active Protocol: Document 11/06/21 13:26 AW (Rec: 11/06/21 15:04 AW [id number]) Subjective Physical Therapy Visit Type Type Treatment Note Visit Start Time 12:55 Visit Stop Time 13:26 Total Visit Minutes 31 Number of HAND MITER OPERATOR Visits 0 M4 PT-IP Mobility and Gait Start: 11/01/21 10:46 Freq: NEEDED Status: Active Protocol: Document 11/06/21 13:26 AW (Rec: 11/06/21 15:04 AW [id number]) PT-Bed Mobility Assessment Supine to Sit Supine to Sit Standby Assistance Scooting Scooting to Edge of Bed Standby Assistance PT-Transfer Assessment Sit to and From Stand Sit to and from Stand Contact Guard Assistance, Minimal Assistance,1 Person Assistance,Use of Upper Extremities Equipment Transfer Assistive Device Gait Belt,Front Wheeled Walker Orthotic/Prosthetic Devices or Brace: No Transfers Transfer Destination Chair,Toilet Transfer Technique Stand Step Pivot Transfer Ability Level of Assist Minimal Assistance,1 Person Assistance,Use of Upper Extremities Comments Mobility Comments Pt was in bed as PT arrived. She sat up EOB SBA and donned her own shoes by pulling her feet up onto the bed. She stood CGA and used FWW to transfer to the chair. She was impulsive in sitting and had poorly controlled descent, leaving the walker to her left as she swung her hips to the chair. Pt stood and ambulated around the room with FWW a total of 30 feet before transferring to the toilet, again with poor safety awareness and min A for safety . She completed her own pericare and stood from the toilet min A, needing assist to manage her briefs as she held on to the FWW for balance . She ambulated to the sink with FWW CGA to wash her hands before walking back to the chair, transferring with max cues for safety. Pt was left with call light and phone in reach. Gait Assessment Gait Gait Assistance Required: Contact Guard Assist,1 Person Assist Distance (Feet) 30 Assistive Devices Assistive Device Gait Belt,Front Wheeled Walker Orthotic/Prosthetic Devices or Brace: No Gait Deviations General Gait Pattern Antalgic,Decreased Stride Length,Decreased Feet Clearance Factors Limiting Gait Function Factors Limiting Gait Function Decreased Activity Tolerance, Decreased Strength,Difficulty Following Directions, Incoordination,Poor Balance, Poor Safety Awareness Comments Gait Comments Improved steadiness but pt continues to show poor safety awareness. Stair Climbing Assessment Comments Stair Climbing Comments Pt states she has a ramp at home. PT-Balance Assessment Sitting Balance and Reactions Static Sitting Balance Ability Normal Dynamic Sitting Balance Ability Good Standing Balance and Reactions Static Standing Balance Ability Fair Dynamic Standing Balance Ability Fair Device Used FWW M5 PT-IP Objective Assessments Start: 11/01/21 10:46 Freq: NEEDED Status: Active Protocol: Document 11/01/21 15:15 AB (Rec: 11/01/21 16:47 AB [id number]) Orientation Orientation/Cognition Level of Alertness Confusional State Orientation Name Safety Awareness Decreased Safety Awareness Memory Description Short Term Impaired,[facility] Impaired Gross Range of Motion Lower Extremity ROM Assessment Within Functional Limits Strength Lower Extremity Strength Hip 3+/5 Knee 3+/5 Muscle Tone Muscle Tone WNL Yes M6 PT-IP Treatment Start: 11/01/21 10:46 Freq: NEEDED Status: Active Protocol: Document 11/06/21 13:26 AW (Rec: 11/06/21 15:04 AW [id number]) Physical Therapy Treatment Education Education Provided Safety M7 PT-IP Assessment and Plan Start: 11/01/21 10:46 Freq: NEEDED Status: Active Protocol: Document 11/06/21 13:26 AW (Rec: 11/06/21 15:04 AW [id number]) PT Summary Assessment and Plan Summary Impairments Pain,ROM,Strength,Balance, Coordination,Sensation,Tone, Cognition,Bed Mobility, Transfers,Gait,Activity Tolerance Progress Towards Goals Progressing Toward Goals,Slow Progress - Other Assessment Summary Pt has improved activity tolerance today but continues to be limited by poor safety awareness. She is safe to discharge home with 01/01 available assist and home health PT. Goals Bed Mobility Goal Minimal Assistance Transfer Goal Minimal Assistance,Front Wheeled Walker Gait Goal Minimal Assistance,Front Wheel Walker Gait Distance 100 Other Goals improve bed mobility, transfers using fWW SBA, ambulation using FWW SBA 150 ft Days to Meet Goals 10 Frequency of Treatment Frequency Of Treatment Once a Day Treatment Plan Physical Therapy Treatment Plan Bed Mobility Training,Transfer Training,Gait Training, Therapeutic Exercise,Balance Retraining,Discharge Planning, Hot or Cold Pack,Neuromuscular Re-ed,Coordination Retraining ,Manual Therapy Recommendations To Nursing Amount of Assist Needed 1 Person Assist Discharge Recommendations PT Discharge Recommendations Home with 01/01 Assist Available,Home Health,SNF Rehab,Home vs SNF Transportation Needs at Discharge Wheelchair/Cabulance
--- NOTE | 2021-11-06 13:33 | PM.DS.1 ---
History of Present Illness History of Present Illness Chief complaint: Incoherent, cant walk- sister thinks stroke Narrative: 61-year-old woman currently with atrial fibrillation on Eliquis, congestive heart failure, obesity and sleep apnea, pacemaker in place, who presents complaining of severe weakness particularly on the right side to the point that she is unable to walk and has been in bed for the last 2 weeks.? Her speech has been slurred and she has not been able to get out of bed and is having some skin breakdown over her buttock area because of chronic urinary moisture.? She describes no headaches, cough, chills.? She has had no pain.? She describes no palpitations but is wondering why she is continually weak to the point of being unable to roll over by herself in bed. 1240 the patient's [id number] is at the bedside and has significant details to add.? Apparently the patient her both are heavy vodka drinkers.? She describes a minimum of 3 ?doubles? a day she notes that for the past 3-4 months she has been losing significant amount awaits with increasing weakness.? For quite a period of time she has actually been crawling on the floor because she is so weak.? She does have a walker at home.? When the tpslvy-cm-mkb finally got her up off the couch she noted that both the couch and the bed were completely saturated with urine as was all of her clothing. Discharge Providers Provider Date of admission: 10/31/21 19:30 Discharge Date: 11/06/21 Primary care physician: Yonatan Steiner MD Consults: 10/31/21 19:36 Consult to Discharge Planning Routine Comment: Consult to Occupational Therapy Evaluate & Treat Comment: Physician Instructions: Evaluate and treat Consult to Physical Therapy Evaluate & Treat Comment: Physician Instructions: Evaluate and Treat Consult to Speech Therapy Evaluate & Treat Comment: Physician Instructions: Evaluate and treat Consult to Tele-casing finisher and stuffer Routine Comment: Consulting Provider: Chris Tele-intensivists Reason for consultation: Coordinator Cardiopulmonary Services services Has provider been notified: No 10/31/21 19:55 Consult After Hours PICC Line RN Urgent Comment: 10/31/21 21:51 Consult to Physician Routine Comment: Consulting Provider: Dawn Ennis Reason for consultation: C/O vaginal bleeding, endometrial curretage 03/31 Has provider been notified: No 11/01/21 09:41 Consult to Occupational Therapy Evaluate & Treat Comment: decondition Physician Instructions: Evaluate and treat Consult to Physical Therapy Evaluate & Treat Comment: decondition Physician Instructions: Evaluate and Treat 11/01/21 12:08 Consult to Dietitian, Adult Routine Comment: Reason For Exam: severe electrolyte abnormalities 11/01/21 19:31 Consult to Inpatient Wound Care Nurse Routine Comment: Reason for consultation: breakdown to buttocks from down at home Has provider been notified: Yes 11/02/21 10:38 Consult to Inpatient Wound Care Nurse Routine Comment: Reason for consultation: breakdown in ulises area Discharge provider: Thor Fraga MD Summary Hospital Course Discharge Diagnosis: 1. Acute hyponatremia likely secondary to ETOH and thiazide diuretic 2. Acute hypokalemia 3. Chronic atrial fibrillation 4. Chronic postmenopausal bleeding 5. Depression 6. JAMES on CPAP 7. History of pacemaker 8. Chronic macrocytic anemia Hospital Course: Patient presented with severe hyponatremia initial sodium of 113 and hypokalemia resulting in altered mental status. She was initially managed in the ICU. Hyponatremia was gradually corrected. Mental status has also improved. She has significant ETOH use likely contributor to electrolyte imbalances. In addition she had been on chlorthalidone. We have discontinued chlorthalidone. We also discontinued her digoxin as does not seem to be indicated. She has normal LVEF on echo. She was seen by PT/OT in hospital. She regained her strength and able to return to home setting. Patient has also been experiencing chronic postmenopausal bleed. She had D and C back in March 2021. She is established with Dr. Horvath who also saw her during this admission and recommended she resume taking medroxyprogesterone and to follow-up in clinic for a uterine biopsy. Exam Vital Signs (past 8 hours): - 11/06/21 07:49 11/06/21 08:00 11/06/21 09:11 Temperature 97.4 F L Pulse Rate 97 H 61 Respiratory Rate 16 Blood Pressure 110/70 110/70 Pulse Oximetry 96 97 11/06/21 11:22 Temperature 97.6 F Pulse Rate 58 L Respiratory Rate 16 Blood Pressure 93/64 Pulse Oximetry 96 Oxygen Delivery Method Room Air Oxygen Flow Rate 0 Narrative Exam Narrative: General: Alert NAD Lungs: Clear Heart: Irregularly irregular Extremities: No edema Neurological: Oriented to person and place Objective Labs Result Diagrams: 11/05/21 05:09 11/06/21 06:21 Labs: Laboratory Results - last 24 hr 11/06/21 06:21 Sodium 132 L Potassium 3.8 Chloride 95 L Carbon Dioxide 30 BUN 10 Creatinine 0.76 Estimated GFR > 60 BUN/Creatinine Ratio 13.2 Glucose 96 Calcium 8.5 Magnesium 1.8 [facility] Medical History Afib Atrial fibrillation, transient Chronic renal insufficiency Diabetes type 2, controlled ETOH abuse Fracture of distal end of fibula Heart failure Morbid obesity Pacemaker PEA (Pulseless electrical activity) (10/16/17) Sleep apnea in adult Surgical History History of third molar tooth extraction Hx of ventral hernia repair (08/12/19) Status post colonoscopy Status post surgery (07/26/10) Status post surgery (12/07/14) Family History (Updated 10/31/21 @ 23:51 by ANA PAULA Cerda) Father Diabetes mellitus Mother Diabetes mellitus Hyperlipidemia Hypertension Breast cancer Social History household members: spouse and family Smoking Status: Current every day smoker alcohol intake: current Discharge Plan Discharge Plan Patient Disposition: Home Provider Discharge Comment: Admission due to very low sodium and potassium levels due to diuretic medication. Stop chlorthalidone. Stop digoxin. Stop alcohol use. Stop smoking. Follow up with Dr Horvath for postmenopausal bleeding. Discharge orders & Medications Prescriptions: New medroxyprogesterone 10 mg tablet 10 mg PO DAILY Qty: 30 0RF Continued paroxetine HCl [Paxil] 20 MG tablet 30 mg PO QDAY Qty: 0 0RF Label Comments: Taking intermitently over the last few weeks. Eliquis 5 mg tablet 5 mg PO BID 0RF Label Comments: Taking occasionally' atorvastatin 10 mg 10 mg PO DIRECTED 0RF metoprolol tartrate 50 mg tablet 50 mg PO DAILY 0RF Discontinued digoxin 250 mcg (0.25 mg) Tablet 250 mcg PO DAILY 0RF Rx Instructions: 10 mg daily chlorthalidone 25 mg tablet 25 mg PO DIRECTED 0RF Follow up/Referrals: Yonatan Steiner MD [Primary Care Provider] - Diet/Activity/Treatments Diet: Regular Discharge Data Primary Care Provider: Steiner,Yonatan Quality Stroke Contraindication Not Initiating IV-Tpa: Contraindicated Symptom Onset Unknown: Yes Rehab Services Assessed: Stroke rehabilitation VTE Deep Vein Thrombosis/Pulmonary Embolism Present on Admission: No
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
== END 2021-11-06 15:30 | disposition home or self-care (01) | DRG 640 ==
LOC: ED 19:20 → AC 19:31 → ICU 11-01 08:13 → AC 11-03 10:45 → ICU 11-04 08:36
PROVIDERS: Emergency Medicine; Hospitalist; Internal Medicine Pulmonary Disease; Student in an Organized Health Care Education/Training Program; Admitting Provider Nurse Practitioner Family; Emergency Provider Emergency Medicine; Family Provider Internal Medicine; PCP Internal Medicine; Referring Provider Nurse Practitioner Family; Visit Provider Nurse Practitioner Family
DX: E87.1 Hypo-osmolality and hyponatremia (principal); G93.41 Metabolic encephalopathy; F10.20 Alcohol dependence, uncomplicated; L89.311 Pressure ulcer of right buttock, stage 1; L89.322 Pressure ulcer of left buttock, stage 2; E87.6 Hypokalemia; L89.312 Pressure ulcer of right buttock, stage 2; E78.5 Hyperlipidemia, unspecified; I48.91 Unspecified atrial fibrillation; G47.33 Obstructive sleep apnea (adult) (pediatric); F17.200 Nicotine dependence, unspecified, uncomplicated; N95.0 Postmenopausal bleeding; E83.39 Other disorders of phosphorus metabolism; F32.A Depression, unspecified; Y90.0 Blood alcohol level of less than 20 mg/100 ml; Z79.01 Long term (current) use of anticoagulants; Z95.0 Presence of cardiac pacemaker; Z20.822 Contact with and (suspected) exposure to COVID-19
CPT/HCPCS: 36415; 36592; 70496; 70498; 71045; 76830; 76856; 80048; 80053; 80076; 80162; 80305; 80320; 81001; 82140; 82550; 82553; 82962; 83036; 83735; 83930; 84100; 84300; 84443; 84484; 85007; 85025; 87086; 87635; 87797; 92507; 92610; 93005; 93306; 94760; 96361; 96365; 96366; 96367; 96368; 97110; 97129; 97162; 97166; 97530; 99232; 99285; 99291; 99292; C9803; A9270; C9113; J0610; J0696; J1642; J1650; J1815; J2405; J3475; Q9957

== ENCOUNTER 2021-11-10 11:48 | Emergency (ER) | payer OTHER, SELFPAY ==
[2017-10-16 00:19] VITALS: PULSE 87; RESP 24; O2SAT 100
[2021-11-05 10:57] VITALS: BMI 41.8
[2021-11-10] VITALS (15 sets, daily range): BP systolic 103–150; BP diastolic 57–88; PULSE 73–96; RESP 17–30; O2SAT 93–100; BMI 45.1
--- NOTE | 2021-11-10 12:26 | DI.RAD.S_ITS ---
PROCEDURE: XR CHEST 1V INDICATIONS: chest pain TECHNIQUE: One view of the chest was acquired. COMPARISON: [facility], CR, XR CHEST FOR PICC 1V, 11/01/2021, 3:46. FINDINGS: Surgical changes and devices: Pacemaker. Lungs and pleura: Lungs are clear. No pleural effusions or pneumothorax. Mediastinum: Mediastinal contours appear normal. Heart size is normal. Bones and chest wall: No suspicious bony lesions. Overlying soft tissues appear unremarkable. IMPRESSION: No acute pulmonary process. Dictated by: Susanna Amador M.D. on 11/10/2021 at 13:40 Approved by: Susanna Amador M.D. on 11/10/2021 at 13:40
[2021-11-10 12:34] LABS: Add Manual Diff / Slide Review NO; Basophils Absolute Auto 100 /uL (0-100); Eosinophils Absolute Auto 0 /uL (0-450); Eosinophils Percent Auto 0.6 % (2-4); Hematocrit 28.7 % (36-46); Hemoglobin 10.1 g/dL (12.0-16.0); Lymphocytes Absolute Auto 1700 /uL (1100-4500); Lymphocytes Percent Auto 20.5 % (25-40); Mean Corpuscular HGB Conc 35.2 % (30-36); Mean Corpuscular Hemoglobin 36.3 PG (26-34); Mean Corpuscular Volume 103.2 fL (80-100); Monocytes Absolute Auto 500 /uL (0-900); Monocytes Percent Auto 5.7 % (3-14); Neutrophils Absolute Auto 5900 /uL (1500-7000); Neutrophils Percent Auto 72.2 % (50-75); Platelet Count 489 X10^3/uL (150-400); Red Blood Cell Count 2.79 X10^6/uL (4.0-5.2); White Blood Cell Count 8.2 X10^3/uL (4.5-11.0)
[2021-11-10 12:41] LABS: Appearance Urine UA CLEAR; Bilirubin Urine UA NEGATIVE (NEGATIVE); Color Urine UA YELLOW; Glucose Urine UA TRACE g/dL (Negative); Ketones Urine UA NEGATIVE (NEGATIVE); Leukocyte Esterase Urine UA NEGATIVE (NEGATIVE); Nitrite Urine UA NEGATIVE (Negative); Occult Blood Urine UA 1+ (Negative); Protein Urine UA TRACE (Negative); Specific Gravity Urine UA 1.015 (1.000-1.035); Urobilinogen Urine UA 0.2 E.U./dL (0.2)
[2021-11-10 12:44] LABS: Alanine Aminotransferase 28 IU/L (<35); Albumin 3.3 g/dL (3.5-5.0); Alkaline Phosphatase 132 U/L (38-126); Aspartate Aminotransferase 52 IU/L (14-36); BUN Creatinine Ratio 15.4 (6-22); Bilirubin Total 0.9 mg/dL (0.2-1.3); Blood Urea Nitrogen 12 mg/dL (7-17); Calcium 8.6 mg/dL (8.4-10.2); Carbon Dioxide 24 mmol/L (22-32); Chloride 98 mmol/L (98-107); Creatine Kinase 43 U/L (30-135); Estimated Glomerular Filt Rate > 60 mL/min (>60); Globulin 3.4 g/dL (1.7-4.1); Glucose 113 mg/dL (80-110); HEMOLYSIS < 15 (0-50); Lipase 392 U/L (23-300); Magnesium 1.9 mg/dL (1.6-2.3); Potassium 3.3 mmol/L (3.4-5.1); Sodium 133 mmol/L (137-145); Total Protein 6.7 g/dL (6.3-8.2)
[2021-11-10 12:54] LABS: pH Urine UA 5.5 (4.5-8.0)
[2021-11-10 12:55] LABS: Macrocytosis 1+
[2021-11-10 12:56] LABS: Troponin I 0.023 ng/mL (0.01-0.034)
[2021-11-10 13:05] LABS: Bacteria Urine Few (2-10); Culture Indicated Urine Cult Not Indicated; RBC Urine None Seen (0-5/HPF); Squamous Epithelial Cell Urine 5-10 /HPF (0-5/HPF); WBC Urine 0-1/HPF (0-5/HPF)
--- NOTE | 2021-11-10 13:38 | DI.CT.S_ITS ---
PROCEDURE: CT HEAD/BRAIN WO CON INDICATIONS: Weakness TECHNIQUE: Noncontrast 4.5 mm thick angled axial sections acquired from the foramen magnum to the vertex, with coronal and sagittal reformats. For radiation dose reduction, the following was used: automated exposure control, adjustment of mA and/or kV according to patient size. COMPARISON: [facility], CT, CT ANGIO HEAD AND NECK, 10/31/2021, 11:30. [facility], CT, CT HEAD/BRAIN WO CON, 04/26/2021, 18:54. FINDINGS: Image quality: Excellent. CSF spaces: Basal cisterns are patent. No extra-axial fluid collections. The ventricles are symmetric in size and shape. Brain: No intracranial bleeds or masses. There is cerebral volume loss for age, with resultant ventricular and sulcal prominence. There are periventricular and deep white matter chronic small vessel ischemic changes. There is intracranial internal carotid artery atherosclerosis. Skull and face: Calvarium and visualized facial bones appear intact, without suspicious lesions. Sinuses: Visualized sinuses and mastoids are clear. IMPRESSION: No acute intracranial disease process. Dictated by: Sheridan Ramirez MD, PhD on 11/10/2021 at 14:02 Approved by: Sheridan Ramirez MD, PhD on 11/10/2021 at 14:03
--- NOTE | 2021-11-10 13:41 | ED.WEAKNESS ---
HPI - Weakness <Robert Carrasco PA-C - Last Filed: 11/10/21 17:08> General Chief complaint: Weakness Stated complaint: Genralized Weakness Time Seen by Provider: 11/10/21 11:58 Source: patient and EMS Mode of arrival: EMS History of Present Illness HPI Narrative: This is a 61-year-old female presenting to the emergency department due to increasing weakness over the last couple of weeks. Patient suspects that the weakness is due to her laying in bed physical 4 weeks prior and ?not using it so I was losing it?. Patient states that she has recently been in a rehab facility for her chronic alcohol use but elected to leave on her own because she missed her . Patient states that she has been feeling overall depressed which has led to a lack of motivation and a very sedentary lifestyle. Patient states that she ?just wants to go to the rehab facility? and just needs help. Also states that she has had increased weakness on the right side and says ?things I have had a stroke?. Related Data Home Medications Medication Instructions Recorded Confirmed paroxetine HCl 20 mg tablet (Paxil) 30 mg PO QDAY #0 11/19/16 11/01/21 metoprolol tartrate 50 mg tablet 50 mg PO DAILY tab 07/11/18 11/03/21 apixaban 5 mg tablet (Eliquis) 5 mg PO BID 08/05/19 11/01/21 atorvastatin 10 mg PO DIRECTED 03/17/21 03/17/21 Previous Rx's Medication Instructions Recorded medroxyprogesterone 10 mg tablet 10 mg PO DAILY #30 tab 11/06/21 Allergies Allergy/AdvReac Type Severity Reaction Status Date / Time ketamine AdvReac Unknown hallucinati Verified 04/26/21 18:50 ons Review of Systems <Robert Carrasco PA-C - Last Filed: 11/10/21 17:08> Review of Systems Narrative: GENERAL: Denies chills, fatigue, malaise, fever, sweats. HEENT: Denies sinus pain, ear pain, sore throat, difficulty swallowing, dizziness. RESPIRATORY: Denies dyspnea, cough, wheezing, hemoptysis, sputum. CARDIOVASCULAR: Denies chest pain, palpitations, orthopnea, edema, GASTROINTESTINAL: Denies nausea, vomiting, abdominal pain, diarrhea, constipation, melena. : Denies dysuria, frequency, incontinence, hematuria, urinary retention. MUSCULOSKELETAL: denies joint pain, or bony pain SKIN: Denies rash, skin lesions, or other NEUROLOGIC: Reports right-sided and lower extremity weakness, denies headache, numbness, change in speech, confusion, seizures, incoordination. PSYCHIATRIC: No concerning psychosocial issues. 12 point review of systems is negative except for those stated above Patient History <Robert Carrasco PA-C - Last Filed: 11/10/21 17:08> Medical History Afib Atrial fibrillation, transient Chronic renal insufficiency Diabetes type 2, controlled ETOH abuse Fracture of distal end of fibula Heart failure Morbid obesity Pacemaker PEA (Pulseless electrical activity) (10/16/17) Sleep apnea in adult Surgical History History of third molar tooth extraction Hx of ventral hernia repair (08/12/19) Status post colonoscopy Status post surgery (07/26/10) Status post surgery (12/07/14) Family History (Updated 10/31/21 @ 23:51 by ANA PAULA Cerda) Father Diabetes mellitus Mother Diabetes mellitus Hyperlipidemia Hypertension Breast cancer Social History household members: spouse and family Smoking Status: Current every day smoker alcohol intake: current Smoking Status: Current every day smoker alcohol intake frequency: a few times a week Substance Use Type: marijuana Exam <Robert Carrasco PA-C - Last Filed: 11/10/21 17:08> Narrative Exam Narrative: GENERAL: Well-developed patient, in mild distress. HEAD: Atraumatic. Normocephalic. EYES: Pupils equal round and reactive. Extraocular motions intact. No scleral icterus. No injection or drainage. ENT: Nose without bleeding, purulent drainage. Throat without erythema, tonsillar hypertrophy or exudate. Airway patent. NECK: Trachea midline. Non tender CARDIOVASCULAR: Regular rate and rhythm without murmurs, gallops, or rubs. RESPIRATORY: Clear to auscultation. Breath sounds equal bilaterally. No wheezes, rales, or rhonchi. GASTROINTESTINAL: Abdomen soft, non-tender, nondistended. EXTREMITIES: No edema or joint tenderness. BACK: Nontender without deformity or crepitance. No flank tenderness. NEURO: AOx3. Right upper extremity weakness noted with right shoulder flexion. SKIN: No rash or erythema of visible areas Initial Vital Signs Initial Vital Signs: Vital Signs Pulse Rate 88 11/10/21 11:59 Respiratory Rate 18 11/10/21 11:59 Blood Pressure 148/86 H 11/10/21 11:59 Pulse Oximetry 100 11/10/21 11:59 <Sol Delcid DO - Last Filed: 11/11/21 09:52> Initial Vital Signs Initial Vital Signs: Vital Signs Pulse Rate 88 11/10/21 11:59 Respiratory Rate 18 11/10/21 11:59 Blood Pressure 148/86 H 11/10/21 11:59 Pulse Oximetry 100 11/10/21 11:59 Course <Robert Carrasco PA-C - Last Filed: 11/10/21 17:08> Orders Ordered: Discontinued Medications Sodium Chloride (Normal Saline 0.9%) 1,000 mls @ 1,000 mls/hr IV BOLUS ONE Stop: 11/10/21 15:30 Last Infusion: 11/10/21 16:00 Dose: 0 mls/hr Documented by: Admin: 11/10/21 14:42 Dose: 1,000 mls/hr Documented by: SHIRA Potassium Chloride (Potassium Chloride 10 Meq Tab) 10 meq PO NOW ONE Stop: 11/10/21 14:33 Last Admin: 11/10/21 14:42 Dose: 10 meq Documented by: GENEOR Vital Signs Vital signs: Vital Signs - 8 hr 11/10/21 13:10 11/10/21 13:30 11/10/21 13:31 Pulse Rate 82 73 75 Respiratory Rate 30 H 25 H Blood Pressure 130/84 Pulse Oximetry 94 96 98 11/10/21 13:53 11/10/21 14:00 11/10/21 14:01 Pulse Rate 77 84 81 Respiratory Rate 26 H 22 27 H Blood Pressure 150/84 H 141/63 H Pulse Oximetry 98 97 97 11/10/21 14:30 11/10/21 14:31 11/10/21 15:00 Pulse Rate 95 H 96 H 81 Respiratory Rate Blood Pressure 150/88 H Pulse Oximetry 97 96 11/10/21 15:01 11/10/21 15:30 11/10/21 16:00 Pulse Rate 84 96 H 88 Respiratory Rate 24 17 Blood Pressure 140/63 Pulse Oximetry 97 93 97 11/10/21 16:01 11/10/21 17:43 Pulse Rate 88 95 H Respiratory Rate 19 18 Blood Pressure 103/57 L 139/62 Pulse Oximetry 99 <Sol Delcid DO - Last Filed: 11/11/21 09:52> Orders Ordered: Discontinued Medications Sodium Chloride (Normal Saline 0.9%) 1,000 mls @ 1,000 mls/hr IV BOLUS ONE Stop: 11/10/21 15:30 Last Infusion: 11/10/21 16:00 Dose: 0 mls/hr Documented by: Admin: 11/10/21 14:42 Dose: 1,000 mls/hr Documented by: SHIRA Potassium Chloride (Potassium Chloride 10 Meq Tab) 10 meq PO NOW ONE Stop: 11/10/21 14:33 Last Admin: 11/10/21 14:42 Dose: 10 meq Documented by: SHIRA Vital Signs Vital signs: Vital Signs - 8 hr 11/10/21 13:10 11/10/21 13:30 11/10/21 13:31 Pulse Rate 82 73 75 Respiratory Rate 30 H 25 H Blood Pressure 130/84 Pulse Oximetry 94 96 98 11/10/21 13:53 11/10/21 14:00 11/10/21 14:01 Pulse Rate 77 84 81 Respiratory Rate 26 H 22 27 H Blood Pressure 150/84 H 141/63 H Pulse Oximetry 98 97 97 11/10/21 14:30 11/10/21 14:31 11/10/21 15:00 Pulse Rate 95 H 96 H 81 Respiratory Rate Blood Pressure 150/88 H Pulse Oximetry 97 96 11/10/21 15:01 11/10/21 15:30 11/10/21 16:00 Pulse Rate 84 96 H 88 Respiratory Rate 24 17 Blood Pressure 140/63 Pulse Oximetry 97 93 97 11/10/21 16:01 11/10/21 17:43 Pulse Rate 88 95 H Respiratory Rate 19 18 Blood Pressure 103/57 L 139/62 Pulse Oximetry 99 MDM - Weakness <Robert Carrasco PA-C - Last Filed: 11/10/21 17:08> Lab Data Result diagrams: 11/10/21 12:10 11/10/21 12:10 Labs: Lab Results 11/10/21 11/10/21 11/10/21 Range/Units 12:10 12:10 12:10 WBC 8.2 (4.5-11.0) X10^3/uL RBC 2.79 L (4.0-5.2) X10^6/uL Hgb 10.1 L (12.0-16.0) g/dL Hct 28.7 L (36-46) % MCV 103.2 H (80-100) fL MCH 36.3 H (26-34) PG MCHC 35.2 (30-36) % RDW 22.0 H (11.6-14.8) % Plt Count 489 H (150-400) X10^3/uL Neut % (Auto) 72.2 (50-75) % Lymph % (Auto) 20.5 L (25-40) % [place] % (Auto) 5.7 (3-14) % Eos % (Auto) 0.6 L (2-4) % Baso % (Auto) 1.0 (0-2) % Neut # (Auto) 5900 (2405-0867) /uL Lymph # (Auto) 1700 (8907-8612) /uL [place] # (Auto) 500 (0-900) /uL Eos # (Auto) 0 (0-450) /uL Baso # (Auto) 100 (0-100) /uL RBC Morphology Not Reportable Macrocytosis 1+ H Sodium 133 L (137-145) mmol/L Potassium 3.3 L (3.4-5.1) mmol/L Chloride 98 (98-107) mmol/L Carbon Dioxide 24 (22-32) mmol/L BUN 12 (7-17) mg/dL Creatinine 0.78 (0.52-1.04) mg/dL Estimated GFR > 60 (>60) mL/min BUN/Creatinine Ratio 15.4 (6-22) Glucose 113 H (80-110) mg/dL Calcium 8.6 (8.4-10.2) mg/dL Magnesium 1.9 (1.6-2.3) mg/dL Total Bilirubin 0.9 (0.2-1.3) mg/dL AST 52 H (14-36) IU/L ALT 28 (<35) IU/L Alkaline Phosphatase 132 H (38-126) U/L Total Creatine Kinase 43 (30-135) U/L CK-MB (CK-2) TNP CK-MB (CK-2) Rel Index TNP Troponin I 0.023 (0.01-0.034) ng/mL Total Protein 6.7 (6.3-8.2) g/dL Albumin 3.3 L (3.5-5.0) g/dL Globulin 3.4 (1.7-4.1) g/dL Albumin/Globulin Ratio 1.0 (1.0-2.8) Lipase 392 H (23-300) U/L Urine Color Yellow Urine Appearance Clear Urine pH 5.5 (4.5-8.0) Ur Specific [place] 1.015 (1.000-1.035) Urine Protein Trace H (Negative) Urine Glucose (UA) Trace H (Negative) g/dL Urine Ketones Negative (NEGATIVE) Urine Occult Blood 1+ H (Negative) Urine Nitrate Negative (Negative) Urine Bilirubin Negative (NEGATIVE) Urine Urobilinogen 0.2 (0.2) E.U./dL Ur Leukocyte Esterase Negative (NEGATIVE) Urine RBC None seen (0-5/HPF) Urine WBC 0-1/hpf (0-5/HPF) Ur Squamous Epith Cells 5-10 /hpf H (0-5/HPF) Urine Bacteria Few (2-10) H (None) Ur Culture Indicated? Cult not indicated 11/10/21 Range/Units 15:48 WBC (4.5-11.0) X10^3/uL RBC (4.0-5.2) X10^6/uL Hgb (12.0-16.0) g/dL Hct (36-46) % MCV (80-100) fL MCH (26-34) PG MCHC (30-36) % RDW (11.6-14.8) % Plt Count (150-400) X10^3/uL Neut % (Auto) (50-75) % Lymph % (Auto) (25-40) % [place] % (Auto) (3-14) % Eos % (Auto) (2-4) % Baso % (Auto) (0-2) % Neut # (Auto) (3876-0546) /uL Lymph # (Auto) (8378-9870) /uL [place] # (Auto) (0-900) /uL Eos # (Auto) (0-450) /uL Baso # (Auto) (0-100) /uL RBC Morphology Macrocytosis Sodium (137-145) mmol/L Potassium (3.4-5.1) mmol/L Chloride (98-107) mmol/L Carbon Dioxide (22-32) mmol/L BUN (7-17) mg/dL Creatinine (0.52-1.04) mg/dL Estimated GFR (>60) mL/min BUN/Creatinine Ratio (6-22) Glucose (80-110) mg/dL Calcium (8.4-10.2) mg/dL Magnesium (1.6-2.3) mg/dL Total Bilirubin (0.2-1.3) mg/dL AST (14-36) IU/L ALT (<35) IU/L Alkaline Phosphatase (38-126) U/L Total Creatine Kinase (30-135) U/L CK-MB (CK-2) CK-MB (CK-2) Rel Index Troponin I 0.023 (0.01-0.034) ng/mL Total Protein (6.3-8.2) g/dL Albumin (3.5-5.0) g/dL Globulin (1.7-4.1) g/dL Albumin/Globulin Ratio (1.0-2.8) Lipase (23-300) U/L Urine Color Urine Appearance Urine pH (4.5-8.0) Ur Specific [place] (1.000-1.035) Urine Protein (Negative) Urine Glucose (UA) (Negative) g/dL Urine Ketones (NEGATIVE) Urine Occult Blood (Negative) Urine Nitrate (Negative) Urine Bilirubin (NEGATIVE) Urine Urobilinogen (0.2) E.U./dL Ur Leukocyte Esterase (NEGATIVE) Urine RBC (0-5/HPF) Urine WBC (0-5/HPF) Ur Squamous Epith Cells (0-5/HPF) Urine Bacteria (None) Ur Culture Indicated? Imaging Data Chest x-ray: My Impression: Launch?[address] [address] XRay Report Signed Patient: Scarlet Luong MR#: [id number] : 1960 Acct:[id number] Age/Sex: 61 / F Date of Service: 11/10/21 Loc: ED Accession Number: [id number] ?? Procedure: XR chest 1V Ordering Provider: Sol Delcid D.O. PROCEDURE:? XR CHEST 1V ? INDICATIONS:? chest pain ? TECHNIQUE:? One view of the chest was acquired.? ? COMPARISON:? [facility], CR, XR CHEST FOR PICC 1V, 11/01/2021, 3:46. ? FINDINGS:? ? Surgical changes and devices:? Pacemaker. ? Lungs and pleura:? Lungs are clear.? No pleural effusions or pneumothorax.? ? Mediastinum:? Mediastinal contours appear normal.? Heart size is normal.? ? Bones and chest wall:? No suspicious bony lesions.? Overlying soft tissues appear unremarkable.? ? IMPRESSION:? No acute pulmonary process. ? ? Dictated by: Susanna Amador M.D. on 11/10/2021 at 13:40 ? ? Approved by: Susanna Amador M.D. on 11/10/2021 at 13:40 ? CT scan - head: Radiologist Impression: [place] [address] CT Scan Report Signed Patient: Scarlet Luong MR#: [id number] : 1960 Acct:[id number] Age/Sex: 61 / F Date of Service: 11/10/21 Loc: ED Accession Number: [id number] ?? Procedure: CT head/brain wo con Ordering Provider: Robert Carrasco P.A-C PROCEDURE:? CT HEAD/BRAIN WO CON ? INDICATIONS:? Weakness ? TECHNIQUE:? Noncontrast 4.5 mm thick angled axial sections acquired from the foramen magnum to the vertex, with coronal and sagittal reformats.? For radiation dose reduction, the following was used:? automated exposure control, adjustment of mA and/or kV according to patient size.? ? COMPARISON:? [facility], CT, CT ANGIO HEAD AND NECK, 10/31/2021, 11:30.? [facility], CT, CT HEAD/BRAIN WO CON, 04/26/2021, 18:54. ? FINDINGS:? Image quality:? Excellent.? ? CSF spaces:? Basal cisterns are patent.? No extra-axial fluid collections.? The ventricles are symmetric in size and shape.? ? Brain:? No intracranial bleeds or masses.? There is cerebral volume loss for age, with resultant ventricular and sulcal prominence.? There are periventricular and deep white matter chronic small vessel ischemic changes.? There is intracranial internal carotid artery atherosclerosis.? ? Skull and face:? Calvarium and visualized facial bones appear intact, without suspicious lesions.? ? Sinuses:? Visualized sinuses and mastoids are clear.? ? IMPRESSION:? No acute intracranial disease process. ? ? Dictated by: Sheridan Ramirez MD, PhD on 11/10/2021 at 14:02 ? ? Approved by: Sheridan Ramirez MD, PhD on 11/10/2021 at 14:03 ? ECG Data Interpretation: 1508: EKG shows AFib, with a rate of 82 beats per minute. New T-wave depressions noted in V3 through V6 as compared to EKG from 2020. MDM Narrative Medical decision making narrative: This is a 61-year-old female presents emergency department complaining of primarily weakness in lower extremities same ?I can not stand?. Patient was noted to be weak in the right upper extremity but based on record review appears to be chronic for her. CT head negative. Lab work was remarkable for mild hyponatremia of 133 as well as hypokalemia of 3.3. IV fluids and oral potassium was given for the patient. Patient was also found be mildly anemic although did not describe any signs of active bleeding and appears to be chronic for her as well. Patient's EKG shows atrial fibrillation, on blood thinners, as well as new T-wave depression in leads V3 to V6. Initial troponin within normal limits as well as repeat troponin normal as well. Low suspicion for ACS at this time. Patient not describe any kind of chest pain, nausea, or shortness of breath as well. Suspect weakness in lower extremities is due to inactivity at home. Patient was gait test and able to walk well with a walker. Patient will be discharged home after speaking with social Work for a home health referral. Recommend patient follow-up with the primary care provider for overdose physical therapy for long-term care. Chest x-ray unremarkable as well. <Sol Delcid, - Last Filed: 11/11/21 09:52> Lab Data Labs: Lab Results 06/02/22 06/02/22 06/02/22 Range/Units 12:10 12:10 12:10 WBC 8.2 (4.5-11.0) X10^3/uL RBC 2.79 L (4.0-5.2) X10^6/uL Hgb 10.1 L (12.0-16.0) g/dL Hct 28.7 L (36-46) % MCV 103.2 H (80-100) fL MCH 36.3 H (26-34) PG MCHC 35.2 (30-36) % RDW 22.0 H (11.6-14.8) % Plt Count 489 H (150-400) X10^3/uL Neut % (Auto) 72.2 (50-75) % Lymph % (Auto) 20.5 L (25-40) % [place] % (Auto) 5.7 (3-14) % Eos % (Auto) 0.6 L (2-4) % Baso % (Auto) 1.0 (0-2) % Neut # (Auto) 5900 (6916-8837) /uL Lymph # (Auto) 1700 (6133-9867) /uL [place] # (Auto) 500 (0-900) /uL Eos # (Auto) 0 (0-450) /uL Baso # (Auto) 100 (0-100) /uL RBC Morphology Not Reportable Macrocytosis 1+ H Sodium 133 L (137-145) mmol/L Potassium 3.3 L (3.4-5.1) mmol/L Chloride 98 (98-107) mmol/L Carbon Dioxide 24 (22-32) mmol/L BUN 12 (7-17) mg/dL Creatinine 0.78 (0.52-1.04) mg/dL Estimated GFR > 60 (>60) mL/min BUN/Creatinine Ratio 15.4 (6-22) Glucose 113 H (80-110) mg/dL Calcium 8.6 (8.4-10.2) mg/dL Magnesium 1.9 (1.6-2.3) mg/dL Total Bilirubin 0.9 (0.2-1.3) mg/dL AST 52 H (14-36) IU/L ALT 28 (<35) IU/L Alkaline Phosphatase 132 H (38-126) U/L Total Creatine Kinase 43 (30-135) U/L CK-MB (CK-2) TNP CK-MB (CK-2) Rel Index TNP Troponin I 0.023 (0.01-0.034) ng/mL Total Protein 6.7 (6.3-8.2) g/dL Albumin 3.3 L (3.5-5.0) g/dL Globulin 3.4 (1.7-4.1) g/dL Albumin/Globulin Ratio 1.0 (1.0-2.8) Lipase 392 H (23-300) U/L Urine Color Yellow Urine Appearance Clear Urine pH 5.5 (4.5-8.0) Ur Specific [place] 1.015 (1.000-1.035) Urine Protein Trace H (Negative) Urine Glucose (UA) Trace H (Negative) g/dL Urine Ketones Negative (NEGATIVE) Urine Occult Blood 1+ H (Negative) Urine Nitrate Negative (Negative) Urine Bilirubin Negative (NEGATIVE) Urine Urobilinogen 0.2 (0.2) E.U./dL Ur Leukocyte Esterase Negative (NEGATIVE) Urine RBC None seen (0-5/HPF) Urine WBC 0-1/hpf (0-5/HPF) Ur Squamous Epith Cells 5-10 /hpf H (0-5/HPF) Urine Bacteria Few (2-10) H (None) Ur Culture Indicated? Cult not indicated 11/10/21 Range/Units 15:48 WBC (4.5-11.0) X10^3/uL RBC (4.0-5.2) X10^6/uL Hgb (12.0-16.0) g/dL Hct (36-46) % MCV (80-100) fL MCH (26-34) PG MCHC (30-36) % RDW (11.6-14.8) % Plt Count (150-400) X10^3/uL Neut % (Auto) (50-75) % Lymph % (Auto) (25-40) % [place] % (Auto) (3-14) % Eos % (Auto) (2-4) % Baso % (Auto) (0-2) % Neut # (Auto) (0351-7220) /uL Lymph # (Auto) (1207-9657) /uL [place] # (Auto) (0-900) /uL Eos # (Auto) (0-450) /uL Baso # (Auto) (0-100) /uL RBC Morphology Macrocytosis Sodium (137-145) mmol/L Potassium (3.4-5.1) mmol/L Chloride (98-107) mmol/L Carbon Dioxide (22-32) mmol/L BUN (7-17) mg/dL Creatinine (0.52-1.04) mg/dL Estimated GFR (>60) mL/min BUN/Creatinine Ratio (6-22) Glucose (80-110) mg/dL Calcium (8.4-10.2) mg/dL Magnesium (1.6-2.3) mg/dL Total Bilirubin (0.2-1.3) mg/dL AST (14-36) IU/L ALT (<35) IU/L Alkaline Phosphatase (38-126) U/L Total Creatine Kinase (30-135) U/L CK-MB (CK-2) CK-MB (CK-2) Rel Index Troponin I 0.023 (0.01-0.034) ng/mL Total Protein (6.3-8.2) g/dL Albumin (3.5-5.0) g/dL Globulin (1.7-4.1) g/dL Albumin/Globulin Ratio (1.0-2.8) Lipase (23-300) U/L Urine Color Urine Appearance Urine pH (4.5-8.0) Ur Specific [place] (1.000-1.035) Urine Protein (Negative) Urine Glucose (UA) (Negative) g/dL Urine Ketones (NEGATIVE) Urine Occult Blood (Negative) Urine Nitrate (Negative) Urine Bilirubin (NEGATIVE) Urine Urobilinogen (0.2) E.U./dL Ur Leukocyte Esterase (NEGATIVE) Urine RBC (0-5/HPF) Urine WBC (0-5/HPF) Ur Squamous Epith Cells (0-5/HPF) Urine Bacteria (None) Ur Culture Indicated? Discharge Plan Departure Patient Disposition: Home Clinical Impression: Weakness Instructions: DI for Muscle Weakness Activity Restrictions/Additional Instructions: Thank you for coming to the [facility] Emergency Department today. Your CT of your head showed no evidence of any kind of stroke. Your EKG and lab work showed no evidence of any kind of heart attack. Your electrolytes were very mildly low which we treated with fluids and a oral potassium supplement. Please do your best to continue eating a well-rounded healthy diet. Your lab work showed no other significant new abnormalities. I suspect that the weakness here experiencing is 0 lack of physical activity and the bedrest you have been doing. Please do your best to be physically active as also help with the weakness. The home health aide should help. He may speak to your primary care provider for referral to another rehab facility that will take you. I hope you feel better soon. Prescriptions: No Action paroxetine HCl [Paxil] 20 MG tablet 30 mg PO QDAY Qty: 0 0RF Label Comments: Taking intermitently over the last few weeks. Eliquis 5 mg tablet 5 mg PO BID 0RF Label Comments: Taking occasionally' medroxyprogesterone 10 mg tablet 10 mg PO DAILY Qty: 30 0RF atorvastatin 10 mg 10 mg PO DIRECTED 0RF metoprolol tartrate 50 mg tablet 50 mg PO DAILY 0RF Referrals: Romeo Curry MD [Primary Care Provider] - Visit Report Forms: Patient Portal/API <Sol Delcid DO - Last Filed: 11/11/21 09:52> Sid ED Attending Zheng Attestation: I was immediately available in the department for consultation. Documentation has been reviewed. Case was discussed, agree with current plan.
[2021-11-10] MEDS: POTASSIUM CHLORIDE 10 MEQ TAB PO (14:42)
[2021-11-10] MEDS: SODIUM CHLORIDE 0.9% 1,000 ML 1000 ML IV (14:42)
--- NOTE | 2021-11-10 15:48 | CM.SWNOTE ---
CUSTOMER RELATIONS ADVISOR/DCP Note Patient is 61 y/o female who presents to ED via EMS due to concern for weakness. Patient d/c'd from on 11/06/21 requesting to go home and denying HH. Patient has hx of ETOH use, Afib, pacemaker and Diabetes type 2. Patient presents as A/Ox4, states that she has a sore buttock and legs. Patient endorses increased weakness due to zamarripa of mobility. Patient is tearful at times when talking about her mobility decline. 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 Patient endorses that she was sedentary for a month and has a hx of recent GLFs. Patient endorses that she has a walker, bedside commode, & shower chair at home. Patient endorses ability to stand, but trouble walking due to weakness. Patient endorses she wants to go home. Patient is medically clear to do so per ED provider. Patient endorses she is interested in HH and has a preference for [facility]. Patient denies need for HH aide or OT and states that she is interested in PT and RN. There is a current APS investigation in place per referral from patient's last stay at . CUSTOMER RELATIONS ADVISOR speaks with APS homicide investigator Belia (Ph. # [phone]) Belia reports she met with spouse at patient's home and there is a concern for hoarding and smells of urine. Spouse endorses concern of patient's incontinence at times and getting to the bathroom. It is reported that spouse has concerns in his ability to care for patient. There is concern for patient's ongoing ETOH use as well. CUSTOMER RELATIONS ADVISOR endorses the POC and APS investigates understanding but continued concern for the living condition of the home. CUSTOMER RELATIONS ADVISOR calls [facility] per patient's preference and faxes F2F and clinicals for referral for RN and PT. Plan: patient to d/c to home when medically clear with [facility] referral in place for RN and PT. ANA LAURA Velasquez
--- NOTE | 2021-11-10 16:22 | PC.NURSE ---
Pt ambulated with walker in hallway, pt steady gait and independent with movements. Pt denies pain or SOB.
[2021-11-10 16:24] LABS: Troponin I 0.023 ng/mL (0.01-0.034)
== END 2021-11-10 17:45 | disposition home or self-care (01) ==
PROVIDERS: Emergency Medicine; Emergency Provider Physician Assistant Medical; Family Provider Internal Medicine; PCP Internal Medicine
DX: M62.81 Muscle weakness (generalized) (principal); R07.9 Chest pain, unspecified; E87.1 Hypo-osmolality and hyponatremia; E87.6 Hypokalemia; D64.9 Anemia, unspecified; I48.91 Unspecified atrial fibrillation; Z79.01 Long term (current) use of anticoagulants
CPT/HCPCS: 36415; 70450; 71045; 80053; 81001; 82550; 83690; 83735; 84484; 85025; 93005; 96360; 99284

== ENCOUNTER 2022-04-10 18:06 | Inpatient (IN) | payer OTHER, SELFPAY ==
[2017-10-16 00:19] VITALS: PULSE 87; RESP 24; O2SAT 100
[2021-11-05 10:57] VITALS: BMI 41.8
[2022-04-10] VITALS (8 sets, daily range): BP systolic 96–127; BP diastolic 54–76; PULSE 67–85; RESP 16–29; TEMP 36.2; O2SAT 93–98; BMI 34.4
--- NOTE | 2022-04-10 18:16 | DI.RAD.S_ITS ---
PROCEDURE: XR CHEST 1V INDICATIONS: chest pain TECHNIQUE: One view of the chest was acquired. COMPARISON: [facility], CR, XR CHEST 1V, 11/10/2021, 12:32. FINDINGS: Surgical changes and devices: There is a cardiac pacemaker in appropriate position. Lungs and pleura: Lungs are clear. No pleural effusions or pneumothorax. Mediastinum: Mediastinal contours appear normal. Heart size is normal. Bones and chest wall: Multiple old left anterior rib fractures and right lateral rib fractures are noted. No suspicious bony lesions. Overlying soft tissues appear unremarkable. IMPRESSION: 1. No acute cardiopulmonary disease. 2. Multiple old rib fractures. Dictated by: Carlos A Zelaya M.D. on 04/10/2022 at 18:48 Approved by: Carlos A Zelaya M.D. on 04/10/2022 at 18:50
--- NOTE | 2022-04-10 18:40 | PC.NURSE ---
AFD reports pt was laying in a bed of urine/feces for an estimated 7+ days. [facility] has reported this same issue on prior occasions to APS. AFD reports the home is unsafe for patient. COMPUTATIONAL BIOLOGIST consult placed.
--- NOTE | 2022-04-10 18:41 | PC.NURSE ---
cut off patients very old and heavy brief, bed bath due to stool all over lower extremities. Patient has multiple raw skin areas on bottom and vaginal ulises area. Patient in new bed sheets and pads with warm blankets.
--- NOTE | 2022-04-10 18:53 | DI.CT.S_ITS ---
PROCEDURE: CT HEAD/BRAIN WO CON INDICATIONS: fall on eliquis TECHNIQUE: Noncontrast 4.5 mm thick angled axial sections acquired from the foramen magnum to the vertex, with coronal and sagittal reformats. For radiation dose reduction, the following was used: automated exposure control, adjustment of mA and/or kV according to patient size. COMPARISON: [facility], CT, CT HEAD/BRAIN WO CON, 11/10/2021, 13:45. FINDINGS: Image quality: Excellent. CSF spaces: Basal cisterns are patent. No extra-axial fluid collections. There is mild cerebral volume loss, with resultant ventricular and sulcal prominence. Brain: No intracranial hemorrhage, mass, or mass effect. There are subcortical, periventricular and deep white matter hypodensities consistent with mild chronic small vessel ischemic changes. The rodas-white matter junction appears preserved. There is intracranial internal carotid artery atherosclerosis. Skull and face: Calvarium appears intact. There is mild irregularity of the right nasal bones suggestive of a mildly depressed fracture. Sinuses: Visualized sinuses and mastoids are clear. IMPRESSION: 1. No acute intracranial abnormality. 2. Irregularity of the right nasal bone suggestive of a mildly depressed fracture. Dictated by: Adalid Werner M.D. on 04/10/2022 at 20:55 Approved by: Adalid Werner M.D. on 04/10/2022 at 20:57
[2022-04-10 18:57] LABS: Appearance Urine UA CLOUDY; Bilirubin Urine UA 1+ (NEGATIVE); Color Urine UA YELLOW; Glucose Urine UA TRACE g/dL (Negative); Ketones Urine UA TRACE (NEGATIVE); Leukocyte Esterase Urine UA 3+ (NEGATIVE); Nitrite Urine UA NEGATIVE (Negative); Occult Blood Urine UA 2+ (Negative); Protein Urine UA 2+ (Negative)
--- NOTE | 2022-04-10 19:00 | DI.CT.S_ITS ---
PROCEDURE: CT ABDOMEN PELVIS W CON INDICATIONS: pain sepsis TECHNIQUE: After the administration of IV contrast, axial sections were acquired from the lung bases to the pubic symphysis. Coronal and sagittal reformats were performed. For radiation dose reduction, the following was used: automated exposure control, adjustment of mA and/or kV according to patient size. COMPARISON: None. FINDINGS: Image quality: Excellent. CHEST: Lower Neck: No lymphadenopathy by size criteria. Thyroid: Visualized thyroid demonstrates no discrete nodules. Axillae: No lymphadenopathy by size criteria. Chest Wall: Unremarkable. Bones: Visualized osseous structures demonstrate no suspicious lesions. Lungs and Airways: No acute consolidation. There is mild dependent atelectasis bilaterally. The trachea and central airways are patent. Pleura: No pneumothorax or pleural effusions. Heart: Heart size is normal. No pericardial effusion. Thoracic Vessels: The aorta and pulmonary arteries are normal in size. Mediastinum and Zora: No lymphadenopathy by size criteria. Esophagus: No wall thickening. No hiatal hernia. Lung bases: Unremarkable. Heart: Heart is normal in size. ABDOMEN: Liver: There is diffuse hypoattenuation of the liver consistent with fatty infiltration. Gallbladder: Within normal limits without calcified gallstones. Biliary ducts: No biliary ductal dilatation. Pancreas: Unremarkable. Spleen: Normal in size. Adrenal Glands: No adrenal nodules. Kidneys and Ureters: No hydronephrosis. There are areas of renal cortical thinning in the kidneys bilaterally compatible sequelae of prior infection, trauma, or infarcts. Stomach and Bowel: Stomach and small bowel loops are normal in caliber and wall thickness. The appendix is normal in appearance. There is moderate stool distention within the sigmoid colon distally with associated mild wall thickening and pericolonic fat stranding in the rectum. Findings are compatible with stercoral colitis. Colonic diverticulosis is present without acute diverticulitis. Peritoneum: There is minimal free fluid within the pelvis. No free air. Ventral Wall: No hernia. Abdominal Nodes: No retroperitoneal or mesenteric adenopathy by size criteria. Vessels: Aorta and inferior vena cava are normal in size. PELVIS: Pelvic Organs: Unremarkable. Bladder: There is a [place] catheter within a nondistended urinary bladder. Pelvic Nodes: No enlarged lymph nodes. Miscellaneous: No inguinal hernias are seen. Bones: Visualized osseous structures demonstrate no suspicious focal lesions. IMPRESSION: 1. Moderate stool distention in the rectosigmoid colon with associated mild wall thickening and pericolonic fat stranding. The findings are compatible with stercoral colitis. 2. Hepatic steatosis. 3. Colonic diverticulosis. 4. Minimal free fluid in the pelvis is nonspecific but likely reactive. Dictated by: Adalid Werner M.D. on 04/10/2022 at 21:08 Approved by: Adalid Werner M.D. on 04/10/2022 at 21:12
--- NOTE | 2022-04-10 19:00 | DI.CT.S_ITS ---
PROCEDURE: CT FACIAL BONES WO CON INDICATIONS: fall 1 month ago nose deformity TECHNIQUE: Noncontrast 2.5 mm thick axial images acquired from the mandible through the frontal sinuses, with coronal and sagittal reformatting. For radiation dose reduction, the following was used: automated exposure control, adjustment of mA and/or kV according to patient size. COMPARISON: None. FINDINGS: Image quality: There is mild motion artifact limiting evaluation. Bones and teeth: There is irregularity of the nasal bones bilaterally suggestive of mildly displaced fractures. Orbital rondon are intact. Sinus rondon show no fracture or deformity. Visualized portions of the mandible demonstrate no fractures or subluxation. Zygomatic arches are intact. Pterygoid plates are intact. Visualized portions of the skull base and auditory canals are intact. Sinuses: Paranasal sinuses are aerated, without fluid levels, mucosal thickening, or mucoceles. Mastoid air cells are aerated. Soft tissues: There is mild left periorbital and left paranasal soft tissue swelling. No soft tissue lacerations. The globes are intact. Vascular: Visualized vascular structures appear normal in the absence of contrast. Bony vascular foramina and canals are intact. IMPRESSION: 1. Mildly displaced fractures of the nasal bones bilaterally. Dictated by: Adalid Werner M.D. on 04/10/2022 at 20:59 Approved by: Adalid Werner M.D. on 04/10/2022 at 21:01
--- NOTE | 2022-04-10 19:00 | DI.CT.S_ITS ---
PROCEDURE: CT CERVICAL SPINE WO CON INDICATIONS: fall 1 month ago TECHNIQUE: Noncontrast 3 mm thick sections acquired from the skull base to the T4 level. Sagittal and coronal reformats were then constructed. For radiation dose reduction, the following was used: automated exposure control, adjustment of mA and/or kV according to patient size. COMPARISON: [facility], CT, CT CERVICAL SPINE WO CON, 04/26/2021, 18:54. FINDINGS: Image quality: Excellent. Bones: No fractures or subluxation. There is slight reversal of the cervical lordosis. Minimal anterolisthesis demonstrated at C3-C4. Multilevel degenerative disc disease and facet joint arthropathy are present. Visualized superior ribs are intact. Soft tissues: Prevertebral soft tissues are normal in thickness. No paravertebral hematomas. No apical pneumothoraces. IMPRESSION: 1. No acute fracture or subluxation. Dictated by: Aadlid Werner M.D. on 04/10/2022 at 21:01 Approved by: Adalid Werner M.D. on 04/10/2022 at 21:04
[2022-04-10 19:04] LABS: Bacteria Urine Many (>30); Culture Indicated Urine Specimen Cultured; Ictotest Urine Positive (Negative); RBC Urine 5-10/HPF (0-5/HPF); WBC Urine 10-30/HPF (0-5/HPF)
[2022-04-10 19:11] LABS: COVID19 -Nasal RAPID Negative (Negative)
--- NOTE | 2022-04-10 19:16 | ED_ITS ---
HPI - Weakness General Chief complaint: Weakness Stated complaint: generalized weakness Time Seen by Provider: 04/10/22 18:52 Source: patient and EMS Mode of arrival: EMS History of Present Illness HPI Narrative: The patient is a 61-year-old female history of atrial fibrillation on Eliquis, congestive heart failure, sleep apnea presenting today is generalized weakness. She says she face planted about a month ago her nose still hurts and she has of very mild bruise and swelling on her forehead. Today she says she can not walk she has not really been able to get up and walk for about a week. She has a bedside commode she frequently can not get to her bedside commode her does not help her. She was found covered in feces. Today she was the 1 that called 911 his she is too weak. She says that she has not had a bowel movement in 8 days although she was covered in urine and stool. She says she was walking after she fell on her head. She denies any fever or chills. No focal deficits no nausea or vomiting. She says she generally just can not care for herself at this time not sure why. Previously she was independent. Related Data Home Medications Medication Instructions Recorded Confirmed metoprolol tartrate 50 mg tablet 50 mg PO DAILY 07/11/18 04/10/22 apixaban 5 mg tablet (Eliquis) 5 mg PO BID 08/05/19 04/10/22 amlodipine 5 mg tablet 5 mg PO DAILY 04/10/22 04/10/22 chlorthalidone 25 mg tablet 25 mg PO DAILY 04/10/22 04/10/22 digoxin 125 mcg (0.125 mg) tablet 125 mcg PO DAILY 04/10/22 04/10/22 paroxetine HCl 30 mg tablet 30 mg PO DAILY 04/10/22 04/10/22 Allergies Allergy/AdvReac Type Severity Reaction Status Date / Time ketamine AdvReac Unknown hallucinati Verified 04/26/21 18:50 ons Review of Systems Review of Systems Narrative: GENERAL: See HPI HEENT: Denies sinus pain, ear pain, sore throat, difficulty swallowing, neck pain RESPIRATORY: Denies dyspnea, cough, wheezing, hemoptysis, sputum. CARDIOVASCULAR: Denies chest pain, palpitations, orthopnea, edema GASTROINTESTINAL: Denies nausea, vomiting, abdominal pain, diarrhea, constipation, melena. : See HPI MUSCULOSKELETAL: Denies weakness, joint pain, or bony pain SKIN: No rash, no erythema, no pruritus NEUROLOGIC: Denies weakness, dizziness, headache, numbness, change in speech, confusion PSYCHIATRIC: No concerning psychosocial issues. 12 point review of systems is negative except for those stated above and HPI Patient History Medical History (Updated 04/11/22 @ 00:00 by ) Afib Anticoagulated Atrial fibrillation, transient Chronic renal insufficiency Diabetes type 2, controlled ETOH abuse Fracture of distal end of fibula Heart failure Morbid obesity Pacemaker PEA (Pulseless electrical activity) (10/16/17) Sleep apnea in adult Surgical History History of third molar tooth extraction Hx of ventral hernia repair (08/12/19) Status post colonoscopy Status post surgery (07/26/10) Status post surgery (12/07/14) Family History (Updated 10/31/21 @ 23:51 by ANA PAULA Cerda) Father Diabetes mellitus Mother Diabetes mellitus Hyperlipidemia Hypertension Breast cancer Social History household members: spouse and family Smoking Status: Former smoker alcohol intake: current Smoking Status: Current every day smoker alcohol intake frequency: a few times a week Substance Use Type: marijuana Exam Initial Vital Signs Initial Vital Signs: Vital Signs Temperature 97.2 F L 04/10/22 18:05 Pulse Rate 68 04/10/22 18:05 Respiratory Rate 18 04/10/22 18:05 Blood Pressure 127/72 04/10/22 18:05 Pulse Oximetry 98 04/10/22 18:05 Oxygen Delivery Method 04/10/22 18:05 GENERAL: Alert 61-year-old female and in no acute distress. HEENT: Head atraumatic, contusion right forehead, nasal deformity, EOMI, pupils reactive, face symmetric, moist mucous membranes CARDIOVASCULAR: Regular rate and rhythm without murmurs, rubs or gallops. RESPIRATORY: Breath sounds equal bilaterally, no wheezes rales or rhonchi. ABDOMEN: Soft, nontender. Normoactive bowel sounds all 4 quadrants. No guarding or rebound. : Matute catheter now in place very dark urine EXTREMITIES: Normal range of motion, no clubbing or edema. Neurovascularly intact NEUROLOGICAL: Alert and oriented x4. SKIN: Warm, dry, no laceration, no petechiae, no rashes or lesions. Course Orders Ordered: ED Orders 04/10/22 18:34 COVID19 -Nasal RAPID/Pre-Proc Stat 04/10/22 18:35 Blood Culture Stat Complete Blood Count AUTO DIFF Stat Comprehensive Metabolic Panel Stat Lactate (Lactic Acid) Stat Lipase Stat Magnesium Stat Procalcitonin Stat Troponin & CK Cardiac Panel Stat 04/10/22 18:53 CT head/brain wo con Stat 04/10/22 19:00 CT abdomen pelvis w con Stat CT cervical spine wo con Stat CT facial bones wo con Stat 04/10/22 19:35 Ethanol (ETOH) Stat 04/10/22 21:46 Education, smoking cessation ONGOING Acetaminophen (Acetaminophen 325 Mg Tablet) 650 mg PO Q6H PRN PRN Reason: Fever/Mild Pain (1-3) Last Admin: 04/11/22 02:53 Dose: 650 mg Documented By: RAFY Amlodipine Besylate (Amlodipine 5 Mg Tablet) 5 mg PO DAILY SHAQUILLE Apixaban (Apixaban 5 Mg Tablet) 5 mg PO BID [facility] Digoxin (Digoxin 0.125 Mg Tablet) 0.125 mg PO DAILY [facility] Folic Acid (Folic Acid 1 Mg Tablet) 1 mg PO DAILY [facility] Sodium Chloride (Normal Saline 0.9%) 1,000 mls @ 150 mls/hr IV CONT SHAQUILLE Last Admin: 04/10/22 23:29 Dose: 150 mls/hr Documented By: RAFY Piperacillin Sod/Tazobactam (Sod 3.375 gm/ Sodium Chloride) 100 mls @ 25 mls/hr IV Q8H SHA[place] Last Admin: 04/11/22 00:46 Dose: 25 mls/hr Documented By: ARFY Influenza Virus Vaccine (Influenza Vaccine Qiv 0.5 Ml Syringe) 0.5 ml IM .ONCE ONE Stop: 04/12/22 09:01 Lorazepam (Lorazepam 2 Mg/Ml Inj) 0 mg IV CIWAPRN PRN; Protocol PRN Reason: Alcohol Withdrawal Metoprolol Tartrate (Metoprolol Ir 50 Mg Tablet) 50 mg PO DAILY [facility] Multivitamins (Multivitamin 1 Tablet) 1 tab PO DAILY [facility] Naloxone HCl (Naloxone 0.4 Mg/Ml Vial) 0.2 mg IV Q2MIN PRN PRN Reason: Opiate Reversal Ondansetron HCl (Ondansetron 4 Mg/2 Ml Inj) 4 mg IV Q6HR PRN PRN Reason: Nausea And Vomiting Paroxetine HCl (Paroxetine 20 Mg Tablet) 30 mg PO DAILY SHAQU[facility]LE Thiamine HCl (Thiamine 100 Mg Tablet) 100 mg PO DAILY SHAQU[facility]LE Stop: 04/14/22 09:01 Discontinued Medications Piperacillin Sod/Tazobactam (Sod 4.5 gm/ Sodium Chloride) 100 mls @ 200 mls/hr IV NOW ONE Stop: 04/10/22 19:17 Last Infusion: 04/10/22 20:56 Dose: 0 mls/hr Documented By: Admin: 04/10/22 19:45 Dose: 200 mls/hr Documented By: TODD POTASSIUM CHLORIDE IN WATER (Potassium Cl 10 Meq/100 Ml Laya) 10 meq in 100 mls @ 100 mls/hr IV Q1H SHA[place] Stop: 04/11/22 02:14 Last Admin: 04/11/22 02:22 Dose: 100 mls/hr Documented By: Infusion: 04/11/22 01:38 Dose: 100 mls/hr Documented By: Admin: 04/11/22 00:38 Dose: 100 mls/hr Documented By: AGKarla Infusion: 04/11/22 00:08 Dose: 100 mls/hr Documented By: Admin: 04/10/22 23:08 Dose: 100 mls/hr Documented By: Infusion: 04/10/22 22:46 Dose: 100 mls/hr Documented By: Admin: 04/10/22 21:46 Dose: 100 mls/hr Documented By: Infusion: 04/10/22 21:46 Dose: 0 mls/hr Documented By: Admin: 04/10/22 20:44 Dose: 100 mls/hr Documented By: TODD Magnesium Sulfate (Magnesium Sulfate) 2 gm in 50 mls @ 25 mls/hr IV NOW ONE Stop: 04/10/22 22:03 Last Admin: 04/10/22 20:46 Dose: 25 mls/hr Documented By: TODD Co-signed By: FREDY Vancomycin HCl (Vancomycin) 1,250 mg in 250 mls @ 250 mls/hr IV NOW ONE Stop: 04/10/22 21:04 Last Infusion: 04/10/22 22:01 Dose: 0 mls/hr Documented By: Admin: 04/10/22 20:56 Dose: 250 mls/hr Documented By: TODD Sodium Chloride (Normal Saline 0.9%) 1,000 mls @ 1,000 mls/hr IV BOLUS ONE Stop: 04/10/22 23:09 Last Admin: 04/10/22 22:30 Dose: 1,000 mls/hr Documented By: RAFY Ondansetron HCl (Ondansetron 4 Mg/2 Ml Inj) 4 mg IV Q6HR SHAQUILLE Last Admin: 04/11/22 02:37 Dose: Not Given Documented By: RAFY Potassium Chloride (Potassium Chloride 20 Meq Tab) 40 meq PO NOW ONE Stop: 04/10/22 20:04 Last Admin: 04/10/22 20:45 Dose: 40 meq Documented By: TODD Potassium Chloride (Potassium Chloride 20 Meq Tab) 40 meq PO NOW ONE Stop: 04/10/22 23:17 Last Admin: 04/11/22 00:04 Dose: 40 meq Documented By: RAFY Vital Signs Vital signs: Vital Signs - 8 hr 04/10/22 19:58 04/10/22 21:56 04/10/22 22:10 Temperature 97.2 F L Pulse Rate 67 79 76 Respiratory Rate 16 16 18 Blood Pressure 125/75 97/62 116/76 Pulse Oximetry 95 97 97 Oxygen Delivery Method Room Air Room Air Oxygen Flow Rate 0 MDM - Weakness Lab Data Result diagrams: 04/10/22 18:35 04/10/22 18:35 Labs: Lab Results 04/10/22 04/10/22 04/10/22 Range/Units 18:30 18:34 18:35 WBC 13.0 H (4.5-11.0) X10^3/uL RBC 2.90 L (4.0-5.2) X10^6/uL Hgb 11.7 L (12.0-16.0) g/dL Hct 32.2 L (36-46) % MCV 111.3 H (80-100) fL MCH 40.3 H (26-34) PG MCHC 36.2 H (30-36) % RDW 17.5 H (11.6-14.8) % Plt Count 415 H (150-400) X10^3/uL Neut % (Auto) 78.0 H (50-75) % Lymph % (Auto) 17.4 L (25-40) % [place] % (Auto) 3.9 (3-14) % Eos % (Auto) 0.4 L (2-4) % Baso % (Auto) 0.3 (0-2) % Neut # (Auto) 05236 H (9016-4687) /uL Lymph # (Auto) 2300 (8053-2730) /uL [place] # (Auto) 500 (0-900) /uL Eos # (Auto) 0 (0-450) /uL Baso # (Auto) 0 (0-100) /uL RBC Morphology See below Macrocytosis 2+ H Stomatocytes 2+ H Sodium (137-145) mmol/L Potassium (3.4-5.1) mmol/L Chloride (98-107) mmol/L Carbon Dioxide (22-32) mmol/L BUN (7-17) mg/dL Creatinine (0.52-1.04) mg/dL Estimated GFR (>60) mL/min BUN/Creatinine Ratio (6-22) Glucose (80-110) mg/dL Lactate (0.7-2.1) mmol/L Calcium (8.4-10.2) mg/dL Magnesium (1.6-2.3) mg/dL Total Bilirubin (0.2-1.3) mg/dL AST (14-36) IU/L ALT (<35) IU/L Alkaline Phosphatase (38-126) U/L Total Creatine Kinase (30-135) U/L CK-MB (CK-2) CK-MB (CK-2) Rel Index Troponin I (0.01-0.034) ng/mL Total Protein (6.3-8.2) g/dL Albumin (3.5-5.0) g/dL Globulin (1.7-4.1) g/dL Albumin/Globulin Ratio (1.0-2.8) Lipase (23-300) U/L Procalcitonin (<0.5) ng/mL Urine Color Yellow Urine Appearance Cloudy Urine pH 5.0 (4.5-8.0) Ur Specific [place] 1.020 (1.000-1.035) Urine Protein 2+ H (Negative) Urine Glucose (UA) Trace H (Negative) g/dL Urine Ketones Trace H (NEGATIVE) Urine Occult Blood 2+ H (Negative) Urine Nitrate Negative (Negative) Urine Bilirubin 1+ H (NEGATIVE) Ur Bilirubin Confirm Positive H (Negative) Urine Urobilinogen 4.0 H (0.2) E.U./dL Ur Leukocyte Esterase 3+ H (NEGATIVE) Urine RBC 5-10/hpf H (0-5/HPF) Urine WBC 10-30/hpf H (0-5/HPF) Urine Bacteria Many (>30) H (None) Ur Culture Indicated? Specimen cultured Ethyl Alcohol ( - 10) mg/dL SARS-CoV-2 (PCR) Negative (Negative) 04/10/22 04/10/22 04/10/22 Range/Units 18:35 18:35 18:35 WBC (4.5-11.0) X10^3/uL RBC (4.0-5.2) X10^6/uL Hgb (12.0-16.0) g/dL Hct (36-46) % MCV (80-100) fL MCH (26-34) PG MCHC (30-36) % RDW (11.6-14.8) % Plt Count (150-400) X10^3/uL Neut % (Auto) (50-75) % Lymph % (Auto) (25-40) % [place] % (Auto) (3-14) % Eos % (Auto) (2-4) % Baso % (Auto) (0-2) % Neut # (Auto) (2161-1911) /uL Lymph # (Auto) (2040-0059) /uL [place] # (Auto) (0-900) /uL Eos # (Auto) (0-450) /uL Baso # (Auto) (0-100) /uL RBC Morphology Macrocytosis Stomatocytes Sodium 125 L (137-145) mmol/L Potassium 1.9 L* (3.4-5.1) mmol/L Chloride 69 L* (98-107) mmol/L Carbon Dioxide 37 H (22-32) mmol/L BUN 12 (7-17) mg/dL Creatinine 0.81 (0.52-1.04) mg/dL Estimated GFR > 60 (>60) mL/min BUN/Creatinine Ratio 14.8 (6-22) Glucose 127 H (80-110) mg/dL Lactate 6.8 H* (0.7-2.1) mmol/L Calcium 8.1 L (8.4-10.2) mg/dL Magnesium 1.4 L (1.6-2.3) mg/dL Total Bilirubin 1.7 H (0.2-1.3) mg/dL AST 80 H (14-36) IU/L ALT 38 H (<35) IU/L Alkaline Phosphatase 191 H (38-126) U/L Total Creatine Kinase 65 (30-135) U/L CK-MB (CK-2) TNP CK-MB (CK-2) Rel Index TNP Troponin I 0.043 H (0.01-0.034) ng/mL Total Protein 7.3 (6.3-8.2) g/dL Albumin 3.5 (3.5-5.0) g/dL Globulin 3.8 (1.7-4.1) g/dL Albumin/Globulin Ratio 0.9 L (1.0-2.8) Lipase 66 (23-300) U/L Procalcitonin 0.17 (<0.5) ng/mL Urine Color Urine Appearance Urine pH (4.5-8.0) Ur Specific [place] (1.000-1.035) Urine Protein (Negative) Urine Glucose (UA) (Negative) g/dL Urine Ketones (NEGATIVE) Urine Occult Blood (Negative) Urine Nitrate (Negative) Urine Bilirubin (NEGATIVE) Ur Bilirubin Confirm (Negative) Urine Urobilinogen (0.2) E.U./dL Ur Leukocyte Esterase (NEGATIVE) Urine RBC (0-5/HPF) Urine WBC (0-5/HPF) Urine Bacteria (None) Ur Culture Indicated? Ethyl Alcohol ( - 10) mg/dL SARS-CoV-2 (PCR) (Negative) 04/10/22 04/10/22 Range/Units 19:35 21:29 WBC (4.5-11.0) X10^3/uL RBC (4.0-5.2) X10^6/uL Hgb (12.0-16.0) g/dL Hct (36-46) % MCV (80-100) fL MCH (26-34) PG MCHC (30-36) % RDW (11.6-14.8) % Plt Count (150-400) X10^3/uL Neut % (Auto) (50-75) % Lymph % (Auto) (25-40) % [place] % (Auto) (3-14) % Eos % (Auto) (2-4) % Baso % (Auto) (0-2) % Neut # (Auto) (5899-3968) /uL Lymph # (Auto) (8703-2105) /uL [place] # (Auto) (0-900) /uL Eos # (Auto) (0-450) /uL Baso # (Auto) (0-100) /uL RBC Morphology Macrocytosis Stomatocytes Sodium (137-145) mmol/L Potassium (3.4-5.1) mmol/L Chloride (98-107) mmol/L Carbon Dioxide (22-32) mmol/L BUN (7-17) mg/dL Creatinine (0.52-1.04) mg/dL Estimated GFR (>60) mL/min BUN/Creatinine Ratio (6-22) Glucose (80-110) mg/dL Lactate 6.0 H* (0.7-2.1) mmol/L Calcium (8.4-10.2) mg/dL Magnesium (1.6-2.3) mg/dL Total Bilirubin (0.2-1.3) mg/dL AST (14-36) IU/L ALT (<35) IU/L Alkaline Phosphatase (38-126) U/L Total Creatine Kinase (30-135) U/L CK-MB (CK-2) CK-MB (CK-2) Rel Index Troponin I (0.01-0.034) ng/mL Total Protein (6.3-8.2) g/dL Albumin (3.5-5.0) g/dL Globulin (1.7-4.1) g/dL Albumin/Globulin Ratio (1.0-2.8) Lipase (23-300) U/L Procalcitonin (<0.5) ng/mL Urine Color Urine Appearance Urine pH (4.5-8.0) Ur Specific [place] (1.000-1.035) Urine Protein (Negative) Urine Glucose (UA) (Negative) g/dL Urine Ketones (NEGATIVE) Urine Occult Blood (Negative) Urine Nitrate (Negative) Urine Bilirubin (NEGATIVE) Ur Bilirubin Confirm (Negative) Urine Urobilinogen (0.2) E.U./dL Ur Leukocyte Esterase (NEGATIVE) Urine RBC (0-5/HPF) Urine WBC (0-5/HPF) Urine Bacteria (None) Ur Culture Indicated? Ethyl Alcohol 140 H ( - 10) mg/dL SARS-CoV-2 (PCR) (Negative) Imaging Data Chest x-ray: Radiologist Impression: Signed Patient: Scarlet Luong MR#: [id number] : 1960 Acct:[id number] Age/Sex: 61 / F Date of Service: 04/10/22 Loc: ED Accession Number: [id number] ?? Procedure: XR chest 1V Ordering Provider: Mikayla Monahan D.O. PROCEDURE:? XR CHEST 1V ? INDICATIONS:? chest pain ? TECHNIQUE:? One view of the chest was acquired.? ? COMPARISON:[facility], , XR CHEST 1V, 11/10/2021, 12:32. ? FINDINGS:? ? Surgical changes and devices:? There is a cardiac pacemaker in appropriate position.? ? Lungs and pleura:? Lungs are clear.? No pleural effusions or pneumothorax.? ? Mediastinum:? Mediastinal contours appear normal.? Heart size is normal.? ? Bones and chest wall:? Multiple old left anterior rib fractures and right lateral rib fractures are noted.? No suspicious bony lesions.? Overlying soft tissues appear unremarkable.? ? IMPRESSION:? ? 1. No acute cardiopulmonary disease. ? 2. Multiple old rib fractures.? ? ? Dictated by: Carlos A Zelaya M.D. on 04/10/2022 at 18:48 ? ? CT scan - head: Radiologist Impression: Signed Patient: Scarlet Luong MR#: [id number] : 1960 Acct:[id number] Age/Sex: 61 / F Date of Service: 04/10/22 Loc: ED Accession Number: [id number] ?? Procedure: CT head/brain wo con Ordering Provider: Mikayla Monahan D.O. PROCEDURE:? CT HEAD/BRAIN WO CON ? INDICATIONS:? fall on eliquis ? TECHNIQUE:? Noncontrast 4.5 mm thick angled axial sections acquired from the foramen magnum to the vertex, with coronal and sagittal reformats.? For radiation dose reduction, the following was used:? automated exposure control, adjustment of mA and/or kV according to patient size.? ? COMPARISON:? [facility], CT, CT HEAD/BRAIN WO CON, 11/10/2021, 13:45. ? FINDINGS:? Image quality:? Excellent.? ? CSF spaces:? Basal cisterns are patent.? No extra-axial fluid collections.? There is mild cerebral volume loss, with resultant ventricular and sulcal prominence.? ? Brain:? No intracranial hemorrhage, mass, or mass effect.? There are subcortical, periventricular and deep white matter hypodensities consistent with mild chronic small vessel ischemic changes.? The rodas-white matter junction appears preserved.? There is intracranial internal carotid artery atherosclerosis.? ? Skull and face:? Calvarium appears intact.? There is mild irregularity of the right nasal bones suggestive of a mildly depressed fracture. ? Sinuses:? Visualized sinuses and mastoids are clear.? ? IMPRESSION:? ? 1.? No acute intracranial abnormality. ? ? 2. Irregularity of the right nasal bone suggestive of a mildly depressed fracture.? ? Dictated by: Adalid Werner M.D. on 04/10/2022 at 20:55 ? CT scan - abdomen/pelvis: Radiologist Impression: Signed Patient: Scarlet Luong MR#: [id number] : 1960 Acct:[id number] Age/Sex: 61 / F Date of Service: 04/10/22 Loc: ED Accession Number: [id number] ?? Procedure: CT abdomen pelvis w con Ordering Provider: Mikayla Monahan D.O. PROCEDURE:? CT ABDOMEN PELVIS W CON ? INDICATIONS:? pain sepsis ? TECHNIQUE:? After the administration of IV contrast, axial sections were acquired from the lung bases to the pubic symphysis.? Coronal and sagittal reformats were performed.? For radiation dose reduction, the following was used:? automated exposure control, adjustment of mA and/or kV according to patient size. ? COMPARISON:? None. ? FINDINGS:? Image quality:? Excellent.? ? CHEST:? Lower Neck: No lymphadenopathy by size criteria. Thyroid:? Visualized thyroid demonstrates no discrete nodules. Axillae: No lymphadenopathy by size criteria. Chest Wall:? Unremarkable.? Bones: Visualized osseous structures demonstrate no suspicious lesions. ? Lungs and Airways:? No acute consolidation.? There is mild dependent atelectasis bilaterally.? The trachea and central airways are patent. Pleura: No pneumothorax or pleural effusions.? ? Heart: Heart size is normal.? No pericardial effusion. Thoracic Vessels: The aorta and pulmonary arteries are normal in size.? Mediastinum and Zora: No lymphadenopathy by size criteria. Esophagus: No wall thickening. No hiatal hernia. ? Lung bases:? Unremarkable.? ? Heart:? Heart is normal in size. ? ? ABDOMEN: Liver:? There is diffuse hypoattenuation of the liver consistent with fatty infiltration. Gallbladder:? Within normal limits without calcified gallstones.? ? Biliary ducts:? No biliary ductal dilatation.? ? Pancreas:? Unremarkable.? ? Spleen:? Normal in size.? ? Adrenal Glands:? No adrenal nodules.? ? Kidneys and Ureters:? No hydronephrosis.? There are areas of renal cortical thinning in the kidneys bilaterally compatible sequelae of prior infection, trauma, or infarcts. ? ? Stomach and Bowel:? Stomach and small bowel loops are normal in caliber and wall thickness.? The appendix is normal in appearance.? There is moderate stool distention within the sigmoid colon distally with associated mild wall thickening and pericolonic fat stranding in the rectum.? Findings are compatible with stercoral colitis.? Colonic diverticulosis is present without acute diverticulitis. Peritoneum:? There is minimal free fluid within the pelvis.? No free air.? ? Ventral Wall: ? No hernia.? Abdominal Nodes:? No retroperitoneal or mesenteric adenopathy by size criteria.? Vessels:? Aorta and inferior vena cava are normal in size.? ? PELVIS: Pelvic Organs:? Unremarkable.? ? Bladder:? There is a Matute catheter within a nondistended urinary bladder.? ? Pelvic Nodes: No enlarged lymph nodes.? Miscellaneous: No inguinal hernias are seen. ? ? ? Bones:? Visualized osseous structures demonstrate no suspicious focal lesions. ? ? IMPRESSION:? ? 1. Moderate stool distention in the rectosigmoid colon with associated mild wall thickening and pericolonic fat stranding.? The findings are compatible with stercoral colitis. ? 2. Hepatic steatosis. ? 3. Colonic diverticulosis. ? 4. Minimal free fluid in the pelvis is nonspecific but likely reactive.? ? ? Dictated by: Adalid Werner M.D. on 04/10/2022 at 21:08 ? ? CT - cervical spine: Radiologist Impression: Signed Patient: Scarlet Luong MR#: [id number] : 1960 Acct:[id number] Age/Sex: 61 / F Date of Service: 04/10/22 Loc: ED Accession Number: [id number] ?? Procedure: CT cervical spine wo con Ordering Provider: Mikayla Monahan D.O. PROCEDURE:? CT CERVICAL SPINE WO CON ? INDICATIONS:? fall 1 month ago ? TECHNIQUE:? Noncontrast 3 mm thick sections acquired from the skull base to the T4 level.? Sagittal and coronal reformats were then constructed.? For radiation dose reduction, the following was used:? automated exposure control, adjustment of mA and/or kV according to patient size.? ? COMPARISON:? [facility], CT, CT CERVICAL SPINE WO CON, 04/26/2021, 18:54. ? FINDINGS:? Image quality:? Excellent.? ? Bones:? No fractures or subluxation.? There is slight reversal of the cervical lordosis.? Minimal anterolisthesis demonstrated at C3-C4.? Multilevel degenerative disc disease and facet joint arthropathy are present.? Visualized superior ribs are intact.? ? Soft tissues:? Prevertebral soft tissues are normal in thickness.? No paravertebral hematomas.? No apical pneumothoraces.? ? ? IMPRESSION:? ? 1. No acute fracture or subluxation.? Dictated by: Adalid Werner M.D. on 04/10/2022 at 21:01 ? ? CT face: Radiologist Impression: Patient: Scarlet Luong MR#: [id number] : 1960 Acct:[id number] Age/Sex: 61 / F Date of Service: 04/10/22 Loc: ED Accession Number: [id number] ?? Procedure: CT facial bones wo con Ordering Provider: Mikayla Monahan D.O. PROCEDURE:? CT FACIAL BONES WO CON ? INDICATIONS:? fall 1 month ago nose deformity ? TECHNIQUE:? Noncontrast 2.5 mm thick axial images acquired from the mandible through the frontal sinuses, with coronal and sagittal reformatting.? For radiation dose reduction, the following was used:? automated exposure control, adjustment of mA and/or kV according to patient size.? ? COMPARISON:? None. ? FINDINGS:? Image quality:? There is mild motion artifact limiting evaluation.? ? Bones and teeth:? There is irregularity of the nasal bones bilaterally suggestive of mildly displaced fractures.? Orbital rondon are intact.? Sinus rondon show no fracture or deformity.? Visualized portions of the mandible demonstrate no fractures or subluxation.? Zygomatic arches are intact.? Pterygoid plates are intact.? Visualized portions of the skull base and auditory canals are intact.? ? Sinuses:? Paranasal sinuses are aerated, without fluid levels, mucosal thickening, or mucoceles.? Mastoid air cells are aerated.? ? Soft tissues:? There is mild left periorbital and left paranasal soft tissue swelling.? No soft tissue lacerations.? The globes are intact. ? Vascular:? Visualized vascular structures appear normal in the absence of contrast.? Bony vascular foramina and canals are intact.? ? IMPRESSION:? ? 1. Mildly displaced fractures of the nasal bones bilaterally. ? ? Dictated by: Adalid Werner M.D. on 04/10/2022 at 20:59 ? ? Approved by: Adalid Werner M.D. on 04/10/2022 at 21:01 ? ECG Data Interpretation: Sinus rhythm rate 70 a white You PVC noted no ST changes no T-wave inversion actually improved from previous EKG MDM Narrative Medical decision making narrative: The patient is awake and alert. Initially hypotensive sepsis fluid is started for presumed is probable sepsis. She is found have a UTI. Lactic acid is quite elevated at 6.8 and decreases to 6.0. She is initially given empiric dose of Rocephin. CT scans are overall reassuring. She does have significant electrolyte abnormalities of hypokalemia 1.9 and hypo magnesium. Patient's blood pressure responded well to sepsis fluids. Potassium is replaced along with magnesium. She is able to lift both legs which generally weak awake alert seems mentally appropriate. His no need for vasopressor at this time. She continues to have elevated lactate. Priscila Lord, accepts patient. Septic Shock Criteria X lactic > 4 at any time [ ] SBP ,90 or MAP , 65 [ ] documentation of septic shock Time Septic Shock diagnosed: [ ] Septic Shock Determination. the patient has been screened and [ ] DOES meet criteria for septic shock X DOES NOT meet criteria for septic shock Goal directed therapy within 3 hours of septic shock or initial hypotension [ ] 30ml/kg fluid X ABW used [ ] IBW (33.6) used due to BMI > 30 [ ] patient or advocate declining fluid administration after shared decision making conversation Clinical reason for NOT initiating fluid bolus: [ reason CHF, not hypotensive renal failure etc] Within 6 hours (if continued hypotension after fluids or initial lactate >4) [ ] repeat volume status and tissue perfusion assessment documented after fluid bolus was completed at [Date/Time] Must include vital signs, cardiopulmonary exam, capillary refill, peripheral pulse evaluation, skin exam [ ] Initiate vasopressor therapy if persistent hypotension after adequate fluid bolus Discharge Plan Departure Patient Disposition: Admitted As Inpatient Clinical Impression: Sepsis, UTI (urinary tract infection) Admit Date/Time: 04/10/22 22:16 Admit Provider: Marie Lord
[2022-04-10 19:22] LABS: Alanine Aminotransferase 38 IU/L (<35); Albumin 3.5 g/dL (3.5-5.0); Albumin Globulin Ratio 0.9 (1.0-2.8); Alkaline Phosphatase 191 U/L (38-126); Aspartate Aminotransferase 80 IU/L (14-36); BUN Creatinine Ratio 14.8 (6-22); Bilirubin Total 1.7 mg/dL (0.2-1.3); Blood Urea Nitrogen 12 mg/dL (7-17); Calcium 8.1 mg/dL (8.4-10.2); Carbon Dioxide 37 mmol/L (22-32); Creatine Kinase 65 U/L (30-135); Estimated Glomerular Filt Rate > 60 mL/min (>60); Globulin 3.8 g/dL (1.7-4.1); Glucose 127 mg/dL (80-110); Lipase 66 U/L (23-300); Magnesium 1.4 mg/dL (1.6-2.3); Sodium 125 mmol/L (137-145); Total Protein 7.3 g/dL (6.3-8.2)
[2022-04-10 19:32] LABS: Add Manual Diff / Slide Review NO; Basophils Absolute Auto 0 /uL (0-100); Basophils Percent Auto 0.3 % (0-2); Eosinophils Absolute Auto 0 /uL (0-450); Eosinophils Percent Auto 0.4 % (2-4); Hematocrit 32.2 % (36-46); Hemoglobin 11.7 g/dL (12.0-16.0); Lymphocytes Absolute Auto 2300 /uL (1100-4500); Lymphocytes Percent Auto 17.4 % (25-40); Mean Corpuscular HGB Conc 36.2 % (30-36); Mean Corpuscular Hemoglobin 40.3 PG (26-34); Mean Corpuscular Volume 111.3 fL (80-100); Monocytes Absolute Auto 500 /uL (0-900); Monocytes Percent Auto 3.9 % (3-14); Neutrophils Absolute Auto 10100 /uL (1500-7000); Platelet Count 415 X10^3/uL (150-400); Red Cell Distribution Width 17.5 % (11.6-14.8); Troponin I 0.043 ng/mL (0.01-0.034)
[2022-04-10 19:39] LABS: HEMOLYSIS 18 (0-50)
[2022-04-10] MEDS: PIPERACILLIN/TAZO 4.5 GM in SODIUM CHLORIDE 0.9% 100 ML IV (19:45)
[2022-04-10 19:57] LABS: Procalcitonin 0.17 ng/mL (<0.5)
[2022-04-10 20:02] LABS: Potassium 1.9 mmol/L (3.4-5.1)
[2022-04-10 20:03] LABS: Chloride 69 mmol/L (98-107)
[2022-04-10 20:04] LABS: Lactate (Lactic Acid) 6.8 mmol/L (0.7-2.1)
[2022-04-10 20:37] LABS: Macrocytosis 2+; Stomatocytes 2+
[2022-04-10] MEDS: POTASSIUM CHLORIDE IN WATER 10 MEQ/100 ML PIGGYBACK 100 MEQ IV ×3 (20:44→23:08)
[2022-04-10] MEDS: POTASSIUM CHLORIDE 20 MEQ TAB 40 MEQ PO (20:45)
[2022-04-10] MEDS: MAGNESIUM SULFATE 2 GM/50 ML PIGGYBACK IV (20:46)
[2022-04-10] MEDS: VANCOMYCIN 1,250 MG/250 ML PIGGYBACK 250 MG IV (20:56)
[2022-04-10 21:35] LABS: Reflexed Lactate in 2 Hours Y
[2022-04-10] MEDS: SODIUM CHLORIDE 0.9% 1,000 ML 1000 ML IV (22:30)
[2022-04-10 22:37] LABS: Ethanol (ETOH) 140 mg/dL
[2022-04-10] MEDS: SODIUM CHLORIDE 0.9% 1,000 ML 150 ML IV (23:29)
[2022-04-11] VITALS (9 sets, daily range): BP systolic 103–123; BP diastolic 61–64; PULSE 64–86; RESP 16–18; TEMP 36.3–36.8; O2SAT 93–97
[2022-04-11] MEDS: POTASSIUM CHLORIDE 20 MEQ TAB 40 MEQ PO ×3 (00:04→17:18)
--- NOTE | 2022-04-11 00:33 | P.HP_ITS ---
History of Present Illness History of Present Illness Date Patient Seen: 04/10/22 Time Patient Seen: 21:00 Chief complaint: Weakness, depression, sepsis Narrative: Sammie Luong is a 61-year-old female with history of atrial fibrillation anticoagulated on Eliquis, congestive heart failure, sleep apnea, paced and unsuccessful history of cardioversions, obesity and sleep apnea, presented today for generalized weakness.? She says she fell face down about a month ago and complains her nose still hurts and she has of very mild bruise and swelling on her forehead.? She says she was walking after she fell on her head. Today she says she can not walk she has not really been able to get up and walk for about a week.?States she has been very depressed, gets shut down and spends all day in bed. She states she has no appetite, but does have 2 cocktails daily. She has a bedside commode she frequently can not get to her bedside commode stating her does not help her.? She was found covered in feces.? Today she was the 1 that called 911 his she is too weak.? She says that she has not had a bowel movement in 8 days although she was covered in urine and stool.? She denies any fever or chills, nausea or vomiting, chest pain, shortness of breath.?She says she generally just can not care for herself at this time not sure why.? Previously she was independent. She states she gets tearful as her parents about 5 years ago, very close together. Chest xray reported multiple old rib fractures, CT of the head reported a right nasal bone fracture, CT of the abdomen/pelvis reported stool distension, colonic diverticulosis, C-spine CT was negative and Face CT confirmed bilateral fracture of the nasal bones. She is afebrile, blood pressure is 116/76, heart rate 76, respiratory rate 18, oxygen saturation of 97% on room air she weighs 97 kg with a BMI of 34.4. She is got a mildly elevated WBC of 13 hemoglobin 11.7 hematocrit 32.2 platelet count 415 neutrophils 10,100 she has macrocytosis and stomatocytes present in the peripheral smear, sodium 125 potassium 1.9 chloride 69 bicarb 37 glucose 127 lactate was initially 6.8 and is 6.0 on repeat, total bilirubin 1.7 calcium 8.1 magnesium 1.4 AST 80 ALT 38 alk-phos 191 troponin was 0.43 she had a normal procalcitonin UA is positive for UTI and will be cultured, alcohol level was 140 and COVID-19 PCR is negative. Patient History Medical History (Updated 04/11/22 @ 00:00 by ) Afib Anticoagulated Atrial fibrillation, transient Chronic renal insufficiency Diabetes type 2, controlled ETOH abuse Fracture of distal end of fibula Heart failure Morbid obesity Pacemaker PEA (Pulseless electrical activity) (10/16/17) Sleep apnea in adult Surgical History History of third molar tooth extraction Hx of ventral hernia repair (08/12/19) Status post colonoscopy Status post surgery (07/26/10) Status post surgery (12/07/14) Family & Social History Family History (Updated 10/31/21 @ 23:51 by ANA PAULA eCrda) Father Diabetes mellitus Mother Diabetes mellitus Hyperlipidemia Hypertension Breast cancer Social History: household members spouse,family Prior Living Arrangements Mobile home Safety & Behavioral: Feels Safe in Current Yes Environment Been Physically Hurt or No Threatened By a Person Tobacco & Substance use: Tobacco type cannabis/marijuana Smoking Status Former smoker alcohol intake current alcohol intake frequency 0-2 drinks per day Substance Use Type marijuana Meds Home Medications and Allergies Home Medications Medication Instructions Recorded Confirmed Type metoprolol tartrate 50 mg tablet 50 mg PO DAILY 07/11/18 04/10/22 History apixaban 5 mg tablet (Eliquis) 5 mg PO BID 08/05/19 04/10/22 History amlodipine 5 mg tablet 5 mg PO DAILY 04/10/22 04/10/22 History chlorthalidone 25 mg tablet 25 mg PO DAILY 04/10/22 04/10/22 History digoxin 125 mcg (0.125 mg) tablet 125 mcg PO DAILY 04/10/22 04/10/22 History paroxetine HCl 30 mg tablet 30 mg PO DAILY 04/10/22 04/10/22 History Allergies Allergy/AdvReac Type Severity Reaction Status Date / Time ketamine AdvReac Unknown hallucinati Verified 04/26/21 18:50 ons Review of Systems Review of Systems ROS: Yes All systems reviewed with the patient and are negative except as otherwise documented Exam Vital Signs (past 8 hours): - 04/10/22 18:05 04/10/22 18:34 04/10/22 18:34 Temperature 97.2 F L Pulse Rate 68 79 Respiratory Rate 18 Blood Pressure 127/72 107/71 Pulse Oximetry 98 95 Oxygen Delivery Method Room Air Oxygen Flow Rate 04/10/22 18:41 04/10/22 18:41 04/10/22 19:00 Temperature Pulse Rate 84 85 Respiratory Rate 29 H Blood Pressure 96/54 L Pulse Oximetry 93 97 Oxygen Delivery Method Oxygen Flow Rate 04/10/22 19:58 04/10/22 21:56 04/10/22 22:10 Temperature 97.2 F L Pulse Rate 67 79 76 Respiratory Rate 16 16 18 Blood Pressure 125/75 97/62 116/76 Pulse Oximetry 95 97 97 Oxygen Delivery Method Room Air Room Air Oxygen Flow Rate 0 Oxygen Delivery Method Room Air Oxygen Flow Rate 0 Narrative Exam Narrative: Gen: Alert, oriented, well-developed 61 y.o. female, appears older than stated age, non-toxic appearing considering her high level of sepsis HEENT: normocephalic, atraumatic, conjunctiva clear, sclera non-icteric, oral mucosa pink and moist Neck: supple, full ROM, no JVD, trachea is midline Resp: Lungs CTA, non-labored breathing CV: RRR, no murmur or rubs Abd: soft, non-tender, normoactive BTs Skin: no lesions or rashes, dry and intact Neuro: Alert and oriented X 4 w/no focal deficits. Speech clear and coherent. Extremities: moves all 4 extremities, is ambulatory, negative Zaki?s sign Psyche: Depressed and labile affect. Objective Labs Result Diagrams: 04/10/22 18:35 04/10/22 18:35 Labs: Laboratory Results - last 24 hr 04/10/22 04/10/22 04/10/22 18:30 18:34 18:35 WBC 13.0 H RBC 2.90 L Hgb 11.7 L Hct 32.2 L MCV 111.3 H MCH 40.3 H MCHC 36.2 H RDW 17.5 H Plt Count 415 H Neut % (Auto) 78.0 H Lymph % (Auto) 17.4 L Turner % (Auto) 3.9 Eos % (Auto) 0.4 L Baso % (Auto) 0.3 Neut # (Auto) 07074 H Lymph # (Auto) 2300 Turner # (Auto) 500 Eos # (Auto) 0 Baso # (Auto) 0 RBC Morphology See below Macrocytosis 2+ H Stomatocytes 2+ H Sodium Potassium Chloride Carbon Dioxide BUN Creatinine Estimated GFR BUN/Creatinine Ratio Glucose Lactate Calcium Magnesium Total Bilirubin AST ALT Alkaline Phosphatase Total Creatine Kinase CK-MB (CK-2) CK-MB (CK-2) Rel Index Troponin I Total Protein Albumin Globulin Albumin/Globulin Ratio Lipase Procalcitonin Urine Color Yellow Urine Appearance Cloudy Urine pH 5.0 Ur Specific [place] 1.020 Urine Protein 2+ H Urine Glucose (UA) Trace H Urine Ketones Trace H Urine Occult Blood 2+ H Urine Nitrate Negative Urine Bilirubin 1+ H Ur Bilirubin Confirm Positive H Urine Urobilinogen 4.0 H Ur Leukocyte Esterase 3+ H Urine RBC 5-10/hpf H Urine WBC 10-30/hpf H Urine Bacteria Many (>30) H Ur Culture Indicated? Specimen cultured Ethyl Alcohol SARS-CoV-2 (PCR) Negative 04/10/22 04/10/22 04/10/22 18:35 18:35 18:35 WBC RBC Hgb Hct MCV MCH MCHC RDW Plt Count Neut % (Auto) Lymph % (Auto) Turner % (Auto) Eos % (Auto) Baso % (Auto) Neut # (Auto) Lymph # (Auto) Turner # (Auto) Eos # (Auto) Baso # (Auto) RBC Morphology Macrocytosis Stomatocytes Sodium 125 L Potassium 1.9 L* Chloride 69 L* Carbon Dioxide 37 H BUN 12 Creatinine 0.81 Estimated GFR > 60 BUN/Creatinine Ratio 14.8 Glucose 127 H Lactate 6.8 H* Calcium 8.1 L Magnesium 1.4 L Total Bilirubin 1.7 H AST 80 H ALT 38 H Alkaline Phosphatase 191 H Total Creatine Kinase 65 CK-MB (CK-2) TNP CK-MB (CK-2) Rel Index TNP Troponin I 0.043 H Total Protein 7.3 Albumin 3.5 Globulin 3.8 Albumin/Globulin Ratio 0.9 L Lipase 66 Procalcitonin 0.17 Urine Color Urine Appearance Urine pH Ur Specific [place] Urine Protein Urine Glucose (UA) Urine Ketones Urine Occult Blood Urine Nitrate Urine Bilirubin Ur Bilirubin Confirm Urine Urobilinogen Ur Leukocyte Esterase Urine RBC Urine WBC Urine Bacteria Ur Culture Indicated? Ethyl Alcohol SARS-CoV-2 (PCR) 04/10/22 04/10/22 19:35 21:29 WBC RBC Hgb Hct MCV MCH MCHC RDW Plt Count Neut % (Auto) Lymph % (Auto) Turner % (Auto) Eos % (Auto) Baso % (Auto) Neut # (Auto) Lymph # (Auto) Turner # (Auto) Eos # (Auto) Baso # (Auto) RBC Morphology Macrocytosis Stomatocytes Sodium Potassium Chloride Carbon Dioxide BUN Creatinine Estimated GFR BUN/Creatinine Ratio Glucose Lactate 6.0 H* Calcium Magnesium Total Bilirubin AST ALT Alkaline Phosphatase Total Creatine Kinase CK-MB (CK-2) CK-MB (CK-2) Rel Index Troponin I Total Protein Albumin Globulin Albumin/Globulin Ratio Lipase Procalcitonin Urine Color Urine Appearance Urine pH Ur Specific [place] Urine Protein Urine Glucose (UA) Urine Ketones Urine Occult Blood Urine Nitrate Urine Bilirubin Ur Bilirubin Confirm Urine Urobilinogen Ur Leukocyte Esterase Urine RBC Urine WBC Urine Bacteria Ur Culture Indicated? Ethyl Alcohol 140 H SARS-CoV-2 (PCR) Assessment & Plan Assessment & Plan narrative: Sammie Luong is admitted for sepsis associated with a urinary tract infection and for profound self neglect and depression Severe Sepsis Criteria [X ] bacterial source of infection suspected and documented, urine [ ] 2 SIRS Criteria met [X ] HR >90 [X ] RR >20 [ ] fever or hypothermia [X ] leukocytosis/leukopenia/bandemia [ ] Evidence of at least 1 organ system dysfunction [X ] Lactate > 2 [X ] BP < 90 or MAP <65, >40mm decrease from normal baseline [ ] Creat > 2.0 [ ] T. Bili > 2.0 [ ] platelet count < 100k [ ] altered mental status [ ] mechanical ventilation [X ] provider documentation of severe sepsis Severe Sepsis Determination. the patient has been screened and [X ] DOES meet criteria for severe sepsis [ ] DOES NOT meet criteria for severe sepsis Goal directed treatment Within 3 hours X blood cx drawn prior to abx cultures pending X broad spectrum abx started Vanco and Piptaz X lactic acid level checked X lactic redrawn within 6 hours if >2.0 Septic Shock Criteria X lactic > 4 at any time [ ] SBP ,90 or MAP , 65 [X ] documentation of septic shock Time Septic Shock diagnosed: [ ] Septic Shock Determination. the patient has been screened and [X ] DOES meet criteria for septic shock [ ]DOES NOT meet criteria for septic shock Goal directed therapy within 3 hours of septic shock or initial hypotension [X ] 30ml/kg fluid [ ] ABW used [X ] IBW (33.6) used due to BMI > 30 [ ] patient or advocate declining fluid administration after shared decision making conversation Clinical reason for NOT initiating fluid bolus: Within 6 hours (if continued hypotension after fluids or initial lactate >4) [ ] repeat volume status and tissue perfusion assessment documented after fluid bolus was completed at [Date/Time] Must include vital signs, cardiopulmonary exam, capillary refill, peripheral pulse evaluation, skin exam [ ] Initiate vasopressor therapy if persistent hypotension after adequate fluid bolus Metabolic derangement, acute and present on admission * Her potassium was 1.8 on admission and she was started on 6 10 mEq riders * She is also been given 140 mEq oral potassium * Magnesium was 1.5 and she was administered 2 g of IV magnesium in the ED * Calcium was 8.1 however corrected with albumin it was 8.8 within normal limits Depression, uncontrolled, present on admission * She is non-compliant with her medications * I have requested a psychiatry consult * May need SW to assist in identifying a therapist for her to work with ongoing * Continue/resume paroxetine 30 mg daily Essential hypertension, chronic * Continue/resume home dose of amlodipine and metoprolol when her blood pressure can support it Atrial fibrillation anticoagulated on apixaban * Continue/resume apixaban 5 mg po bid * Continue/resume digoxin 125 mcg daily VTE Prophylaxis: Wells risk score 0 X Patient is currently anticoagulated on Apixaban. Patient is admitted to the inpatient service due to the severity of disease, risks of further disease progression and this stay is expected to exceed 2 midnights. FEN: IV fluids: NS at 150 ml/hour, diet: heart healthy, labs: CBC, C/BMP, liver enzymes, Mag, PT/INR Consultants care and involvement in the patient?s care is appreciated. Dispo: unknown at this time. Code status: ?Full code as discussed with the patient who identifies her Santos as her surrogate and POA. [X] I have utilized all available immediate resources to obtain, update, or review of the patient's current medications VTE Deep Vein Thrombosis/Pulmonary Embolism Present on Admission: No MIPS - Admit I confirm the patient?s Advance Care Plan is present, Code status is documented, Surrogate decision maker is in patient?s record: Yes MIPS - DC The patient has current or prior documentation of left ventricular ejection fraction (LVEF) less than 40%, or moderate or severely depressed left ventricular systolic function.: No Quality VTE Deep Vein Thrombosis/Pulmonary Embolism Present on Admission: No
[2022-04-11] MEDS: POTASSIUM CHLORIDE IN WATER 10 MEQ/100 ML PIGGYBACK 100 MEQ IV ×3 (00:38→04:14)
[2022-04-11] MEDS: PIPERACILLIN/TAZO 3.375 GM in SODIUM CHLORIDE 0.9% 100 ML IV (00:46)
--- NOTE | 2022-04-11 02:41 | PC.NURSE ---
Admit/NOC Shift Note- Patient arrived to room via stretcher from ER at 2210. Slider board used to transfer from strecher to bed. Patient alert and oriented and able to make needs known to staff. Admit questions done, medications reviewed, physical assessment done, and skin check completed. Patient oriented to bed and bed controls, room, lights, phone, menu, and call casey/tv remote. Safety measures in place. Patient agrees to call for assistance. Call casey and phone within reach. will continue to monitor.
[2022-04-11] MEDS: ACETAMINOPHEN 325 MG TABLET 650 MG PO ×2 (02:53→20:23)
[2022-04-11] MEDS: SODIUM CHLORIDE 0.9% 1,000 ML 150 ML IV ×2 (06:45→18:29)
[2022-04-11 07:23] LABS: Add Manual Diff / Slide Review NO; Basophils Absolute Auto 200 /uL (0-100); Basophils Percent Auto 1.4 % (0-2); Eosinophils Absolute Auto 0 /uL (0-450); Eosinophils Percent Auto 0.4 % (2-4); Hematocrit 28.8 % (36-46); Lymphocytes Absolute Auto 1400 /uL (1100-4500); Mean Corpuscular HGB Conc 34.8 % (30-36); Mean Corpuscular Volume 112.1 fL (80-100); Monocytes Absolute Auto 400 /uL (0-900); Monocytes Percent Auto 3.4 % (3-14); Neutrophils Absolute Auto 9700 /uL (1500-7000); Neutrophils Percent Auto 82.8 % (50-75); Platelet Count 314 X10^3/uL (150-400); Red Blood Cell Count 2.57 X10^6/uL (4.0-5.2); White Blood Cell Count 11.7 X10^3/uL (4.5-11.0)
[2022-04-11 07:36] LABS: BUN Creatinine Ratio 16.4 (6-22); Blood Urea Nitrogen 10 mg/dL (7-17); Calcium 7.3 mg/dL (8.4-10.2); Carbon Dioxide 37 mmol/L (22-32); Chloride 83 mmol/L (98-107); Estimated Glomerular Filt Rate > 60 mL/min (>60); Glucose 116 mg/dL (80-110); HEMOLYSIS 20 (0-50); Lactate (Lactic Acid) 2.1 mmol/L (0.7-2.1); Sodium 128 mmol/L (137-145)
[2022-04-11 07:39] LABS: Potassium 2.7 mmol/L (3.4-5.1)
[2022-04-11 07:48] LABS: Troponin I 0.041 ng/mL (0.01-0.034)
[2022-04-11 08:00] LABS: Macrocytosis 2+
[2022-04-11 08:01] LABS: Anisocytosis 1+; Stomatocytes 1+
[2022-04-11 08:13] LABS: Alanine Aminotransferase 33 IU/L (<35); Albumin 2.8 g/dL (3.5-5.0); Albumin Globulin Ratio 0.8 (1.0-2.8); Alkaline Phosphatase 171 U/L (38-126); Aspartate Aminotransferase 70 IU/L (14-36); Bilirubin Total 2.3 mg/dL (0.2-1.3); Bilirubin Unconjugated 1.5 mg/dL (0.0-1.1); Globulin 3.3 g/dL (1.7-4.1); HEMOLYSIS 23 (0-50); Total Protein 6.1 g/dL (6.3-8.2)
[2022-04-11] MEDS: cefTRIAXone 2,000 MG in SODIUM CHLORIDE 0.9% 100 ML 200 MG IV (09:03)
[2022-04-11] MEDS: AMLODIPINE 5 MG TABLET PO (09:04)
[2022-04-11] MEDS: DIGOXIN 0.125 MG TABLET PO (09:04)
[2022-04-11] MEDS: MULTIVITAMIN 1 TABLET 1 TAB PO (09:04)
[2022-04-11] MEDS: APIXABAN 5 MG TABLET PO ×2 (09:05→20:23)
[2022-04-11] MEDS: METOPROLOL IR 50 MG TABLET PO (09:05)
[2022-04-11] MEDS: THIAMINE 100 MG TABLET PO (09:05)
[2022-04-11] MEDS: FOLIC ACID 1 MG TABLET PO (09:05)
[2022-04-11] MEDS: PARoxetine 20 MG TABLET 30 MG PO (09:06)
[2022-04-11 09:18] LABS: Reflexed Lactate in 2 Hours Y
--- NOTE | 2022-04-11 11:33 | CM.DANOTE ---
GRACE Assessment Note Patient is 61 y/o female who presents to ED via EMS due to concern for weakness, sepsis and Depression. Patient was admitted to due to concern for Sepsis and UTI. Patient's PCP is Corie Cleaning, Patient has [facility] and Medicare A[employer] insurance. Patient has hx of AFib, Hypokalemia, Alcohol use Disorder, Depression, Hyponatremia and type 2 diabetes. ROLLOUT MANAGER and GRACE Newton, RN enter room to meet with patient. Patient presents as A/Ox4. Patient endorses she is feeling better than yesterday. Patient endorses she resides at home with and is not very mobile at home. Patient endorses she transfers four steps from her bed to the bedside commode. Patient endorses she has not left the house in quite some time and when she does she relies on public transportation due to her lack of mobility. Patient endorses she has a bedside commode, bath bench, FWW, and wheelchair at home. Patient endorses hx of using walking sticks as well. Patient endorses hx of Malaika WELCH, per EMR last HH referral was in November 2021. Patient endorses hx [place] [facility] ROLLOUT MANAGER discusses the importance of engaging in PT and OT. Patient endorses she declined PT today because she was feeling tired and week but plans to engage in service tomorrow. Patient endorses preference for SNF rehab and [place] [facility] ROLLOUT MANAGER provides patient with list of Medicare choice list to review other options. GRACE Newton [place] [facility] and leaves regarding SNF rehab referral. Plan: Patient to engage in pending PT/OT GRACE segal to seek for SNF rehab upon medical clearance with [place] [facility] RENÉ Velasquez Discharge Planning/Care Management CM Discharge Assessment Start: 04/11/22 10:18 Freq: Status: Active Protocol: Document 04/11/22 11:27 LN (Rec: 04/11/22 11:32 LN [id number]) Discharge Planning Assessment Assigned Machine Shop Lead Man RENÉ Lou Advance Directives? Yes Advance Directives on File No History Provided By Patient,Medical Record Has Patient been admitted in last 30 No days? Prior Living Arrangements Mobile home Household Members spouse,family Type of transportation used prior to Public Transportation admit Independent with ADL's No Is patient alert and oriented? Yes Needs Assistance With Bathing,Grooming,Home Chores / Shopping DME Already Rented / Owned Bath Bench,Wheelchair,FWW / Walker Patient/Family Preference Long Term Facility Comment Therapy evaluations pending. Referrals Initiated Long Term,Other If patient plan is SNF: Has PASSR been No completed? Medicare Choice List Provided Yes SN[place] [facility] [place] SNF been contacted Yes Comment DCP left VM with [place] [facility] [place] 04/11/22 Please Provide Date Initial DC 04/11/22 Assessment Was Performed
[2022-04-11 12:07] LABS: Magnesium < 0.2 mg/dL (1.6-2.3)
--- NOTE | 2022-04-11 12:16 | PT-IP ANOTE ---
PT eval order received. EMR reviewed. checked on pt and pt refused PT. obtained PLOF and home set up but pt stated that she does not want to move or get out of bed. asked pt if PT can checked back in the afternoon but refused. stated that she needs to rest for today and will do PT tomorrow.
--- NOTE | 2022-04-11 12:20 | OT.IPNOTE ---
Pt refusing to do OT eval today and wanting to the whole day to rest, therefore to recheck on the pt for OT eval tomorrow.
[2022-04-11] MEDS: MAGNESIUM SULFATE 4 GM/100 ML PIGGYBACK IV (12:51)
--- NOTE | 2022-04-11 13:11 | PM.PN.1 ---
Subjective Subjective Date Patient Seen: 04/11/22 Interval history: 61 year old female admitted with progressive weakness over the past month or so. She reports profound depression as well with this inability to walk and more and more would just like to sit on the couch and watch TV. She was referred to psychiatry for depression, but could not gather up the will to fill out the required paperwork. She has no SI or HI. She has multiple electrolyte derangements. Magnesium was very very low, undetectable even on testing today. Exam Vital Signs (past 8 hours): - 04/11/22 05:17 04/11/22 07:00 04/11/22 09:04 Temperature 97.3 F L 97.4 F L Pulse Rate 86 80 80 Respiratory Rate 18 18 Blood Pressure 116/63 118/64 118/64 Pulse Oximetry 94 94 Oxygen Delivery Method Oxygen Flow Rate 0 0 04/11/22 11:00 04/11/22 10:00 Temperature 97.6 F Pulse Rate 78 Respiratory Rate 18 Blood Pressure 117/63 Pulse Oximetry 95 95 Oxygen Delivery Method Room Air Oxygen Flow Rate 0 Oxygen Delivery Method Room Air Oxygen Flow Rate 0 Narrative Exam Narrative: Gen: Alert, oriented, well-developed 61 y.o. female, appears older than stated age HEENT: normocephalic, atraumatic, conjunctiva clear, sclera non-icteric, oral mucosa pink and moist Neck: supple, full ROM, no JVD, trachea is midline Resp: Lungs CTA, non-labored breathing CV: RRR, no murmur or rubs Abd: soft, non-tender, normoactive BTs Skin: no lesions or rashes, dry and intact Neuro: Alert and oriented X 4 w/no focal deficits. Strength is +5/5 in UE and LE bilaterally. No reported deficits in sensation to light touch. Speech clear and coherent. Extremities: No edema or joint effusions Psyche: Depressed and labile affect. Objective Labs Result Diagrams: 04/11/22 07:07 04/11/22 07:07 Labs: Laboratory Results - last 24 hr 04/10/22 04/10/22 04/10/22 18:30 18:34 18:35 WBC 13.0 H RBC 2.90 L Hgb 11.7 L Hct 32.2 L MCV 111.3 H MCH 40.3 H MCHC 36.2 H RDW 17.5 H Plt Count 415 H Neut % (Auto) 78.0 H Lymph % (Auto) 17.4 L [place] % (Auto) 3.9 Eos % (Auto) 0.4 L Baso % (Auto) 0.3 Neut # (Auto) 93135 H Lymph # (Auto) 2300 [place] # (Auto) 500 Eos # (Auto) 0 Baso # (Auto) 0 RBC Morphology See below Anisocytosis Macrocytosis 2+ H Stomatocytes 2+ H Sodium Potassium Chloride Carbon Dioxide BUN Creatinine Estimated GFR BUN/Creatinine Ratio Glucose Lactate Calcium Magnesium Total Bilirubin Conjugated Bilirubin Unconjugated Bilirubin AST ALT Alkaline Phosphatase Total Creatine Kinase CK-MB (CK-2) CK-MB (CK-2) Rel Index Troponin I Total Protein Albumin Globulin Albumin/Globulin Ratio Lipase Procalcitonin Urine Color Yellow Urine Appearance Cloudy Urine pH 5.0 Ur Specific [place] 1.020 Urine Protein 2+ H Urine Glucose (UA) Trace H Urine Ketones Trace H Urine Occult Blood 2+ H Urine Nitrate Negative Urine Bilirubin 1+ H Ur Bilirubin Confirm Positive H Urine Urobilinogen 4.0 H Ur Leukocyte Esterase 3+ H Urine RBC 5-10/hpf H Urine WBC 10-30/hpf H Urine Bacteria Many (>30) H Ur Culture Indicated? Specimen cultured Ethyl Alcohol SARS-CoV-2 (PCR) Negative 04/10/22 04/10/22 04/10/22 18:35 18:35 18:35 WBC RBC Hgb Hct MCV MCH MCHC RDW Plt Count Neut % (Auto) Lymph % (Auto) [place] % (Auto) Eos % (Auto) Baso % (Auto) Neut # (Auto) Lymph # (Auto) [place] # (Auto) Eos # (Auto) Baso # (Auto) RBC Morphology Anisocytosis Macrocytosis Stomatocytes Sodium 125 L Potassium 1.9 L* Chloride 69 L* Carbon Dioxide 37 H BUN 12 Creatinine 0.81 Estimated GFR > 60 BUN/Creatinine Ratio 14.8 Glucose 127 H Lactate 6.8 H* Calcium 8.1 L Magnesium 1.4 L Total Bilirubin 1.7 H Conjugated Bilirubin Unconjugated Bilirubin AST 80 H ALT 38 H Alkaline Phosphatase 191 H Total Creatine Kinase 65 CK-MB (CK-2) TNP CK-MB (CK-2) Rel Index TNP Troponin I 0.043 H Total Protein 7.3 Albumin 3.5 Globulin 3.8 Albumin/Globulin Ratio 0.9 L Lipase 66 Procalcitonin 0.17 Urine Color Urine Appearance Urine pH Ur Specific [place] Urine Protein Urine Glucose (UA) Urine Ketones Urine Occult Blood Urine Nitrate Urine Bilirubin Ur Bilirubin Confirm Urine Urobilinogen Ur Leukocyte Esterase Urine RBC Urine WBC Urine Bacteria Ur Culture Indicated? Ethyl Alcohol SARS-CoV-2 (PCR) 04/10/22 04/10/22 04/11/22 19:35 21:29 07:07 WBC RBC Hgb Hct MCV MCH MCHC RDW Plt Count Neut % (Auto) Lymph % (Auto) [place] % (Auto) Eos % (Auto) Baso % (Auto) Neut # (Auto) Lymph # (Auto) [place] # (Auto) Eos # (Auto) Baso # (Auto) RBC Morphology Anisocytosis Macrocytosis Stomatocytes Sodium Potassium Chloride Carbon Dioxide BUN Creatinine Estimated GFR BUN/Creatinine Ratio Glucose Lactate 6.0 H* Calcium Magnesium Total Bilirubin 2.3 H Conjugated Bilirubin 0.0 Unconjugated Bilirubin 1.5 H AST 70 H ALT 33 Alkaline Phosphatase 171 H Total Creatine Kinase CK-MB (CK-2) CK-MB (CK-2) Rel Index Troponin I Total Protein 6.1 L Albumin 2.8 L Globulin 3.3 Albumin/Globulin Ratio 0.8 L Lipase Procalcitonin Urine Color Urine Appearance Urine pH Ur Specific [place] Urine Protein Urine Glucose (UA) Urine Ketones Urine Occult Blood Urine Nitrate Urine Bilirubin Ur Bilirubin Confirm Urine Urobilinogen Ur Leukocyte Esterase Urine RBC Urine WBC Urine Bacteria Ur Culture Indicated? Ethyl Alcohol 140 H SARS-CoV-2 (PCR) 04/11/22 04/11/22 04/11/22 07:07 07:07 07:07 WBC 11.7 H RBC 2.57 L Hgb 10.0 L Hct 28.8 L MCV 112.1 H MCH 39.0 H MCHC 34.8 RDW 18.0 H Plt Count 314 Neut % (Auto) 82.8 H Lymph % (Auto) 12.0 L [place] % (Auto) 3.4 Eos % (Auto) 0.4 L Baso % (Auto) 1.4 Neut # (Auto) 9700 H Lymph # (Auto) 1400 [place] # (Auto) 400 Eos # (Auto) 0 Baso # (Auto) 200 H RBC Morphology See below Anisocytosis 1+ H Macrocytosis 2+ H Stomatocytes 1+ H Sodium 128 L Potassium 2.7 L* Chloride 83 L Carbon Dioxide 37 H BUN 10 Creatinine 0.61 Estimated GFR > 60 BUN/Creatinine Ratio 16.4 Glucose 116 H Lactate 2.1 Calcium 7.3 L Magnesium Total Bilirubin Conjugated Bilirubin Unconjugated Bilirubin AST ALT Alkaline Phosphatase Total Creatine Kinase CK-MB (CK-2) CK-MB (CK-2) Rel Index Troponin I Total Protein Albumin Globulin Albumin/Globulin Ratio Lipase Procalcitonin Urine Color Urine Appearance Urine pH Ur Specific [place] Urine Protein Urine Glucose (UA) Urine Ketones Urine Occult Blood Urine Nitrate Urine Bilirubin Ur Bilirubin Confirm Urine Urobilinogen Ur Leukocyte Esterase Urine RBC Urine WBC Urine Bacteria Ur Culture Indicated? Ethyl Alcohol SARS-CoV-2 (PCR) 04/11/22 04/11/22 04/11/22 07:07 07:07 09:34 WBC RBC Hgb Hct MCV MCH MCHC RDW Plt Count Neut % (Auto) Lymph % (Auto) [place] % (Auto) Eos % (Auto) Baso % (Auto) Neut # (Auto) Lymph # (Auto) [place] # (Auto) Eos # (Auto) Baso # (Auto) RBC Morphology Anisocytosis Macrocytosis Stomatocytes Sodium Potassium Chloride Carbon Dioxide BUN Creatinine Estimated GFR BUN/Creatinine Ratio Glucose Lactate 2.0 Calcium Magnesium < 0.2 L* Total Bilirubin Conjugated Bilirubin Unconjugated Bilirubin AST ALT Alkaline Phosphatase Total Creatine Kinase CK-MB (CK-2) CK-MB (CK-2) Rel Index Troponin I 0.041 H Total Protein Albumin Globulin Albumin/Globulin Ratio Lipase Procalcitonin Urine Color Urine Appearance Urine pH Ur Specific [place] Urine Protein Urine Glucose (UA) Urine Ketones Urine Occult Blood Urine Nitrate Urine Bilirubin Ur Bilirubin Confirm Urine Urobilinogen Ur Leukocyte Esterase Urine RBC Urine WBC Urine Bacteria Ur Culture Indicated? Ethyl Alcohol SARS-CoV-2 (PCR) [facility] Medical History (Updated 04/11/22 @ 00:00 by ) Afib Anticoagulated Atrial fibrillation, transient Chronic renal insufficiency Diabetes type 2, controlled ETOH abuse Fracture of distal end of fibula Heart failure Morbid obesity Pacemaker PEA (Pulseless electrical activity) (10/16/17) Sleep apnea in adult Surgical History History of third molar tooth extraction Hx of ventral hernia repair (08/12/19) Status post colonoscopy Status post surgery (07/26/10) Status post surgery (12/07/14) Family History (Updated 10/31/21 @ 23:51 by ANA PAULA Cerda) Father Diabetes mellitus Mother Diabetes mellitus Hyperlipidemia Hypertension Breast cancer Social History household members: spouse Smoking Status: Former smoker alcohol intake: current Assessment & Plan Assessment & Plan narrative: Sammie Luong is admitted for sepsis associated with a urinary tract infection and multiple electrolyte derangements. Sepsis with elevated lactate, bilirubin, and hypotension secondary to urinary source - SOFA score of 3 due to noted organ dysfunction above. - was on zosyn empirically, can narrow to ceftriaxone today given improvement Hypokalemia, Severe hypomagnesemia, acute and present on admission - low Mg and K on admit. Repeat Mg <0.2. Will repeat testing - continue repletion - suspect electrolyte derangements have contributed to her worsening weakness. Depression, uncontrolled, present on admission - resume paroxetine 30 mg daily - consider additional antidepressants, given no SI or HI, can defer psychiatry evaluation to outpatient setting. Essential hypertension, chronic Continue/resume home dose of amlodipine and metoprolol when her blood pressure can support it Chronic Atrial fibrillation anticoagulated on apixaban Continue/resume apixaban 5 mg po bid Continue/resume digoxin 125 mcg daily Weakness - suspect progressive weakness in setting of electrolyte abnormalities and deconditioning in setting of depression. - no focal exam findings to suggest spinal pathologies at this time (good b/l LE strength in bed and no sensory deficits) - given macrocytosis will check a b12 level. - continue PT/OT. - alcohol use may also be contributing Alcohol use and mild alcoholic hepatitis - suspect mild alcoholic hepatitis with AST 70 and mild bilirubin elevation. - check INR to evaluate discriminant function, though do not suspect need for steroids at this time given only mild AST elevation. Myocardial injury Patient is admitted to the inpatient service due to the severity of disease, risks of further disease progression and this stay is expected to exceed 2 midnights. Dispo: likely SNF Code status: ?Full code as discussed with the patient who identifies her Santos as her surrogate and POA. [X] I have utilized all available immediate resources to obtain, update, or review of the patient's current medications MIPS - Admit I confirm the patient?s Advance Care Plan is present, Code status is documented, Surrogate decision maker is in patient?s record: Yes Time Spent With Patient Critical Care time: I spent a total of [] minutes of critical care time on this patient's care today; this time is exclusive of procedural time. Scores SOFA PaO2/FIO2: >=400 mmHg Platelets: >= 150 Bilirubin: 2.0-5.9 mg/dL Hypotension: MAP < 70 mmHg [place] Coma Scale: 15 Renal: < 1.2 mg/dL SOFA Score: 3 Quality VTE Deep Vein Thrombosis/Pulmonary Embolism Present on Admission: No
--- NOTE | 2022-04-11 15:28 | CM.DPC ---
DCP Note Continued ENERGY CONSULTANT receives call from Cheyenne at [facility] who reports that she does not contract with [employer] and would need to seek authorization when PT and OT evaluations are in. Cheyenne also states that patient would need Covid booster because they do not have any rooms for quarantine. ENERGY CONSULTANT calls Leandra at [facility] who reports that they accept [employer] network and has beds, can review patient. ENERGY CONSULTANT faxes clinicals for review and requests PT and OT notes for auth. ENERGY CONSULTANT and DCP Lamar RN enter room to provide this information to patient. Patient presents as tearful due to primary choice being [facility]. Patient states that she has straight Medicare insurance. ENERGY CONSULTANT states that DCPs will look into patient's insurance and continue to seek [facility] as option. Patient endorses that she is willing to get covid booster as well. ENERGY CONSULTANT and DCP discuss with patient that the SNF rehab search will need to broaden due to insurance barriers. Patient endorses understanding but concern due to her 's lack of transportation to visit her out of town. Plan: Pending PT/OT eval, continue to seek SNF rehab placement. Dasha Castellano, ASSISTANT MANAGER AIRSIDE OPERATIONS
[2022-04-11 23:10] LABS: HEMOLYSIS < 15 (0-50); Magnesium 2.6 mg/dL (1.6-2.3)
[2022-04-11 23:16] LABS: Potassium 2.7 mmol/L (3.4-5.1)
[2022-04-12] VITALS (12 sets, daily range): BP systolic 93–127; BP diastolic 46–75; PULSE 60–79; RESP 16–20; TEMP 36.1–37.3; O2SAT 95–97
[2022-04-12] MEDS: ACETAMINOPHEN 325 MG TABLET 650 MG PO ×2 (03:08→17:37)
[2022-04-12] MEDS: SODIUM CHLORIDE 0.9% 1,000 ML 150 ML IV (03:12)
[2022-04-12 06:50] LABS: Add Manual Diff / Slide Review NO; Basophils Absolute Auto 100 /uL (0-100); Eosinophils Absolute Auto 200 /uL (0-450); Eosinophils Percent Auto 2.3 % (2-4); Hematocrit 27.2 % (36-46); Hemoglobin 9.7 g/dL (12.0-16.0); Lymphocytes Absolute Auto 1500 /uL (1100-4500); Lymphocytes Percent Auto 15.5 % (25-40); Mean Corpuscular HGB Conc 35.7 % (30-36); Mean Corpuscular Hemoglobin 40.4 PG (26-34); Mean Corpuscular Volume 113.4 fL (80-100); Monocytes Absolute Auto 300 /uL (0-900); Monocytes Percent Auto 3.4 % (3-14); Neutrophils Absolute Auto 7600 /uL (1500-7000); Neutrophils Percent Auto 77.8 % (50-75); Platelet Count 320 X10^3/uL (150-400); Red Cell Distribution Width 17.8 % (11.6-14.8); White Blood Cell Count 9.8 X10^3/uL (4.5-11.0)
[2022-04-12 07:00] LABS: BUN Creatinine Ratio 14.3 (6-22); Blood Urea Nitrogen 7 mg/dL (7-17); Calcium 7.1 mg/dL (8.4-10.2); Carbon Dioxide 32 mmol/L (22-32); Chloride 89 mmol/L (98-107); Estimated Glomerular Filt Rate > 60 mL/min (>60); Glucose 87 mg/dL (80-110); HEMOLYSIS < 15 (0-50); Sodium 127 mmol/L (137-145)
[2022-04-12 07:04] LABS: Potassium 2.6 mmol/L (3.4-5.1)
[2022-04-12 07:31] LABS: Anisocytosis 1+; Macrocytosis 2+
[2022-04-12 07:55] LABS: Vitamin B12 Reflex MMA if <400 365 pg/mL (239-931)
[2022-04-12 08:08] LABS: Alanine Aminotransferase 27 IU/L (<35); Albumin 2.4 g/dL (3.5-5.0); Albumin Globulin Ratio 0.8 (1.0-2.8); Alkaline Phosphatase 145 U/L (38-126); Aspartate Aminotransferase 45 IU/L (14-36); Bilirubin Total 1.7 mg/dL (0.2-1.3); Bilirubin Unconjugated 1.2 mg/dL (0.0-1.1); HEMOLYSIS < 15 (0-50); Total Protein 5.4 g/dL (6.3-8.2)
[2022-04-12] MEDS: PARoxetine 20 MG TABLET 30 MG PO (08:54)
[2022-04-12] MEDS: MULTIVITAMIN 1 TABLET 1 TAB PO (08:54)
[2022-04-12] MEDS: DIGOXIN 0.125 MG TABLET PO (08:54)
[2022-04-12] MEDS: POTASSIUM CHLORIDE 20 MEQ TAB 40 MEQ PO ×2 (08:55→16:50)
[2022-04-12] MEDS: cefTRIAXone 2,000 MG in SODIUM CHLORIDE 0.9% 100 ML 200 MG IV (08:55)
[2022-04-12] MEDS: APIXABAN 5 MG TABLET PO ×2 (08:55→21:13)
[2022-04-12] MEDS: FOLIC ACID 1 MG TABLET PO (08:56)
[2022-04-12] MEDS: THIAMINE 100 MG TABLET PO (08:56)
[2022-04-12] MEDS: ZINC OXIDE OINT 60 GM 1 APPLIC TOP (09:07)
[2022-04-12] MEDS: INFLUENZA VACCINE QIV 0.5 ML SYRINGE IM (09:17)
[2022-04-12] MEDS: POTASSIUM CHLORIDE IN WATER 10 MEQ/100 ML PIGGYBACK 100 MEQ IV ×4 (09:50→14:54)
--- NOTE | 2022-04-12 11:25 | P.PN_ITS ---
Subjective Subjective Date Patient Seen: 04/12/22 Interval history: Today she feels much improved. She feels the best she has in years. She opened up about relationship struggles at home, and endorsed constantly racing thoughts and anxiety. She previously did well with lorazepam with her prior PCP. She has been stuck at home with depression and no desire to get out but now realizes that sometimes she needs some distance. She is motivated to improve. Exam Vital Signs (past 8 hours): - 04/12/22 04:00 04/12/22 05:50 04/12/22 06:12 Temperature 97.0 F L Pulse Rate 60 60 Respiratory Rate 18 18 Blood Pressure 99/61 108/61 Pulse Oximetry 96 97 95 Oxygen Delivery Method Room Air Oxygen Flow Rate 0 04/12/22 08:51 04/12/22 08:54 04/12/22 08:00 Temperature 97.6 F Pulse Rate 60 60 Respiratory Rate 18 Blood Pressure 101/55 L 101/55 L Pulse Oximetry 95 95 Oxygen Delivery Method Room Air Oxygen Flow Rate 0 0 Oxygen Delivery Method Room Air Oxygen Flow Rate 0 Narrative Exam Narrative: Gen: Alert, oriented, well-developed 61 y.o. female, appears older than stated age HEENT: normocephalic, atraumatic, conjunctiva clear, sclera non-icteric, oral mucosa pink and moist Neck: supple, full ROM, no JVD, trachea is midline Resp: Lungs CTA, non-labored breathing CV: RRR, no murmur or rubs Abd: soft, non-tender, normoactive BTs Skin: no lesions or rashes, dry and intact Neuro: Alert and oriented X 4 w/no focal deficits. Strength is +5/5 in UE and LE bilaterally. No reported deficits in sensation to light touch. Speech clear and coherent. Extremities: No edema or joint effusions Psyche: Talkative, more upbeat that previous. Objective Labs Result Diagrams: 04/12/22 06:33 04/12/22 06:33 Labs: Laboratory Results - last 24 hr 04/11/22 04/11/22 04/11/22 07:07 21:20 22:50 WBC RBC Hgb Hct MCV MCH MCHC RDW Plt Count Neut % (Auto) Lymph % (Auto) [place] % (Auto) Eos % (Auto) Baso % (Auto) Neut # (Auto) Lymph # (Auto) [place] # (Auto) Eos # (Auto) Baso # (Auto) RBC Morphology Anisocytosis Macrocytosis Sodium Potassium 2.7 L* Chloride Carbon Dioxide BUN Creatinine Estimated GFR BUN/Creatinine Ratio Glucose Calcium Magnesium < 0.2 L* 2.6 H Total Bilirubin Conjugated Bilirubin Unconjugated Bilirubin AST ALT Alkaline Phosphatase Total Protein Albumin Globulin Albumin/Globulin Ratio Vitamin B12 C. difficile Tox (PCR) 04/12/22 04/12/22 04/12/22 06:30 06:33 06:33 WBC 9.8 RBC 2.40 L Hgb 9.7 L Hct 27.2 L MCV 113.4 H MCH 40.4 H MCHC 35.7 RDW 17.8 H Plt Count 320 Neut % (Auto) 77.8 H Lymph % (Auto) 15.[address] [place] % (Auto) 3.4 Eos % (Auto) 2.3 Baso % (Auto) 1.0 Neut # (Auto) 7600 H Lymph # (Auto) 1500 [place] # (Auto) 300 Eos # (Auto) 200 Baso # (Auto) 100 RBC Morphology See below Anisocytosis 1+ H Macrocytosis 2+ H Sodium 127 L Potassium 2.6 L* Chloride 89 L Carbon Dioxide 32 BUN 7 Creatinine 0.49 L Estimated GFR > 60 BUN/Creatinine Ratio 14.3 Glucose 87 Calcium 7.1 L Magnesium Total Bilirubin 1.7 H Conjugated Bilirubin 0.0 Unconjugated Bilirubin 1.2 H AST 45 H ALT 27 Alkaline Phosphatase 145 H Total Protein 5.4 L Albumin 2.4 L Globulin 3.0 Albumin/Globulin Ratio 0.8 L Vitamin B12 C. difficile Tox (PCR) 04/12/22 06:33 WBC RBC Hgb Hct MCV MCH MCHC RDW Plt Count Neut % (Auto) Lymph % (Auto) [place] % (Auto) Eos % (Auto) Baso % (Auto) Neut # (Auto) Lymph # (Auto) [place] # (Auto) Eos # (Auto) Baso # (Auto) RBC Morphology Anisocytosis Macrocytosis Sodium Potassium Chloride Carbon Dioxide BUN Creatinine Estimated GFR BUN/Creatinine Ratio Glucose Calcium Magnesium Total Bilirubin Conjugated Bilirubin Unconjugated Bilirubin AST ALT Alkaline Phosphatase Total Protein Albumin Globulin Albumin/Globulin Ratio Vitamin B12 365 C. difficile Tox (PCR) [facility] Medical History (Updated 04/12/22 @ 00:00 by ) Afib Anticoagulated Atrial fibrillation, transient Chronic renal insufficiency Diabetes type 2, controlled ETOH abuse Fracture of distal end of fibula Heart failure Morbid obesity Pacemaker PEA (Pulseless electrical activity) (10/16/17) Sleep apnea in adult Surgical History History of third molar tooth extraction Hx of ventral hernia repair (08/12/19) Status post colonoscopy Status post surgery (07/26/10) Status post surgery (12/07/14) Family History (Updated 10/31/21 @ 23:51 by ANA PAULA Cerda) Father Diabetes mellitus Mother Diabetes mellitus Hyperlipidemia Hypertension Breast cancer Social History household members: spouse Smoking Status: Former smoker alcohol intake: current Assessment & Plan Assessment & Plan narrative: Smamie Luong is admitted for sepsis associated with a urinary tract infection and multiple electrolyte derangements. 1. Sepsis with elevated lactate, elevated bilirubin, and hypotension secondary to urinary source - SOFA score of 3 due to noted organ dysfunction above. - was on zosyn empirically, narrowed to ceftriaxone, will continue 5 days total therapy. Can transition to orals on discharge. 2. Hypokalemia, Severe hypomagnesemia, acute and present on admission - low Mg and K on admit. Repeat Mg <0.2 but now improved with significant repletion. K remains low today at 2.6. - continue repletion - suspect electrolyte derangements have contributed to her worsening weakness. 3. Depression and anxiety, uncontrolled, present on admission - resume paroxetine 30 mg daily - consider additional antidepressants, given no SI or HI, can defer psychiatry evaluation to outpatient setting. - will start lorazepam 1 mg BID prn for now to help with anxiety. 4. Essential hypertension, chronic BP slightly on the low side today, hold home amlodipine and continue medication adjustments as needed. 5. Chronic Atrial fibrillation anticoagulated on apixaban Continue/resume apixaban 5 mg po bid Continue/resume digoxin 125 mcg daily 6. Weakness - suspect progressive weakness in setting of electrolyte abnormalities and deconditioning in setting of depression. - no focal exam findings to suggest spinal pathologies at this time (good b/l LE strength in bed and no sensory deficits) - B12 365, MMA pending, she is on Multivitamin, Folate, Thiamine. - continue PT/OT. - alcohol use also contributing 7. Alcohol use and mild alcoholic hepatitis - suspect mild alcoholic hepatitis with AST 70 and mild bilirubin elevation. Continuing to improve - check INR to evaluate discriminant function, though do not suspect need for steroids at this time given only mild AST elevation. 8. Myocardial injury - TTE 10/2021 with a normal EF 9. Chronic hyponatremia, stable Patient is admitted to the inpatient service due to the severity of disease, risks of further disease progression and this stay is expected to exceed 2 midnights. Dispo: likely SNF, pending PT / OT Code status: ?Full code as discussed with the patient who identifies her Santos as her surrogate and POA. [X] I have utilized all available immediate resources to obtain, update, or review of the patient's current medications MIPS - Admit I confirm the patient?s Advance Care Plan is present, Code status is documented, Surrogate decision maker is in patient?s record: Yes Time Spent With Patient Critical Care time: I spent a total of [] minutes of critical care time on this patient's care today; this time is exclusive of procedural time. Quality VTE Deep Vein Thrombosis/Pulmonary Embolism Present on Admission: No
--- NOTE | 2022-04-12 11:30 | PT.IIE ---
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) Surgical History (Last Reviewed 10/31/21 @ 23:11 by ANA PAULA Cerda) History of third molar tooth extraction Hx of ventral hernia repair (08/12/19) Status post colonoscopy Status post surgery (07/26/10) Status post surgery (12/07/14) Medical History (Last Updated 04/10/22 @ 21:56 by ANA PAULA Cerda) Afib Anticoagulated Atrial fibrillation, transient Chronic renal insufficiency Diabetes type 2, controlled ETOH abuse Fracture of distal end of fibula Heart failure Morbid obesity Pacemaker PEA (Pulseless electrical activity) (10/16/17) Sleep apnea in adult Physical Therapy Inpatient Evaluation/Re-Eval M1 PT/OT-IP Prior Functional Status Start: 04/11/22 12:18 Freq: NEEDED Status: Active Protocol: Document 04/12/22 11:30 [facility] Medical Review Prior Functional Status Medical History Reviewed Yes Communication able to make needs known Mobility and Gait pt stated that she is modified independent with all mobilities and ambualtion without AD indoors but uses a FWW for outdoor mobility Social History Household Members spouse Living Arrangements Mobile home Number of Floors (Floors) One Floor Number of Stairs To Enter/Railing? ramp to enter Home Environment Standard Height Toilet,Tub/ Shower Home Equipment Front Wheel Walker,Shower Seat with Backrest Additional Social History Comment pt stated that spouse does not assist her M2 PT-IP Current Condition Start: 04/11/22 12:18 Freq: NEEDED Status: Active Protocol: Document 04/12/22 11:30 AB (Rec[facility]12[facility]22 [facility] Physical Therapy Current Condition Current Condition Evaluation Date 04/12/22 Treatment Diagnosis UTI; sepsis; difficulty in walking Onset Date 04/10/22 M3 PT-IP Subjective Start: 04/11/22 12:18 Freq: NEEDED Status: Active Protocol: Document 04/12/22 11:30 AB (Rec: 04/12/22 13:11 AB [email or web address]) Subjective Physical Therapy Visit Type Type Initial Evaluation Visit Start Time 11:30 Visit Stop Time 12:00 Total Visit Minutes 30 Number of PLANNER/SCHEDULER Visits 0 Physical Therapy Visit Comments Patient Comments agreeable to do PT M4 PT-IP Mobility and Gait Start: 11/01/22 12:18 Freq: NEEDED Status: Active Protocol: Document 04/12/22 11:30 AB (Rec: 04/12/22 13:11 AB [email or web address]) PT-Bed Mobility Assessment Supine to Sit Supine to Sit Minimal Assistance,Head of Bed Elevated PT-Transfer Assessment Sit to and From Stand Sit to and from Stand Moderate Assistance,1 Person Assistance,Use of Upper Extremities Equipment Transfer Assistive Device Gait Belt,Front Wheeled Walker Orthotic/Prosthetic Devices or Brace: No Transfers Transfer Destination Chair Transfer Technique Stand Step Pivot Transfer Ability Level of Assist Moderate Assistance,1 Person Assistance,Use of Upper Extremities Comments Mobility Comments BP in supine: 91/54. completed supine to sit min A and HOB elevated. pt able to sit on EOB SBA. no c/o dizziness/ lightheadedness. BP in sitting : 102/68. completed sit to stand mod A and cues and step transfer to chair using FWW mod A and cues. pt refused to ambulate. positioned pt on chair. call light and table placed within reach. PT-Balance Assessment Sitting Balance and Reactions Static Sitting Balance Ability Good Dynamic Sitting Balance Ability Fair Standing Balance and Reactions Static Standing Balance Ability Fair Dynamic Standing Balance Ability Poor Device Used FWW M5 PT-IP Objective Assessments Start: 04/11/22 12:18 Freq: NEEDED Status: Active Protocol: Document 04/12/22 11:30 AB (Rec: 04/12/22 13:11 AB [id number]) Orientation Orientation/Cognition Level of Alertness Alert Orientation Name Language Function Ability No Deficits Noted Safety Awareness Decreased Safety Awareness Memory Description Short Term Impaired Gross Range of Motion Lower Extremity ROM Assessment Within Functional Limits Strength Lower Extremity Strength Hip 3+/5 Knee 3+/5 Coordination Assessment Gross Coordination Gross Coordination WNL Muscle Tone Muscle Tone WNL Yes M6 PT-IP Treatment Start: 04/11/22 12:18 Freq: NEEDED Status: Active Protocol: Document 04/12/22 11:30 AB (Rec: 04/12/22 13:11 AB [email or web address]) Physical Therapy Treatment Education Education Provided Safety M7 PT-IP Assessment and Plan Start: 04/11/22 12:18 Freq: NEEDED Status: Active Protocol: Document 04/12/22 11:30 AB (Rec: 04/12/22 13:11 AB [email or web address]) PT Summary Assessment and Plan Potential Rehabilitation Potential Fair Status of Condition at Evaluation Evolving Summary Impairments Pain,ROM,Strength,Balance, Coordination,Sensation,Tone, Cognition,Bed Mobility, Transfers,Gait,Activity Tolerance Assessment Summary pt requiring mod A with transfers using FWW and presents with decrease activity tolerance affecting mobility level. pt will require SNF rehab to improve overall strength and functional independence. will continue to assess progress. Goals Bed Mobility Goal Standby Assistance Transfer Goal Standby Assistance,Front Wheeled Walker Gait Goal Standby Assistance,Front Wheel Walker Gait Distance 50 Other Goals improve bed mobility, transfers and ambulation using FWW 150 ft mod I Days to Meet Goals 10 Frequency of Treatment Frequency Of Treatment Once a Day Treatment Plan Physical Therapy Treatment Plan Bed Mobility Training,Transfer Training,Gait Training, Therapeutic Exercise,Balance Retraining,Discharge Planning, Hot or Cold Pack,Neuromuscular Re-ed,Coordination Retraining Precautions Other Precautions falls Recommendations To Nursing Amount of Assist Needed 1 Person Assist Discharge Recommendations PT Discharge Recommendations SNF Rehab Transportation Needs at Discharge Wheelchair/Cabulance
--- NOTE | 2022-04-12 13:28 | OT.IP.EVAL ---
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) Past Medical History (Last Updated 04/10/22 @ 21:56 by ANA PAULA Cerda) Afib Anticoagulated Atrial fibrillation, transient Chronic renal insufficiency Diabetes type 2, controlled ETOH abuse Fracture of distal end of fibula Heart failure Morbid obesity Pacemaker PEA (Pulseless electrical activity) (10/16/17) Sleep apnea in adult Surgical History (Last Reviewed 10/31/21 @ 23:11 by ANA PAULA Cerda) History of third molar tooth extraction Hx of ventral hernia repair (08/12/19) Status post colonoscopy Status post surgery (07/26/10) Status post surgery (12/07/14) Occupational Therapy Inpatient Evaluation/Re-Eval M1 PT/OT-IP Prior Functional Status Start: 04/11/22 12:18 Freq: NEEDED Status: Active Protocol: Document 04/12/22 13:10 [facility] (Rec: 04/12/22 13:45 [facility] [id number]) Medical Review Prior Functional Status Medical History Reviewed Yes Communication able to make needs known Mobility and Gait pt stated that she is modified independent with all mobilities and ambulation without AD indoors but uses a FWW for outdoor mobility Activities of Daily Living and IADL's Pt states able to do all her ADL and IADl needs 1.5 months ago and has recently gotten so that she is not able to get out of bed. Social History Household Members spouse Living Arrangements Mobile home Number of Floors (Floors) One Floor Number of Stairs To Enter/Railing? ramp to enter Home Environment Standard Height Toilet,Tub/ Shower Home Equipment Front Wheel Walker,Shower Seat with Backrest Additional Social History Comment pt stated that spouse does not assist her M2 OT-IP Current Condition Start: 04/12/22 13:29 Freq: Status: Active Protocol: Document 04/12/22 13:10 [facility] (Rec: 04/12/22 13:45 [facility] [id number]) Occupational Therapy Current Condition Current Condition Evaluation Date 04/12/22 Treatment Diagnosis Sepsis/UTI Diagnosis Onset Date 04/10/22 M3 OT- IP Subjective and Pain Start: 04/12/22 13:29 Freq: Status: Active Protocol: Document 04/12/22 13:10 [facility] (Rec: 04/12/22 13:45 [facility] [id number]) OT- Subjective Occupational Therapy Visit Type Type Initial Evaluation Visit Start Time 13:10 Visit Stop Time 13:28 Total Visit Minutes 18 Occupational Therapy Visit Comments Patient Comments Pt wanting to get back to bed. Patient/Caregiver Goals TO get better and motivated to go to skilled rehab. OT Pain Assessment Pain When Pain Assessed At Rest Pain Present Pain Present Pain Reported M4 OT- IP ADL's Start: 04/12/22 13:29 Freq: Status: Active Protocol: Document 04/12/22 13:10 [facility] (Rec: 04/12/22 13:45 [facility] [id number]) OT [id number] Comments OT Self-Feeding Comments NOt at meal time. OT ADL-Grooming Comments OT Grooming Comments Pt able to do while sitting in the recliner. OT ADL-Oral Care General Eval Oral Care Ability Independent Areas of Assistance Retrieving/Set-Up of Items OT ADL-Dressing General Eval Lower Body Dressing Ability Maximum Assistance Comments OT Dressing Comments Nursing aid assisting with brief change. Pt states at home just wears long shirt and disposable briefs. Pt states does not go anywhere, therefore she is barefooted all the time. OT ADL-Toileting Comments OT Toileting Comments Pt not having to go at this time. OT ADL-Bathing Comments OT Bathing Comments Sponge bath more appropriate due to decreased activity tolerance. M5 OT- IP IADL's Start: 04/12/22 13:29 Freq: Status: Active Protocol: Document 04/12/22 13:10 [facility] (Rec: 04/12/22 13:45 [facility] [id number]) OT-Instrumental Activities of Daily Living Home Safety Awareness Ability to Problem Solve Emergency Able to Problem Solve Situations Medication Management Medication Management Comments Pt states does her own from pill bottles at home but not sure where they are. Pt will benefit from assist. Money Management Money Management Comments Pt states does her own, at this time would benefit form assist. Meal Preparation Meal Preparation Caregiver Provides Assist 911 Dispatcher 911 Dispatcher Caregiver Provides Assist M6 OT- IP Functional Cognition Start: 04/12/22 13:29 Freq: Status: Active Protocol: Document 04/12/22 13:10 [facility] (Rec: 04/12/22 13:45 [facility] [id number]) Cognitive Factors Limiting Selfcare Function Cognitive Ability Level of Alertness Alert Patient Orientation Name,Place,Situation Attention Span Ability Capable of Focused Attention, Capable of Sustained Attention Ability to Follow Commands Able to Follow One Step Commands Cognitive Comments Cognitive Assessment Comments Pt able to follow commands for task of ADl and mobility needs. Pt would benefit from a formal cognitive eval. OT- Vision and Hearing OT- Hearing Assessment OT- Hearing Assessment Use of Hearing Aids OT- Vision Assessment Visual Acuity Glasses All The Time Vision Assessment Comments Glasses not here at [facility]. M7 OT- IP Mobility and Balance Start: 04/12/22 13:29 Freq: Status: Active Protocol: Document 04/12/22 13:10 [facility] (Rec: 04/12/22 13:45 [facility] [id number]) OT- Bed Mobility Assessment Sit to Supine Sit to Supine Assist Minimal Assistance OT-Transfer Assessment Sit to and From Stand Sit to and from Stand Moderate Assistance Transfers Transfer Ability Moderate Assistance Technique Transfer Destination Bed,Chair Transfer Technique Stand Step Pivot Devices Transfer Assistive Devices Gait Belt,Front Wheeled Walker Comments Mobility Comments MODA to stand to FWW and assist to guide the FWW and for pt's balance. OT- Balance Assessment Sitting Balance and Reactions Static Sitting Balance Ability Good Dynamic Sitting Balance Ability Fair Standing Balance and Reactions Static Standing Balance Ability Fair Dynamic Standing Balance Ability Poor M8 OT- IP Objective Assessments Start: 04/12/22 13:29 Freq: Status: Active Protocol: Document 04/12/22 13:10 [facility] (Rec: 04/12/22 13:45 [facility] [id number]) OT Gross Range of Motion Upper Extremity Range of Motion Assessment Within Functional Limits OT Strength Upper Extremity Strength Assessment Within Functional Limits OT- Coordination Assessment Upper Extremity Finger to Nose Test Within Functional Limits OT-Muscle Tone Assessment Muscle Tone WNL Yes M9 OT- IP Assessment and Plan Start: 04/12/22 13:29 Freq: Status: Active Protocol: Document 04/12/22 13:10 [facility] (Rec: 04/12/22 13:45 [facility] [id number]) OT Summary Assessment and Plan Potential Rehabilitation Potential Good Analytic Complexity at Evaluation Moderate Summary OT Impairments Balance,Coordination, Functional Cognition, Functional Mobility,Self- Feeding,Grooming,Dressing, Toileting,Bathing,Toilet Transfers Progress Towards Goals Slow Progress due to Medical Issues,Slow Progress due to Activity Tolerance Assessment Summary Pt MOD complexity and here due to Sepsis/UTI and main barriers are mainly decreased activity tolerance and now needing assist for all needs of mobility and ADL's. Pt will greatly benefit from skilled rehab to get back to prior level of independence with ADL and mobility needs. Goals Self-Feeding Goal Independent Grooming Goal Independent Dressing Goal Independent Toileting Goal Independent Bathing Goal Standby Assistance Toilet Transfer Goal Independent Shower Transfer Goal Contact Guard Assistance Days to Meet Goals 20 Frequency of Treatment Frequency Of Treatment Once a Day Treatment Plan OT Treatment Plan ADL Training,Functional Cognition Training,Functional Mobility,Patient/Family Education,Discharge Planning Other Treatment Recommendations and Next shower Treatment Focus Discharge Recommendations OT Discharge Recommendations SNF Rehab Transportation Needs at Discharge Wheelchair/Cabulance
--- NOTE | 2022-04-12 13:57 | CM.DPC ---
Addendum entered by Dasha Castellano 04/12/22 14:31: DIRECT SALES PROFESSIONAL also calls [facility] and leaves inquiring about patient's Medicaid status, DIRECT SALES PROFESSIONAL requests return call. (Ph.# [phone]) RENÉ Velasquez Original Note: DCP Continued DIRECT SALES PROFESSIONAL and DCP Lamar, RN enter room to meet with patient. DCPs discuss that [facility] will be unable to accept patient due to need for booster vaccine and lack of availability. DCPs discuss that [facility] is reviewing patient. Patient indicates understanding and agrees that she will need SNF rehab upon d/c. DCPs ask patient if patient has Medicaid insurance or services, patient states no. DCPs discuss Medicaid application process with patient. Patient indicates increase in filling out Medicaid application tomorrow. [facility] currently reviewing patient, patient engaged in PT and OT today. Queta faxed OT and PT notes to Leandra at [facility]. Plan: Continue to f/u with [facility] for SNF rehab, provide patient with Medicaid application and fax it when complete. Patient to continue to work with PT and OT. RENÉ Velasquez
--- NOTE | 2022-04-12 14:31 | CM.DPC ---
Addendum entered by Vandana Patel R.N. 04/12/22 15:45: Confirmed that Cheyenne will initiate auth for [employer], since she has one isolation room. Called Leandra at [facility] and let her know that Cheyenne is initiating auth. Addendum entered by Vandana Patel R.N. 04/12/22 15:22: Paulette from [facility] [employer] called back and confirmed that patient has not completed Medicaid application. Will need to give one to patient to fill out. She was tired today, wanted to wait until tomorrow. Cheyenne at [facility] called back, stated that she still does not think that she can get COVID booster, but can get a quarantine room for patient. She will still confirm about booster, and she may be able to initiate auth. Will also follow up with Leandra at [facility] first. Original Note: DCP Cont: Spoke to Cheyenne at [facility]. Confirmed that the main barrier for patient going there is not having booster available, and isolation rooms. She is going to check with her staff to see if they can get a vial of the COVID booster, would have by tonight. If she can, then she may be able to accept this patient pending auth. Called Leandra at [facility]. She stated that she has to still review with her team. Left a message with [facility], with Paulette, to see if application has been submitted. Will have an answer today whether Cheyenne can get vaccine, or if not, if Leandra at [facility] can accept. P: DCP to work on getting patient to [facility] versus [facility]. Vandana Patel RN/Rail Signal Worker
[2022-04-12] MEDS: LORazepam 1 MG TABLET PO (17:37)
[2022-04-12] MEDS: SODIUM CHLORIDE 0.9% FLUSH 10 ML IV (21:13)
--- NOTE | 2022-04-12 21:48 | PC.NURSE ---
Patient is alert and oriented. Breath sounds CTA with RA sat of 96%. HR irregular and telemetry reading was afib CVR + V-paced. BT present and abdomen is soft. Incontinent of loose brown stool. Indwelling catheter is patent; urine is clear, yellow. Is able to turn herself in bed. Gait not assessed but reportedly up to chair with walker and 2 assists using pivot turn; bilateral lower extremity weakness. Skin between buttocks very reddened and appears that superficial skin is gone; cleansed and zinc barrier cream applied. Is wearing bilateral BILLY stockings but has removed SCD's stating she is unable to sleep with her legs tied down. Denies pain. CIWA score is 0. Fall risk score is high and bed alarm is activated.
[2022-04-13 03:35] VITALS: BP 144/76; PULSE 72; RESP 19; TEMP 36.7; O2SAT 98
[2022-04-13 06:05] LABS: Add Manual Diff / Slide Review NO; Basophils Absolute Auto 100 /uL (0-100); Basophils Percent Auto 0.8 % (0-2); Eosinophils Absolute Auto 200 /uL (0-450); Eosinophils Percent Auto 2.5 % (2-4); Hematocrit 27.7 % (36-46); Hemoglobin 9.6 g/dL (12.0-16.0); Lymphocytes Absolute Auto 1500 /uL (1100-4500); Lymphocytes Percent Auto 14.8 % (25-40); Mean Corpuscular HGB Conc 34.5 % (30-36); Mean Corpuscular Hemoglobin 39.4 PG (26-34); Mean Corpuscular Volume 114.2 fL (80-100); Monocytes Absolute Auto 400 /uL (0-900); Monocytes Percent Auto 3.8 % (3-14); Neutrophils Absolute Auto 7800 /uL (1500-7000); Neutrophils Percent Auto 78.1 % (50-75); Platelet Count 347 X10^3/uL (150-400); Red Blood Cell Count 2.43 X10^6/uL (4.0-5.2); Red Cell Distribution Width 17.5 % (11.6-14.8)
[2022-04-13 06:10] LABS: INR 1.5 (0.9-1.3); Prothrombin Time 16.7 SECONDS (10.1-12.7)
[2022-04-13 06:14] LABS: Alanine Aminotransferase 26 IU/L (<35); Albumin 2.5 g/dL (3.5-5.0); Albumin Globulin Ratio 0.8 (1.0-2.8); Alkaline Phosphatase 139 U/L (38-126); Aspartate Aminotransferase 44 IU/L (14-36); Bilirubin Total 1.2 mg/dL (0.2-1.3); Bilirubin Unconjugated 0.8 mg/dL (0.0-1.1); HEMOLYSIS 21 (0-50); Total Protein 5.5 g/dL (6.3-8.2)
[2022-04-13 06:16] LABS: BUN Creatinine Ratio 9.4 (6-22); Blood Urea Nitrogen 5 mg/dL (7-17); Calcium 7.7 mg/dL (8.4-10.2); Carbon Dioxide 32 mmol/L (22-32); Chloride 91 mmol/L (98-107); Estimated Glomerular Filt Rate > 60 mL/min (>60); Glucose 85 mg/dL (80-110); HEMOLYSIS 22 (0-50); Potassium 3.3 mmol/L (3.4-5.1); Sodium 129 mmol/L (137-145)
[2022-04-13 06:24] LABS: Anisocytosis 1+
[2022-04-13 06:25] LABS: Macrocytosis 2+; Stomatocytes 1+
[2022-04-13 07:00] VITALS: BP 110/64; PULSE 76; RESP 18; TEMP 36.4; O2SAT 98
--- NOTE | 2022-04-13 08:07 | CM.DPC ---
DCP Cont: Received VM stating that pt is authorized to go to [facility] per [facility]. Auth# [id number]. DCP to continue to follow and assist with discharging. Paulette Ibrahim RN/DCP
[2022-04-13] MEDS: cefTRIAXone 2,000 MG in SODIUM CHLORIDE 0.9% 100 ML 200 MG IV (08:57)
[2022-04-13 08:58] VITALS: BP 110/64; PULSE 71
[2022-04-13] MEDS: DIGOXIN 0.125 MG TABLET PO (08:58)
[2022-04-13] MEDS: MULTIVITAMIN 1 TABLET 1 TAB PO (08:58)
[2022-04-13] MEDS: METOPROLOL IR 50 MG TABLET PO (08:58)
[2022-04-13] MEDS: FOLIC ACID 1 MG TABLET PO (08:58)
[2022-04-13] MEDS: APIXABAN 5 MG TABLET PO (08:58)
[2022-04-13] MEDS: PARoxetine 20 MG TABLET 30 MG PO (08:58)
[2022-04-13] MEDS: THIAMINE 100 MG TABLET PO (08:58)
[2022-04-13] MEDS: SODIUM CHLORIDE 0.9% FLUSH 10 ML IV (08:59)
[2022-04-13 09:00] VITALS: O2SAT 97
[2022-04-13 09:54] LABS: COVID19 -Nasal RAPID Negative (Negative)
--- NOTE | 2022-04-13 10:27 | PM.DS.1 ---
History of Present Illness History of Present Illness Date Patient Seen: 04/13/22 Chief complaint: Weakness, depression, sepsis Narrative: ANA PAULA Obrien: Sammie Luong is a 61-year-old female with history of atrial fibrillation anticoagulated on Eliquis, congestive heart failure, sleep apnea, paced and unsuccessful history of cardioversions, obesity and sleep apnea, presented today for generalized weakness.? She says she fell face down about a month ago and complains her nose still hurts and she has of very mild bruise and swelling on her forehead.? She says she was walking after she fell on her head. Today she says she can not walk she has not really been able to get up and walk for about a week.?States she has been very depressed, gets shut down and spends all day in bed. She states she has no appetite, but does have 2 cocktails daily. She has a bedside commode she frequently can not get to her bedside commode stating her does not help her.? She was found covered in feces.? Today she was the 1 that called 911 his she is too weak.? She says that she has not had a bowel movement in 8 days although she was covered in urine and stool.? She denies any fever or chills, nausea or vomiting, chest pain, shortness of breath.?She says she generally just can not care for herself at this time not sure why.? Previously she was independent. She states she gets tearful as her parents about 5 years ago, very close together. Chest xray reported multiple old rib fractures, CT of the head reported a right nasal bone fracture, CT of the abdomen/pelvis reported stool distension, colonic diverticulosis, C-spine CT was negative and Face CT confirmed bilateral fracture of the nasal bones. She is afebrile, blood pressure is 116/76, heart rate 76, respiratory rate 18, oxygen saturation of 97% on room air she weighs 97 kg with a BMI of 34.4. She is got a mildly elevated WBC of 13 hemoglobin 11.7 hematocrit 32.2 platelet count 415 neutrophils 10,100 she has macrocytosis and stomatocytes present in the peripheral smear, sodium 125 potassium 1.9 chloride 69 bicarb 37 glucose 127 lactate was initially 6.8 and is 6.0 on repeat, total bilirubin 1.7 calcium 8.1 magnesium 1.4 AST 80 ALT 38 alk-phos 191 troponin was 0.43 she had a normal procalcitonin UA is positive for UTI and will be cultured, alcohol level was 140 and COVID-19 PCR is negative. Discharge Providers Provider Date of admission: 04/10/22 22:16 Discharge Date: 04/13/22 Primary care physician: Romeo Curry MD Consults: 04/10/22 18:21 Consult to [facility] Laboratory Apparatus [employer] Blower Stat Comment: lives with spouse, unable to leave house/drive 04/10/22 22:48 Consult to [facility] Laboratory [employer] Blower Routine Comment: 04/11/22 07:39 Consult to Occupational Therapy Evaluate & Treat Comment: Physician Instructions: Evaluate and treat Consult to Physical Therapy Evaluate & Treat Comment: Physician Instructions: Evaluate and Treat Discharge provider: Celestino Brizuela DO Summary Hospital Course Discharge Diagnosis: Please see hospital course by problem list noted below: Hospital Course: 1. Sepsis with elevated lactate, elevated bilirubin, and hypotension secondary to urinary source ?- SOFA score of 3 due to noted organ dysfunction above. ?- was on zosyn empirically, narrowed to ceftriaxone on HD#1, will continue antibiotics for 5 days total therapy. She was transitioned to oral antibiotics upon transfer to SNF at discharge with augmetin as cultures showed a sotomayor-sensitive E. coli. - patient was deconditioned in the setting of sepsis, EtOH use, and depression. Transferred to SNF for continued therapies. 2. Hypokalemia, Severe hypomagnesemia, acute and present on admission ?- low Mg and K on admit. Repeat Mg <0.2 but now improved with significant repletion. K improved to 3.3 at the time of discharge. ?- continue repletion twice daily at the time of discharge. ?- suspect electrolyte derangements have contributed to her worsening weakness. - suspect depression and sepsis have contributed to her electrolyte abnormalities. 3. Depression and anxiety, uncontrolled, present on admission ? - resumed paroxetine 30 mg daily ? - consider additional antidepressants, though given no SI or HI, can defer psychiatry evaluation to outpatient setting. She would benefit from behavioral health and cognitive behavioral therapy. ?- restarted previous lorazepam 1 mg BID prn to help with anxiety. 4. Essential hypertension, chronic ?BP slightly on the low side, held home amlodipine for now and continue medication adjustments as needed. 5. Chronic Atrial fibrillation anticoagulated on apixaban ?Continue/resume apixaban 5 mg po bid ?Continue/resume digoxin 125 mcg daily 6. Weakness - suspect progressive weakness in setting of electrolyte abnormalities and deconditioning in setting of depression. - no focal exam findings to suggest spinal pathologies at this time (good b/l LE strength in bed and no sensory deficits) - B12 365, MMA pending, she is on Multivitamin, Folate, Thiamine. ?- continue PT/OT at SNF ?- alcohol use also contributing 7. Alcohol use and mild alcoholic hepatitis ?- suspect mild alcoholic hepatitis with AST 70 and mild bilirubin elevation. Continuing to improve ?- INR 1.5, no need for steroids based on low Discriminant function. 8. Myocardial injury ?- TTE 10/2021 with a normal EF 9. Chronic hyponatremia, stable Time Spent with Patient Time spent: Greater than 30 minutes Exam Vital Signs (past 8 hours): - 04/13/22 03:35 04/13/22 07:00 04/13/22 08:58 Temperature 98.0 F 97.5 F L Pulse Rate 72 76 71 Respiratory Rate 19 18 Blood Pressure 144/76 H 110/64 110/64 Pulse Oximetry 98 98 Oxygen Flow Rate 0 0 Oxygen Delivery Method Room Air Oxygen Flow Rate 0 Narrative Exam Narrative: Gen: Alert, oriented, well-developed 61 y.o. female, appears older than stated age HEENT: normocephalic, atraumatic, conjunctiva clear, sclera non-icteric, oral mucosa pink and moist Neck: supple, full ROM, no JVD, trachea is midline Resp: Lungs CTA, non-labored breathing CV: RRR, no murmur or rubs Abd: soft, non-tender, normoactive BTs Skin: no lesions or rashes, dry and intact Neuro: Alert and oriented X 4 w/no focal deficits. Strength is +5/5 in UE and LE bilaterally. No reported deficits in sensation to light touch. Speech clear and coherent. Extremities: No edema or joint effusions Psyche: Talkative, more upbeat that previous. Objective Labs Result Diagrams: 04/13/22 05:53 04/13/22 05:53 Labs: Laboratory Results - last 24 hr 04/13/22 04/13/22 04/13/22 05:53 05:53 05:53 WBC 10.0 RBC 2.43 L Hgb 9.6 L Hct 27.7 L MCV 114.2 H MCH 39.4 H MCHC 34.5 RDW 17.5 H Plt Count 347 Neut % (Auto) 78.1 H Lymph % (Auto) 14.8 L Nicholas % (Auto) 3.8 Eos % (Auto) 2.5 Baso % (Auto) 0.8 Neut # (Auto) 7800 H Lymph # (Auto) 1500 Nicholas # (Auto) 400 Eos # (Auto) 200 Baso # (Auto) 100 RBC Morphology See below Anisocytosis 1+ H Macrocytosis 2+ H Stomatocytes 1+ H PT INR Sodium 129 L Potassium 3.3 L Chloride 91 L Carbon Dioxide 32 BUN 5 L Creatinine 0.53 Estimated GFR > 60 BUN/Creatinine Ratio 9.4 Glucose 85 Calcium 7.7 L Total Bilirubin 1.2 Conjugated Bilirubin 0.0 Unconjugated Bilirubin 0.8 AST 44 H ALT 26 Alkaline Phosphatase 139 H Total Protein 5.5 L Albumin 2.5 L Globulin 3.0 Albumin/Globulin Ratio 0.8 L SARS-CoV-2 (PCR) 04/13/22 04/13/22 05:53 09:10 WBC RBC Hgb Hct MCV MCH MCHC RDW Plt Count Neut % (Auto) Lymph % (Auto) Nicholas % (Auto) Eos % (Auto) Baso % (Auto) Neut # (Auto) Lymph # (Auto) Nicholas # (Auto) Eos # (Auto) Baso # (Auto) RBC Morphology Anisocytosis Macrocytosis Stomatocytes PT 16.7 H INR 1.5 H Sodium Potassium Chloride Carbon Dioxide BUN Creatinine Estimated GFR BUN/Creatinine Ratio Glucose Calcium Total Bilirubin Conjugated Bilirubin Unconjugated Bilirubin AST ALT Alkaline Phosphatase Total Protein Albumin Globulin Albumin/Globulin Ratio SARS-CoV-2 (PCR) Negative [facility] Medical History (Updated 04/13/22 @ 00:00 by ) Afib Anticoagulated Atrial fibrillation, transient Chronic renal insufficiency Diabetes type 2, controlled ETOH abuse Fracture of distal end of fibula Heart failure Morbid obesity Pacemaker PEA (Pulseless electrical activity) (10/16/17) Sleep apnea in adult Surgical History History of third molar tooth extraction Hx of ventral hernia repair (08/12/19) Status post colonoscopy Status post surgery (07/26/10) Status post surgery (12/07/14) Family History (Updated 10/31/21 @ 23:51 by ANA PAULA Cerda) Father Diabetes mellitus Mother Diabetes mellitus Hyperlipidemia Hypertension Breast cancer Social History household members: spouse Smoking Status: Former smoker alcohol intake: current Discharge Plan Discharge Plan Patient Disposition: SNF Provider Discharge Comment: 61 Female admitted with sepsis secondary to UTI. Improved with antibiotics. Also dealing with depression and anxiety. Discharge orders & Medications Prescriptions: New acetaminophen 325 mg Tablet 650 mg PO Q6H PRN (Reason: Fever/Mild Pain (1-3)) Qty: 60 0RF folic acid 1 mg Tablet 1 mg PO DAILY 30 Days Qty: 30 0RF lorazepam 1 mg Tablet 1 mg PO BID PRN (Reason: Anxiety) 30 Days Qty: 60 0RF multivitamin with folic acid [Tab-A-John] 400 mcg Tablet 1 tab PO DAILY 30 Days Qty: 30 0RF thiamine mononitrate (vit B1) 100 mg Tablet 100 mg PO DAILY 30 Days Qty: 30 0RF zinc oxide 20 % Ointment 1 applic topical BID PRN (Reason: skin irritation) Qty: 56 0RF amoxicillin-pot clavulanate 875-125 mg tablet 1 tab PO BID 2 Days Qty: 4 0RF Continued Eliquis 5 mg tablet 5 mg PO BID Label Comments: Taking occasionally' digoxin 125 mcg (0.125 mg) tablet 125 mcg PO DAILY paroxetine HCl 30 mg tablet 30 mg PO DAILY metoprolol tartrate 50 mg tablet 50 mg PO DAILY Discontinued amlodipine 5 mg tablet 5 mg PO DAILY chlorthalidone 25 mg tablet 25 mg PO DAILY Follow up/Referrals: Romeo Curry MD [Primary Care Provider] - Discharge Health Status Multidrug resistant organism: No MDRO Precautions: Peculiar Diet/Activity/Treatments Diet: Diet as Tolerated Liquid consistency: Normal/Thin Food texture: Regular Activity: As tolerated Special Rehabilitation Services Reason for rehabilitation: Recovery r/t decondition Rehab type: Physical therapy and Occupational therapy Discharge Data Primary Care Provider: Romeo Curry Quality VTE Deep Vein Thrombosis/Pulmonary Embolism Present on Admission: No
--- NOTE | 2022-04-13 10:39 | CM.DPC ---
DCP Cont: DCP received news that patient is ready for discharge today. [facility] contacted and notified. [facility] verbalized they could accept today @ 1400. All required documentation will be sent once available. COVID swab ordered. DCP went to talk with patient and inquire about Medicaid application. Pt states, I cant do it right now. Will do later. DCP verbalized that she is leaving today @ 1400. Pt aware. Pt stated if she does not fill it out now, she will take the application with her and fill it out another time. Paulette Ibrahim RN/DCP
[2022-04-13 11:00] VITALS: BP 103/59; PULSE 64; RESP 18; TEMP 35.7; O2SAT 97
[2022-04-13] MEDS: POTASSIUM CHLORIDE 20 MEQ TAB 40 MEQ PO (11:51)
--- NOTE | 2022-04-13 11:52 | PT-IP ANOTE ---
Attempted to see pt at 11:45, pt refused PT due to fatigue and upcoming transfer to SNF.
--- NOTE | 2022-04-13 13:19 | OT.IPNOTE ---
Attempted to see pt , pt on the bed sotomayor and waiting to go to skilled rehab soon.
--- NOTE | 2022-04-13 14:55 | PC.NURSE ---
Pt discharged at 1430, escorted off floor in wheelchair, accompanied by hospital staff and [facility]. IV removed, tele d/c'd, discharge paperwork sent with patient. Report called to Clarice at [facility]. All belongings left with patient.
[2022-04-15 16:08] LABS: Methylmalonic Acid,Serum 222 nmol/L (0-378)
== END 2022-04-13 14:57 | DRG 871 ==
LOC: ED 21:40 → AC 22:17
PROVIDERS: Internal Medicine; Admitting Provider Nurse Practitioner Family; Emergency Provider Emergency Medicine; Family Provider Internal Medicine; PCP Internal Medicine; Referring Provider Emergency Medicine; Visit Provider Nurse Practitioner Family
DX: A41.9 Sepsis, unspecified organism (principal); R65.21 Severe sepsis with septic shock; N39.0 Urinary tract infection, site not specified; I48.20 Chronic atrial fibrillation, unspecified; E87.1 Hypo-osmolality and hyponatremia; I5A Non-ischemic myocardial injury (non-traumatic); F10.20 Alcohol dependence, uncomplicated; F32.A Depression, unspecified; I10 Essential (primary) hypertension; E87.6 Hypokalemia; E83.42 Hypomagnesemia; F41.9 Anxiety disorder, unspecified; K70.10 Alcoholic hepatitis without ascites; B96.20 Unspecified Escherichia coli [E. coli] as the cause of diseases classified elsewhere; S02.2XXA Fracture of nasal bones, initial encounter for closed fracture; S00.83XA Contusion of other part of head, initial encounter; W19.XXXA Unspecified fall, initial encounter; Y90.6 Blood alcohol level of 120-199 mg/100 ml; Z20.822 Contact with and (suspected) exposure to COVID-19; Z87.891 Personal history of nicotine dependence; Z79.01 Long term (current) use of anticoagulants; Z23 Encounter for immunization
CPT/HCPCS: 36415; 70450; 70486; 71045; 72125; 74177; 80048; 80053; 80076; 80320; 81001; 82550; 82607; 83605; 83690; 83735; 83921; 84132; 84145; 84484; 85025; 85610; 87040; 87077; 87086; 87186; 87493; 87635; 90471; 90656; 93005; 96365; 96367; 96368; 96375; 97162; 97166; 99285; C9803; J0696; J2543; J3475; Q2038; Q9967

== ENCOUNTER 2022-06-27 05:32 | Emergency (ER) | payer OTHER, SELFPAY ==
[2017-10-16 00:19] VITALS: PULSE 87; RESP 24; O2SAT 100
[2022-04-10 22:29] VITALS: BMI 34.4
[2022-06-27] VITALS (95 sets, daily range): BP systolic 81–126; BP diastolic 45–84; PULSE 85–179; RESP 11–96; TEMP 36.5–36.9; O2SAT 73–100; BMI 34.3
--- NOTE | 2022-06-27 05:47 | ED_ITS ---
HPI - General Adult <Tabitha Davison MD - Last Filed: 07/03/22 18:11> General Chief complaint: Weakness Time Seen by Provider: 06/27/22 05:47 History of Present Illness HPI narrative: 62-year-old woman brought in by medics complaining that she is been ?on the f haylie for a month?. She notes that she has not been taking any of her medications for the last 3 weeks. She reports that her has been bringing her alcohol but she has not been eating. Medics report significant disarray in the home. Reportedly this woman was on the floor able to move over to a pile of clothes to urinate. Moderate amounts of stool across the floor. reportedly was available and in the living room watching television. Patient reports that she just does not feel well and thinks she might . She does not report fevers or vomiting. She does not report diarrhea. She does not report any cough. She does note moderate diffuse abdominal pain. No headache and she is completely alert and appropriate and, in fact, rather engaging. Related Data Home Medications Medication Instructions Recorded Confirmed metoprolol tartrate 50 mg tablet 50 mg PO DAILY 07/11/18 04/10/22 apixaban 5 mg tablet (Eliquis) 5 mg PO BID 08/05/19 04/10/22 digoxin 125 mcg (0.125 mg) tablet 125 mcg PO DAILY 04/10/22 04/10/22 paroxetine HCl 30 mg tablet 30 mg PO DAILY 04/10/22 04/10/22 Previous Rx's Medication Instructions Recorded acetaminophen 325 mg tablet 650 mg PO Q6H PRN Fever/Mild Pain 04/13/22 (1-3) #60 tabs zinc oxide 20 % topical ointment 1 applic topical BID PRN skin 04/13/22 irritation #56 grams Allergies Allergy/AdvReac Type Severity Reaction Status Date / Time ketamine AdvReac Unknown hallucinati Verified 04/26/21 18:50 ons Review of Systems <Tabitha Davison MD - Last Filed: 07/03/22 18:11> Review of Systems Narrative: Remainder of complete review of systems is otherwise unremarkable except for that included in the HPI. Patient History <Tabitha Davison MD - Last Filed: 07/03/22 18:11> Medical History Afib Anticoagulated Atrial fibrillation, transient Chronic renal insufficiency Diabetes type 2, controlled ETOH abuse Fracture of distal end of fibula Heart failure Morbid obesity Pacemaker PEA (Pulseless electrical activity) (10/16/17) Sleep apnea in adult Surgical History History of third molar tooth extraction Hx of ventral hernia repair (08/12/19) Status post colonoscopy Status post surgery (07/26/10) Status post surgery (12/07/14) Family History Father Diabetes mellitus Mother Diabetes mellitus Hyperlipidemia Hypertension Breast cancer Social History household members: spouse Smoking Status: Former smoker alcohol intake: current Smoking Status: Former smoker alcohol intake frequency: 0-2 drinks per day Substance Use Type: marijuana Exam <Tabitha Davison MD - Last Filed: 07/03/22 18:11> Initial Vital Signs Initial Vital Signs: Vital Signs Temperature 97.8 F 06/27/22 05:37 Pulse Rate 85 06/27/22 05:37 Respiratory Rate 16 06/27/22 05:37 Blood Pressure 84/48 L 06/27/22 05:37 Pulse Oximetry 100 06/27/22 05:37 Oxygen Delivery Method 06/27/22 05:37 General: Chronically ill-appearing, fatigued dramatically jaundiced HEENT: Moist mucous membranes, normal sclera with reactive pupils, Neck: No JVD, supple, no cervical adenopathy Respiratory: Lungs are clear to auscultation, no wheezing no rales no rhonchi. Full and symmetrical air movement Cardiac: Regular rate and rhythm no murmurs no bruits Abdomen: Soft, mild distention, hepatomegaly without tenderness, no rebound or guarding, no flank pain Skin: Dramatically jaundiced. Some skin breakdown over the left side of her buttocks and minor breakdown between her buttock cheeks. Stool that is noticeable is not black. Skin cason from urine and stool. Neurologic: Globally weak, moving all extremities, GCS 15 does not appear to be acutely intoxicated Extremities: Bilateral lower extremity edema, significant debris over the posterior thighs and mixed in with her feet and toes. Onychodystrophy Psych: Cooperative, non pressured speech, poor overall insight <Barrett Boston DO - Last Filed: 06/27/22 17:52> Initial Vital Signs Initial Vital Signs: Vital Signs Temperature 97.8 F 06/27/22 05:37 Pulse Rate 85 06/27/22 05:37 Respiratory Rate 16 06/27/22 05:37 Blood Pressure 84/48 L 06/27/22 05:37 Pulse Oximetry 100 06/27/22 05:37 Oxygen Delivery Method 06/27/22 05:37 General: Chronically ill-appearing, fatigued dramatically jaundiced HEENT: Moist mucous membranes, normal sclera with reactive pupils, Neck: No JVD, supple, no cervical adenopathy Respiratory: Lungs are clear to auscultation, no wheezing no rales no rhonchi. Full and symmetrical air movement Cardiac: Regular rate and rhythm no murmurs no bruits Abdomen: Soft, mild distention, hepatomegaly without tenderness, no rebound or guarding, no flank pain Skin: Dramatically jaundiced. Some skin breakdown over the left side of her buttocks and minor breakdown between her buttock cheeks. Stool that is noti ceable is not black. Skin cason from urine and stool. RECTAL: no bleeding, HEME NEG, no fissure or hemorrhoid. Performed with female nursing tin cutter and patient permission Neurologic: Globally weak, moving all extremities, GCS 15 does not appear to be acutely intoxicated Extremities: Bilateral lower extremity edema, significant debris over the posterior thighs and mixed in with her feet and toes. Onychodystrophy Psych: Cooperative, non pressured speech, poor overall insight Procedures <Tabitha Davison MD - Last Filed: 07/03/22 18:11> Central Line Placement Right IJ: Time of procedure: 09:08 Time Out Performed: Yes Patient Placed on Monitor/Pulse Ox: Yes Prep: mask, gown and gloves Central Line Prep: Chlorhexidine scrub and sterile drapes applied Local Anesthetic: lidocaine 1% Amount of anesthesia used (mL): 3 Ultrasound Used for Placement: Yes Central Line Lumen Inserted: triple Post Procedure: sutured in place, good blood return, all ports aspirated, flushed, capped and sterile dressing applied Post Procedure X-Ray: tip of catheter in good position and no pneumothorax seen Patient Tolerated Procedure: Well Complications: none Course <Tabitha Davison MD - Last Filed: 07/03/22 18:11> Orders Ordered: Discontinued Medications Hydromorphone HCl (Hydromorphone 0.5 Mg Inj) 0.5 mg IV NOW ONE Stop: 06/27/22 08:31 Last Admin: 06/27/22 08:33 Dose: 0.5 mg Documented By: CTS Sodium Chloride (Normal Saline 0.9%) 1,000 mls @ 1,000 mls/hr IV BOLUS ONE Stop: 06/27/22 06:49 Last Infusion: 06/27/22 07:46 Dose: 0 mls/hr Documented By: Admin: 06/27/22 05:55 Dose: 1,000 mls/hr Documented By: BS Thiamine HCl 200 mg/ Sodium (Chloride) 102 mls @ 408 mls/hr IV NOW ONE Stop: 06/27/22 05:57 Last Infusion: 06/27/22 07:47 Dose: 0 mls/hr Documented By: Admin: 06/27/22 07:26 Dose: 408 mls/hr Documented By: BS Sodium Chloride (Normal Saline 0.9%) 1,000 mls @ 1,000 mls/hr IV BOLUS ONE Stop: 06/27/22 07:47 Last Infusion: 06/27/22 07:47 Dose: 0 mls/hr Documented By: Admin: 06/27/22 06:30 Dose: 1,000 mls/hr Documented By: BS POTASSIUM CHLORIDE IN WATER (Potassium Cl 10 Meq/100 Ml Laya) 10 meq in 100 mls @ 100 mls/hr IV Q1H [place] Stop: 06/27/22 12:59 Last Infusion: 06/27/22 13:33 Dose: 0 mls/hr Documented By: Admin: 06/27/22 12:38 Dose: 100 mls/hr Documented By: Infusion: 06/27/22 12:38 Dose: 0 mls/hr Documented By: Admin: 06/27/22 11:46 Dose: 100 mls/hr Documented By: Infusion: 06/27/22 11:46 Dose: 0 mls/hr Documented By: Admin: 06/27/22 10:52 Dose: 100 mls/hr Documented By: Infusion: 06/27/22 10:52 Dose: 100 mls/hr Documented By: Admin: 06/27/22 09:55 Dose: 100 mls/hr Documented By: Infusion: 06/27/22 09:42 Dose: 100 mls/hr Documented By: Admin: 06/27/22 08:42 Dose: 100 mls/hr Documented By: Infusion: 06/27/22 08:25 Dose: 100 mls/hr Documented By: Admin: 06/27/22 07:25 Dose: 100 mls/hr Documented By: BS Piperacillin Sod/Tazobactam (Sod 4.5 gm/ Sodium Chloride) 100 mls @ 200 mls/hr IV NOW ONE Stop: 06/27/22 07:28 Last Infusion: 06/27/22 08:44 Dose: 0 mls/hr Documented By: Admin: 06/27/22 08:15 Dose: 200 mls/hr Documented By: ANT Magnesium Sulfate (Magnesium Sulfate) 2 gm in 50 mls @ 25 mls/hr IV NOW ONE Stop: 06/27/22 10:30 Last Infusion: 06/27/22 10:27 Dose: 0 mls/hr Documented By: ANT Co-signed By: JILLIAN Admin: 06/27/22 08:38 Dose: 25 mls/hr Documented By: ANT Co-signed By: JILLIAN NOREPINEPHRINE BITARTRATE/D5W (Levophed) 4 mg in 250 mls @ 30 mls/hr IV TITRATE SHAQUILLE; Protocol Last Titration: 06/27/22 13:20 Dose: 3 mcg/min, 11.25 mls/hr Documented By: Admin: 06/27/22 09:14 Dose: 4 mcg/min, 15 mls/hr Documented By: ANT POTASSIUM CHLORIDE IN WATER (Potassium Cl 10 Meq/100 Ml Laya) 10 meq in 100 mls @ 100 mls/hr IV Q1H [place] Stop: 06/27/22 22:59 Last Admin: 06/27/22 19:30 Dose: 100 mls/hr Documented By: Infusion: 06/27/22 19:29 Dose: 0 mls/hr Documented By: Admin: 06/27/22 18:30 Dose: 100 mls/hr Documented By: Infusion: 06/27/22 18:30 Dose: 0 mls/hr Documented By: Admin: 06/27/22 17:35 Dose: 100 mls/hr Documented By: Infusion: 06/27/22 17:32 Dose: 0 mls/hr Documented By: Admin: 06/27/22 16:28 Dose: 100 mls/hr Documented By: Infusion: 06/27/22 16:27 Dose: 0 mls/hr Documented By: Admin: 06/27/22 15:21 Dose: 100 mls/hr Documented By: JANE Magnesium Sulfate (Magnesium Sulfate) 2 gm in 50 mls @ 25 mls/hr IV NOW ONE Stop: 06/27/22 17:08 Last Infusion: 06/27/22 17:33 Dose: 0 mls/hr Documented By: JANE Co-signed By: LAYO(2) Admin: 06/27/22 15:21 Dose: 25 mls/hr Documented By: JANE Co-signed By: LAYO(2) Vital Signs Vital signs: Vital Signs - 8 hr 06/27/22 09:50 06/27/22 09:50 06/27/22 09:55 Temperature 98.1 F Pulse Rate 90 Respiratory Rate 13 Blood Pressure 102/65 90/66 Pulse Oximetry 95 06/27/22 09:55 06/27/22 10:00 06/27/22 10:00 Temperature 98.1 F 98.1 F Pulse Rate 88 93 H Respiratory Rate 19 14 Blood Pressure 93/73 Pulse Oximetry 96 95 06/27/22 10:05 06/27/22 10:05 06/27/22 10:10 Temperature 98.1 F Pulse Rate 103 H Respiratory Rate 20 Blood Pressure 104/66 103/55 L Pulse Oximetry 96 06/27/22 10:10 06/27/22 10:22 06/27/22 10:24 Temperature 98.1 F 98.1 F 98.1 F Pulse Rate 87 95 H 93 H Respiratory Rate 17 13 13 Blood Pressure 109/62 109/62 Pulse Oximetry 97 06/27/22 11:59 06/27/22 12:02 06/27/22 10:15 Temperature 98.2 F 98.2 F 98.1 F Pulse Rate 87 87 92 H Respiratory Rate 11 L 15 14 Blood Pressure 118/67 113/61 Pulse Oximetry 96 06/27/22 10:15 06/27/22 10:21 06/27/22 10:21 Temperature 98.1 F Pulse Rate 92 H Respiratory Rate 17 Blood Pressure 97/67 109/62 Pulse Oximetry 98 06/27/22 10:25 06/27/22 10:25 06/27/22 10:30 Temperature 98.1 F 98.1 F Pulse Rate 91 H 93 H Respiratory Rate 13 12 Blood Pressure 105/65 Pulse Oximetry 96 96 06/27/22 10:33 06/27/22 10:33 06/27/22 10:35 Temperature 98.1 F 98.1 F Pulse Rate 100 H 111 H Respiratory Rate 15 18 Blood Pressure 108/69 Pulse Oximetry 95 96 06/27/22 10:35 06/27/22 10:42 06/27/22 10:42 Temperature 98.1 F Pulse Rate 101 H Respiratory Rate 15 Blood Pressure 123/65 111/59 L Pulse Oximetry 97 06/27/22 10:45 06/27/22 10:45 06/27/22 10:50 Temperature 98.1 F 98.2 F Pulse Rate 95 H 99 H Respiratory Rate 12 20 Blood Pressure 107/71 Pulse Oximetry 96 97 06/27/22 10:50 06/27/22 10:55 06/27/22 10:55 Temperature 98.2 F Pulse Rate 100 H Respiratory Rate 13 Blood Pressure 117/74 117/74 Pulse Oximetry 97 06/27/22 11:00 06/27/22 11:00 06/27/22 11:05 Temperature 98.2 F 98.2 F Pulse Rate 99 H 97 H Respiratory Rate 15 12 Blood Pressure 110/71 Pulse Oximetry 97 97 06/27/22 11:05 06/27/22 11:10 06/27/22 11:10 Temperature 98.2 F Pulse Rate 96 H Respiratory Rate 12 Blood Pressure 103/66 114/69 Pulse Oximetry 97 06/27/22 11:15 06/27/22 11:15 06/27/22 11:20 Temperature 98.2 F 98.2 F Pulse Rate 90 95 H Respiratory Rate 15 12 Blood Pressure 103/69 Pulse Oximetry 96 96 06/27/22 11:20 06/27/22 11:25 06/27/22 11:25 Temperature 98.2 F Pulse Rate 94 H Respiratory Rate 11 L Blood Pressure 105/72 122/58 L Pulse Oximetry 96 06/27/22 11:30 06/27/22 11:30 06/27/22 11:35 Temperature 98.2 F 98.2 F Pulse Rate 93 H 93 H Respiratory Rate 11 L 11 L Blood Pressure 115/79 Pulse Oximetry 96 96 06/27/22 11:35 06/27/22 11:40 06/27/22 11:40 Temperature 98.2 F Pulse Rate 93 H Respiratory Rate 11 L Blood Pressure 118/69 120/70 Pulse Oximetry 97 06/27/22 11:45 06/27/22 11:45 06/27/22 11:50 Temperature 98.2 F 98.2 F Pulse Rate 94 H 101 H Respiratory Rate 11 L 14 Blood Pressure 118/78 Pulse Oximetry 96 98 06/27/22 11:50 06/27/22 11:55 06/27/22 11:55 Temperature 98.2 F Pulse Rate 95 H Respiratory Rate 14 Blood Pressure 124/63 118/67 Pulse Oximetry 96 06/27/22 12:00 06/27/22 12:00 06/27/22 12:18 Temperature 98.2 F 98.2 F Pulse Rate 90 94 H Respiratory Rate 12 20 Blood Pressure 113/61 119/66 Pulse Oximetry 96 06/27/22 12:25 06/27/22 12:25 06/27/22 12:30 Temperature 98.2 F Pulse Rate 103 H Respiratory Rate 18 Blood Pressure 113/58 L 124/69 Pulse Oximetry 98 06/27/22 12:30 06/27/22 12:35 06/27/22 12:35 Temperature 98.2 F 98.2 F Pulse Rate 103 H 98 H Respiratory Rate 15 23 Blood Pressure 108/71 Pulse Oximetry 98 97 06/27/22 12:45 06/27/22 13:00 06/27/22 13:15 Temperature 98.4 F Pulse Rate 97 H Respiratory Rate 12 Blood Pressure 126/59 L 124/66 Pulse Oximetry 96 06/27/22 13:15 06/27/22 13:35 06/27/22 13:45 Temperature 98.2 F 98.2 F Pulse Rate 94 H 104 H Respiratory Rate 96 H 15 Blood Pressure 119/70 106/58 L Pulse Oximetry 98 06/27/22 13:45 06/27/22 14:00 06/27/22 14:00 Temperature 98.2 F Pulse Rate 100 H Respiratory Rate 14 Blood Pressure 122/59 L 107/55 L Pulse Oximetry 96 06/27/22 14:15 06/27/22 14:15 06/27/22 14:30 Temperature 98.2 F Pulse Rate 99 H Respiratory Rate 13 Blood Pressure 122/56 L 112/55 L Pulse Oximetry 96 06/27/22 14:30 06/27/22 15:30 06/27/22 15:30 Temperature 98.2 F 98.2 F Pulse Rate 93 H 89 Respiratory Rate 14 16 Blood Pressure 110/62 Pulse Oximetry 97 96 06/27/22 15:45 06/27/22 15:45 06/27/22 16:00 Temperature 98.2 F Pulse Rate 96 H Respiratory Rate 15 Blood Pressure 106/66 94/59 L Pulse Oximetry 96 06/27/22 16:00 06/27/22 16:15 06/27/22 16:15 Temperature 98.2 F 98.2 F Pulse Rate 102 H 96 H Respiratory Rate 17 18 Blood Pressure 104/62 Pulse Oximetry 97 97 06/27/22 16:30 06/27/22 16:30 06/27/22 16:45 Temperature 98.2 F Pulse Rate 91 H Respiratory Rate 19 Blood Pressure 95/66 98/60 Pulse Oximetry 97 06/27/22 16:45 06/27/22 17:00 06/27/22 17:00 Temperature 98.2 F 98.2 F Pulse Rate 93 H 93 H Respiratory Rate 16 15 Blood Pressure 101/62 Pulse Oximetry 96 95 06/27/22 17:15 06/27/22 17:15 06/27/22 17:30 Temperature 98.2 F Pulse Rate 99 H Respiratory Rate 17 Blood Pressure 110/69 111/61 Pulse Oximetry 96 06/27/22 17:30 Temperature 98.2 F Pulse Rate 97 H Respiratory Rate 20 Blood Pressure Pulse Oximetry 97 <Barrett Boston, DO - Last Filed: 06/27/22 17:52> Course Course Narrative: MELD Score (Model For End-Stage Liver Disease) (12 and older) from [facility] [email or web address] on 06/27/2022 All calculations should be rechecked by clinician prior to use RESULT SUMMARY: 31 points MELD Score (2016)* 52.6% Estimated 3-Month Mortality INPUTS: Dialysis at least twice in the past week ?> 0 = No Creatinine ?> 1.58 mg/dL Bilirubin ?> 19.4 mg/dL INR ?> 1.4 Sodium ?> 126 mEq/L Orders Ordered: Discontinued Medications Hydromorphone HCl (Hydromorphone 0.5 Mg Inj) 0.5 mg IV NOW ONE Stop: 06/27/22 08:31 Last Admin: 06/27/22 08:33 Dose: 0.5 mg Documented By: ANT Sodium Chloride (Normal Saline 0.9%) 1,000 mls @ 1,000 mls/hr IV BOLUS ONE Stop: 06/27/22 06:49 Last Infusion: 06/27/22 07:46 Dose: 0 mls/hr Documented By: Admin: 06/27/22 05:55 Dose: 1,000 mls/hr Documented By: LAYO Thiamine HCl 200 mg/ Sodium (Chloride) 102 mls @ 408 mls/hr IV NOW ONE Stop: 06/27/22 05:57 Last Infusion: 06/27/22 07:47 Dose: 0 mls/hr Documented By: Admin: 06/27/22 07:26 Dose: 408 mls/hr Documented By: LAYO Sodium Chloride (Normal Saline 0.9%) 1,000 mls @ 1,000 mls/hr IV BOLUS ONE Stop: 06/27/22 07:47 Last Infusion: 06/27/22 07:47 Dose: 0 mls/hr Documented By: Admin: 06/27/22 06:30 Dose: 1,000 mls/hr Documented By: LAYO POTASSIUM CHLORIDE IN WATER (Potassium Cl 10 Meq/100 Ml Laya) 10 meq in 100 mls @ 100 mls/hr IV Q1H [place] Stop: 06/27/22 12:59 Last Infusion: 06/27/22 13:33 Dose: 0 mls/hr Documented By: Admin: 06/27/22 12:38 Dose: 100 mls/hr Documented By: Infusion: 06/27/22 12:38 Dose: 0 mls/hr Documented By: Admin: 06/27/22 11:46 Dose: 100 mls/hr Documented By: Infusion: 06/27/22 11:46 Dose: 0 mls/hr Documented By: Admin: 06/27/22 10:52 Dose: 100 mls/hr Documented By: Infusion: 06/27/22 10:52 Dose: 100 mls/hr Documented By: Admin: 06/27/22 09:55 Dose: 100 mls/hr Documented By: Infusion: 06/27/22 09:42 Dose: 100 mls/hr Documented By: Admin: 06/27/22 08:42 Dose: 100 mls/hr Documented By: Infusion: 06/27/22 08:25 Dose: 100 mls/hr Documented By: Admin: 06/27/22 07:25 Dose: 100 mls/hr Documented By: BS Piperacillin Sod/Tazobactam (Sod 4.5 gm/ Sodium Chloride) 100 mls @ 200 mls/hr IV NOW ONE Stop: 06/27/22 07:28 Last Infusion: 06/27/22 08:44 Dose: 0 mls/hr Documented By: Admin: 06/27/22 08:15 Dose: 200 mls/hr Documented By: ANT Magnesium Sulfate (Magnesium Sulfate) 2 gm in 50 mls @ 25 mls/hr IV NOW ONE Stop: 06/27/22 10:30 Last Infusion: 06/27/22 10:27 Dose: 0 mls/hr Documented By: ANT Co-signed By: JILLIAN Admin: 06/27/22 08:38 Dose: 25 mls/hr Documented By: ANT Co-signed By: JILLIAN NOREPINEPHRINE BITARTRATE/D5W (Levophed) 4 mg in 250 mls @ 30 mls/hr IV TITRATE SHAQUIL[place]; Protocol Last Titration: 06/27/22 13:20 Dose: 3 mcg/min, 11.25 mls/hr Documented By: MLOpal Admin: 06/27/22 09:14 Dose: 4 mcg/min, 15 mls/hr Documented By: ANT POTASSIUM CHLORIDE IN WATER (Potassium Cl 10 Meq/100 Ml Laya) 10 meq in 100 mls @ 100 mls/hr IV Q1H [place] Stop: 06/27/22 22:59 Last Admin: 06/27/22 19:30 Dose: 100 mls/hr Documented By: Infusion: 06/27/22 19:29 Dose: 0 mls/hr Documented By: Admin: 06/27/22 18:30 Dose: 100 mls/hr Documented By: Infusion: 06/27/22 18:30 Dose: 0 mls/hr Documented By: Admin: 06/27/22 17:35 Dose: 100 mls/hr Documented By: Infusion: 06/27/22 17:32 Dose: 0 mls/hr Documented By: Admin: 06/27/22 16:28 Dose: 100 mls/hr Documented By: Infusion: 06/27/22 16:27 Dose: 0 mls/hr Documented By: Admin: 06/27/22 15:21 Dose: 100 mls/hr Documented By: JANE Magnesium Sulfate (Magnesium Sulfate) 2 gm in 50 mls @ 25 mls/hr IV NOW ONE Stop: 06/27/22 17:08 Last Infusion: 06/27/22 17:33 Dose: 0 mls/hr Documented By: JANE Co-signed By: LAYO(2) Admin: 06/27/22 15:21 Dose: 25 mls/hr Documented By: JANE Co-signed By: LAYO(2) Vital Signs Vital signs: Vital Signs - 8 hr 06/27/22 09:50 06/27/22 09:50 06/27/22 09:55 Temperature 98.1 F Pulse Rate 90 Respiratory Rate 13 Blood Pressure 102/65 90/66 Pulse Oximetry 95 06/27/22 09:55 06/27/22 10:00 06/27/22 10:00 Temperature 98.1 F 98.1 F Pulse Rate 88 93 H Respiratory Rate 19 14 Blood Pressure 93/73 Pulse Oximetry 96 95 06/27/22 10:05 06/27/22 10:05 06/27/22 10:10 Temperature 98.1 F Pulse Rate 103 H Respiratory Rate 20 Blood Pressure 104/66 103/55 L Pulse Oximetry 96 06/27/22 10:10 06/27/22 10:22 06/27/22 10:24 Temperature 98.1 F 98.1 F 98.1 F Pulse Rate 87 95 H 93 H Respiratory Rate 17 13 13 Blood Pressure 109/62 109/62 Pulse Oximetry 97 06/27/22 11:59 06/27/22 12:02 06/27/22 10:15 Temperature 98.2 F 98.2 F 98.1 F Pulse Rate 87 87 92 H Respiratory Rate 11 L 15 14 Blood Pressure 118/67 113/61 Pulse Oximetry 96 06/27/22 10:15 06/27/22 10:21 06/27/22 10:21 Temperature 98.1 F Pulse Rate 92 H Respiratory Rate 17 Blood Pressure 97/67 109/62 Pulse Oximetry 98 06/27/22 10:25 06/27/22 10:25 06/27/22 10:30 Temperature 98.1 F 98.1 F Pulse Rate 91 H 93 H Respiratory Rate 13 12 Blood Pressure 105/65 Pulse Oximetry 96 96 06/27/22 10:33 06/27/22 10:33 06/27/22 10:35 Temperature 98.1 F 98.1 F Pulse Rate 100 H 111 H Respiratory Rate 15 18 Blood Pressure 108/69 Pulse Oximetry 95 96 06/27/22 10:35 06/27/22 10:42 06/27/22 10:42 Temperature 98.1 F Pulse Rate 101 H Respiratory Rate 15 Blood Pressure 123/65 111/59 L Pulse Oximetry 97 06/27/22 10:45 06/27/22 10:45 06/27/22 10:50 Temperature 98.1 F 98.2 F Pulse Rate 95 H 99 H Respiratory Rate 12 20 Blood Pressure 107/71 Pulse Oximetry 96 97 06/27/22 10:50 06/27/22 10:55 06/27/22 10:55 Temperature 98.2 F Pulse Rate 100 H Respiratory Rate 13 Blood Pressure 117/74 117/74 Pulse Oximetry 97 06/27/22 11:00 06/27/22 11:00 06/27/22 11:05 Temperature 98.2 F 98.2 F Pulse Rate 99 H 97 H Respiratory Rate 15 12 Blood Pressure 110/71 Pulse Oximetry 97 97 06/27/22 11:05 06/27/22 11:10 06/27/22 11:10 Temperature 98.2 F Pulse Rate 96 H Respiratory Rate 12 Blood Pressure 103/66 114/69 Pulse Oximetry 97 06/27/22 11:15 06/27/22 11:15 06/27/22 11:20 Temperature 98.2 F 98.2 F Pulse Rate 90 95 H Respiratory Rate 15 12 Blood Pressure 103/69 Pulse Oximetry 96 96 06/27/22 11:20 06/27/22 11:25 06/27/22 11:25 Temperature 98.2 F Pulse Rate 94 H Respiratory Rate 11 L Blood Pressure 105/72 122/58 L Pulse Oximetry 96 06/27/22 11:30 06/27/22 11:30 06/27/22 11:35 Temperature 98.2 F 98.2 F Pulse Rate 93 H 93 H Respiratory Rate 11 L 11 L Blood Pressure 115/79 Pulse Oximetry 96 96 06/27/22 11:35 06/27/22 11:40 06/27/22 11:40 Temperature 98.2 F Pulse Rate 93 H Respiratory Rate 11 L Blood Pressure 118/69 120/70 Pulse Oximetry 97 06/27/22 11:45 06/27/22 11:45 06/27/22 11:50 Temperature 98.2 F 98.2 F Pulse Rate 94 H 101 H Respiratory Rate 11 L 14 Blood Pressure 118/78 Pulse Oximetry 96 98 06/27/22 11:50 06/27/22 11:55 06/27/22 11:55 Temperature 98.2 F Pulse Rate 95 H Respiratory Rate 14 Blood Pressure 124/63 118/67 Pulse Oximetry 96 06/27/22 12:00 06/27/22 12:00 06/27/22 12:18 Temperature 98.2 F 98.2 F Pulse Rate 90 94 H Respiratory Rate 12 20 Blood Pressure 113/61 119/66 Pulse Oximetry 96 06/27/22 12:25 06/27/22 12:25 06/27/22 12:30 Temperature 98.2 F Pulse Rate 103 H Respiratory Rate 18 Blood Pressure 113/58 L 124/69 Pulse Oximetry 98 06/27/22 12:30 06/27/22 12:35 06/27/22 12:35 Temperature 98.2 F 98.2 F Pulse Rate 103 H 98 H Respiratory Rate 15 23 Blood Pressure 108/71 Pulse Oximetry 98 97 06/27/22 12:45 06/27/22 13:00 06/27/22 13:15 Temperature 98.4 F Pulse Rate 97 H Respiratory Rate 12 Blood Pressure 126/59 L 124/66 Pulse Oximetry 96 06/27/22 13:15 06/27/22 13:35 06/27/22 13:45 Temperature 98.2 F 98.2 F Pulse Rate 94 H 104 H Respiratory Rate 96 H 15 Blood Pressure 119/70 106/58 L Pulse Oximetry 98 06/27/22 13:45 06/27/22 14:00 06/27/22 14:00 Temperature 98.2 F Pulse Rate 100 H Respiratory Rate 14 Blood Pressure 122/59 L 107/55 L Pulse Oximetry 96 06/27/22 14:15 06/27/22 14:15 06/27/22 14:30 Temperature 98.2 F Pulse Rate 99 H Respiratory Rate 13 Blood Pressure 122/56 L 112/55 L Pulse Oximetry 96 06/27/22 14:30 06/27/22 15:30 06/27/22 15:30 Temperature 98.2 F 98.2 F Pulse Rate 93 H 89 Respiratory Rate 14 16 Blood Pressure 110/62 Pulse Oximetry 97 96 06/27/22 15:45 06/27/22 15:45 06/27/22 16:00 Temperature 98.2 F Pulse Rate 96 H Respiratory Rate 15 Blood Pressure 106/66 94/59 L Pulse Oximetry 96 06/27/22 16:00 06/27/22 16:15 06/27/22 16:15 Temperature 98.2 F 98.2 F Pulse Rate 102 H 96 H Respiratory Rate 17 18 Blood Pressure 104/62 Pulse Oximetry 97 97 06/27/22 16:30 06/27/22 16:30 06/27/22 16:45 Temperature 98.2 F Pulse Rate 91 H Respiratory Rate 19 Blood Pressure 95/66 98/60 Pulse Oximetry 97 06/27/22 16:45 06/27/22 17:00 06/27/22 17:00 Temperature 98.2 F 98.2 F Pulse Rate 93 H 93 H Respiratory Rate 16 15 Blood Pressure 101/62 Pulse Oximetry 96 95 06/27/22 17:15 06/27/22 17:15 06/27/22 17:30 Temperature 98.2 F Pulse Rate 99 H Respiratory Rate 17 Blood Pressure 110/69 111/61 Pulse Oximetry 96 06/27/22 17:30 Temperature 98.2 F Pulse Rate 97 H Respiratory Rate 20 Blood Pressure Pulse Oximetry 97 Medical Decision Making <Tabitha Davison MD - Last Filed: 07/03/22 18:11> Lab Data 06/27/22 13:40 06/27/22 13:40 Labs: Lab Results 06/27/22 06/27/22 06/27/22 Range/Units 05:20 05:20 07:19 WBC 10.8 (4.5-11.0) X10^3/uL RBC 1.60 L (4.0-5.2) X10^6/uL Hgb 6.7 L* (12.0-16.0) g/dL Hct 19.2 L* (36-46) % MCV 120.2 H (80-100) fL MCH 42.2 H (26-34) PG MCHC 35.1 (30-36) % RDW 20.2 H (11.6-14.8) % Plt Count 187 (150-400) X10^3/uL Neut % (Auto) 82.6 H (50-75) % Lymph % (Auto) 14.7 L (25-40) % [place] % (Auto) 2.3 L (3-14) % Eos % (Auto) 0.1 L (2-4) % Baso % (Auto) 0.3 (0-2) % Neut # (Auto) 8900 H (9821-6135) /uL Lymph # (Auto) 1600 (0251-5777) /uL [place] # (Auto) 200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
--- NOTE | 2022-06-27 05:53 | DI.RAD.S_ITS ---
PROCEDURE: XR CHEST 1V INDICATIONS: hypotension TECHNIQUE: One view of the chest was acquired. COMPARISON: [facility], CR, XR CHEST 1V, 06/27/2022, 7:14. [facility], CR, XR CHEST 1V, 04/10/2022, 18:28. [facility], CR, XR CHEST 1V, 11/10/2021, 12:32. FINDINGS: Surgical changes and devices: Left chest wall pulse generator with electrode lead in place. Lungs and pleura: Lungs are clear. No pleural effusions or pneumothorax. Mediastinum: Mediastinal contours appear normal. Heart size is normal. Bones and chest wall: No suspicious bony lesions. Overlying soft tissues appear unremarkable. IMPRESSION: No acute radiographic abnormality. Low lung volumes. No significant discrepancy from preliminary report. Dictated by: Mayank Jolly M.D. on 06/27/2022 at 8:11 Approved by: Mayank Jolly M.D. on 06/27/2022 at 8:12
[2022-06-27] MEDS: SODIUM CHLORIDE 0.9% 1,000 ML 1000 ML IV ×2 (05:55→06:30)
[2022-06-27 06:22] LABS: Alanine Aminotransferase 55 IU/L (<35); Alkaline Phosphatase 391 U/L (38-126); Aspartate Aminotransferase 334 IU/L (14-36); Bilirubin Total 19.4 mg/dL (0.2-1.3); Blood Urea Nitrogen 19 mg/dL (7-17); Calcium 7.7 mg/dL (8.4-10.2); Carbon Dioxide 27 mmol/L (22-32); Estimated Glomerular Filt Rate 37 mL/min (>60); Ethanol (ETOH) 209 mg/dL; Glucose 74 mg/dL (80-110); HEMOLYSIS < 15 (0-50); Lipase 87 U/L (23-300); Magnesium 1.4 mg/dL (1.6-2.3); Sodium 126 mmol/L (137-145)
[2022-06-27 06:29] LABS: Basophils Absolute Auto 0 /uL (0-100); Basophils Percent Auto 0.3 % (0-2); Eosinophils Absolute Auto 0 /uL (0-450); Eosinophils Percent Auto 0.1 % (2-4); Lymphocytes Absolute Auto 1600 /uL (1100-4500); Lymphocytes Percent Auto 14.7 % (25-40); Mean Corpuscular HGB Conc 35.1 % (30-36); Mean Corpuscular Hemoglobin 42.2 PG (26-34); Mean Corpuscular Volume 120.2 fL (80-100); Monocytes Absolute Auto 200 /uL (0-900); Monocytes Percent Auto 2.3 % (3-14); Neutrophils Absolute Auto 8900 /uL (1500-7000); Neutrophils Percent Auto 82.6 % (50-75); Platelet Count 187 X10^3/uL (150-400); Red Cell Distribution Width 20.2 % (11.6-14.8); White Blood Cell Count 10.8 X10^3/uL (4.5-11.0)
[2022-06-27 06:33] LABS: Troponin I 0.042 ng/mL (0.01-0.034)
[2022-06-27 06:38] LABS: Procalcitonin 1.53 ng/mL (<0.5)
[2022-06-27 06:40] LABS: Add Manual Diff / Slide Review SLIDE REVIEW; Hematocrit 19.2 % (36-46); Hemoglobin 6.7 g/dL (12.0-16.0)
[2022-06-27 06:46] LABS: Chloride 65 mmol/L (98-107); Potassium 1.7 mmol/L (3.4-5.1)
[2022-06-27 06:48] LABS: NT-proBNP (BNP-Adult 18+) 1460 pg/mL (<125)
--- NOTE | 2022-06-27 06:48 | DI.CT.S_ITS ---
PROCEDURE: CT ABDOMEN PELVIS W CON INDICATIONS: liver failure TECHNIQUE: After the administration of intravenous contrast, axial sections acquired from the lung bases to the pubic symphysis. Coronal and sagittal reformats were performed. For radiation dose reduction, the following was used: automated exposure control, adjustment of mA and/or kV according to patient size. COMPARISON: [facility], CT, CT ABDOMEN PELVIS W CON, 04/10/2022, 20:06. FINDINGS: Image quality: Good Lower chest: There are cardiac electrode leads. Basal atelectasis/scarring. Solid organs: Hepatic steatosis, subjectively worse than prior. Areas of hyperattenuation may represent hypervascularity or focal fatty sparing, for example in segment 6 (axial image 41) measuring 1 centimeter. Overall hepatomegaly. Hyperdense gallbladder contents and suspected wall thickening. No pathologic dilation of the biliary tree or pancreatic duct. No splenomegaly. No adrenal nodules. No hydronephrosis. Vessels and lymph nodes: The main portal vein is patent. No abdominal aortic aneurysm. Prominent, non-specific lymph nodes are present that are not enlarged by size criteria. Bowel and peritoneum: No bowel obstruction. No pathologic ascites. Moderate-size rectal stool ball, with some wall thickening. Colonic diverticula are present. Body wall: Small fat containing umbilical hernia, possible prior hernia repair. Pelvis: Not well evaluated on CT, overall unremarkable CT appearance. Under distended bladder with [place] in place. Bones: No acute or suspicious osseous finding. There are rib fractures, nonacute appearing, correlate for any point tenderness. IMPRESSION: Hepatomegaly and steatosis, increased from prior. Small areas of hyperattenuation may represent fatty sparing with differential including hypervascular liver lesions or perfusion anomalies. Consider non urgent MRI follow-up for further evaluation. Hyperdense gallbladder contents with wall thickening. Consider correlation with any of right upper quadrant symptoms and ultrasound if necessary. Suspected proctitis with rectal stool ball (stercoral colitis). Other findings as above. Dictated by: Mayank Jolly M.D. on 06/27/2022 at 8:03 Approved by: Mayank Jolly M.D. on 06/27/2022 at 8:11
--- NOTE | 2022-06-27 06:52 | DI.RAD.S_ITS ---
PROCEDURE: XR CHEST 1V INDICATIONS: post central line TECHNIQUE: One view of the chest was acquired. COMPARISON: [facility], CR, XR CHEST 1V, 06/27/2022, 5:57. FINDINGS: Surgical changes and devices: Right IJ central venous line with the catheter tip at the middle 3rd of the SVC, new. Left-sided pacemaker with a right ventricular lead. Lungs and pleura: Lungs are clear. No pleural effusions or pneumothorax. Mediastinum: Mediastinal contours appear normal. Heart size is normal. Bones and chest wall: No suspicious bony lesions. Overlying soft tissues appear unremarkable. IMPRESSION: Right IJ central venous line with the catheter tip at the middle 3rd of the SVC. No pneumothorax. Dictated by: Nicolas Parker M.D. on 06/27/2022 at 7:47 Approved by: Nicolas Parker M.D. on 06/27/2022 at 8:03
[2022-06-27 07:13] LABS: Macrocytosis 2+
[2022-06-27 07:14] LABS: Anisocytosis 2+
[2022-06-27 07:15] LABS: Stomatocytes 1+
[2022-06-27] MEDS: POTASSIUM CHLORIDE IN WATER 10 MEQ/100 ML PIGGYBACK 100 MEQ IV ×11 (07:25→19:30)
[2022-06-27] MEDS: THIAMINE 200 MG in SODIUM CHLORIDE 0.9% 100 ML 408 MG IV (07:26)
[2022-06-27 08:00] LABS: Appearance Urine UA CLOUDY; Bilirubin Urine UA 3+ (NEGATIVE); Color Urine UA BROWN; Glucose Urine UA TRACE g/dL (Negative); INR 1.4 (0.9-1.3); Ketones Urine UA TRACE (NEGATIVE); Leukocyte Esterase Urine UA 1+ (NEGATIVE); Nitrite Urine UA POSITIVE (Negative); Occult Blood Urine UA 2+ (Negative); Protein Urine UA 2+ (Negative); Prothrombin Time 16.5 SECONDS (10.1-12.7); Urobilinogen Urine UA >=8.0 E.U./dL (0.2)
[2022-06-27 08:15] LABS: pH Urine UA 6.5 (4.5-8.0)
[2022-06-27] MEDS: PIPERACILLIN/TAZO 4.5 GM in SODIUM CHLORIDE 0.9% 100 ML IV (08:15)
[2022-06-27 08:16] LABS: Bacteria Urine Many (>30); Ictotest Urine Positive (Negative); RBC Urine 5-10/HPF (0-5/HPF); Squamous Epithelial Cell Urine 1-5 /HPF (0-5/HPF); WBC Urine 10-30/HPF (0-5/HPF); White Blood Cell Casts Urine 1-5/LPF
[2022-06-27 08:17] LABS: Culture Indicated Urine Specimen Cultured
[2022-06-27 08:24] LABS: Lactate (Lactic Acid) 16.7 mmol/L (0.7-2.1)
[2022-06-27 08:28] LABS: Influenza A - CEPHEID Flu A NEGATIVE (NEGATIVE); Influenza B - CEPHEID Flu B NEGATIVE (NEGATIVE)
[2022-06-27 08:30] LABS: COVID-19 CEPHEID 4-PLEX PCR Negative (Negative)
[2022-06-27] MEDS: HYDROMORPHONE 0.5 MG INJ IV (08:33)
[2022-06-27 08:37] LABS: Ammonia (NH3) 21 umol/L (9-30)
[2022-06-27] MEDS: MAGNESIUM SULFATE 2 GM/50 ML PIGGYBACK IV ×2 (08:38→15:21)
[2022-06-27] MEDS: NOREPINEPHRINE BITARTRATE/D5W 4 MG/250 ML PLAST..BAG 15 MG IV (09:14)
--- NOTE | 2022-06-27 09:36 | DI.US.S_ITS ---
PROCEDURE: US ABDOMEN LIMITED INDICATIONS: GALLBLADDER THICKENING ON CT TODAY TECHNIQUE: Real-time focused scanning was performed of the abdomen, with image documentation. COMPARISON: [facility], CT, CT ABDOMEN PELVIS W CON, 06/27/2022, 7:41. FINDINGS: Hepatic steatosis is present. Liver measures 16.3 cm. There are several foci of decreased echogenicity within the gallbladder. Wall thickness is at the upper limits of normal measuring 3 mm. Focus of decreased echogenicity is noted in the anterior aspect of the wall. This is suspected to be related to a septation or fold in the gallbladder. IMPRESSION: Gallbladder wall is at the upper limits of normal. There are non mobile foci appearing most suggestive of polyps. Adherent stone versus sludge cannot be definitively excluded. Recommend clinical correlation as developing cholecystitis cannot be definitively excluded on the basis of this exam. Dictated by: Susanna Amador M.D. on 06/27/2022 at 10:56 Approved by: Susanna Amador M.D. on 06/27/2022 at 11:00
[2022-06-27 09:46] LABS: Reflexed Lactate in 2 Hours Y
[2022-06-27 11:20] LABS: Lactate 2HR (Lactic Acid Rflx) 17.3 mmol/L (0.7-2.1)
[2022-06-27 14:00] LABS: Hematocrit 25.9 % (36-46); Hemoglobin 8.9 g/dL (12.0-16.0)
[2022-06-27 14:35] LABS: Alanine Aminotransferase 54 IU/L (<35); Aspartate Aminotransferase 269 IU/L (14-36); BUN Creatinine Ratio 12.7 (6-22); Blood Urea Nitrogen 19 mg/dL (7-17); Calcium 7.2 mg/dL (8.4-10.2); Carbon Dioxide 21 mmol/L (22-32); Creatine Kinase 92 U/L (30-135); Estimated Glomerular Filt Rate 39 mL/min (>60); Glucose 67 mg/dL (80-110); HEMOLYSIS < 15 (0-50); Magnesium 1.8 mg/dL (1.6-2.3); Sodium 125 mmol/L (137-145)
[2022-06-27 14:41] LABS: Bilirubin Total 20.2 mg/dL (0.2-1.3); Chloride 73 mmol/L (98-107); Potassium 2.2 mmol/L (3.4-5.1)
[2022-06-27 14:46] LABS: Troponin I 0.036 ng/mL (0.01-0.034)
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
[2022-06-28 18:09] LABS: Acinetobacter baumannii Not Detected (Not Detect); Candida albicans Not Detected (Not Detect); Candida glabrata Not Detected (Not Detect); Candida krusei Not Detected (Not Detect); Candida parapsilosis Not Detected (Not Detect); Candida tropicalis Not Detected (Not Detect); E. coli Not Detected (Not Detect); Enterobacter cloacae complex Not Detected (Not Detect); Enterobacteriaceae species Not Detected (Not Detect); Enterococcus species Not Detected (Not Detect); Haemophilus influenzae Not Detected (Not Detect); Listeria monocytogenes Not Detected (Not Detect); Methicillin-resistant gene Detected (Not Detect); Neisseria meningitidis Not Detected (Not Detect); Proteus species Not Detected (Not Detect); Pseudomonas aeruginosa Not Detected (Not Detect); Serratia marcescens Not Detected (Not Detect); Staphylococcus species Detected (Not Detect); Streptococcus agalactiae (Gr B Not Detected (Not Detect); Streptococcus pneumonia Not Detected (Not Detect); Streptococcus pyogenes (Gr A) Not Detected (Not Detect); Streptococcus species Not Detected (Not Detect)
[2022-06-30 16:08] LABS: Albumin 3.2 g/dL (3.5-5.0); Albumin Globulin Ratio 0.8 (1.0-2.8); Globulin 3.8 g/dL (1.7-4.1)
== END 2022-06-27 19:30 | disposition short-term general hospital (02) ==
PROVIDERS: Emergency Medicine; Emergency Provider Emergency Medicine; Family Provider Internal Medicine; PCP Internal Medicine
DX: K72.00 Acute and subacute hepatic failure without coma (principal); E87.1 Hypo-osmolality and hyponatremia; R77.8 Other specified abnormalities of plasma proteins; E87.6 Hypokalemia; D64.9 Anemia, unspecified; N17.9 Acute kidney failure, unspecified; R79.89 Other specified abnormal findings of blood chemistry; F19.90 Other psychoactive substance use, unspecified, uncomplicated; L89.90 Pressure ulcer of unspecified site, unspecified stage; N39.0 Urinary tract infection, site not specified; E83.42 Hypomagnesemia; Z79.01 Long term (current) use of anticoagulants
CPT/HCPCS: 36415; 36430; 36569; 71045; 74177; 76705; 80048; 80053; 80320; 81001; 82140; 82247; 82550; 83605; 83690; 83735; 83880; 84145; 84450; 84460; 84484; 85014; 85018; 85025; 85610; 86850; 86900; 86901; 87040; 87077; 87086; 87150; 87186; 87635; 93005; 96365; 96366; 96367; 96368; 96375; 99285; 99291; 99292; C9803; P9016; J1170; J2543; J3475; Q9967